=== PATIENT | female | born 1945 | race Caucasian/White ===

== ENCOUNTER 2018-08-25 11:50 | Outpatient (RCR) | payer MEDICARE, OTHER, SELFPAY ==
--- NOTE | 2018-08-25 13:39 | HP.PTEVAL_ITS ---
Patient's Visit Information KARLA WAY is a 73 year old F referred to Physical Therapy by Fadi Chinchilla MD with a diagnosis of SACROILIITIS. Date of Evaluation: 08/25/18 Physical Therapist: Ann Simon PT, Cert MDT - Visit Plan Frequency: 2-3x /Week Duration: 4-6 Weeks Plan: RIGHT BUTTOCK US. POSTURE CORRECTION/STRENGTHENING, INSTRUCTION IN APPROPRIATE BODY MECHANICS AND ACTIVITY MODIFICATIONS. DLS STARTING WITH A NEUTRAL SPINE PROGRESSING ROM TOLERATED. KAYLYN LE ROM, STRETCHING AND STRENGTHENING. HEP INSTRUCTION. - Subjective Findings: Work/Leisure: SEMI-RETIRED. 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 Disability: NO. Present symptoms: RIGHT BUTTOCK PAIN AND PATIENT POINTS TO HER RIGHT BUTTOCK REGION CLOSE TO HER ISHIAL TUBEROSITY. PATIENT REPORTS THE PAIN IS STARTING (BURING) IN THE LEFT BUTTOCK TOO WHICH HAS STARTED SINCE SEEING DR. CHINCHILLA LAST (ABOUT A WEEK). Present since: JANUARY 2018. Pain Scale: WORST 6/10, LEAST 0/10. Currently: 0/10. Commenced as a result of: NO APPARENT REASON. Symptoms at onset: RIGHT HIP. Worse: SITTING ON HARD SURFACES, WALKING A LOT, STANDING AND STEPS. Better: SITTING ON SOMETHING SOFT. Disturbed sleep: NO. Previous history/Previous treatment: CORTISONE SHOT IN JANUARY 2018 - HELPED FOR ABOUT 2-3 WEEKS ONLY. APPOINTMENT PENDING Sep WITH CONSULT WITH DR. CARCAMO FOR INJECTION. NO HISTORY OF BACK PROBLEMS OR TREATMENTS. NO BACK SURGERY, NO BACK INJECTIONS AND NO CHIROPRACTOR. NO HIS SURGERY. Coughing/sneezing/straining: NO. Gait: LIMP ON RIGHT LEG AND FEET FURTHER APART - JUST SINCE THIS CAME ON IN JANUARY. Difficulty initiating urinatin: NO. Accidents: NO MVA'S. FELL LAST SUMMER AT [employer] ON LEFT HIP AND SEEMED TO ONLY BRUISE IT. Unexplained weight loss: NO. Imaging: JANUARY 2018 X-RAY SHOWED RIGHT HIP BURSITIS. PMH: RIGHT TKR 2010, HTN, HIGH CHOLESTEROL, GLAUCOMA. PLOF (Prior Level of Function): PATIENT WAS ABLE TO SIT, TRAVEL, SO STEPS, STAND AND WALK LONGER WITHOUT RIGHT HIP/BACK PAIN PRIOR TO APPROX JANUARY 2018 - Objective Sitting/Standing Posture: POOR. DECREASED LORDOSIS BUT NO RELEVENT LATERAL SHIFT. Active Correction of posture: NE. Other Observations: INDEP GAIT INTO PT WITH DECREASED CADANCE AND MILD LIMP ON LLE WITH NO LOB AND NO AD'S. Motor deficit: LEFT HIP 4/5, LEFT KNEE EXT 4/5, KNEE FLEX 4-/5, ANKLE 5/5. RIGHT HIP FLEX 4-/5, KNEE EXT 3-/5 (EXTENSOR LAG WITH SLR), KNEE FLEX 3-/5, ANKLE 5/5. TESTING OF RIGHT HAMSTRING PROVOKES RIGHT BUTTOCK PAIN AND TESTING OF LEFT HAMSTRINGS PROVOKES LEFT BUTTOCK PAIN. PATIENT CAN MUCH MORE EASILY DO A SLR ON THE LEFT COMPARED TO THE RIGHT. SHE CAN ALSO FLEX HER LEFT KNEE MUCH BETTER IN PRONE THAN SHE CAN THE RIGHT. Sensory deficit: NO. ROM deficit: KAYLYN LE'S WFL. Dural Signs: NEGATIVE KAYLYN LE'S. Lumbar mvmt loss: flex - MIN - INCREASES LEFT BUTTOCK PAIN. ext - MOD - NE. R SG - MOD - NE. L SG - MIN - PRODUCES CENTRAL LBP. Core strength: POOR. Palpation: NO ACUTE TENDERNESS WITH PALPATION OF THE LUMBAR REGION, SI JOINTS, SACRUM OR GREATER TROCH REGIONS. - Goals Goal 1:: DECREASE C/O RIGHT BUTTOCK PAIN Goal Time Frame: 4-6 Weeks Goal 2:: IMPROVE SITTING, STANDING, WALKING, STAIR CLIMBING AND TRAVEL FUNCTION Goal Time Frame: 4-6 Weeks Goal 3:: INSTRUCT IN PROPHYLAXIS Goal Time Frame: 4-6 Weeks - Rehabilitation Potential Rehabilitation Potential: Fair - Anticipated Interventions Patient/Client Instruction: Educate patient on: Condition, Plan of Care, Risk Factors, Benefits of Fitness Program For the Purpose of:: To improve self management Therapeutic Exercise to Include: Strength training, Body mechanics, Postural training, Flexibilty training, In an aquatic setting, Dynamic Lumbar Stabilization For the Purpose of:: To decrease pain, To improve nutrient delivery to tissue, To improve muscle performance and motor function, To increase tolerance to activity/condition/position, To improve ability of physical actions for home/community/work/leisure Ultrasound (thermal/non thermal): Yes For the Purpose of:: To decrease pain, To decrease swelling/inflammation, To improve nutrient delivery to tissue Thank you for the opportunity to evaluate your patient. For Medicare and Medicare HMO plans, please review the plan of care and approve it. It will need to be FAXED BACK to us at [phone] for Medicare purposes. For Medicare only, by signing this I certify the plan of care. Please let me know if there are questions or concerns regarding this plan of care. Physician Signature: Date:
--- NOTE | 2018-09-09 10:40 | HP.PT.NRP ---
HP - Discharge Summary (1) - Patient Information KARLA WAY was seen in my office for initial evaluation on 08/25/18. The following Plan of Care was established for this patient: Initial Frequency: 2-3x /Week Initial Duration: 4-6 Weeks - Anticipated Interventions Patient/Client Instruction: Educate patient on: Condition, Plan of Care, Risk Factors, Benefits of Fitness Program For the Purpose of:: To improve self management Therapeutic Exercise to Include: Strength training, Body mechanics, Postural training, Flexibilty training, In an aquatic setting, Dynamic Lumbar Stabilization For the Purpose of:: To decrease pain, To improve nutrient delivery to tissue, To improve muscle performance and motor function, To increase tolerance to activity/condition/position, To improve ability of physical actions for home/community/work/leisure Ultrasound (thermal/non thermal): Yes For the Purpose of:: To decrease pain, To decrease swelling/inflammation, To improve nutrient delivery to tissue This patient was last seen in our office 09/07/18. Pertinent comments regarding their Physical therapy will appear below: I RECEIVED A NOTE STATING PATIENT CALLED AND CANCELLED ALL VISITS DUE TO CONFIRMING THAT [facility] IS OUT OF HER INSURANCE NETWORK AND SHE IS GOING TO GO TO [facility]. I AM GOING TO GO AHEAD AND DISCHARGE HER CHART AT THIS TIME. At this point I will be discontinuing this patient from physical therapy. I would be happy to see this patient again in the future if found appropriate by the physician. Thank you! Ann Simon, PT, Cert MDT
== END 2018-08-25 19:00 | disposition home or self-care (01) ==
LOC: PT 11:50
PROVIDERS: Family Provider Family Medicine; PCP Family Medicine; Referring Provider Specialist; Visit Provider Specialist
DX: M46.1 Sacroiliitis, not elsewhere classified (principal)
CPT/HCPCS: 97162; 97530

== ENCOUNTER → 2020-10-14 11:49 | Outpatient (CLI) | payer MEDICARE, SELFPAY ==
[2015-11-15 13:02] VITALS: BMI 14.6
[2020-10-14 15:22] LABS: Creatinine, Serum 1.07 mg/dL (0.55-1.02); EST Glomerular Filtration Rate 53 mL/min (>60); Est Glom Filt Rate - Afr Amer 64 mL/min (>60)
== END ==
PROVIDERS: PCP Family Medicine; Visit Provider Specialist
DX: M16.11 Unilateral primary osteoarthritis, right hip (principal); M25.551 Pain in right hip
CPT/HCPCS: 36415; 82565

== ENCOUNTER → 2021-07-01 14:06 | Outpatient (CLI) | payer MEDICARE, SELFPAY ==
--- NOTE | 2021-07-01 14:16 | CT_ITS ---
STUDY: CT LEFT LOWER EXTREMITY WITHOUT CONTRAST REASON FOR EXAM: Left knee osteoarthritis, varus deformity, surgical planning. TECHNIQUE: Transaxial CT imaging of the lower extremity was performed. Coronal and sagittal images were reformatted. Individualized dose optimization techniques were used for this CT. COMPARISON: Radiographs 06/28/2015. FINDINGS: Knee: There are small marginal osteophytes, joint space narrowing, and subchondral eburnation of the medial femorotibial compartment and subchondral cystic change of the medial tibial plateau (coronal reconstructions 41-46). There is preservation of the articular joint space of the lateral knee compartment. There are minimal marginal osteophytes of the patella with preservation of the joint space of the patellofemoral articulation. Normal proximal tibiofibular articulation. There is a joint effusion. There is a small popliteal cyst (axial image 328). The quadriceps tendon is grossly normal. The patellar tendon is grossly normal. Normal Hoffa''s fat pad. There is chondrocalcinosis of the left knee. There is an intramuscular lipoma in the proximal medial gastrocnemius muscle (axial image 380). There is a intramuscular lipoma in the distal medial gastrocnemius muscle (axial image 562). Hip: There is joint space narrowing of the left hip (coronal reconstruction 50). There is chondrocalcinosis of the left hip. Ankle: There is mild chondrocalcinosis of the tibiotalar articulation. Normal posterior subtalar joint. There is joint space narrowing of the talonavicular articulation (sagittal reconstruction 24). There are posterior and plantar calcaneal enthesophytes. CT/Extremity Lower without Contra IMPRESSION: Left knee osteoarthritis. Electronically Signed: Stalin Benavides MD at 14:56 EDT Tel , Service support ,
== END ==
PROVIDERS: PCP Family Medicine; Referring Provider Specialist; Visit Provider Specialist
DX: M21.162 Varus deformity, not elsewhere classified, left knee (principal)
CPT/HCPCS: 73700

== ENCOUNTER 2021-07-09 07:49 | Day surgery (SDC) | payer MEDICARE, SELFPAY ==
--- NOTE | 2021-06-17 13:18 | HP.PCM_ITS ---
History and Physical History and Physical [facility] Patient Name: Nieves Ndiaye : 1945 From: ABHISHEK GOMES PA-C DATE OF SURGERY: 07/09/2021 SCHEDULED PROCEDURE: left total knee arthroplasty HISTORY OF PRESENT ILLNESS: Preoperative history and physical exam was performed on June 16, 2021. This is a 75-year-old female who has been having ongoing pain in the left knee since 2019. There was no trauma or injury. Her pain as being constant sore. Pain is increased with stairs, walking, and standing. She does have previous history of a right total knee arthroplasty by Dr. Edwin Berry in August 2011. She has had some pain in this knee. Patient has had increased pain in the left knee which has progressively been getting worse for the past couple months. Patient did have previous corticosteroid injection which offered no relief in her symptoms for the left knee. Patient has tried conservative measures including heat, cortisone injection, home exercises and oral medications including Tylenol with no relief in symptoms. There is been no previous surgery on the left knee. We are obtaining surgical clearance from the primary care physician Dr. Torres. Patient reports having a recent urinary tract infection which she finished antibiotics and is currently asymptomatic. She denies any fevers, chills. Patient has medical history pertinent for hypertension, hypercholesterolemia, chronic kidney disease stage III. She currently denies any chest pain or shortness of breath. After failing conservative measures and discussing treatment options with Dr. Fadi Chinchilla, the patient does wish to proceed with a left total knee arthroplasty. REVIEW OF SYSTEMS: ROS: Const: Denies anorexia, change in appetite, fever, difficulty sleeping, weight change. CV: Denies chest pain, heart murmur, irregular heartbeat and peripheral vascular disease. Resp: Denies asthma, cough, pneumonia, sleep apnea, shortness of breath, tuberculosis and wheezing. GI: Denies constipation, diarrhea, heartburn, nausea, rectal itching, bloody stools and vomiting. : Denies incontinence. Musculo: Reports pain, trouble walking and weakness, but denies leg swelling. Skin: Denies Raynaud's, history of shingles and tattoo. Neuro: Denies ambulatory dysfunction, dizziness, numbness/tingling and tremor. Psych: Denies anxiety, depression, insomnia, mental illness and stress. Cristobal/Lymph: Denies anemia, bleeding/bruising tendency and past transfusion. Reviewed, no changes. PAST MEDICAL HISTORY: Advance Care Plan: Other Directive, POA Effective Date: 01/22/2015 Other Directive, LIVING WILL Effective Date: 01/22/2015 PMH: Medical Problems: High Blood Pressure, Hypercholesterolemia, Chronic Kidney disease Accidents: None Surgical Hx: RT Knee Arthroscopy - (06/10/2011) [facility] RT TKR - (08/17/2011) [facility] @ [facility] RT Hip Injection Under Fluoro - (08/09/2020) [facility] AT [facility] RT Hip Tendon Repair - (11/2020) NEYMAR CEDENO Anesthesia Complications: None Assistive Devices: Glasses Reviewed and updated. SOCIAL HISTORY: SH: Marital: .Occupation: Retired.Work Status: Retired.Hand Dominance: Left- handed. Personal Habits: Tobacco Use: Patient is a former smoker.Cigarette Use: Former.Alcohol: Occasionally.Drug Use: Denies Use.Enjoy Exercising: Exercises 1- 3 X/Week. Reviewed, no changes. VITALS: Ht: 63.1 Wt: 182lb Wt k.555 BMI: 32.1 BP: 136/78 Pulse: 66 Resp: 16 T: 97.6 T: 36.4C Pain Level: 0 ALLERGIES: Monopril Cat Gut MEDICATIONS: Oxycodone HCL 5 mg 1-2 tab by mouth every 4 hours, Promethazine HCL 12.5 mg 1-2 tablets by mouth every 6 hours, Famotidine 20 mg 1 by mouth every day, Lisinopril 40 mg 1 tab PO daily, Hydrochlorothiazide 12.5 mg 1 po qdAY, Simvastatin 20 mg 1 po qdAY, Latanoprost 0.005 % 1 drop each eye every night at bedtime, Amlodipine Besylate 5 mg 1 tab PO daily, Alendronate Sodium 70 mg monthly, Timolol Maleate 0.5 % (Daily) lt eye bid, Calcium 600 600 mg 1po qday, Vitamin D3 2000 Unit 1po qday, Fish Oil 1000 mg 1 capsule PO 1x/day PRE-OP EXAM: General appearance:NORMAL Other: Eyes: Conjunctivae and lids: NORMAL Pupils: ERR Ears, Nose, Mouth, and Throat: NORMAL Other: Inspection of lips, teeth and gums: NORMAL Other: Neck: Examination of neck: no masses noted. Respiratory: Assessment of respiratory effort: NORMAL Other: Auscultation of lungs: clear to auscultation no wheezes, rhonchi or rales. Cardiovascular: Auscultation of heart: regular rate and rhythm, positive systolic murmur. PHYSICAL EXAMINATION: On exam patient does walk with an antalgic gait. She has tenderness to palpation along the medial aspect of the left knee. Tenderness over the medial joint line. She has trace effusion. Range of motion: 0 extension to 120 flexion. Stable to varus/valgus stress test, stable to anterior/posterior drawer. She has correctable varus alignment on exam. Sensation intact to light touch. IMAGING STUDIES: Previous x-rays of the left knee reveal varus alignment with subchondral sclerosis, osteophyte formation consistent with severe stage IV osteoarthritis with bony erosions in the medial compartment. IMPRESSION: 1. Severe left knee osteoarthritis with varus deformity 2. Presence of right total knee arthroplasty 3. Hypertension 4. Hypercholesterolemia 5. Stage III chronic kidney disease PLAN: Dr. Fadi Chinchilla did discuss and review with the patient all treatment options including surgical versus nonsurgical options. Patient does wish to proceed with the above-stated procedure. Potential risks, benefits, and complications of the procedure were discussed in detail including but not limited to , infection, nerve and blood vessel damage, persistent pain, numbness, tingling, paresthesias, blood clot, pulmonary embolism, and requirement for possible further surgery. The patient expressed full understanding and has no further questions for the doctor. Patient does agree to proceed with the above-stated procedure and has signed the surgery consent form. We discussed the current risks associated with COVID 19. This does include the risk of exposure while in the hospital. Patient was reassured local hospitals have low infection rates and are taking all necessary precautions to avoid exposure to patients. In addition, we discussed strategies that can be used to help limit exposure including those that limit the patient's time in the hospital. Also using strategies to limit the patient's need for continued inpatient services after being discharged from the hospital. Patient was notified that we will need to comply with any screening or testing the hospital wishes to perform or that surgery may be delayed for any positive results. This dictation was created using voice recognition software. Phonetic and/or grammatical errors may exist. ___ I have re-examined the patient. There are no clinical changes since date of exam. ___ See progress notes for changes. ___ Dictated on admission Date: Time: Signature:
[2021-07-01 16:00] LABS: Magnesium 1.8 mg/dL (1.6-2.6)
[2021-07-09] VITALS (12 sets, daily range): BP systolic 76–130; BP diastolic 44–72; PULSE 44–87; RESP 16; TEMP 35.8–36.3; O2SAT 94–100; BMI 32.9
--- NOTE | 2021-07-09 06:47 | PCM.OPRPT ---
Report of Operation Date of Procedure: 07/09/21 Pre-Operative Diagnosis: Left knee primary osteoarthritis Post-Operative Diagnosis: Left knee primary osteoarthritis Surgery/Procedure Performed:: Left knee minimally invasive robotic assisted total knee replacement Description of Surgical Findings:: Stable knee with good patella tracking Surgeon: Fadi Chinchilla bath mix operator: julissa hines Type of Anesthesia: Spinal Anesthesiologist: Cuong Martinez Special Medications: 2 g Ancef, 1 g TXA at incision, 1 g TXA closure, 10 mg Decadron, joint cocktail (5 mg Duramorph, 30 mL of 0.5% Ropivicaine, 1000 units of epinephrine, 30 mg of Toradol) Specimen's removed: Bony cuts Estimated Blood Loss (mL): 50 Fluids Replaced: 1200 ml Description of Procedure: Implants used: 1. Bonnie size 4 triathlon cruciate retaining distal femoral press-fit component 2. Bonnie size 4 press-fit tritanium tibial baseplate 3. Bonnie X3 9 mm CS polyethylene 4. Murdock X3 29 mm asymmetric patella Brief history operative indications: 75-year-old f with history of left knee osteoarthritis with radiographic findings with loss of joint space, osteophyte formation and subchondral sclerosis. Failed conservative measures as mentioned in the H&P. Discussion of total knee arthroplasty as well as risk and benefits were discussed the patient including but not limited to blood loss, DVTs, PEs, neurovascular damage, general risk of anesthesia including loss of life, and stiffness or instability were discussed with patient. Patient demonstrated understanding and was able to sign informed consent. Procedure: On the date of procedure patient's left lower extremity was marked in the preoperative area. The patient was then taken back to the operating room where the patient was placed on the table in the supine position. All bony prominences were identified a well-padded. Anesthesia assumed control of the C-spine and airway and remained controlled throughout the remainder of the procedure. A tourniquet was placed on the left upper thigh and the leg was prepped in a sterile fashion. The surgeon then scrubbed at this time .Upon reentering the room left lower extremity was draped in a standard orthopedic fashion. A timeout was then called and everyone agreed upon the side, the site, the procedure to be performed, patient's identity and antibiotics given. Esmarch bandage was used to exsanguinate the extremity and the tourniquet was placed up to 250 mmHg with the knee in flexion. A midline skin incision was made and sharp dissection was taken down through skin subcutaneous tissue and fat. The standard medial parapatellar incision was made and the patella was subluxed laterally. An Appropriate deep MCL release was done and the fat pad was resected. Our attention was then directed to the patella. The patella was everted and a flat resection was made. The knee was then flexed up in 2 femoral pins were placed inside the incision and 2 tibial pins were placed outside the incision in the medial tibia bicortically. Once this was completed the 2 checkpoints in the femur and tibia were placed. Knee was then flexed up and the bony landmarks were registered. Once this was completed knee was taken through range of motion and manually stressed allowing us to a plan for an appropriate tibial cut. The robotic arm was brought into the field sterilely and checkpoint and saw were registered. Based on the patient's deformity the tibial cut was made neutral to the tibial axis. At this time the tensioner was then placed in the joint and ligament tension was checked at 90 degrees and full extension. Based on the patient's ligamentous tension appropriate adjustments were made to the operative plan and ligament releases were done. Once we were happy with our operative plan with balanced flexion and extension gaps our attention was directed to the femur. The robot was brought into the field sterilely and registered. Posterior condylar cuts, anterior chamfer cuts and anterior cuts were appropriately made for a size 4 femur. When these were completed the saws were switched out in the distal femoral and posterior chamfer cuts were made. Protecting the soft tissue throughout this time. A size 4 tibial base plate was selected. the knee was flexed to 90 degrees and the soft tissues and posterior osteophytes were removed from the joint. 40 cc of the periarticular injection was injected into the posterior medial corner of the joint. The appropriate trials were then placed on the femur and tibia. A trial polyethylene was trialed to ensure proper balancing and stability of the knee. The appropriate tibial internal rotation was then marked with a bovie. Our attention was then directed to the patella. The lug holes were drilled and the patella trial was placed. Patellar tracking was checked and deemed appropriate. Once we were happy lug holes were drilled for the femur and trial components were removed. the tibia was subluxed and pinned into place and the keel was punched and drilled appropriately. Final components were verified and opened, and cement was mixed in a vacuum. [employer] Simplex cement was used. The wound was copiously irrigated with normal saline. When the cement was ready the components were impacted into place starting with the tibia, femur and finally cementing the patella. The trial poly component was placed and the knee was placed in full extension. All excess cement was removed in the process. Once the cement had cured the tracking, alignment and balance were verified and a size 9 mm CS polyethylene component was placed. Once the final components were placed a 3-minute dilute Betadine lavage was performed followed by an Irrisept lavage was performed and the wound was copiously irrigated with normal saline solution and the periarticular injection was given. The wound was closed in a layer huizar fashion using #1 vicryl interrupted sutures for the arthrotomy, 2-0 interrupted Vicryl suture for the subcuticular layer and benito for final skin closure. A sterile compressive dressing was then placed. The patient was then awakened from anesthesia, transferred to the [facility] and transferred to the PACU for recovery. Post op plan DVT ppx: ASA 81mg BID, thigh high compression stockings Follow up: in office in 2 weeks for wound check PT: to start POD #0 at hospital, outpatient PT should be arranged. My physician assistant professor surgical technology was a vital part of this case. He was important in appropriate retraction during the case, and protection of soft tissues during bony cuts. His intimate knowledge of the case and my steps aided in safe and expedient completion of the procedure as well as appropriate position of the leg during the case. He was also vital in assisting with closure under my direct supervision. Due to the complexity of this case robotic arm was used to assist in the surgery to improve accuracy and clinical outcomes. Complications No intraoperative complications Admit VTE Documentation VTE Present on Admission: No VTE Mechan Device Prophylaxis: SCD's and Thigh High MARGARITA Hose VTE Pharm Prophylaxis ordered?: Yes
[2021-07-09] MEDS: Acetaminophen 500 MG Tablet 1000 MG PO (08:27)
[2021-07-09] MEDS: Gabapentin 600 MG Tablet PO (08:27)
[2021-07-09] MEDS: Lactated Ringers 1,000 ML 999 ML IV ×2 (08:29→13:15)
[2021-07-09] MEDS: Lactated Ringers 1,000 ML 75 ML IV (08:30)
[2021-07-09 09:06] LABS: Bedside Glucose 82 mg/dL (70-110)
[2021-07-09] MEDS: Cefazolin 2 GM in 0.9% Normal Saline 100 ML IV (11:05)
[2021-07-09] MEDS: dexAMETHasone 10 MG/ML Vial IV (11:33)
[2021-07-09] MEDS: Joint Pain Solution (NO KETOROLAC) IV (12:36)
--- NOTE | 2021-07-09 13:37 | RAD_ITS ---
STUDY: X-RAY - LEFT KNEE REASON FOR EXAM: Postoperative evaluation of left total knee arthroplasty. TECHNIQUE: 2 view(s) of the knee. COMPARISON: Radiographs 06/28/2015. FINDINGS: There is a left total knee arthroplasty without evidence of complication. There is postoperative gas in the soft tissues and overlying skin benito. RAD/Knee 1 or 2 Views IMPRESSION: Uncomplicated left total knee arthroplasty. Electronically Signed: Stalin Benavides MD at 14:19 EDT Tel , Service support ,
[2021-07-09] MEDS: Cefazolin 1 GM/50 ML BAG IV (15:30)
[2021-07-09] MEDS: Ketorolac 30 MG/ML Syringe 15 MG IV (15:46)
[2021-07-09] MEDS: oxyCODONE 5 MG Tablet PO (16:20)
--- NOTE | 2021-07-10 08:14 | SUR.PHASEII ---
Note timed for 07/09/2021 1800; Dressing changed per order from Dr. Chinchilla d/t bleeding through dressing after working with therapy. By Armida Mata RN and Nataliia Mata RN. AG mepilex replaced (sterile gloves doned after removing initial dressing and new warren wrap applied and new kishor stocking. Patient tolerated well.
== END 2021-07-09 18:05 | disposition home or self-care (01) ==
LOC: SDC 07:50 → AC 07:51
PROVIDERS: Anesthesiology; PCP Family Medicine; Referring Provider Specialist; Visit Provider Specialist
PROC: 0SRD0JZ Replacement of Left Knee Joint with Synthetic Substitute, Open Approach (ICD-10-PCS; CPT 27447; principal; 2021-07-09 10:00)
DX: M17.12 Unilateral primary osteoarthritis, left knee (principal); I12.9 Hypertensive chronic kidney disease with stage 1 through stage 4 chronic kidney disease, or unspecified chronic kidney disease; N18.30 Chronic kidney disease, stage 3 unspecified; E78.00 Pure hypercholesterolemia, unspecified; Z79.899 Other long term (current) drug therapy; Z87.891 Personal history of nicotine dependence; Z96.651 Presence of right artificial knee joint
CPT/HCPCS: 01402; 27447; S2900; 36415; 73560; 82962; 83735; 87081; 97162; C1776; J7120

== ENCOUNTER 2022-05-26 05:50 | Day surgery (SDC) | payer MEDICARE, SELFPAY ==
--- NOTE | 2022-05-26 06:19 | HP.PCM_ITS ---
History and Physical Date of Admission: 05/26/22 Visit Reasons:?COLONOSCOPY Chief Complaint: colonoscopy, hx polyps Radio Communication Coordinator Required: No Is patient in pain?: No Allergies fosinopril [From Monopril] Allergy (Unknown, Verified 04/13/22 13:47) unknownsuture Allergy (Unknown, Verified 04/13/22 13:47) unknown Medications alendronate 70 mg tablet (Fosamax) 70 mg PO QWEEK 10/28/20 [History Confirmed 04/13/22] amlodipine 5 mg tablet (Norvasc) 5 mg PO DAILY 10/28/20 [History Confirmed 04/13/22] calcium carbonate 260 mg calcium (648 mg) tablet 260 mg PO DAILY 10/28/20 [History Confirmed 04/13/22] cholecalciferol (vitamin D3) 100 mcg (4,000 unit) capsule 100 mcg PO DAILY 0 10/28/20 [History Confirmed 04/13/22] hydrochlorothiazide 12.5 mg capsule 12.5 mg PO DAILY 10/28/20 [History Confirmed 04/13/22] lisinopril 40 mg tablet 40 mg PO DAILY 10/28/20 [History Confirmed 04/13/22] omega-3 fatty acids 1,000 mg capsule (Fish Oil Concentrate) 1,000 mg PO DAILY 10/28/20 [History Confirmed 04/13/22] simvastatin 20 mg tablet 20 mg PO DAILY 10/28/20 [History Confirmed 04/13/22] timolol maleate 0.25 % eye drops (Timoptic) 1 drp ophthalmic (eye) BID 10/28/20 [History Confirmed 04/13/22] latanoprost 0.005 % eye drops 1 drp EACH EYE BID 06/23/21 [History Confirmed 04/13/22] Is last menstrual period known: No Post menopausal: Yes Patient : No PFSH Medical History? Aortic heart murmur Arthritis Arthritis Cancer Former smoker Glaucoma High cholesterol History of pain when walking Hypertension Infected sebaceous cyst (~10/28/20) Internal hemorrhoids Loss of consciousness Osteopenia Wears glasses Surgical History?(Updated 04/13/22 @ 13:45 by Chelsea Shay) history incision and drainage sebaceous cyst sternum Hx of colonoscopy (~10/2016) Hx of dilation and curettage Hx of squamous cell carcinoma excision Hx of total knee replacement Status post hip surgery Family History?(Updated 04/13/22 @ 13:47 by Chelsea Shay) Sister Colon cancer Social History? Smoking Status:? Former smoker HPI HPI HPI: KARLA WAY, is a 76 F who presents to the office today for surgical consultation regarding possible colonoscopy.? The patient is referred by Dr. Deejay Torres and a written copy of my surgical consult recommendations will return to him.? The patient set up personal history of colon polyps and a family history of colon cancer.? Because of Hemoccult positive stool on October 20, 2016 Dr. Marco Antonio Blake performed a colonoscopy.? No abnormalities were seen.? Repeat colonoscopy 7 years recommended.? It is of particular note that the patient has a sister age 80 just had colon cancer and required resection.? The patient states she has not noticed any bright red blood per rectum or melena.? I do assist the patient's with AV access. ROS General General: No weight change, appetite, fatigue, colon cancer, breast cancer or weakness HEENT HEENT: Yes eye surgery; No difficulty swallowing, eye injury, swollen glands or hoarseness Endo Endocrine: No thyroid disease, diabetes mellitus, thyroid cancer, Hair loss, heat intolerance or cold intolerance Breast Breast: No left breast lump, right breast lump, nipple discharge, breast pain, abnormal mammogram, abnormal US or breast enlargement Musc Musculoskeletal: No back problems, arthritis, rheumatoid arthritis, gout or joint pain Cardio Cardiovascular: Yes high blood pressure; No murmur, pacemaker, heart disease, atrial fibrillation, heart attack, heart stent, palpitations, shortness of breat with exertion or chest pain Psych Psychiatric: No depression, anxiety or hearing voices Resp Respiratory: No shortness of breath, No sleep apnea, No cough, No COPD, No asthma, No emphysema and No wheezing Gastro Gastrointestinal: No abdominal pain, No nausea or vomiting, No diarrhea, No constipation, No blood in stool, No acid reflux, No hemorrhoids, No ulcers, No gallbladder problem and No black,tarry stools Cristobal Hematologic: No blood thinners, No blood disorders, No bleeding, No anemia and No blood clots Neuro Neurologic: No weakness Exam Const General: cooperative, healthy appearing, comfortable and no acute distress HENMT Head: normal to inspection Eyes General: appearance normal, both eyes and all related structures Neck Neck: normal visual inspection Resp Effort & Inspection: normal respiratory effort Auscultation: clear to auscultation bilaterally Cardio Rate: regular rate Rhythm: regular rhythm GI Inspection: normal to inspection Palpation: no hepatosplenomegaly Auscultation: normal bowel sounds Musc Cervical Spine: normal cervical lordosis Neuro General: patient alert, patient awake and patient oriented x3 Extrem General: no calf tenderness Psych Appearance: grossly normal Assessment and Plan Assessment and Plan (1) Personal history of colonic polyps: ?Status:?Acute (2) Family history of colon cancer: ?Status:?Acute Plan I recommended the patient a colonoscopy with possible biopsy or polypectomy as indicated.? She is aware of the technique, benefit, risk, alternatives.? She has had an opportunity to ask and have questions answered.? Based upon personal history of colon polyps and even more pertinently family history of colon cancer in a sister at age 80 I believe that it is pertinent to pursue further investigation.? I very much appreciate the kind opportunity of assisting with her surgical care. Copy: Dr. Deejay Rodriguez M.D., F.A.C.S I have re-examined the patient. There are no clinical changes since date of exam. Justo Rodriguez M.D., F.A.C.S.
[2022-05-26 06:24] VITALS: BP 116/68; PULSE 59; RESP 16; TEMP 36.3; O2SAT 100; BMI 30.9
[2022-05-26] MEDS: Lactated Ringers 1,000 ML 15 ML IV (06:27)
--- NOTE | 2022-05-26 07:00 | COLBX_PTH ---
PATIENT: KARLA WAY LOC: EN U#:[id number] AGE/SX: 76/F ROOM: RE05/26/[address]: Dr. Justo Rodriguez MD : 1945 BED: DIS: 05/26/2022 SPEC #: [id number] RECD: 05/26/22 11:06 STATUS: CIERA BRITO #: [id number] JANIYA: 05/26/22 07:[address]: Justo Rodriguez DEPT: SURGICAL PATHOLOGY RECD BY: Ramón Najera ENTERED: 05/26/22 12:07 SP TYPE: COLON BX OTHR DR: Dr. Deejay Torres MD Tissues: A - Transverse colon B - Sigmoid colon biopsy C - Rectum, NOS Procedures: Surgery Specimen Level IV HEADER OPERATION: Colonoscopy (MAC) with biopsies PRE-OP DIAGNOSIS: History of colonic polyps; family history of colon cancer TISSUE SUBMITTED: A - Biopsy of proximal transverse polyp, B - Biopsy of mid sigmoid polyp and hot snare, C - Biopsy of rectum polyp MICROSCOPIC DIAGNOSIS A. Proximal transverse colon polyp, biopsy: Hyperplastic polyp. B. Mid sigmoid polyp, biopsy: Fragments of hyperplastic polyp. C. Rectum polyp, biopsy: Hyperplastic polyp. ROBERT:mei 05/27/2022 MICROSCOPIC DESCRIPTION Slides are reviewed. GROSS DESCRIPTION A - Received in fixative is one container labeled with the patient's name and designated biopsy of proximal transverse polyp. The specimen consists of one irregular fragment of light valera soft tissue that measures 0.2 x 0.1 x 0.1 cm. The specimen is totally submitted in one cassette. B - Received in fixative is one container labeled with the patient's name and designated biopsy of mid polyp. The specimen consists of multiple irregular fragments of light valera soft tissue that in aggregate measure 0.7 x 0.5 x 0.1 cm. The specimen is totally submitted in one cassette. C - Received in fixative is one container labeled with the patient's name and designated biopsy of rectum polyp. The specimen consists of one irregular fragment of light valera soft tissue that measures 0.3 x 0.3 x 0.1 cm. The specimen is totally submitted in one cassette. / ROBERT:mei 05/26/2022 TC:1 CPT: 24628 x3
[2022-05-26 07:37] VITALS: BP 116/68; BP 98/54; PULSE 73; RESP 16; TEMP 36.5; O2SAT 100
--- NOTE | 2022-05-26 07:39 | OP.COLON_ITS ---
Patient Name: Nieves Ndiaye Procedure Date: 05/26/2022 7:01 AM Date of : 1945 Age: 76 Procedure: Colonoscopy Indications: High risk colon cancer surveillance: Personal history of colonic polyps, Family history of colon cancer in a first-degree relative Providers: Justo Rodriguez MD Medicines: See the Anesthesia note for documentation of the administered medications Patient Profile: Last Colonoscopy: October 2016. Complications: No immediate complications. Procedure: Pre-Anesthesia Assessment: - Prior to the procedure, a History and Physical was performed, and patient medications and allergies were reviewed. The patient's tolerance of previous anesthesia was also reviewed. The risks and benefits of the procedure and the sedation options and risks were discussed with the patient. All questions were answered, and informed consent was obtained. Prior Anticoagulants: The patient has taken no previous anticoagulant or antiplatelet agents. ASA Grade Assessment: II - A patient with mild systemic disease. After reviewing the risks and benefits, the patient was deemed in satisfactory condition to undergo the procedure. After I obtained informed consent, the scope was passed under direct vision. Throughout the procedure, the patient's blood pressure, pulse, and oxygen saturations were monitored continuously. The colonoscope was introduced through the anus and advanced to the cecum, identified by appendiceal orifice and ileocecal valve. The colonoscopy was performed without difficulty. The patient tolerated the procedure well. The quality of the bowel preparation was good. The ileocecal valve and the appendiceal orifice were photographed. Scope In: 7:08:41 AM Scope Withdrawal Time 0 hours 14 minutes 34 seconds Scope Out: 7:33:38 AM Total Procedure Duration Time 0 hours 24 minutes 57 seconds Findings: The digital rectal exam findings include non-thrombosed internal hemorrhoids and internal hemorrhoids that prolapse with straining, but spontaneously regress to the resting position (Grade II). A 3 mm polyp was found in the proximal transverse colon. The polyp was sessile. The polyp was removed with a cold biopsy forceps. Resection and retrieval were complete. A 6 mm polyp was found in the mid sigmoid colon. The polyp was sessile. The polyp was removed with a hot snare. Resection and retrieval were complete. A 3 mm polyp was found in the rectum. The polyp was sessile. The polyp was removed with a cold biopsy forceps. Resection and retrieval were complete. Multiple diverticula were found in the sigmoid colon. Impression: - Non-thrombosed internal hemorrhoids and internal hemorrhoids that prolapse with straining, but spontaneously regress to the resting position (Grade II) found on digital rectal exam. - One 3 mm polyp in the proximal transverse colon, removed with a cold biopsy forceps. Resected and retrieved. - One 6 mm polyp in the mid sigmoid colon, removed with a hot snare. Resected and retrieved. - One 3 mm polyp in the rectum, removed with a cold biopsy forceps. Resected and retrieved. - Diverticulosis in the sigmoid colon. Recommendation: - Discharge patient to home. - Resume previous diet. - Continue present medications. - Repeat colonoscopy in 5 years for surveillance based on pathology results. - Telephone my office for pathology results in 1 week. Procedure Code(s): --- Professional --- 82675, Colonoscopy, flexible; with removal of tumor(s), polyp(s), or other lesion(s) by snare technique 27071, 59, Colonoscopy, flexible; with biopsy, single or multiple Diagnosis Code(s): --- Professional --- Z86.010, Personal history of colonic polyps K64.1, Second degree hemorrhoids D12.3, Benign neoplasm of transverse colon (hepatic flexure or splenic flexure) D12.5, Benign neoplasm of sigmoid colon K62.1, Rectal polyp Z80.0, Family history of malignant neoplasm of digestive organs K57.30, Diverticulosis of large intestine without perforation or abscess without bleeding CPT copyright 2017 [employer]. All rights reserved. The codes documented in this report are preliminary and upon stroke coordinator review may be revised to meet current compliance requirements. Justo Rodriguez MD 05/26/2022 7:39:25 AM This report has been signed electronically. Number of Addenda: 0 Note Initiated On: 05/26/2022 7:01 AM
[2022-05-26 07:40] VITALS: BP 116/68; BP 95/68; PULSE 78; RESP 16; O2SAT 100
--- NOTE | 2022-05-26 07:41 | OP.CCLET_ITS ---
05/26/2022 Deejay Torres MD Re : Colonoscopy procedure for Nieves Ndiaye Dear Dr. Torres This procedure was performed on Thursday, May 26, 2022. My impressions and recommendations are as follows: Impressions : - Non-thrombosed internal hemorrhoids and internal hemorrhoids that prolapse with straining, but spontaneously regress to the resting position (Grade II) found on digital rectal exam. - One 3 mm polyp in the proximal transverse colon, removed with a cold biopsy forceps. Resected and retrieved. - One 6 mm polyp in the mid sigmoid colon, removed with a hot snare. Resected and retrieved. - One 3 mm polyp in the rectum, removed with a cold biopsy forceps. Resected and retrieved. - Diverticulosis in the sigmoid colon. Recommendations : - Discharge patient to home. - Resume previous diet. - Continue present medications. - Repeat colonoscopy in 5 years for surveillance based on pathology results. - Telephone my office for pathology results in 1 week. My findings are described in the full procedure note, which is enclosed. If I can be of further assistance, please feel free to contact me at Doctor phone number(s): Work: . Sincerely, Justo Rodriguez MD 05/26/2022 7:39:25 AM This report has been signed electronically.
[2022-05-26 07:45] VITALS: BP 116/68; BP 92/70; PULSE 74; RESP 16; O2SAT 100
[2022-05-26 07:50] VITALS: BP 116/68; BP 97/54; PULSE 72; RESP 16; O2SAT 100
[2022-05-26 07:55] VITALS: BP 105/63; BP 116/68; PULSE 64; RESP 16; TEMP 36.4; O2SAT 99
== END 2022-05-26 08:40 | disposition home or self-care (01) ==
LOC: EN 05:51 → AC 05:52
PROVIDERS: PCP Family Medicine; Referring Provider Family Medicine; Visit Provider Surgery
PROC: 0DJD8ZZ Inspection of Lower Intestinal Tract, Via Natural or Artificial Opening Endoscopic (ICD-10-PCS; CPT 45378; principal; 2022-05-26 06:55)
DX: Z12.11 Encounter for screening for malignant neoplasm of colon (principal); K64.1 Second degree hemorrhoids; K64.8 Other hemorrhoids; D12.5 Benign neoplasm of sigmoid colon; K62.1 Rectal polyp; K57.30 Diverticulosis of large intestine without perforation or abscess without bleeding; Z86.010 Personal history of colon polyps; Z87.891 Personal history of nicotine dependence; Z80.0 Family history of malignant neoplasm of digestive organs
CPT/HCPCS: 45380; 45385; 88305; J7120; J2405

== ENCOUNTER 2024-01-21 17:48 | Emergency (ER) | payer MEDICARE, SELFPAY ==
[2024-01-21 17:48] VITALS: BP 163/82; PULSE 101; RESP 16; TEMP 36.2; O2SAT 98; BMI 32.7
[2024-01-21] MEDS: Lidocaine 5% Patch 1 PATCH TOPICAL (19:14)
[2024-01-21] MEDS: HYDROcodone Bitartrate/Apap 5/325 Tablet PO (19:14)
[2024-01-21 19:23] VITALS: BP 138/88; PULSE 74; RESP 18; TEMP 36.7; O2SAT 17
--- NOTE | 2024-01-21 19:31 | EDS_ITS ---
HPI History of Present Illness Chief Complaint: Back Narrative Narrative: 6-year-old female presenting with back pain. 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 She states she was bending over at the waist and not bending her knees because she states she has bad knees and is hard for her to kneel down. She states she has had both of her knees repaired. Denies any fall. She states that the incident and she was helping her install light in the pond is when she thinks she hurt her cell. No loss of bladder or bowel control. No saddle anesthesia or p aresthesia. No rashes. No direct injury. Patient is already been seen by her primary care physician's office. She was started on muscle relaxers and anti- inflammatories. She continues to have pain although she admits she was referred to physical therapy and to a spinal surgeon. She had x-rays done of the lumbar spine which were showed degenerative disc disease. She does not have any paresthesias. She is ambulatory. [facility] Medical History Parathyroid abnormality Wears glasses Cancer High cholesterol Loss of consciousness Former smoker History of pain when walking Hypertension Infected sebaceous cyst (~10/28/20) Osteopenia Internal hemorrhoids Glaucoma Arthritis Aortic heart murmur Home Medications ?Medication ?Instructions ?Recorded ?Last Taken ?Type alendronate 70 mg tablet (Fosamax) 70 mg PO QWEEK 10/28/20 Unknown History amlodipine 5 mg tablet (Norvasc) 5 mg PO DAILY 10/28/20 05/26/22 05:30 History lisinopril 40 mg tablet 40 mg PO DAILY 10/28/20 05/26/22 05:30 History simvastatin 20 mg tablet 20 mg PO QHS 10/28/20 Unknown History timolol maleate 0.25 % eye drops 1 drp ophthalmic (eye) BID 10/28/20 Unknown History (Timoptic) latanoprost 0.005 % eye drops 1 drp EACH EYE BID 06/23/21 Unknown History spironolactone 25 mg tablet 25 mg PO DAILY water pill 05/25/22 Unknown History hydrocodone-acetaminophen 5-325mg 1 tab PO Q6H PRN PRN Pain 3 days 01/21/24 Unknown Rx 5mg-325mg #12 TABLETS lidocaine 5 % topical patch 1 patch topical DAILY #15 ea 01/21/24 Unknown Rx (Lidoderm) Allergy/AdvReac Type Severity Reaction Status Date / Time fosinopril (From Monopril) Allergy Unknown unknown Verified 01/21/24 17:51 suture Allergy Unknown unknown Verified 01/21/24 17:51 Family History Sister Colon cancer Surgical History Status post hip surgery history incision and drainage sebaceous cyst sternum Hx of total knee replacement Hx of squamous cell carcinoma excision Hx of dilation and curettage Hx of colonoscopy (~10/2016) Social History Smoking Status: Former smoker ROS ROS ED Constitutional Constitutional ED: Denies chills, fever(s) or sweats Eyes Eyes: Denies blurry vision or change in vision ENT ENT ED: Denies ear pain or sore throat Cardiovascular Cardiovascular: Denies chest pain, palpitations or racing heartbeat Respiratory/Chest Respiratory/Chest: Denies cough, dyspnea or sputum Gastrointestinal Gastrointestinal: Denies abdominal pain, constipation, diarrhea, nausea or vomiting Genitourinary Genitourinary ED: Denies dysuria, hematuria or urinary frequency Musculoskeletal Musculoskeletal: Reports back pain; Denies arthralgias, myalgias or neck pain Integumentary Denies abscess, Abrasions or rash Neurologic Neurologic: Denies headache(s), paresthesias or weakness Psychiatric Psychiatric: Denies anxiety, depression, suicidal ideation or suicidal thoughts Endocrine Endocrinology: Denies polydipsia or polyuria EXAM Physical Exam Const Vital Signs: 01/21/24 17:48 01/21/24 19:23 Temperature 97.2 F L 98.0 F Temperature Source Temporal Pulse Rate 101 H 74 Respiratory Rate 16 18 Blood Pressure 163/82 H 138/88 H Blood Pressure Mean 109 104 Pulse Ox 98 17 Oxygen Delivery Method Room Air Positive well nourished General Appearance ED: NAD HEENT Reports moist mucous membranes Eyes PERRL Cardio regular rate and regular rhythm Back/Spine Back/Spine Narrative: . No midline spinal deformity or step-off of the lumbar spine. No rashes. No bruising. There is bilateral muscular tenderness in the paraspinal musculature here. Patient able to rise from supine position and sit. She is able to go from sitting to standing without assistance. Extremity normal to inspection Neuro oriented x3 and no sensory deficits noted Sensorium / Orientation: alert Motor Exam: strength 5/5 throughout Psych mental status grossly normal Skin no rashes or lesions noted MDM MDM MDM Narrative Medical decision making narrative: 78-year-old female present with back pain. She is already had x-rays and started on muscle relaxers. She states it is not helping. No red flag signs or symptoms. I counseled her that we could give her short supply of [place] and Lidoderm patches to help her bridge through to her follow-up but she would need to see her primary care physician in order to have refills and I recommended that she did follow-up for his physical therapy. Patient amenable to this plan. Prescription refilled here in the hospital via meds to beds and she is discharged stable condition. Impression: 1. Lumbar strain Discharge Plan Triage Chief Complaint: Back ED Provider: Gulshan Bacon Dx/Rx/DC Orders Instructions: ED Back Sprain/Strain Prescriptions: New lidocaine [Lidoderm] 5 % adhesive patch,medicated 1 patch topical DAILY Qty: 15 0RF Rx Instructions: leave on most painful area for up to 12 hrs hydrocodone-acetaminophen 5-325 mg tablet 1 tab PO Q6H PRN PRN (Reason: Pain) 3 Days Qty: 12 0RF No Action alendronate [Fosamax] 70 mg tablet 70 mg PO QWEEK timolol maleate [Timoptic] 0.25 % drops 1 drp OPHTHALMIC BID simvastatin 20 mg tablet 20 mg PO QHS amlodipine [Norvasc] 5 mg tablet 5 mg PO DAILY lisinopril 40 mg tablet 40 mg PO DAILY latanoprost 0.005 % Drops 1 drp EACH EYE BID spironolactone 25 mg tablet 25 mg PO DAILY Primary Care Provider: Deejay Torres Referrals: Deejay Torres MD [Primary Care Provider] - Print Language: [place] Disposition Disposition: Home, Self Care
== END 2024-01-21 19:59 | disposition home or self-care (01) ==
PROVIDERS: Emergency Provider Student in an Organized Health Care Education/Training Program; PCP Family Medicine; Visit Provider Student in an Organized Health Care Education/Training Program
DX: S39.012A Strain of muscle, fascia and tendon of lower back, initial encounter (principal); Z87.891 Personal history of nicotine dependence; E78.00 Pure hypercholesterolemia, unspecified; I10 Essential (primary) hypertension; X50.1XXA Overexertion from prolonged static or awkward postures, initial encounter; Y93.H2 Activity, gardening and landscaping
CPT/HCPCS: 99282

== ENCOUNTER 2024-03-05 14:36 | Emergency (ER) | payer MEDICARE, SELFPAY ==
[2024-03-05 14:38] VITALS: BP 138/74; PULSE 87; RESP 20; TEMP 36.6; O2SAT 95; BMI 32.2
--- NOTE | 2024-03-05 14:39 | CT_ITS ---
STUDY: CT BRAIN WITHOUT CONTRAST REASON FOR EXAM: Female, 78 years old. head injury TECHNIQUE: Transaxial CT imaging of the brain was performed without administration of intravenous contrast material. Individualized dose optimization techniques were used for this CT. COMPARISON: None FINDINGS: Normal calvarium. Normal soft tissues. Normal size ventricles and extra-axial spaces for the patient''s age. Normal white matter tracts of the cerebral hemispheres. Normal basal ganglia and thalami. Normal brainstem. Normal cerebellum. There is no intracranial hemorrhage. There are no findings of an acute ischemic infarction. Normal visualized paranasal sinuses. ASPECTS 10 CT/Brain/Head without Contrast IMPRESSION: There are no acute intracranial findings. Electronically Signed: Misha Stiles MD at 15:28 EDT ,
--- NOTE | 2024-03-05 14:39 | EKG12_ITS ---
Test Reason : SYNCOPE/DIZZINESS Blood Pressure : / mmHG Vent. Rate : 083 BPM Atrial Rate : 083 BPM P-R Int : 194 ms QRS Dur : 104 ms QT Int : 364 ms P-R-T Axes : 065 -28 045 degrees QTc Int : 427 ms Normal sinus rhythm Moderate voltage criteria for LVH, may be normal variant ( R in aVL , Akira product ) Borderline ECG Confirmed by BIANCA ZARAGOZA, JODY ([id number]), graphic editor JULIA NJ ([id number]) on 03/06/2024 8:07:34 AM Referred By: Confirmed By:JODY VALENZUELA MD
--- NOTE | 2024-03-05 14:41 | EDS_ITS ---
HPI History of Present Illness Chief Complaint: Syncope Informant: patient, spouse/S.O. and EMS Narrative Narrative: 78-year-old female presenting to the emergency room via EMS with a chief complaint of syncope and head injury. 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 She states she was had been working very hard all day. She Began to feel lightheaded and diaphoretic. She went out to sit down and after a few minutes decided to go back inside the house. When she stood up to start walking is when she had a syncopal episode. She struck the back of her head on concrete. There is no noted laceration per E MS. Patient states that earlier in the day she had fell down when she twisted her right foot/ankle and notes continued pain over the lateral foot. EMS notes a scalp hematoma in the occiput. Prior to the syncopal episode she denies any chest pain palpitations. She denies any dyspnea. She states this is not the first time that she has passed out in the garden republic[employer]. Patient states that she recently finished prednisone for eczema on her face. [facility] Medical History Parathyroid abnormality Wears glasses Cancer High cholesterol Loss of consciousness Former smoker History of pain when walking Hypertension Infected sebaceous cyst (~10/28/20) Osteopenia Internal hemorrhoids Glaucoma Arthritis Aortic heart murmur Home Medications ?Medication ?Instructions ?Recorded ?Last Taken ?Type alendronate 70 mg tablet (Fosamax) 70 mg PO QWEEK 10/28/20 Unknown History amlodipine 5 mg tablet (Norvasc) 5 mg PO DAILY 10/28/20 05/26/22 05:30 History lisinopril 40 mg tablet 40 mg PO DAILY 10/28/20 05/26/22 05:30 History simvastatin 20 mg tablet 20 mg PO QHS 10/28/20 Unknown History latanoprost 0.005 % eye drops 1 drp EACH EYE BID 06/23/21 Unknown History spironolactone 25 mg tablet 25 mg PO DAILY water pill 05/25/22 Unknown History lidocaine 5 % topical patch 1 patch topical DAILY #15 ea 01/21/24 Unknown Rx (Lidoderm) Allergy/AdvReac Type Severity Reaction Status Date / Time fosinopril (From Monopril) Allergy Mild cough Verified 03/05/24 14:42 Family History Sister Colon cancer Surgical History Status post hip surgery history incision and drainage sebaceous cyst sternum Hx of total knee replacement Hx of squamous cell carcinoma excision Hx of dilation and curettage Hx of colonoscopy (~10/2016) Social History Smoking Status: Former smoker ROS ROS ED Constitutional Constitutional ED: Denies chills, fever(s) or weight loss Eyes Eyes: Denies change in vision or diplopia ENT ENT ED: Denies ear pain, rhinorrhea or sore throat Cardiovascular Cardiovascular: Reports other Details: Syncope ; Denies chest pain, orthopnea, palpitations or racing heartbeat Respiratory/Chest Respiratory/Chest: Denies cough, dyspnea or orthopnea Gastrointestinal Gastrointestinal: Denies abdominal pain, diarrhea, nausea or vomiting Genitourinary Genitourinary ED: Denies dysuria, hematuria or urinary frequency Musculoskeletal Musculoskeletal: Reports other Details: Right buttock pain right foot pain ; Denies arthralgias or myalgias Integumentary Denies abscess or rash Neurologic Neurologic: Reports headache(s); Denies weakness Psychiatric Psychiatric: Denies anxiety, depression, suicidal ideation or suicidal thoughts Endocrine Endocrinology: Denies polydipsia, polyphagia or polyuria Allergic/Immunologic Allergic/Immunologic ED: Denies mouth swelling, tongue swelling or urticaria EXAM Physical Exam Const Vital Signs: 03/05/24 14:38 03/05/24 15:40 03/05/24 16:23 Temperature 98 F 98.3 F Temperature Source Temporal Pulse Rate 87 80 80 Respiratory Rate 20 H 13 17 Blood Pressure 138/74 H 106/75 Blood Pressure Mean 95 85 Pulse Ox 95 98 98 Oxygen Delivery Method Room Air 03/05/24 16:30 Temperature Temperature Source Pulse Rate 79 Respiratory Rate 13 Blood Pressure 119/69 Blood Pressure Mean 83 Pulse Ox 96 Oxygen Delivery Method Positive well nourished and well developed General Appearance ED: well developed HEENT Reports normocephalic and moist mucous membranes HEENT Narrative: Left occipital hematoma Eyes PERRL and EOMs intact bilaterally Neck no lymphadenopathy, supple and no JVD General: Negative for tenderness Resp normal respiratory effort and clear to auscultation bilaterally Cardio regular rate, regular rhythm and no murmurs GI normal to inspection, nondistended, normoactive bowel sounds and non-tender Palpation: soft Back/Spine no CVA tenderness and normal ROM Back/Spine Narrative: Right buttock tenderness to palpation negative logroll Extremity Extremity Narrative: Mild tenderness to palpation over the dorsum of the lateral right foot along the base of the fifth and fourth metatarsals. Mild swelling. Lateral and medial malleolus are normal with no associated swelling. Posterior malleolus and Achilles appears normal palpates normal and has negative Mendoza's. General Extremety ED: Negative for edema General Extremity: Negative for edema Neuro oriented x3 and CN's II-XII intact bilaterally Neuro Narrative: GCS 15 Sensorium / Orientation: alert Motor Exam: strength 5/5 throughout Psych mental status grossly normal Mood & Affect: Negative for depressed or tearful Skin no rashes or lesions noted and no wounds MDM MDM MDM Narrative Medical decision making narrative: Differential diagnosis includes dysrhythmia ACS electrolyte disturbance dehydration vasovagal syncope heat exhaustion foot sprain pelvic fracture intracranial hemorrhage/hematoma skull fracture EKG demonstrates a normal sinus rhythm. White count 11.9 hemoglobin 13.2. 2 sets of cardiac enzymes normal. Creatinine significantly elevated 2.37. I do not have anything recent to compare this to but everything I have seen in the past does not show that this has been elevated. My independent interpretation of the chest x-ray is no acute process. My independent interpretation of the pelvis is no acute fracture. My independent interpretation of the right foot is no acute fracture. CT of the brain was obtained which does not demonstrate any intracranial hemorrhage or hematoma or fracture. Patient has remained in a sinus rhythm. She received Tylenol for pain. She is normal tensive. Zurdo wrap was applied to the foot. Crutches as needed for weightbearing. Encouraged her to follow-up with her doctor to discuss her creatinine. History & Record Review Discussion w/independent historian: EMS personnel, Patient and Significant other Lab Data Attestation: I reviewed the patient's lab results. Labs: Laboratory Results - last 24 hr 03/05/24 03/05/24 14:13 15:50 WBC 11.9 H RBC 4.57 Hgb 13.2 Hct 41.2 MCV 90.2 MCH 28.9 MCHC 32.0 RDW Std Deviation 45.7 H RDW Coeff of Giselle 13.9 Plt Count 294 MPV 9.5 Immature Gran % (Auto) 0.500 Neut % (Auto) 70.0 Lymph % (Auto) 23.9 [place] % (Auto) 4.9 Eos % (Auto) 0.1 Baso % (Auto) 0.6 Absolute Neuts (auto) 8.3 H Absolute Lymphs (auto) 2.83 Nucleated RBC % 0 Sodium 138 Potassium 4.4 Chloride 104 Carbon Dioxide 25.0 Anion Gap 9 BUN 43 H Creatinine 2.37 H Estim Creat Clear Calc 19.98 Est GFR (MDRD) Af Amer 25 L Est GFR (MDRD) Non-Af 21 L BUN/Creatinine Ratio 18.1 Glucose 217 H Calcium 10.0 Magnesium 1.9 Troponin I High Sens 7 8 Radiography Diagnostic Testing: Clinical Impression(s) from Imaging Studies Brain CT 03/05/24 14:39 IMPRESSION: There are no acute intracranial findings. Electronically Signed: Misha Stiles MD at 15:28 EDT , Chest X-Ray 03/05/24 15:00 IMPRESSION: There are no acute findings. 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 Electronically Signed: Misha Stiles MD at 15:32 EDT , Pelvis X-Ray 03/05/24 15:00 IMPRESSION: No acute findings. Electronically Signed: Misha Stiles MD at 15:37 EDT Reading Location ID and State: [facility] / [place] , Service support , EKG Initial EKG: Attestation: I personally reviewed and interpreted this EKG as follows: Comments: Normal sinus rhythm ventricular rate of 83 bpm. Discharge Plan Triage Chief Complaint: Syncope ED Provider: Jose Tilley Dx/Rx/DC Orders Clinical Impression: Syncope, Head injury, Contusion of scalp, Contusion of buttock, Right foot sprain Instructions: Dizziness Fainting Causes, ED Foot Sprain, ED Head Injury (Adult) Prescriptions: No Action alendronate [Fosamax] 70 mg tablet 70 mg PO QWEEK simvastatin 20 mg tablet 20 mg PO QHS amlodipine [Norvasc] 5 mg tablet 5 mg PO DAILY lisinopril 40 mg tablet 40 mg PO DAILY latanoprost 0.005 % Drops 1 drp EACH EYE BID spironolactone 25 mg tablet 25 mg PO DAILY lidocaine [Lidoderm] 5 % adhesive patch,medicated 1 patch topical DAILY Qty: 15 0RF Rx Instructions: leave on most painful area for up to 12 hrs Primary Care Provider: Deejay Torres Referrals: Deejay Torres MD [Primary Care Provider] - As soon as possible Activity Restrictions/Additional Instructions: It was noted today that your creatinine is 2.34. BUN is 43. This is of concern because I cannot find recent creatinine values for you. I would encourage you to follow-up with your primary care doctor regarding this. Use crutches or cane to help bear weight off the right foot. I recommend rest Zurdo wrap ice Tylenol for pain. Print Language: Burkinan Disposition Disposition: Home, Self Care Discharge Date/Time: 03/05/24 17:04
[2024-03-05] MEDS: 0.9% Normal Saline (1000mL) 1,000 ML 1000 ML IV (14:51)
[2024-03-05 15:00] LABS: Absolute Lymphocyte Count 2.83 X10^3/uL (0.83-4.51); Absolute Neutrophil Count 8.3 X10^3/uL (2.0-7.7); Basophil# 0.07 X10^3/uL; Basophil% 0.6 % (0-1); Eosinophil# 0.01 X10^3/uL; Eosinophils% 0.1 % (0-5); Hematocrit 41.2 % (37-47); Hemoglobin 13.2 g/dL (12.0-15.0); Lymphocyte # 2.83 X10^3/ul (0.83-4.51); Lymphocyte % 23.9 % (19-41); Mean Corpuscular Hgb 28.9 pg (27.0-32.0); Mean Corpuscular Volume 90.2 fL (81-99); Mean Platelet Vol. 9.5 fl (6.2-12.0); Monocyte# 0.58 X10^3/uL; Monocyte% 4.9 % (0-10); NRBC Flagged by Analyzer 0 % (0-5); Platelet Count 294 K/mm3 (150-450); RBC Distribution Width CV 13.9 % (11.6-14.6); RBC Distribution Width SD 45.7 fl (35.1-43.9); Red Blood Count 4.57 M/mm3 (4.2-5.4); White Blood Count 11.9 K/mm3 (4.4-11.0)
--- NOTE | 2024-03-05 15:00 | RAD_ITS ---
STUDY: XR Foot Min 3 Views CLINICAL: Female, 78 years old. injury TECHNIQUE: XR Foot Min 3 ViewsRIGHT COMPARISON: None. FINDINGS: Normal talus, calcaneus, and tarsal bones. Normal visualized subtalar, talonavicular, calcaneocuboid, tarsal and tarsometatarsal articulations. Normal metatarsi. 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 Normal tibial and fibular sesamoid bones. Normal interphalangeal joint of the great toe. Normal phalanges of the great toe. Normal second through fifth metatarsophalangeal joints. Normal interphalangeal joints and phalanges of the lesser toes. The soft tissue structures are unremarkable. 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 Electronically Signed: Misha Stiles MD at 15:32 EDT ,
--- NOTE | 2024-03-05 15:00 | RAD_ITS ---
STUDY: XR Chest 1 View 03/05/2024 3:00 PM REASON FOR EXAM: Female, 78 years old. syncope COMPARISON: 11/15/2015 TECHNIQUE: XR Chest 1 View FINDINGS: There is no demonstrated pleural abnormality. Normal heart size. Normal mediastinum. Normal jose armando. Prominent appearing increased interstitial lung markings. Normal visualized pulmonary arteries. There is atherosclerotic calcification of the aortic arch with tortuosity. There are diffuse degenerative changes of the visualized thoracic spine. There is degenerative osteoarthritis of the bilateral shoulders. There are no acute findings of the upper abdomen. RAD/Chest 1 View (Portable) IMPRESSION: There are no acute findings. Electronically Signed: Misha Stiles MD at 15:38 EDT ,
--- NOTE | 2024-03-05 15:00 | RAD_ITS ---
STUDY: XR Pelvis 1 or 2 Views 03/05/2024 3:00 PM REASON FOR EXAM: Female, 78 years old. injury Pain TECHNIQUE: XR Pelvis 1 Views COMPARISON: None FINDINGS: There is a non-specific bowel gas pattern. Normal visualized soft tissue structures. Degenerative changes in the lumbar spine. Normal bilateral iliac wings, sacroiliac joints and visualized sacrum. Normal visualized bilateral superior and inferior pubic rami. Normal pubic symphysis. Normal ischial tuberosities. Normal visualized right femoral head. Normal right acetabulum. Normal right hip joint. Normal visualized left femoral head. Normal left acetabulum. Normal left hip joint. RAD/Pelvis 1 or 2 Views IMPRESSION: No acute findings. Electronically Signed: Misha Stiles MD at 15:37 EDT ,
[2024-03-05 15:18] LABS: Anion Gap 9 (5-15); BUN 43 mg/dL (7-18); BUN/Creat Ratio 18.1 RATIO (10-20); Chloride 104 mmol/L (98-107); Creatinine, Serum 2.37 mg/dL (0.55-1.02); EST Glomerular Filtration Rate 21 mL/min (>60); Est Glom Filt Rate - Afr Amer 25 mL/min (>60); Estimated Creatinine Clearance 19.98 ml/min; Glucose 217 mg/dL (74-106); Magnesium 1.9 mg/dL (1.6-2.6); Potassium 4.4 mmol/L (3.5-5.1); Sodium Level 138 mmol/L (136-145); Troponin-I HS 7 pg/mL (3.0-54.0)
[2024-03-05] MEDS: Acetaminophen 500 MG Tablet 1000 MG PO (15:36)
[2024-03-05 15:40] VITALS: BP 106/75; PULSE 80; RESP 13; TEMP 36.8; O2SAT 98
[2024-03-05 16:23] VITALS: PULSE 80; RESP 17; O2SAT 98
[2024-03-05 16:24] LABS: Troponin-I HS 8 pg/mL (3.0-54.0)
[2024-03-05 16:30] VITALS: BP 119/69; PULSE 79; RESP 13; O2SAT 96
== END 2024-03-05 17:04 | disposition home or self-care (01) ==
PROVIDERS: Emergency Provider Emergency Medicine; PCP Family Medicine; Visit Provider Emergency Medicine
DX: R55 Syncope and collapse (principal); S93.601A Unspecified sprain of right foot, initial encounter; S00.03XA Contusion of scalp, initial encounter; S30.0XXA Contusion of lower back and pelvis, initial encounter; W01.198A Fall on same level from slipping, tripping and stumbling with subsequent striking against other object, initial encounter; E78.00 Pure hypercholesterolemia, unspecified; I10 Essential (primary) hypertension; Z79.899 Other long term (current) drug therapy; Z87.891 Personal history of nicotine dependence
CPT/HCPCS: 70450; 71045; 72170; 73630; 80048; 83735; 84484; 85025; 93005; 96360; 99283; J7030

== ENCOUNTER 2025-03-24 12:28 | Emergency (ER) | payer MEDICARE, SELFPAY ==
[2025-03-24 12:29] VITALS: BP 152/82; PULSE 92; RESP 18; TEMP 37.1; O2SAT 98; BMI 31.6
--- NOTE | 2025-03-24 13:02 | RAD_ITS ---
PROCEDURE: HIP, UNI W/ PELVIS 2-3 VIEWS 03/24/2025 REASON FOR EXAM: ATRAUMATIC LEFT HIP PAIN TECHNIQUE: HIP, UNI W/ PELVIS 2-3 VIEWS COMPARISON: Pelvic study dated 03/05/2024 FINDINGS: AP pelvic view was obtained as well as two views of the left hip. Diffuse mild osteopenia of the bony pelvis and both hips are noted. There are no fractures or dislocations. Degenerative changes of the lower lumbar spine are noted. SI joints and pubic symphysis are unremarkable. Mild arthritic changes are noted involving the right hip. There are marginal osteophytes seen off the superior lateral aspect of the acetabulum. Mild arthritic changes are noted involving the left hip. There are marginal osteophytes seen off the superior lateral aspect of the acetabulum. Stool and gas is present within the visualized portions of the colon. There is no evidence of ileus or bowel obstruction on the images submitted for review. RAD/HIP, UNI W/ Pelvis 2-3 Views IMPRESSION: Mild diffuse osteopenia bony pelvis and both hips. Mild arthritic changes of the right hip. Mild arthritic changes of the left hip. Degenerative changes of the lower lumbar spine. Reading Location: [id number]
--- NOTE | 2025-03-24 13:04 | EDS_ITS ---
HPI History of Present Illness Chief Complaint: Back Informant: patient and spouse/S.O. Onset/Context/Timing Onset: Today Context: Gradual Onset Maximum Severity: Moderate Worsened by: improves with Movement Associated Symptoms Associated Symptoms: Negative for Numbness, Tingling, Radiation to Right Leg, Radiation to Left Leg, Fever, Abdominal Pain, Dysuria, Unable to Ambulate, Unable to Transfer, Urinary Retention, Urinary Incontinence, Constipation or Fecal Incontinence Narrative Narrative: 79-year-old female bilateral knee replacements. Complaining of left hip pain that began around 1245 this morning. No fall injury or trauma. No redness or swelling. No fever or chills. Never had a hip surgery. Says it wraps around her hip into her left posterior buttock. Denies any weakness or numbness. Prior similar symptoms: No Recent Illness/Hospitalization: No [facility] Medical History Hypercalcemia Osteoporosis Chronic kidney disease (CKD) Hyperlipidemia Syncope Syncope Parathyroid abnormality Wears glasses Cancer High cholesterol Loss of consciousness Former smoker History of pain when walking Hypertension Infected sebaceous cyst (~10/28/20) Osteopenia Internal hemorrhoids Glaucoma Arthritis Aortic heart murmur Home Medications ?Medication ?Instructions ?Recorded ?Last Taken ?Type alendronate 70 mg tablet (Fosamax) 70 mg PO QWEEK 10/08 10/27 Unknown History amlodipine 5 mg tablet (Norvasc) 5 mg PO DAILY 1 05/26/22 05:30 History lisinopril 40 mg tablet 40 mg PO DAILY 10/28/2005/08 05:30 History simvastatin 20 mg tablet 20 mg PO QHS 10/28/20 Unknow n History spironolactone 25 mg tablet 25 mg PO DAILY water pill 05/25/22 Unknown History calcium 200 mg (as 2 tab PO QDAY 06/19/24 Unkno wn History citrate)-vitamin D3 6.25 mcg (250 unit) tablet oxycodone-acetaminophen 5 mg-325 1 tab PO Q6H PRN pain 5 days #16 03/24/25 Unknown Rx mg tablet (Percocet) tabs Allergy/AdvReac Type Severity Reaction Status Date / Time fosinopril (From Monopril) Allergy Mild cough Verified 03/24/25 12:30 Sutures Allergy Hives Verified 03/24/25 12:30 lisinopril AdvReac Other Verified 03/24/25 12:30 Family History Sister Colon cancer Breast cancer Mother CVA (cerebral vascular accident) Father Hypertension Alcohol abuse Son Diabetes Surgical History Status post hip surgery history incision and drainage sebaceous cyst sternum Hx of total knee replacement Hx of squamous cell carcinoma excision Hx of dilation and curettage Hx of colonoscopy (~10/2016) Social History Smoking Status: Former smoker alcohol intake: never substance use type: does not use caffeine: Yes ROS ROS ED ROS Narrative Denies recent illness. Atraumatic hip pain. Constitutional Constitutional ED: Denies chills or fever(s) Eyes Eyes: Denies blurry vision ENT ENT ED: Denies ear pain Cardiovascular Cardiovascular: Denies chest pain Respiratory/Chest Respiratory/Chest: Denies dyspnea or dyspnea on exertion Gastrointestinal Gastrointestinal: Denies abdominal pain Genitourinary Genitourinary ED: Denies dysuria or hematuria Musculoskeletal Musculoskeletal: Denies arthralgias or back pain Integumentary Denies abscess or Abrasions Neurologic Neurologic: Denies headache(s) Psychiatric Psychiatric: Denies anxiety or depression Endocrine Endocrinology: Denies cold intolerance Hematologic/Lymphatic Hematologic/Lymphatic: Denies easy bleeding or easy bruising Allergic/Immunologic Allergic/Immunologic ED: Denies mouth swelling or tongue swelling EXAM Physical Exam Narrative Exam Narrative: 79-year-old female sitting upright in bed. Vital signs stable afebrile. at bedside. Patient is in no acute distress. H EENT exam pupils round reactive light. Moist Carlos membranes. No trauma. Neck nontender. Back nontender. No spinal tenderness. No left SI tenderness. Lungs clear equal symmetrical bilaterally. Heart regular rhythm no murmur. Chest wall and ribs nontender. Abdomen soft nontender. Normal bowel sounds without peritoneal signs. No pulsatile mass. Moving all 4 extremities. Neurovascularly intact. Normal range of motion. Specifically left hip normal appearance. No redness or warmth. No rash. No obvious effusion. She has full flexion-extension of the left hip and left knee both knees to be replaced with well-healed surgical scars. Normal dorsi plantarflexion. There is no edema or cords in the lower extremities. He is able to flex and extend the left hip without any difficulty. There is no signs of septic joint. There is no signs of cellulitis or any rash. Neurologically she is awake alert. Answer questions and following commands. Const Vital Signs: 03/24/25 12:29 Temperature 98.7 F Temperature Source Oral Pulse Rate 92 Respiratory Rate 18 Blood Pressure 152/82 H Blood Pressure Mean 105 Pulse Ox 98 Oxygen Delivery Method Room Air Positive well nourished and well developed; Negative for cachectic, contractures or unkempt General Appearance ED: well developed; Negative for unkempt, cachectic or contractures Nutritional Appearance: Negative for cachectic HEENT Reports moist mucous membranes Eyes PERRL and EOMs intact bilaterally Neck no lymphadenopathy, supple and no JVD Resp normal respiratory effort and clear to auscultation bilaterally Auscultation: Negative for rales, rhonchi, wheezes or diminished lung sounds Cardio regular rate, regular rhythm, S1 normal heart sound, S2 normal heart sound and no murmurs GI normal to inspection, nondistended, normoactive bowel sounds, soft to palpation, non-tender, non-distended and no masses Palpation: Negative for tender, guarding, mass, pulsatile mass or rebound tenderness present Back/Spine normal to inspection and no thoracic nor lumbar tenderness General Back: Negative for CVA tenderness Cervical Spine: Negative for cervical spine tenderness and Negative for paracervical muscle tenderness Thoracic Spine / Upper Back: Negative for paraspinal muscle tenderness Extremity normal to inspection and no clubbing, cyanosis or edema Extremity Narrative: Left hip normal appearance. No swelling. No redness. No obvious effusion. Normal flexion extension. No rash. Bilateral knees been replaced. They have normal flexion extension. There is no edema or cords or calf tenderness. Normal strength and sensation in both lower extremities. General Extremety ED: Negative for edema or tenderness General Extremity: Negative for edema Neuro oriented x3 and no sensory deficits noted Sensorium / Orientation: alert; Negative for confused or lethargic Motor Exam: strength 5/5 throughout Psych mental status grossly normal Appearance: Negative for unkempt Skin no rashes or lesions noted and no wounds Lesions: No lesion noted Rashes: No rashes noted Trauma: Negative for abrasion Wounds: Negative for wounds noted MDM MDM MDM Narrative Medical decision making narrative: 79-year-old female with atraumatic left hip pain. Normal exam and range of motion. No signs of infection or septic joint. Given 1 [place] for pain. X-ray being obtained. Repeat exam patient is doing well at 1:35 PM. Repeat hip exam no change. She took a [place] really and then much for pain she requested something for pain stronger or given her IM injection of morphine and p.o. Zofran. This appears to be secondary to hip arthritis. She will follow-up with her orthopedic physician Dr. Fadi Chinchilla. History & Record Review Discussion w/independent historian: Patient and Family Additional record(s) reviewed:: Prior inpatient record, Prior outpatient record, Prior ED visit and Prior labs Radiography Diagnostic Testing: Clinical Impression(s) from Imaging Studies Hip/Pelvis X-Ray 03/24/25 13:02 IMPRESSION: Mild diffuse osteopenia bony pelvis and both hips. Mild arthritic changes of the right hip. Mild arthritic changes of the left hip. Degenerative changes of the lower lumbar spine. Reading Location: [facility] Left hip x-ray, 3 views, interpreted by myself the radiologist shows chronic arthritic changes the hip. No fracture or dislocation. Osteopenia. Discharge Plan Triage Chief Complaint: Back ED Provider: Robert Comer Dx/Rx/DC Orders Clinical Impression: Acute hip pain, Osteoarthritis Instructions: Osteoarthritis: Common Sites Prescriptions: New oxycodone-acetaminophen [Percocet] 5-325 mg tablet 1 tab PO Q6H PRN (Reason: pain) 5 Days Qty: 16 0RF No Action alendronate [Fosamax] 70 mg tablet 70 mg PO QWEEK simvastatin 20 mg tablet 20 mg PO QHS amlodipine [Norvasc] 5 mg tablet 5 mg PO DAILY lisinopril 40 mg tablet 40 mg PO DAILY calcium citrate-vitamin D3 200 mg-6.25 mcg (250 unit) tablet 2 tab PO QDAY spironolactone 25 mg tablet 25 mg PO DAILY Primary Care Provider: Deejay Torres Referrals: Deejay Torres MD [Primary Care Provider] - Fadi Chinchilla MD [Med Staff - Active Staff] - As soon as possible Activity Restrictions/Additional Instructions: Ice to your hip. Motrin no more than 2 twice a day. Percocet every 6 hours as needed for pain. Do not drive. Do not drink alcohol with it. Plenty of fluids, fruits, vegetables and fiber to prevent constipation. Call and follow-up with Dr. Rhys Chinchilla for further evaluation of your hip. If it continues to bother you you and him can discuss a hip joint injection for pain and inflammation. If you would develop fever or redness return. Currently there is no signs of infection. Print Language: Luxembourgish Disposition Disposition: Home, Self Care
[2025-03-24] MEDS: HYDROcodone Bitartrate/Apap 5/325 Tablet PO (13:11)
--- OUTSIDE RECORDS SUMMARY | 2025-03-24 13:19 | XMS RPT_ITS | CCD ---
Author Organization [facility] Care Team Providers Care [employer] Consultant Name Role Phone VAISHALI DEXTER Unavailable Unavailable VAISHALI DEXTER Unavailable Unavailable DANNY TALAMANTES Unavailable Unavailable Deejay Anderson MD Primary Care Provider Deejay Anderson MD Primary Care Provider Dr. Deejay Anderson Primary Care Provider Dr. Deejay Anderson Referring Provider [phone] Dr. Justo Rodriguez Attending Provider Dr. Justo Rodriguez Other Provider Deejay Anderson MD Primary Care Provider Deejay Anderson MD Primary Care Provider RIYA PEREZ Admitting Unavailable RIYA PEREZ Attending Unavailable DEEJAY ANDERSON Primary Care Unavailable ANTOINE BRASWELL Referring Unavailable DEEJAY ANDERSON Primary Care Unavailable ANTOINE BRASWELL Referring Unavailable DEEJAY ANDERSON Primary Care Unavailable Deejay Anderson MD Primary Care Provider Deejay Anderson MD Primary Care Provider [phone] DEEJAY ANDERSON Primary Care Unavailable Deejay Anderson Referring Unavailable Deejay Anderson Primary Care Unavailable Jessica Locke Attending Unavailable Tala Bacon Attending Unavailable Deejay Anderson Primary Care Unavailable Jose Tilley Attending Unavailable Deejay Anderson Primary Care Unavailable Rosette BELL.Marya HEREDIA Unavailable Betty Jennings PA-C Unavailable Deejay Anderson MD Primary Care Provider Marya Jerome APRN.CNP Unavailable Betty Jennings PA-C Unavailable BETTY JENNINGS Attending Unavailable JUSTIN, DEEJAY A Primary Care Unavailable JUSTIN, DEEJAY A Primary Care Unavailable KANNAN BRANTLEY Referring Unavailable JUSTIN, DEEJAY A Primary Care Unavailable JUSTIN, DEEJAY A Referring Unavailable JUSTIN, DEEJAY A Primary Care Unavailable KANNAN BRANTLEY Referring Unavailable DEEJAY ANDERSON A Primary Care Unavailable KANNAN BRANTLEY Referring Unavailable JUSTIN, DEEJAY A Primary Care Unavailable JUSTIN, DEEJAY A Referring Unavailable JUSTIN, DEEJAY A Primary Care Unavailable BETTY JENNINGS Referring Unavailable JUSTIN, DEEJAY Palomares Primary Care Unavailable BETTY JENNINGS Referring Unavailable ANTOINE BRASWELL Referring Unavailable JUSTIN, DEEJAY A Primary Care Unavailable JUSTIN, DEEJAY A Primary Care Unavailable JUSTIN, DEEJAY A Referring Unavailable JUSTIN, DEEJAY A Primary Care Unavailable JUSTIN, DEEJAY A Attending Unavailable JUSTIN, DEEJAY A Referring Unavailable JUSTIN, DEEJAY A Primary Care Unavailable ANTOINE BRASWELL Attending Unavailable JUSTIN, DEEJAY A Primary Care Unavailable JUSTIN, DEEJAY A Primary Care Unavailable JUSTIN, DEEJAY A Referring Unavailable JUSTIN, DEEJAY A Primary Care Unavailable KANNAN BRANTLEY Referring Unavailable JUSTIN, DEEJAY A Primary Care Unavailable KANNAN BRANTLEY Referring Unavailable Allergies Allergy Classification Reported Allergen(s) Allergy Type Date of Onset Reaction(s) Facility Angiotensin Converting Enzyme (MCKENNA) Inhibitors (2 sources) Lisinopril Drug Allergy 07-15-2005 [facility] (20 sources) Fosinopril; Translations: [FOSINOPRIL SODIUM] Drug Allergy 07-15-2005 [facility] Work Phone: (20 sources) Sutures; Translations: [SUTURES] Allergy to substance 02-14-2013 [facility] Work Phone: (20 sources) Lisinopril; Translations: [LISINOPRIL] Drug Allergy 02-24-2022 [facility] (1 source) Fosinopril Drug Allergy 05-26-2022 unknown [facility] Work Phone: (2 sources) suture; Translations: [suture] Allergy to substance 05-26-2022 unknown [facility] (1 source) Fosinopril Drug Allergy 07-10-2024 [facility] (1 source) Lisinopril Drug Allergy 07-10-2024 [facility] Medications Current Medications Medication Drug Class(es) Dates Sig (Normalized) Sig (Original) alendronic acid 70 mg oral tablet (20 sources) Bisphosphonate Start: 10-01-2023 End: 09-01-2024 take 1 tablet by mouth every week in the morning alendronate (FOSAMAX) 70 mg tablet Take 1 tablet by mouth one time a week. In AM with cup of water on empty stomach. Nothing else by mouth and stay upright for 30 min. 12 tablet 3 09/01/2024 Active Start: 10-28-2020 End: 10-27-2022 take 1 tablet by mouth every week in the morning alendronate (FOSAMAX) 70 mg tablet Take 1 tablet by mouth one time a week. In AM with cup of water on empty stomach. Nothing else by mouth and stay upright for 30 min. 12 tablet 3 10/27/2022 Active Comment on above: Take 1 tablet by sascha th one time a week. In AM with cup of water on empty stomach. Nothing else by mouth and stay upright for 30 min. amLODIPine 5 mg oral tablet (20 sources) Dihydropyridine Calcium Channel Josué Start: End: take 1 tablet by mouth once daily amLODIPine (NORVASC) 5 mg tablet Take 1 tablet by mouth once daily. 90 tablet 1 02/05/2025 Active Start: 03-24-2023 End: 07-22-2023 take 1 tablet by mouth once daily amLODIPine (NORVASC) 5 mg tablet Take 1 tablet by mouth once daily. 90 tablet 1 07/22/2023 Active Start: 10-28-2020 End: 10-27-2022 take 1 tablet by mouth once daily amLODIPine (NORVASC) 5 mg tablet Take 1 tablet by mouth once daily. 90 tablet 1 10/27/2022 Active Comment on above: Take 1 tablet by sascha th once daily. calcium citrate/vitamin D3 (CITRACAL + D PETITES ORAL) (20 sources) take 2 tablets by mouth once daily calcium citrate/vitamin D3 (CITRACAL + D PETITES ORAL) Take 2 tablets by mouth once daily. Active take 2 tablets by mouth once margie ly calcium citrate/vitamin D3 (CITRACAL + D PETITES ORAL) Take 2 tablets by mouth once daily. 0 Active Comment on above: Take 2 tablets by mo [facility] once daily. 12 hr guaiFENesin 600 mg extended release oral tablet (1 source) Start: 3 End: 3 take 1 tablet by mouth twice daily as needed guaiFENesin (MUCINEX) 600 mg 12 hr tablet Take 1 tablet by mouth two times a day as needed for cold/allergy symptoms (cough) for up to 7 days. 14 tablet 0 08/13/2023 08/20/2023 Active Comment on above: Take 1 tablet by sascha th two times a day as needed for cold/allergy symptoms (cough) for up to 7 days. latanoprost 0.05 mg/ml ophthalmic solution (20 sources) Prostaglandin Analog Start: Latanoprost Active 1 DRP EACH EYE TWICE A DAY June 23, 2021 12:00am Start: 04-09-2016 End: 08-03-2022 take 1 drop(s) into the eye(s) at bedtime latanoprost (XALATAN) 0.005 % ophthalmic solution 1 drop in each eye at bedtime 0 04/09/2016 08/03/2022 Discontinued Comment on above: 1 drop in each eye a t bedtime lisinopril 40 mg oral tablet (20 sources) Angiotensin Converting Enzyme Inhibitor Start: 10-01-2023 End: 08-04-2024 take 1 tablet by mouth once daily lisinopril (ZESTRIL) 40 mg tablet Take 1 tablet by mouth once daily. 90 tablet 3 08/04/2024 Active Start: 03-24-2023 take 1 tablet by sascha th once daily lisinopril (ZESTRIL) 40 mg tablet Take 1 tablet by mouth once daily. 90 tablet 3 03/24/2023 Active Start: 10-28-2020 End: 06-18-2022 take 1 tablet by mouth once daily lisinopril (ZESTRIL, PRINIVIL) 40 mg tablet Indications: Essential hypertension, benign Take 1 tablet by mouth once daily. 90 tablet 3 06/18/2022 Active Comment on above: Take 1 tablet by sascha th once daily. TAKE 1 TABLET BY SASCHA TH ONCE DAILY methylPREDNISolone (1 source) Corticosteroid Start : 02-27 End: 03-05 methylPREDNISolone (MEDROL, DEVYN,) 4 mg Dose-Pack Follow dosing instructions, take with food. 21 tablet 0 02/28/2024 03/05/2024 Active nitrofurantoin, macrocrystals 25 mg / nitrofurantoin, monohydrate 75 mg oral capsule (3 sources) Nitrofuran Antibacterial Start : 09-29 End: 10-06 take 1 capsule by mouth twice daily at mealtime nitrofurantoin monohydrate and macrocrystal (MACROBID) 100 mg capsule Take 1 capsule by mouth two times a day with meals for 7 days. 14 capsule 09/29/2024 10/06/2024 Active Start: 05-03-2023 End: 05-08-2023 take 1 capsule by mouth twice daily nitrofurantoin monohydrate and macrocrystal (MACROBID) 100 mg capsule Indications: UTI symptoms Take 1 capsule by mouth twice daily for 5 days. 10 capsule 0 05/03/2023 05/08/2023 Active Comment on above: Take 1 capsule by [facility] twice daily for 5 days. predniSONE 10 mg oral tablet (3 sources) Start: 2 End: 2 predniSONE (DELTASONE) 10 mg tablet Indications: Pain of right lower extremity Take 4 tabs daily for 3 days, then 2 tabs daily for 3 days, then 1 tab daily for 3 days with food. 21 tablet 0 05/28/2022 06/06/2022 Active Comment on above: Take 4 tabs daily fo r 3 days, then 2 tabs daily for 3 days, then 1 tab daily for 3 days with food. simvastatin 20 mg oral tablet (20 sources) HMG-CoA Reductase Inhibitor Start: 3 End: 5 take 1 tablet by mouth once daily at bedtime simvastatin (ZOCOR) 20 mg tablet Take 1 tablet by mouth daily at bedtime. 90 tablet 3 12/18/2024 Active Start: 10-28-2020 End: 06-18-2022 take 1 tablet by mouth once daily at bedtime simvastatin (ZOCOR) 20 mg tablet Indications: Hyperlipidemia LDL goal Take 1 tablet by mouth daily at bedtime. 90 tablet 3 06/18/2022 Active Comment on above: Take 1 tablet by sascha th daily at bedtime. spironolactone 25 mg oral tablet (20 sources) Aldosterone Antagonist Start: 05-14-20 End: 02-06-20 take 1 tablet by mouth once daily spironolactone (ALDACTONE) 25 mg tablet Take 1 tablet by mouth once daily. 90 tablet 1 02/05/2025 Active Start: 03-20-2022 End: 10-27-2022 take 1 tablet by mouth once daily spironolactone (ALDACTONE) 25 mg tablet Take 1 tablet by mouth once daily. 90 tablet 1 10/27/2022 Active Start: 11-27-2021 End: 03-20-2022 take 0.5 tablet by mouth once daily spironolactone (ALDACTONE) 25 mg tablet Take 0.5 tablets by mouth once daily. 45 tablet 1 11/27/2021 03/20/2022 Discontinued Comment on above: Take 0.5 tablets by mouth once daily. Take 1 tablet by sascha once daily. timolol 2.5 mg/ml ophthalmic solution (20 sources) beta-Adrenergic Josué Start: 10-28-2020 take 0.25 drop(s) into the eye(s) twice daily Timolol Maleate (Timoptic) 0.25 % drops Active 1 DRP OPHTHALMIC TWICE A DAY October 28, 2020 1:00am Start: 09-27-2020 take 1 drop(s) into the eye(s) twice daily timoloL maleate (TIMOPTIC) 0.25 % ophthalmic solution Use 1 Drop in the left eye twice daily. 0 09/27/2020 Active Start: 09-27-2020 take 1 drop(s) into the eye(s) twice daily timoloL maleate (TIMOPTIC) 0.25 % ophthalmic solution Use 1 Drop in the left eye twice daily. 0 09/27/2020 Active Comment on above: Use 1 Drop in the le ft eye twice daily. Completed/Discontinued Medications Medication Drug Class(es) Dates Sig (Normalized) Sig (Original) acetaminophen 500 mg oral tablet (4 sources) Start: 08-13-2022 End: 12-08-2022 take 1 tablet by mouth every four hours as needed acetaminophen (TYLENOL) 500 mg tablet Take 1 tablet by mouth every 4 hours as needed for pain. 0 08/13/2022 12/08/2022 Discontinued Comment on above: Take 1 tablet by sascha every 4 hours as needed for pain. calcium carbonate 500 mg chewable tablet (20 sources) Start: 08-13-2022 End: 12-08-2022 take 500 mg by mouth every hour as needed calcium carbonate (TUMS) 500 mg chew Take 1 tablet by mouth every hour as needed (mouth or hand numbness or tingling). 0 08/13/2022 12/08/2022 Discontinued End: 12-07-2023 take 1 tablet by mouth once daily calcium carbonate (CALTRATE) 600 mg calcium (1,500 mg) tab Take 600 mg by mouth. Take one tablet daily 0 12/07/2023 Discontinued Comment on above: Take 1 tablet by sascha every hour as needed (mouth or hand numbness or tingling). Take 600 mg by mouth . Take one tablet daily calcium carbonate 1250 mg / cholecalciferol 200 unt oral tablet (10 sources) Vitamin D Start: 08-13-2022 take 1 tablet by mouth three times daily calcium-carbona te-vitamin D3 500 mg-5 mcg (200 unit) per tablet Take 1 tablet by mouth three times daily. 0 08/13/2022 Active Start: 12-23-2018 End: 02-24-2022 take 1 tablet by mouth once daily calcium carbonate 600 mg-cholecalciferol 200 units (CALCIUM 600 + D,3,) 600 mg(1,500mg) -200 unit tab Take 1 tablet by mouth once daily. 0 12/23/2018 02/24/2022 Discontinued Comment on above: Take 1 tablet by sascha once daily. Take 1 tablet by sascha three times daily. cholecalciferol 0.1 mg oral capsule (5 sources) Vitamin D Start: 12-27-19 End: 02-25-20 take 1 capsule by mouth once daily cholecalciferol, vitamin D3, (VITAMIN D3) 4,000 unit cap Take 1 capsule by mouth once daily. 0 12/26/2018 02/24/2022 Discontinued Comment on above: Take 1 capsule by mo [facility] once daily. cyclobenzaprine hydrochloride 10 mg oral tablet (7 sources) Muscle Relaxant Start: 01-18-20 End: 02-28-20 take 1 tablet by mouth three times daily as needed for muscle spasms cyclobenzaprine (FLEXERIL) 10 mg tablet Indications: Acute midline low back pain without sciatica Take 1 tablet by mouth three times a day as needed for muscle spasm. 30 tablet 01/18/2024 02/28/2024 Discontinued (Course of therapy completed) docosahexaenoic acid/epa (FISH OIL ORAL) (5 sources) End: 02-25-20 docosahexaenoic acid/epa (FISH OIL ORAL) Take by mouth as needed. 0 02/24/2022 Discontinued docosahexaenoic acid/epa (FISH OIL ORAL) Take by mouth as needed. 0 Active Comment on above: Take by mouth as nee ded. hydroCHLOROthiazide 12.5 mg oral capsule (4 sources) Thiazide Diuretic Start : 10-17 End: 02-24 take 1 capsule by mouth once daily hydroCHLOROthiazide 12.5 mg capsule Take 1 capsule by mouth once daily. 90 capsule 1 10/17/2021 02/24/2022 Discontinued Comment on above: Take 1 capsule by [facility] once daily. hydrOXYzine hydrochloride 10 mg oral tablet (20 sources) Antihistamine Start : 03-24 End: 02-27 take 1 tablet by mouth every eight hours as needed hydrOXYzine HCl (ATARAX) 10 mg tablet Take 1 tablet by mouth three times daily as needed for anxiety. 20 tablet 03/24/2023 02/28/2024 Discontinued Comment on above: Take 1 tablet by [facility] three times daily as needed for anxiety. ibuprofen 200 mg oral tablet (4 sources) Nonsteroidal Anti-inflammatory Drug Start : 08-13 End: 12-08 take 3 tablets by mouth every six hours as needed ibuprofen (MOTRIN) 200 mg tablet Take 3 tablets by mouth every 6 hours as needed for pain. 0 08/13/2022 12/08/2022 Discontinued Comment on above: Take 3 tablets by [facility] every 6 hours as needed for pain. iv contrast (will be provided with radiology test) (2 sources) Start : 04-20 End: 04-21 iv contrast (will be provided with radiology test) MRI pelvis ortho Inj, intravenously, once for 1 dose. No IV access, insert saline lock prior to the beginning of sedation, infusion, injection of imaging exam. Discontinue saline lock post exam. If Pt. has a central line or IVAD, may access for administration according to line specific nursing protocol. Once exam is complete flush line and de-access according to line specific nursing protocol in the MR contrast administration guidelines link 1 Each 04/20/2024 04/21/2024 Start: 04-20-2024 End: 04-21-2024 iv contrast (will be provide d with radiology test) MRI pelvis ortho Inj, intravenously, once for 1 dose. No IV access, insert saline lock prior to the beginning of sedation, infusion, injection of imaging exam. Discontinue saline lock post exam. If Pt. has a central line or IVAD, may access for administration according to line specific nursing protocol. Once exam is complete flush line and de-access according to line specific nursing protocol in the MR contrast administration guidelines link 1 Each 0 04/20/2024 04/21/2024 Active Problems Active Problems Problem Classification Problem Date Documented Date Episodic/Chronic Allergic reactions (1 source) Contact dermatitis; Translations: [Unspecified contact dermatitis, unspecified cause] 02-28-2024 Episodic Anxiety disorders (20 sources) Anxiety; Translations: [Other specified anxiety disorders] Onset: 3 03-24-2023 Chronic Chronic kidney disease (20 sources) Chronic kidney disease stage 3A ; Translations: [Stage 3a chronic kidney disease] Onset: 1 01-13-2021 Chronic Chronic kidney disease (1 source) Chronic kidney disease; Translations: [Stage 3b chronic kidney disease (HCC)] Onset: 4 Conditions associated with dizziness or vertigo (1 source) Dizziness and giddiness; Translations: [DIZZINESS AND GIDDINESS] Onset: 8 Episodic Disorders of lipid metabolism (20 sources) Mixed hyperlipidemia; Translations: [Mixed hyperlipidemia] Onset: 6 01-13-2021 Chronic Disorders of lipid metabolism (1 source) Pure hypercholesterolemia, unspecified; Translations: [PURE HYPERCHOLESTEROLEMIA UNSPEC] Onset: 8 Essential hypertension (20 sources) Essential (primary) hypertension; Translations: [Benign essential hypertension] Onset: 8 01-13-2021 Chronic Glaucoma (20 sources) Glaucoma; Translations: [Unspecified glaucoma] Onset: 5 01-13-2021 Chronic Hemorrhoids (1 source) Internal hemorrhoids; Translations: [Other hemorrhoids] Episodic Immunizations and screening for infectious disease (2 sources) Vaccination needed; Translations: [Encounter for immunization] Episodic Menopausal disorders (20 sources) Atrophic vaginitis; Translations: [Postmenopausal atrophic vaginitis] Onset: 9 Resolved: 7 01-13-2021 Chronic Nonmalignant breast conditions (1 source) Breast finding ; Translations: [Dense breast tissue] 10-07-2023 Episodic Osteoarthritis (20 sources) Arthritis of knee; Translations: [Unilateral primary osteoarthritis, unspecified knee] Onset: 9 Resolved: 7 01-13-2021 Chronic Osteoporosis (20 sources) Primary osteoporosis; Translations: [Age-related osteoporosis without current pathological fracture] Onset: 5 01-13-2021 Chronic Other and unspecified benign neoplasm (1 source) History of polyp of colon; Translations: [Personal history of colonic polyps] Episodic Other and unspecified benign neoplasm (1 source) Personal history of colonic polyps; Translations: [Personal history of colonic polyps] Episodic Other bone disease and musculoskeletal deformities (1 source) Osteopenia; Translations: [Other specified disorders of bone density and structure, unspecified site] Episodic Other connective tissue disease (20 sources) History of total knee arthroplasty; Translations: [Presence of unspecified artificial knee joint] Onset: 4 10-05-2023 Chronic Other connective tissue disease (1 source) Pain in right lower limb; Translations: [Pain in right leg] Episodic Other connective tissue disease (1 source) Mass in muscle of limb; Translations: [Other specified disorders of muscle] 05-10-2024 Episodic Other endocrine disorders (9 sources) Primary hyperparathyroidism; Translations: [Primary hyperparathyroidism] Chronic Other endocrine disorders (2 sources) Hyperparathyroidism; Translations: [Hyperparathyroidism, unspecified] Chronic Other endocrine disorders (2 sources) Primary hyperparathyroidism; Translations: [Primary hyperparathyroidism (HCC)] Onset: 2 Chronic Other endocrine disorders (4 sources) Hormone increase; Translations: [Endocrine disorder, unspecified] Episodic Other fractures (1 source) Closed fracture sacrum; Translations: [Unspecified fracture of sacrum, subsequent encounter for fracture with routine healing] 05-10-2024 Episodic Other liver diseases (4 sources) Alkaline phosphatase raised; Translations: [Abnormal levels of other serum enzymes] 03-28-2024 Episodic Other nutritional; endocrine; and metabolic disorders (20 sources) Hypercalcemia; Translations: [Hypercalcemia] Onset: 1 Chronic Other nutritional; endocrine; and metabolic disorders (8 sources) Obesity; Translations: [Other obesity due to excess calories] Onset: 2 Chronic Other nutritional; endocrine; and metabolic disorders (2 sources) Hypercalcemia; Translations: [Hypercalcemia] Onset: 2 Chronic Other nutritional; endocrine; and metabolic disorders (20 sources) Obesity caused by energy imbalance; Translations: [Other obesity due to excess calories] Onset: 2 03-24-2023 Chronic Other screening for suspected conditions (not mental disorders or infectious disease) (20 sources) Patient encounter status; Translations: [Encounter for screening mammogram for malignant neoplasm of breast] Onset: 4 10-07-2023 Episodic Other skin disorders (1 source) Eruption; Translations: [Rash and other nonspecific skin eruption] 03-24-2024 Episodic Prolapse of female genital organs (20 sources) Midline cystocele; Translations: [Cystocele, midline] Onset: 0 01-13-2021 Chronic Residual codes; unclassified (11 sources) Active living will ; Translations: [Personal history of other specified conditions] Onset: 2 Episodic Residual codes; unclassified (1 source) History of squamous cell carcinoma; Translations: [Other specified postprocedural states] Episodic Residual codes; unclassified (1 source) Family history of malignant neoplasm of digestive organs; Translations: [Family history of malignant neoplasm of gastrointestinal tract] Episodic Residual codes; unclassified (1 source) Shooting pain; Translations: [Pain, unspecified] Episodic Spondylosis; intervertebral disc disorders; other back problems (1 source) Degeneration of lumbar intervertebral disc; Translations: [Other intervertebral disc degeneration, lumbar region] 01-20-2024 Chronic Thyroid disorders (7 sources) Multinodular goiter; Translations: [Nontoxic multinodular goiter] Chronic Unclassified (20 sources) Active living will ; Translations: [Living will on file] Onset: 03-20-2022 Urinary tract infections (1 source) Urinary tract infection, site not specified; Translations: [UTI SITE NOT SPECIFIED] Onset: 8 Episodic Past or Other Problems Problem Classification Problem Date Documented Date Episodic/Chronic Administrative/social admission (20 sources) Advance directive discussed with patient; Translations: [Other specified counseling] Onset: 03-20-2022 Episodic Cardiac dysrhythmias (20 sources) Palpitations; Translations: [Palpitations] Onset: 04-04-2024 04-04-2024 Episodic Genitourinary symptoms and ill-defined conditions (5 sources) Urinary symptoms ; Translations: [Unspecified symptoms and signs involving the genitourinary system] Onset: 09-25-2024 05-03-2023 Episodic Heart valve disorders (20 sources) Aortic murmur; Translations: [Other nonrheumatic aortic valve disorders] Onset: 10-01-2011 Resolved: 05-30-2018 05-30-2018 Chronic Other aftercare (1 source) Other ocean transportation intermediary (current) drug therapy; Translations: [Medication management] Onset: 03-24-2024 Episodic Other and unspecified benign neoplasm (20 sources) Benign neoplasm of colon; Translations: [Benign neoplasm of colon, unspecified] Onset: 10-21-2005 01-13-2021 Episodic Other connective tissue disease (20 sources) Tenosynovitis; Translations: [Other synovitis and tenosynovitis, unspecified hand] Onset: 02-02-2008 Resolved: 05-30-2018 05-30-2018 Episodic Other liver diseases (1 source) Abnormal levels of other serum enzymes; Translations: [Elevated alkaline phosphatase level] Onset: 04-20-2024 Episodic Other non-traumatic joint disorders (20 sources) Pain in right hip joint; Translations: [Pain in right hip] Onset: 05-24-2017 Resolved: 08-05-2017 08-05-2017 Episodic Other non-traumatic joint disorders (17 sources) Hip pain; Translations: [Pain in right hip] Onset: 05-24-2017 Resolved: 08-05-2017 08-05-2017 Episodic Residual codes; unclassified (20 sources) Family history of cancer of colon; Translations: [Family history of malignant neoplasm of digestive organs] Onset: 03-20-2022 Episodic Residual codes; unclassified (20 sources) History of colonoscopy; Translations: [Other specified postprocedural states] Onset: 09-06-2016 10-05-2023 Episodic Spondylosis; intervertebral disc disorders; other back problems (20 sources) Sciatica; Translations: [Sciatica, right side] Onset: 01-29-2024 Episodic Sprains and strains (20 sources) Injury of lower extremity; Translations: [Sprain and strain of unspecified site of knee and leg] Onset: 05-05-2011 Resolved: 09-21-2016 09-21-2016 Episodic Syncope (6 sources) Syncope and collapse; Translations: [Syncope] Onset: 06-18-2018 03-08-2024 Episodic Unclassified (1 source) history incision and drainage sebaceous cyst sternum Unclassified (1 source) Patient encounter status 01-17-2025 Results Test Name Value Interpretation Reference Range Facility [facility] 03-13-2025 CNOV Office Visit (ENDMED ) -------- KARLA NDIAYE ([id number]) 1945 F Date Time Provider Department 03/13/25 4:40 PM ANTOINE BRASWELL During your visit today, we recorded the following information about you: Pulse Respiration Blood pressure Weight 59/minute 16/minute 145/81 84.8 kg Height 1.626 m Antoine Braswell MD 03/13/2025 5:15 PM Signed ENDOCRINOLOGY CLINIC NOTE Ms. dNiaye is a pleasant 77 year old female with osteoporosis, HTN, dyslipidemia, stage III CKD presented for follow-up of hypercalcemia and low bone density HPI Hypercalcemia: Ms. Ndiaye has had mild hypercalcemia since 2016, when her calcium was 10.9 (corrected 10.2) with a GFR of 50. Since then, she has had mild hypercalcemia. The highest documented calcium level is 11.5 but without concomitant albumin level. Her PTH has been between 43-81. Ms. Ndiaye is known to have osteoporosis. DXA scan in 10/2020 showed lowest T score -2.4 at the left femoral neck. Comparison with the previous one could not be done because a different machine was used. She was taking HCTZ 12.5 mg daily but was stopped 12/2021. Ms. Ndiaye denied muscle aches and pains, polyuria, polydipsia, and no history of kidney stones or fractures. There is no family history of calcium related conditions. He used to take calcium and vitamin D but they were stopped few months ago. Repeat labs after optimizing her calcium and vitamin D intake showed corrected calcium 10.2, ionized calcium 1.36, vitamin D 46, P3.2, GFR 47, PTH 71 and 24-hour urine calcium 62.9. She underwent left lower parathyroidectomy by Dr. Perez on 2022. Intraoperative PTH declined from 205 to 18. Postoperative calcium and PTH were normal. Pathology showed hypercellular parathyroid tissue Interval events: She is taking Citracal petites 1 caplet (150 mg calcium but serving size is 2 caps she was no aware) + vitamin D 500 units per 2 caps Her calcium was 9.6 in 10/2024, GFR 46, PTH 45 and vitamin D 52 Thyroid nodules: Thyroid ultrasound in 02/2022 showed 4 nodules, the largest being 2.7 cm right mid cystic nodule. In office ultrasound was done in the endocrine surgery clinic showed a cystic nodule on the right measuring 2.5 cm and a subcentimeter complex isoechoic nodule on the right Repeat ultrasound in 01/2024 report reviewed. Overall stable nodules, and one of them decreased in size. Follow-up imaging annually was recommended. Osteoporosis: No fractures or falls Her bone turnover markers were not elevated in 12/2023 DXA scan 11/16/2024 Lumbar spine (L1, L2, L3, L4): 0.936 g/cm2, T-score -1.0, -0.9 TBS adjusted Lumbar spine: 2022: 0.970 g/cm2 Statistically significant decrease Right Femoral Neck: 0.599 g/cm2, T-score -2.2 Right Femoral Neck: 2022: 0.618 g/cm2 No statistically significant change Right Total Hip: 0.777 g/cm2, T-score -1.4 Right Total Hip: 2022: 0.760 g/cm2 No statistically significant change Left Femoral Neck: 0.557 g/cm2, T-score -2.6 Left Femoral Neck: 2022: 0.568 g/cm2 No statistically significant change Left Total Hip: 0.768 g/cm2, T-score -1.4 Left Total Hip: 2022: 0.775 g/cm2 No statistically significant change Right Forearm, Distal 1/3 of Radius: 0.705 g/cm2, T-score 0.2 Right Forearm: 2022: 0.726 g/cm2 No statistically significant change Fracture history: none Treatment history (including any side effects/contraindication s): Fosamax 2018-present Family history of metabolic bone disease or fractures: None Risk factors: > 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 Vitamin D intake: none currently Weight bearing exercise: No structured physical activity Dental Procedure: None in the near future but may plan to do extraction next Radiation Exposure: None Height Loss: She possible lost an inch PAST MEDICAL HISTORY Diagnosis Date Advance directive discussed with patient 03/20/2022 Discussed 03/2022 Age related osteoporosis Age related osteoporosis Fosamax started 12/2018 Aortic heart murmur 10/01/2011 Arthritis of knee 08/05/2017 left knee Benign neoplasm of colon 10/21/2005 Class 1 obesity due to excess calories without serious comorbidity with body mass index (BMI) of 31.0 to 31.9 in adult 08/03/2022 Cystocele, midline 12/11/2009 Essential hypertension, benign Family history of colon cancer 03/20/2022 sister Glaucoma Hx of total knee replacement 10/05/2023 Hypercalcemia 10/19/2021 10/21/2021: Vit D stopped. Seeing Dr. Harrison Haley (more content not included)... Normal [facility] Tan 01-17-2025 CNPN Telephone (FAMPWS) -------- SENTHILKARLA ([id number]) 1945 F Date Time Provider Department 01/17/25 DEEJAY ANDERSON During your visit today, we recorded the following information about you: Radha Cuba LPN 01/17/2025 9:20 AM Signed Patient calling received her reminder letter to have her yearly mamm done. Patient had last one Oct 2023, Mamm with alejandro, due to dense breasts. Pending order to file. Please advise Deejay Anderson MD 01/17/2025 9:47 AM Signed Order placed. Feliz Ho RN 01/17/2025 10:01 AM Signed Called pt back and notified order placed and transferred pt to scheduled to set up appt. Allergies As of Date: 01/17/2025 Noted Allergy Reaction SUTURES 02/14/2013 4 - Hives Comments: high level reaction to CAT GUT suture LISINOPRIL 02/24/2022 3 - Cough MONOPRIL (FOSINOPRIL SODIUM) 07/15/2005 3 - Cough Date Reviewed: 09/25/2024 Reviewed by: Raina Murry LPN - Fully Assessed Reason for Visit: Orders [681] Cmt: mammogram Primary Visit Diagnosis:Screening mammogram for breast cancer [Z12.31] Order(s):JAMIL SCREENING W ALEJANDRO [[id number]] Order #: [id number] FUTURE Prescriptions as of 01/17/2025 - simvastatin (ZOCOR) 20 mg tablet Take 1 tablet by mouth daily at bedtime. - amLODIPine (NORVASC) 5 mg tablet Take 1 tablet by mouth once daily. - spironolactone (ALDACTONE) 25 mg tablet Take 1 tablet by mouth once daily. - alendronate (FOSAMAX) 70 mg tablet Take 1 tablet by mouth one time a week. In AM with cup of water on empty stomach. Nothing else by mouth and stay upright for 30 min. - lisinopril (ZESTRIL) 40 mg tablet Take 1 tablet by mouth once daily. - calcium citrate/vitamin D3 (CITRACAL + D PETITES ORAL) Take 2 tablets by mouth once daily. Problem List As Of Date 01/17/2025 Noted Resolved Essential hypertension, benign [I10] Benign neoplasm of colon [D12.6] 10/21/2005 Other tenosynovitis of hand and wrist [M65.849,*02/02/2008 05/30/2018 Symptomatic menopausal or female climacteric st*12/05/2008 09/21/2016 Osteoarthritis of hip [M16.9] 08/07/2009 08/05/2017 Postmenopausal atrophic vaginitis [N95.2] 12/11/2009 Cystocele, midline [N81.11] 12/11/2009 Sprain and strain of unspecified site of knee a*05/05/2011 09/21/2016 Aortic heart murmur [I35.8] 10/01/2011 05/30/2018 Age related osteoporosis [M81.0] Glaucoma [H40.9] 09/19/2014 Mixed hyperlipidemia [E78.2] 04/09/2016 Right hip pain [M25.551] 05/24/2017 08/05/2017 Arthritis of knee [M17.10] 08/05/2017 Stage 3b chronic kidney disease (HCC) [N18.32] 12/19/2020 Hypercalcemia [E83.52] 10/19/2021 Medicare annual wellness visit, subsequent [Z00*03/20/2022 Living will on file [[id number]] 03/20/2022 Advance directive discussed with patient [Z71.8*03/20/2022 Family history of colon cancer [Z80.0] 03/20/2022 Class 1 obesity due to excess calories without *08/03/2022 Situational anxiety [F41.8] 03/24/2023 History of colonoscopy [Z98.890] 10/05/2023 Diagnosed: 10/05/2023 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] 10/05/2023 Diagnosed: 10/05/2023 Acute midline low back pain without sciatica [M*02/02/2024 Medication management [Z79.899] 03/24/2024 Palpitation [R00.2] 04/04/2024 Screening mammogram for breast cancer [Z12.31] 01/17/2025 Encounter Status:Closed by FELIZ HO on 01/17/25 Normal [facility] JAMIL SCREENING W TOMOon 01-17 JAMIL SCREENING W ALEJANDRO * * *Final Report* * * DATE OF EXAM: Jan 17 2025 1:51PM ERICKSON 0582 - JAMIL SCREENING W ALEJANDRO / PROCEDURE REASON: Screening mammogram for breast cancer * * * * Physician Interpretation * * * * RESULT: [address] [address] [place] [address] #[id number] - JAMIL SCREENING W ALEJANDRO HISTORY: 79 year-old patient seen for screening. Patient is asymptomatic in both breasts. Patient states no personal history of breast cancer. The patient has a family history of breast cancer. COMPARISON STUDIES: The present examination has been compared to prior imaging studies dated 11/05/2021 (mammogram), 10/05/2022 (mammogram), 10/07/2023 (mammogram), 11/02/2023 (mammogram) and 11/02/2023 (ultrasound). MAMMOGRAM TECHNIQUE: The study was acquired using full field digital technology and interpreted from soft copy. Digital Breast Tomosynthesis (DBT) images were obtained and used to assist in the interpretation of this examination. MAMMOGRAM FINDINGS: There are scattered areas of fibroglandular density. No suspicious masses, calcifications or other abnormalities are seen in either breast. There are no significant interval changes. IMPRESSION: There is no mammographic evidence of malignancy in either breast. Routine screening mammogram is recommended. Annual mammogram will be due in 1 year. BI-RADS Category 1: Negative RISK: Based on the Tyrer-Cuzick (TC) risk assessment model, this patient has a 1.2% lifetime risk of developing breast cancer, meaning they are at average risk for developing breast cancer. However, this is only an estimate based on available history provided on the patient's questionnaire. We encourage all patients to talk with their providers about these results, further recommendations for managing breast health, and appropriate supplemental screening options if the patient has dense breast tissue. Interpreting Radiologist: Rafael Cohen M.D. Electronically signed on: 01/20/2025 Optical Dispenser: RASTA Transcribe Date/Time: Jan 17 2025 1:10P Dictated by: RAFAEL COHEN MD This examination was interpreted and the report reviewed and electronically signed by: RAFAEL COHEN MD on Jan 20 2025 10:47AM EST [id number] Normal [facility] BD DXA - AXIAL SKELETONon BD DXA - AXIAL SKELETON * * *Final Report* * * DATE OF EXAM: Nov 16 2024 10:31AM WRB 0804 - BD DXA - AXIAL SKELETON / PROCEDURE REASON: multiple diagnoses * * * * Physician Interpretation * * * * EXAMINATION: DXA BONE DENSITOMETRY BD DXA - AXIAL SKELETON, BD DXA - FOREARM SKELETON, BD DXA TRABECLR BONE SCORE (TBS) PATIENT DEMOGRAPHICS: Age: 79 years, Gender: Female SCANNER INFORMATION: DXA Model: [employer] - [employer]chemy C [id number] Date Scanned: 11/16/2024 10:31 AM CLINICAL HISTORY: DIAGNOSTIC Primary hyperparathyroidism (HCC) Osteoporosis without current pathological fracture, unspecified osteoporosis type . RISK FACTORS FOR OSTEOPOROSIS AND ASSOCIATED FRACTURES REPORTED BY THIS PATIENT: Please refer to Bone Health Questionnaire in the EMR CURRENT THERAPY: Please refer to Bone Health Questionnaire in the EMR TECHNICAL LIMITATIONS: None RESULTS: Lumbar spine (L1, L2, L3, L4): 0.936 g/cm2, T-score -1.0, Z-score 1.7 Lumbar spine: 2022: 0.970 g/cm2 Statistically significant decrease Right Femoral Neck: 0.599 g/cm2, T-score -2.2, Z-score 0.1 Right Femoral Neck: 2022: 0.618 g/cm2 No statistically significant change Right Total Hip: 0.777 g/cm2, T-score -1.4, Z-score 0.8 Right Total Hip: 2022: 0.760 g/cm2 No statistically significant change Left Femoral Neck: 0.557 g/cm2, T-score -2.6, Z-score -0.3 Left Femoral Neck: 2022: 0.568 g/cm2 No statistically significant change Left Total Hip: 0.768 g/cm2, T-score -1.4, Z-score 0.7 Left Total Hip: 2022: 0.775 g/cm2 No statistically significant change Right Forearm, Distal 1/3 of Radius: 0.705 g/cm2, T-score 0.2, Z-score 3.5 Right Forearm: 2022: 0.726 g/cm2 No statistically significant change CHANGE IS STATISTICALLY SIGNIFICANT IN THE SPINE OR HIP IF GREATER THAN OR EQUAL TO 0.04 g/cm2 VERTEBRAL FRACTURE ASSESSMENT Not performed. TRABECULAR BONE ASSESSMENT TBS score: 1.289 Bone micro-architecture: Partially degraded (1.231 - 1.310) IMPRESSION: THE LOWEST T-SCORE IS -2.6 IN THE LEFT HIP 1) DIAGNOSIS (based on BMD alone): OSTEOPOROSIS Caution: Medical conditions other than osteoporosis may cause low bone density, such as osteomalacia or renal osteodystrophy. Clinical correlation is necessary. 2) FRACTURE RISK (Based on TBS adjusted FRAX): 10-year absolute fracture risk: - major osteoporotic fracture = 21 % - hip fracture = 6.8 % - A diagnosis of Osteoporosis, a 10 year probability of hip fracture greater than or equal to 3% or a 10 year probability of any major osteoporosis-related fracture greater than or equal to 20% should be considered for treatment. - DXA scanner generated FRAX calculations may slightly differ from online FRAX calculations due to differences in software versions. - All recommendations and calculations are to be considered as guidelines and should not replace sound clinical judgement - Caution: Fracture risk may be increased independent of BMD in patients with corticosteroid use, age greater than 65 years, or a history of prior fragility fracture. RECOMMENDATIONS: Follow-up in 2 years or as clinically indicated. Patients that are taking corticosteroids, are transplant recipients or have hyperparathyroidism should have annual follow-up. Follow-up scans should always be done on the same machine for accurate comparison. FOR MORE INFORMATION ABOUT DIAGNOSIS AND TREATMENT: [facility] Center for Osteoporosis and Metabolic Bone Disease:? www.ccf.org/arthritis/os jamia National Osteoporosis Foundation:? www.nof.org International Society of Clinical Densitometry www.iscd.org Optical Dispenser: PSCNori Transcribe Date/Time: Nov 20 2024 10:06A Dictated by : LAURA AMEZQUITA MD This examination was interpreted and the report reviewed and electronically signed by: LAURA AMEZQUITA MD on Nov 20 2024 10:09AM EST [id number] -2.6 Normal [facility] BD DXA - FOREARM SKELETONon 11-16-2024 BD DXA - FOREARM SKELETON * * *Final Report* * * DATE OF EXAM: Nov 16 2024 10:31AM WR 0870 - BD DXA - FOREARM SKELETON / PROCEDURE REASON: multiple diagnoses * * * * Physician Interpretation * * * * EXAMINATION: DXA BONE DENSITOMETRY BD DXA - AXIAL SKELETON, BD DXA - FOREARM SKELETON, BD DXA TRABECLR BONE SCORE (TBS) PATIENT DEMOGRAPHICS: Age: 79 years, Gender: Female SCANNER INFORMATION: DXA Model: [employer] - [employer]chemy C 07104 Date Scanned: 11/16/2024 10:31 AM CLINICAL HISTORY: DIAGNOSTIC Primary hyperparathyroidism (HCC) Osteoporosis without current pathological fracture, unspecified osteoporosis type . RISK FACTORS FOR OSTEOPOROSIS AND ASSOCIATED FRACTURES REPORTED BY THIS PATIENT: Please refer to Bone Health Questionnaire in the EMR CURRENT THERAPY: Please refer to Bone Health Questionnaire in the EMR TECHNICAL LIMITATIONS: None RESULTS: Lumbar spine (L1, L2, L3, L4): 0.936 g/cm2, T-score -1.0, Z-score 1.7 Lumbar spine: 2022: 0.970 g/cm2 Statistically significant decrease Right Femoral Neck: 0.599 g/cm2, T-score -2.2, Z-score 0.1 Right Femoral Neck: 2022: 0.618 g/cm2 No statistically significant change Right Total Hip: 0.777 g/cm2, T-score -1.4, Z-score 0.8 Right Total Hip: 2022: 0.760 g/cm2 No statistically significant change Left Femoral Neck: 0.557 g/cm2, T-score -2.6, Z-score -0.3 Left Femoral Neck: 2022: 0.568 g/cm2 No statistically significant change Left Total Hip: 0.768 g/cm2, T-score -1.4, Z-score 0.7 Left Total Hip: 2022: 0.775 g/cm2 No statistically significant change Right Forearm, Distal 1/3 of Radius: 0.705 g/cm2, T-score 0.2, Z-score 3.5 Right Forearm: 2022: 0.726 g/cm2 No statistically significant change CHANGE IS STATISTICALLY SIGNIFICANT IN THE SPINE OR HIP IF GREATER THAN OR EQUAL TO 0.04 g/cm2 VERTEBRAL FRACTURE ASSESSMENT Not performed. TRABECULAR BONE ASSESSMENT TBS score: 1.289 Bone micro-architecture: Partially degraded (1.231 - 1.310) IMPRESSION: THE LOWEST T-SCORE IS -2.6 IN THE LEFT HIP 1) DIAGNOSIS (based on BMD alone): OSTEOPOROSIS Caution: Medical conditions other than osteoporosis may cause low bone density, such as osteomalacia or renal osteodystrophy. Clinical correlation is necessary. 2) FRACTURE RISK (Based on TBS adjusted FRAX): 10-year absolute fracture risk: - major osteoporotic fracture = 21 % - hip fracture = 6.8 % - A diagnosis of Osteoporosis, a 10 year probability of hip fracture greater than or equal to 3% or a 10 year probability of any major osteoporosis-related fracture greater than or equal to 20% should be considered for treatment. - DXA scanner generated FRAX calculations may slightly differ from online FRAX calculations due to differences in software versions. - All recommendations and calculations are to be considered as guidelines and should not replace sound clinical judgement - Caution: Fracture risk may be increased independent of BMD in patients with corticosteroid use, age greater than 65 years, or a history of prior fragility fracture. RECOMMENDATIONS: Follow-up in 2 years or as clinically indicated. Patients that are taking corticosteroids, are transplant recipients or have hyperparathyroidism should have annual follow-up. Follow-up scans should always be done on the same machine for accurate comparison. FOR MORE INFORMATION ABOUT DIAGNOSIS AND TREATMENT: [facility] Center for Osteoporosis and Metabolic Bone Disease:? www.ccf.org/arthritis/os jamia National Osteoporosis Foundation:? www.nof.org International Society of Clinical Densitometry www.iscd.org Optical Dispenser: JADIEL Transcribe Date/Time: Nov 20 2024 10:06A Dictated by : LAURA AMEZQUITA MD This examination was interpreted and the report reviewed and electronically signed by: LAURA AMEZQUITA MD on Nov 20 2024 10:09AM EST [id number] -2.6 Normal [facility] BD DXA TRABECLR BONE SCORE ( TBS)on 11-16-2024 BD DXA TRABECLR BONE SCORE (TBS) * * *Final Report* * * DATE OF EXAM: Nov 16 2024 10:31AM [facility] 0801 - BD DXA TRABECLR BONE SCORE (TBS) / PROCEDURE REASON: multiple diagnoses * * * * Physician Interpretation * * * * EXAMINATION: DXA BONE DENSITOMETRY BD DXA - AXIAL SKELETON, BD DXA - FOREARM SKELETON, BD DXA TRABECLR BONE SCORE (TBS) PATIENT DEMOGRAPHICS: Age: 79 years, Gender: Female SCANNER INFORMATION: DXA Model: [employer] - Adchemy C [id number] Date Scanned: 11/16/2024 10:31 AM CLINICAL HISTORY: DIAGNOSTIC Primary hyperparathyroidism (HCC) Osteoporosis without current pathological fracture, unspecified osteoporosis type . RISK FACTORS FOR OSTEOPOROSIS AND ASSOCIATED FRACTURES REPORTED BY THIS PATIENT: Please refer to Bone Health Questionnaire in the EMR CURRENT THERAPY: Please refer to Bone Health Questionnaire in the EMR TECHNICAL LIMITATIONS: None RESULTS: Lumbar spine (L1, L2, L3, L4): 0.936 g/cm2, T-score -1.0, Z-score 1.7 Lumbar spine: 2022: 0.970 g/cm2 Statistically significant decrease Right Femoral Neck: 0.599 g/cm2, T-score -2.2, Z-score 0.1 Right Femoral Neck: 2022: 0.618 g/cm2 No statistically significant change Right Total Hip: 0.777 g/cm2, T-score -1.4, Z-score 0.8 Right Total Hip: 2022: 0.760 g/cm2 No statistically significant change Left Femoral Neck: 0.557 g/cm2, T-score -2.6, Z-score -0.3 Left Femoral Neck: 2022: 0.568 g/cm2 No statistically significant change Left Total Hip: 0.768 g/cm2, T-score -1.4, Z-score 0.7 Left Total Hip: 2022: 0.775 g/cm2 No statistically significant change Right Forearm, Distal 1/3 of Radius: 0.705 g/cm2, T-score 0.2, Z-score 3.5 Right Forearm: 2022: 0.726 g/cm2 No statistically significant change CHANGE IS STATISTICALLY SIGNIFICANT IN THE SPINE OR HIP IF GREATER THAN OR EQUAL TO 0.04 g/cm2 VERTEBRAL FRACTURE ASSESSMENT Not performed. TRABECULAR BONE ASSESSMENT TBS score: 1.289 Bone micro-architecture: Partially degraded (1.231 - 1.310) IMPRESSION: THE LOWEST T-SCORE IS -2.6 IN THE LEFT HIP 1) DIAGNOSIS (based on BMD alone): OSTEOPOROSIS Caution: Medical conditions other than osteoporosis may cause low bone density, such as osteomalacia or renal osteodystrophy. Clinical correlation is necessary. 2) FRACTURE RISK (Based on TBS adjusted FRAX): 10-year absolute fracture risk: - major osteoporotic fracture = 21 % - hip fracture = 6.8 % - A diagnosis of Osteoporosis, a 10 year probability of hip fracture greater than or equal to 3% or a 10 year probability of any major osteoporosis-related fracture greater than or equal to 20% should be considered for treatment. - DXA scanner generated FRAX calculations may slightly differ from online FRAX calculations due to differences in software versions. - All recommendations and calculations are to be considered as guidelines and should not replace sound clinical judgement - Caution: Fracture risk may be increased independent of BMD in patients with corticosteroid use, age greater than 65 years, or a history of prior fragility fracture. RECOMMENDATIONS: Follow-up in 2 years or as clinically indicated. Patients that are taking corticosteroids, are transplant recipients or have hyperparathyroidism should have annual follow-up. Follow-up scans should always be done on the same machine for accurate comparison. FOR MORE INFORMATION ABOUT DIAGNOSIS AND TREATMENT: [facility] Center for Osteoporosis and Metabolic Bone Disease:? www.ccf.org/arthritis/os jamia National Osteoporosis Foundation:? www.nof.org International Society of Clinical Densitometry www.iscd.org Optical Dispenser: JADIEL Transcribe Date/Time: Nov 20 2024 10:06A Dictated by : LAURA AMEZQUITA MD This examination was interpreted and the report reviewed and electronically signed by: LAURA AMEZQUITA MD on Nov 20 2024 10:09AM EST [id number] -2.6 Normal [facility] Tan [facility] KARLA NDIAYE ([id number]) 1945 F Date Time Provider Department 10/10/24 [facility] During your visit today, we recorded the following information about you: Betty Jennings PA-C 10/10/2024 8:33 AM Signed Repeat calcium is normal. Vit D in good range. Thanks. RUFINA George Gillian, OCCA 10/10/2024 9:09 AM Signed TC no answer. Left VM to return call. Mary REECE Reyes Krista, LPN 10/10/2024 1:18 PM Signed Pt notified of results and provider message. Danielle Shah LPN Allergies As of Date: 10/10/2024 Noted Allergy Reaction SUTURES 02/14/2013 4 - Hives Comments: high level reaction to CAT GUT suture LISINOPRIL 02/24/2022 3 - Cough MONOPRIL (FOSINOPRIL SODIUM) 07/15/2005 3 - Cough Date Reviewed: 09/25/2024 Reviewed by: Raina Murry LPN - Fully Assessed Reason for Visit: Results [95] Prescriptions as of 10/10/2024 - amLODIPine (NORVASC) 5 mg tablet Take 1 tablet by mouth once daily. - spironolactone (ALDACTONE) 25 mg tablet Take 1 tablet by mouth once daily. - alendronate (FOSAMAX) 70 mg tablet Take 1 tablet by mouth one time a week. In AM with cup of water on empty stomach. Nothing else by mouth and stay upright for 30 min. - lisinopril (ZESTRIL) 40 mg tablet Take 1 tablet by mouth once daily. - simvastatin (ZOCOR) 20 mg tablet Take 1 tablet by mouth daily at bedtime. - calcium citrate/vitamin D3 (CITRACAL + D PETITES ORAL) Take 2 tablets by mouth once daily. Problem List As Of Date 10/10/2024 Noted Resolved Essential hypertension, benign [I10] Benign neoplasm of colon [D12.6] 10/21/2005 Other tenosynovitis of hand and wrist [M65.849,*02/02/2008 05/30/2018 Symptomatic menopausal or female climacteric st*12/05/2008 09/21/2016 Osteoarthritis of hip [M16.9] 08/07/2009 08/05/2017 Postmenopausal atrophic vaginitis [N95.2] 12/11/2009 Cystocele, midline [N81.11] 12/11/2009 Sprain and strain of unspecified site of knee a*05/05/2011 09/21/2016 Aortic heart murmur [I35.8] 10/01/2011 05/30/2018 Age related osteoporosis [M81.0] Glaucoma [H40.9] 09/19/2014 Mixed hyperlipidemia [E78.2] 04/09/2016 Right hip pain [M25.551] 05/24/2017 08/05/2017 Arthritis of knee [M17.10] 08/05/2017 Stage 3b chronic kidney disease (HCC) [N18.32] 12/19/2020 Hypercalcemia [E83.52] 10/19/2021 Medicare annual wellness visit, subsequent [Z00*03/20/2022 Living will on file [[id number]] 03/20/2022 Advance directive discussed with patient [Z71.8*03/20/2022 Family history of colon cancer [Z80.0] 03/20/2022 Class 1 obesity due to excess calories without *08/03/2022 Situational anxiety [F41.8] 03/24/2023 History of colonoscopy [Z98.890] 10/05/2023 Diagnosed: 10/05/2023 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] 10/05/2023 Diagnosed: 10/05/2023 Acute midline low back pain without sciatica [M*02/02/2024 Medication management [Z79.899] 03/24/2024 Palpitation [R00.2] 04/04/2024 Encounter Status:Closed by DANIELLE SHAH on 10/10/24 Normal [facility]3 [facility] 25-hydroxyvitamin D3 [Mass/Vol] 52.2 ng/mL Normal 31.0-80.0 [facility] Comment on above: Order Comment: Speci men Type: URINE SPECIMEN Ordering Facility: [facility] Address: [address] [place] [address] [place] [address] Result Comment: Clas sification of 25 [place] Vitamin D status: Deficiency/Insufficiency: < or = 30 ng/ml. Sufficiency/Optimal Levels: 31-80 ng/mL Toxicity: > 100 ng/mL. Test performed by chemiluminescent immunoassay. Performed By: #### 2 4356-8 #### [facility] CLIA [id number] [address] [place] [address] [place] Calcium SerPl-mCncon 03-2 025 Calcium [Mass/Vol] 9.6 mg/dL Normal 8.5-10.2 [facility] Comment on above: Order Comment: Speci men Type: URINE SPECIMEN Ordering Facility: [facility] Address: [address] [place] [address] Performed By: #### 2 4356-8 #### [facility] [place] [id number] [address] [place] [address] [place] PTH-Intact SerPl-mCncon 02-0 Parathyrin.intact [Mass/Vol] 45 pg/mL Normal 15-65 [facility] Comment on above: Order Comment: Speci men Type: URINE SPECIMEN Ordering Facility: [facility] Address: [address] [place] [address] Performed By: #### 2 4356-8 #### [facility] CLIA [id number] [address] [place] [address] [place] CNPNon 09-29-2024 [facility] -------- KARLA NDIAYE ([id number]) 1945 F Date Time Provider Department 09/29/24 BETTY JENNINGS [facility] During your visit today, we recorded the following information about you: Betty Jennings PA-C 09/29/2024 8:02 AM Signed Urine grew e. Coli. Will send in antibiotic. Let us know if symptoms don't improve. RUFINA George Amanda, YEMII 09/29/2024 9:11 AM Signed Pt called and is notified of providers results and instructions. Pt voices understanding. Safia Wise RN Allergies As of Date: 09/29/2024 Noted Allergy Reaction SUTURES 02/14/2013 4 - Hives Comments: high level reaction to CAT GUT suture LISINOPRIL 02/24/2022 3 - Cough MONOPRIL (FOSINOPRIL SODIUM) 07/15/2005 3 - Cough Date Reviewed: 09/25/2024 Reviewed by: Raina Murry LPN - Fully Assessed Reason for Visit: Results [95] Order(s):nitrofurantoin monohydrate and macrocrystal (MACROBID) 100 mg capsuleTake 1 capsule by mouth two times a day with meals for 7 days.Disp: 14 capsuleRfl: 0 Prescriptions as of 09/29/2024 - nitrofurantoin monohydrate and macrocrystal (MACROBID) 100 mg capsule Take 1 capsule by mouth two times a day with meals for 7 days. - amLODIPine (NORVASC) 5 mg tablet Take 1 tablet by mouth once daily. - spironolactone (ALDACTONE) 25 mg tablet Take 1 tablet by mouth once daily. - alendronate (FOSAMAX) 70 mg tablet Take 1 tablet by mouth one time a week. In AM with cup of water on empty stomach. Nothing else by mouth and stay upright for 30 min. - lisinopril (ZESTRIL) 40 mg tablet Take 1 tablet by mouth once daily. - simvastatin (ZOCOR) 20 mg tablet Take 1 tablet by mouth daily at bedtime. - calcium citrate/vitamin D3 (CITRACAL + D PETITES ORAL) Take 2 tablets by mouth once daily. Problem List As Of Date 09/29/2024 Noted Resolved Essential hypertension, benign [I10] Benign neoplasm of colon [D12.6] 10/21/2005 Other tenosynovitis of hand and wrist [M65.849,*02/02/2008 05/30/2018 Symptomatic menopausal or female climacteric st*12/05/2008 09/21/2016 Osteoarthritis of hip [M16.9] 08/07/2009 08/05/2017 Postmenopausal atrophic vaginitis [N95.2] 12/11/2009 Cystocele, midline [N81.11] 12/11/2009 Sprain and strain of unspecified site of knee a*05/05/2011 09/21/2016 Aortic heart murmur [I35.8] 10/01/2011 05/30/2018 Age related osteoporosis [M81.0] Glaucoma [H40.9] 09/19/2014 Mixed hyperlipidemia [E78.2] 04/09/2016 Right hip pain [M25.551] 05/24/2017 08/05/2017 Arthritis of knee [M17.10] 08/05/2017 Stage 3b chronic kidney disease (HCC) [N18.32] 12/19/2020 Hypercalcemia [E83.52] 10/19/2021 Medicare annual wellness visit, subsequent [Z00*03/20/2022 Living will on file [[id number]] 03/20/2022 Advance directive discussed with patient [Z71.8*03/20/2022 Family history of colon cancer [Z80.0] 03/20/2022 Class 1 obesity due to excess calories without *08/03/2022 Situational anxiety [F41.8] 03/24/2023 History of colonoscopy [Z98.890] 10/05/2023 Diagnosed: 10/05/2023 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] 10/05/2023 Diagnosed: 10/05/2023 Acute midline low back pain without sciatica [M*02/02/2024 Medication management [Z79.899] 03/24/2024 Palpitation [R00.2] 04/04/2024 Prescriptions ordered this encounter Disp Refills Start End NITROFURANTOIN MONOHYDRATE AND MACROCR* 14 c* 0 09/29/2024 10/06/2024 Route: ORAL Sig: Take 1 capsule by mouth two times a day with meals for 7 days. Encounter Status:Closed by SAFIA WISE on 09/29/24 [facility] Bacteria Ur Culton 5 Bacteria identified Cx Nom (U) ORGANISM ID: 1 >=100,000 CFU/ml Escherichia coli ORGANISM ID: 1 (ESCHERICHIA COLI) ANTIBIOTIC INTERPRETATION JEFFREY STATUS REFERENCE RANGE Ampicillin S <=2 F Susceptible <=8 , Intermediate >8 , Resistant >16 Cefazolin S <=4 F Susceptible 0-16 , Intermediate <0 or >16 , Resistant >16 For uncomplicated urinary tract infections, cefazolin results can be used to predict susceptibility or resistance to cephalexin. Ceftriaxone S <=1 F Susceptible <=1 , Intermediate >1 , Resistant >=4 Cefepime S <=1 F Susceptible <=2 , Susceptible-Dose Dependent >2 , Resistant >=16 Ertapenem S <=0.5 F Susceptible <=0.5 , Intermediate >.5 , Resistant >1 Meropenem S <=0.25 F Susceptible <=1 , Intermediate >1 , Resistant >2 Ampicillin/Sulbact S <=2 F Susceptible <=8 , Intermediate >8 , Resistant >16 Piperacillin/Tazobac S <=4 F Susceptible <16 , Susceptible-Dose Dependent >=16 , Resistant >=32 Gentamicin S <=1 F Susceptible <=2 , Intermediate >2 , Resistant >=8 Tobramycin S <=1 F Susceptible <4 , Intermediate >=4 , Resistant >=8 Trimeth sulfameth S <=20 F Susceptible <=40 , Resistant >40 Ciprofloxacin S <=0.25 F Susceptible <0.5 , Intermediate >=.5 , Resistant >=1 Nitrofurantoin S <=16 F Susceptible <=32 , Intermediate >32 , Resistant >64 Abnormal [facility] Comment on above: Performed By: #### 6 30-4 ####[facility] [id number] [address] [place] Urinalysis complete panel (U )on 09-27-2024 BACTERIA UL 8779.4 uL High Negative [facility] Comment on above: Order Comment: Speci men Type: URINE SPECIMEN Ordering Facility: [facility] Address: [address] [place] [address] Performed By: #### 2 4356-8 #### [facility] CLIA [id number] [address] [place] [address] [place] Bilirubin Ql (U) Negative Normal Negative [facility] Comment on above: Order Comment: Speci men Type: URINE SPECIMEN Ordering Facility: [facility] Address: [address] [place] [address] Performed By: #### 2 4356-8 #### [facility] CLIA [id number] [address] [place] [address] [place] Clarity (Unsp spec) Clear Normal Clear [facility] Comment on above: Order Comment: Speci men Type: URINE SPECIMEN Ordering Facility: [facility] Address: [address] [place] [address] Performed By: #### 2 4356-8 #### [facility] CLIA [id number] [address] [place] [address] [place] Color (U) Yellow Normal Yellow [facility] Comment on above: Order Comment: Speci men Type: URINE SPECIMEN Ordering Facility: [facility] Address: [address] [place] [address] Performed By: #### 2 4356-8 #### [facility] CLIA [id number] [address] [place] [address] [place] Epithelial cells LM.HPF (Urine sed) [#/Area] None Seen Normal [facility] Comment on above: Order Comment: Speci men Type: URINE SPECIMEN Ordering Facility: [facility] Address: [address] [place] [address] Performed By: #### 2 4356-8 #### [facility] CLIA [id number] [address] [place] [address] [place] Glucose Test strip (U) [Mass/Vol] Negative Normal Negative [facility] Comment on above: Order Comment: Speci men Type: URINE SPECIMEN Ordering Facility: [facility] Address: [address] [place] [address] Performed By: #### 2 4356-8 #### [facility] CLIA [id number] [address] [place] [address] [place] Hemoglobin Ql (U) Negative Normal Negative [facility] Comment on above: Order Comment: Speci men Type: URINE SPECIMEN Ordering Facility: [facility] Address: [address] [place] [address] Performed By: #### 2 4356-8 #### [facility] CLIA [id number] [address] [place] [address] [place] Hyaline casts (Urine sed) [#/Area] 1-3 /LPF Abnormal 0 /LPF [facility] Comment on above: Order Comment: Speci men Type: URINE SPECIMEN Ordering Facility: [facility] Address: [address] [place] [address] Performed By: #### 2 4356-8 #### [facility] CLIA [id number] [address] [place] [address] [place] Ketones Ql (U) Negative Normal Negative [facility] Comment on above: Order Comment: Speci men Type: URINE SPECIMEN Ordering Facility: [facility] Address: [address] [place] [address] Performed By: #### 2 4356-8 #### [facility] CLIA [id number] [address] [place] [address] [place] Leukocyte esterase Test strip Ql (U) 2+ Abnormal Negative [facility] Comment on above: Order Comment: Speci men Type: URINE SPECIMEN Ordering Facility: [facility] Address: [address] [place] [address] Performed By: #### 2 4356-8 #### [facility] CLIA [id number] [address] [place] [address] [place] Nitrite Ql (U) Negative Normal Negative [facility] Comment on above: Order Comment: Speci men Type: URINE SPECIMEN Ordering Facility: [facility] Address: [address] [place] [address] Performed By: #### 2 4356-8 #### [facility] CLIA [id number] [address] [place] [address] [place] pH (U) 7.0 [pH] Normal <8.5 [facility] Comment on above: Order Comment: Speci men Type: URINE SPECIMEN Ordering Facility: [facility] Address: [address] [place] [address] Performed By: #### 2 4356-8 #### [facility] CLIA [id number] [address] [place] [address] [place] Protein (U) [Mass/Vol] Negative Normal Negative [facility] Comment on above: Order Comment: Speci men Type: URINE SPECIMEN Ordering Facility: [facility] Address: [address] [place] [address] Performed By: #### 2 4356-8 #### [facility] CLIA [id number] [address] [place] [address] [place] RBC LM.HPF (Urine sed) [#/Area] 0-2 /HPF Normal 0-2 /HPF [facility] Comment on above: Order Comment: Speci men Type: URINE SPECIMEN Ordering Facility: [facility] Address: [address] [place] [address] Performed By: #### 2 4356-8 #### [facility] CLIA [id number] [address] [place] [address] [place] Specific gravity (U) [Rel density] 1.007 Normal 1.005-1.030 [facility] Comment on above: Order Comment: Speci men Type: URINE SPECIMEN Ordering Facility: [facility] Address: [address] [place] [address] Performed By: #### 2 4356-8 #### [facility] CLIA [id number] [address] [place] [address] [place] Urobilinogen Ql (U) 0.2 EU/dL Normal 0.2-1.0 EU/dL [facility] Comment on above: Order Comment: Speci men Type: URINE SPECIMEN Ordering Facility: [facility] Address: [address] [place] [address] Performed By: #### 2 4356-8 #### [facility] CLIA [id number] [address] [place] [address] [place] WBC LM.HPF (Urine sed) [#/Area] 11-20 /HPF Abnormal 0-5 /HPF [facility] Comment on above: Order Comment: Speci men Type: URINE SPECIMEN Ordering Facility: [facility] Address: [address] [place] [address] Performed By: #### 2 4356-8 #### [facility] CLIA [id number] [address] [place] [address] [place] [facility] -------- KARLA NDIAYE ([id number]) 1945 F Date Time Provider Department 09/26/24 BETTY JENNINGS [facility] During your visit today, we recorded the following information about you: Betty Jennings PA-C 09/26/2024 1:12 PM Signed Let patient know that her urine showed mixed bacteria. Which could be from contamination in collection process. No other evidence of UTI in the urinalysis.. We can try to get another clean catch one, or we can monitor symptoms. Which does she prefer? Her cholesterol is normal. Renal function is stable Calcium is just slightly elevated. Repeat in 2-4 weeks. RUFINA George Rayanne, PA-C 09/26/2024 2:21 PM Signed Urine placed Raina Murry LPN 09/26/2024 2:25 PM Signed Patient notified of results and provider's instructions. Patient verbalizes understanding. Pt would like to repeat urine. Raina Murry LPN Allergies As of Date: 09/26/2024 Noted Allergy Reaction SUTURES 02/14/2013 4 - Hives Comments: high level reaction to CAT GUT suture LISINOPRIL 02/24/2022 3 - Cough MONOPRIL (FOSINOPRIL SODIUM) 07/15/2005 3 - Cough Date Reviewed: 09/25/2024 Reviewed by: Raina Murry LPN - Fully Assessed Reason for Visit: Results [95] Primary Visit Diagnosis:Hypercalcemia [E83.52] Other Visit Diagnosis:Abnormal urine odor [R82.90] Order(s):CALCIUM, TOTAL [SQCA] Order #: [id number] FUTURE VITAMIN D 25 HYDROXY [SQVITD] Order #: [id number] FUTURE PTH INTACT [SQPTHI] Order #: [id number] FUTURE URINALYSIS, WITH MICROSCOPIC [SQUAWMIC] Order #: [id number] FUTURE BACTERIAL CULTURE, URINE [SQURCUL] Order #: [id number] FUTURE Prescriptions as of 09/26/2024 - amLODIPine (NORVASC) 5 mg tablet Take 1 tablet by mouth once daily. - spironolactone (ALDACTONE) 25 mg tablet Take 1 tablet by mouth once daily. - alendronate (FOSAMAX) 70 mg tablet Take 1 tablet by mouth one time a week. In AM with cup of water on empty stomach. Nothing else by mouth and stay upright for 30 min. - lisinopril (ZESTRIL) 40 mg tablet Take 1 tablet by mouth once daily. - simvastatin (ZOCOR) 20 mg tablet Take 1 tablet by mouth daily at bedtime. - calcium citrate/vitamin D3 (CITRACAL + D PETITES ORAL) Take 2 tablets by mouth once daily. Problem List As Of Date 09/26/2024 Noted Resolved Essential hypertension, benign [I10] Benign neoplasm of colon [D12.6] 10/21/2005 Other tenosynovitis of hand and wrist [M65.849,*02/02/2008 05/30/2018 Symptomatic menopausal or female climacteric st*12/05/2008 09/21/2016 Osteoarthritis of hip [M16.9] 08/07/2009 08/05/2017 Postmenopausal atrophic vaginitis [N95.2] 12/11/2009 Cystocele, midline [N81.11] 12/11/2009 Sprain and strain of unspecified site of knee a*05/05/2011 09/21/2016 Aortic heart murmur [I35.8] 10/01/2011 05/30/2018 Age related osteoporosis [M81.0] Glaucoma [H40.9] 09/19/2014 Mixed hyperlipidemia [E78.2] 04/09/2016 Right hip pain [M25.551] 05/24/2017 08/05/2017 Arthritis of knee [M17.10] 08/05/2017 Stage 3b chronic kidney disease (HCC) [N18.32] 12/19/2020 Hypercalcemia [E83.52] 10/19/2021 Medicare annual wellness visit, subsequent [Z00*03/20/2022 Living will on file [[id number]] 03/20/2022 Advance directive discussed with patient [Z71.8*03/20/2022 Family history of colon cancer [Z80.0] 03/20/2022 Class 1 obesity due to excess calories without *08/03/2022 Situational anxiety [F41.8] 03/24/2023 History of colonoscopy [Z98.890] 10/05/2023 Diagnosed: 10/05/2023 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] 10/05/2023 Diagnosed: 10/05/2023 Acute midline low back pain without sciatica [M*02/02/2024 Medication management [Z79.899] 03/24/2024 Palpitation [R00.2] 04/04/2024 Encounter Status:Closed by RAINA MURRY on 1/21/25 Normal [facility] Ur Culton 5 Bacteria identified Cx Nom (U) ORGANISM ID: 1 >=100,000 CFU/ml Mixed microbiota No further workup. Mixed microbiota can be due to???urine???contaminati on with skin bacteria at time of collection or presence of a long-term urinary catheter. If a new culture is needed, please consider re-education of the patient on proper midstream co llection technique or straight catheterization for???urine???collection . Normal [facility] Comment on above: Performed By: #### 6 30-4 ####[facility] [id number] [place] [address] [place] Basic metabolic 2000 panelon 09-25-2024 Anion gap [Moles/Vol] 11 mmol/L Normal 8-15 [facility] Comment on above: Order Comment: Speci men Type: URINE SPECIMEN Ordering Facility: [facility] Address: [address] [place] [address] Performed By: #### 2 4356-8 #### [facility] CLIA [id number] [address] [place] [address] [place] Calcium [Mass/Vol] 10.5 mg/dL High 8.5-10.2 [facility] Comment on above: Order Comment: Speci men Type: URINE SPECIMEN Ordering Facility: [facility] Address: [address] [place] [address] Performed By: #### 2 4356-8 #### [facility] CLIA [id number] [address] [place] [address] [place] Chloride [Moles/Vol] 103 mmol/L Normal 98-107 [facility] Comment on above: Order Comment: Speci men Type: URINE SPECIMEN Ordering Facility: [facility] Address: [address] [place] [address] Performed By: #### 2 4356-8 #### [facility] CLIA [id number] [address] [place] [address] [place] CO2 [Moles/Vol] 26 mmol/L Normal 22-30 [facility] Comment on above: Order Comment: Speci men Type: URINE SPECIMEN Ordering Facility: [facility] Address: [address] [place] [address] Performed By: #### 2 4356-8 #### [facility] CLIA [id number] [address] [place] [address] [place] Creatinine [Mass/Vol] 1.20 mg/dL High 0.58-0.96 [facility] Comment on above: Order Comment: Speci men Type: URINE SPECIMEN Ordering Facility: [facility] Address: [address] [place] [address] Performed By: #### 2 4356-8 #### [facility] CLIA [id number] [address] [place] [address] [place] Creatinine and Glomerular filtration rate.predicted panel (S/P/Bld) 46 mL/min/1.73m??? Low >=60 [facility] Comment on above: Order Comment: Speci men Type: URINE SPECIMEN Ordering Facility: [facility] Address: [address] [place] [address] Result Comment: Prachi mated Glomerular Filtration Rate (eGFR) is calculated using the 2020 CKD-EPI creatinine equation. This equation utilizes serum creatinine, sex, and age as parameters. The creatinine assay has traceable calibration to isotope dilution-mass spectrometry. Refer to KDIGO guidelines for clinical interpretation. In patients with unstable renal function, e.g. those with acute kidney injury, the eGFR may not accurately reflect actual GFR. Performed By: #### 2 4356-8 #### [facility] CLIA [id number] [address] [place] [address] [place] Glucose [Mass/Vol] 85 mg/dL Normal 74-99 [facility] Comment on above: Order Comment: Speci men Type: URINE SPECIMEN Ordering Facility: [facility] Address: [address] [place] [address] Result Comment: The [place] [employer] (ADA) provides guidance for cutoff values for fasting glucose and random glucose. The ADA defines fasting as no caloric intake for at least 8 hours. Fasting plasma glucose results between 100 to 125 mg/dL indicate increased risk for diabetes (prediabetes). Fasting plasma glucose results greater than or equal to 126 mg/dL meet the criteria for diagnosis of diabetes. In the absence of unequivocal hyperglycemia, results should be confirmed by repeat testing. In a patient with classic symptoms of hyperglycemia or hyperglycemic crisis, random plasma glucose results greater than or equal to 200 mg/dL meet the criteria for diagnosis of diabetes. Reference: Standards of Medical Care in Diabetes 2016, [place] [employer]. Diabetes Care. 2016.39(Suppl 1). Performed By: #### 2 4356-8 #### [facility] CLIA [id number] [address] [place] [address] [place] Potassium [Moles/Vol] 4.7 mmol/L Normal 3.7-5.1 [facility] Comment on above: Order Comment: Speci men Type: URINE SPECIMEN Ordering Facility: [facility] Address: [address] [place] [address] Performed By: #### 2 4356-8 #### [facility] CLIA [id number] [address] [place] [address] [place] Sodium [Moles/Vol] 140 mmol/L Normal 136-144 [facility] Comment on above: Order Comment: Speci men Type: URINE SPECIMEN Ordering Facility: [facility] Address: [address] [place] [address] Performed By: #### 2 4356-8 #### [facility] CLIA [id number] [address] [place] [address] [place] Urea nitrogen [Mass/Vol] 26 mg/dL High 7-21 [facility] Comment on above: Order Comment: Speci men Type: URINE SPECIMEN Ordering Facility: [facility] Address: [address] [place] [address] Performed By: #### 2 4356-8 #### [facility] CLIA [id number] [address] [id number] [place] CNOVon 09-25-2024 CNOV Office Visit ([facility] ) -------- KARLA NDIAYE ([id number]) 1945 F Date Time Provider Department 09/25/24 10:00 AM [facility], we recorded the following information about you: Temperature Pulse Respiration Blood pressure 97.3 degrees 80/minute 18/minute 110/76 Weight 84.8 kg Betty Jennings PA-C 09/25/2024 10:10 AM Signed Chief Complaint Patient presents with: 6 Month Exam HPI Karla Kate Senthil is a 79 year old female who presents here today for Chronic Medical Conditions.. Patient with hx of HTN, Hyperlipidemia, elevated calcium, osteopetrosis, CKD stage 3 as well as those reviewed and addressed blow and in ROS. Patient has noted abnormal urine odor for a few months. No other urinary symptoms. Past medical history, appointments, medications, allergies reviewed. Previous Medical History PAST MEDICAL HISTORY Diagnosis Date Advance directive discussed with patient 03/20/2022 Discussed 03/2022 Age related osteoporosis Age related osteoporosis Fosamax started 12/2018 Aortic heart murmur 10/01/2011 Arthritis of knee 08/05/2017 left knee Benign neoplasm of colon 10/21/2005 Class 1 obesity due to excess calories without serious comorbidity with body mass index (BMI) of 31.0 to 31.9 in adult 08/03/2022 Cystocele, midline 12/11/2009 Essential hypertension, benign Family history of colon cancer 03/20/2022 sister Glaucoma Hx of total knee replacement 10/05/2023 Hypercalcemia 10/19/2021 10/21/2021: Vit D stopped. Seeing Dr. French Haley as of 02/2022 Internal hemorrhoids without mention of complication 10/21/2005 Living will on file 03/20/2022 DPA: Jameson () Medicare annual wellness visit, subsequent 03/20/2022 Medicare Part B: 08/06/2008 Last done:03/20/2022 Mixed hyperlipidemia 04/09/2016 Pleural effusion on right 04/01/2019 Postmenopausal atrophic vaginitis 12/11/2009 Situational anxiety 03/24/2023 mainly related to husbands health Stage 3a chronic kidney disease (HCC) 12/19/2020 Stage 3b chronic kidney disease (HCC) 12/19/2020 Symptomatic menopausal or female climacteric states Trochanteric bursitis, right hip 2018 Unilateral primary osteoarthritis, left knee 2018 Vasovagal syncope 10/01/2011 Previous Surgical History PAST SURGICAL HISTORY Procedure Laterality Date ARTHRP KNE CONDYLEANDPLATU MEDIALANDLAT COMPARTMENTS Right 08/17/2011 Dr. Berry COLONOSCOPY FLX DX W/COLLJ SPEC WHEN PFRMD 01/2009 with polypectomy and needs repeat 3 yrs COLSC FLX W/RMVL OF TUMOR POLYP LESION SNARE TQ 10/21/2005 DILATION AND CURETTAGE DXAND/THER NONOBSTETRIC Dilation AND curettage HIP SURGERY HX 11/2020 tendon repair MAL LESION NECK,HAND,SCAL 1.1-2CM 10/21/2011 Exc. 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 left dorsal hand skin lesion MAL LESION TRUNK,ARM,LEG 1.1-2.0 CM Right 12/14/2015 Exc. right dorsal forearm lesion PAST SURGICAL HISTORY OF Right 11/2020 right hip tendon repairs PT ED ENDOCRINOLOGY Left 08/2022 one on the left side TOTAL KNEE REPLACEMENT Left 07/09/2021 TOTAL KNEE REPLACEMENT Left 07/2021 Family History FAMILY HISTORY Problem Relation Age of Onset Stroke Mother 88 Alcohol/Drug Father Hypertension Father Breast Cancer Sister Colon Cancer Sister 79 No Known Problems Maternal Grandmother No Known Problems Maternal Grandfather No Known Problems Paternal Grandmother No Known Problems Paternal Grandfather No Known Problems Son Diabetes Son No Known Problems Son Patient Allergies ALLERGIES Allergen Reactions Sutures Hives high level reaction to CAT GUT suture Lisinopril Cough Monopril [Fosinopri* Cough Current Medications Current Outpatient Medications on File Prior to Visit Medication Sig alendronate (FOSAMAX) 70 mg tablet Take 1 tablet by mouth one time a week. In AM with cup of water on empty stomach. Nothing else by mouth and stay upright for 30 min. lisinopril (ZESTRIL) 40 mg tablet Take 1 tablet by mouth once daily. simvastatin (ZOCOR) 20 mg tablet Take 1 tablet by mouth daily at bedtime. calcium citrate/vitamin D3 (CITRACAL + D PETITES ORAL) Take 2 tablets by mouth once daily. No current facility-administered medications on file prior to visit. Social History Social History Tobacco Use Smoking status: Former Smokeless tobacco: Never Tobacco comments: QUIT 1976 Vaping Use Vaping status: Never Used Substance Use Topics Alcohol use: Not Currently Alcohol/week: 1.0 standard drink of alcohol Types: 1 Shots of liquor per week Drug use: No Review of Symptoms REVIEW OF SYSTEMS GENERAL: No weight loss, malaise or fevers NECK: Negative for lumps, goiter, pain and significant neck swelling RESPIRATORY: Negative for cough, hemoptysis, wheezing, COPD, dyspnea or shortness of breath CARDIOVASCULAR: Negative for (more content not included)... Normal [facility] LIPID PANEL, NONFASTINGon Cholesterol [Mass/Vol] 163 mg/dL Normal <200 [facility] Comment on above: Order Comment: Speci men Type: URINE SPECIMEN Ordering Facility: [facility] Address: [address] [place] [address] Result Comment: <200 mg/dL, Desirable 200-239 mg/dL, Borderline high >239 mg/dL, High Performed By: #### 2 4356-8 #### [facility] CLIA [id number] [address] [place] [address] [place] HDL CHOLESTEROL, NF 53 mg/dL Normal >39 [facility] Comment on above: Order Comment: Speci men Type: URINE SPECIMEN Ordering Facility: [facility] Address: [address] [place] [address] Result Comment: 40-5 9 mg/dL, Acceptable >59 mg/dL, High: Negative risk factor for coronary heart disease <40 mg/dL, Low: Positive risk factor for coronary heart disease Performed By: #### 2 4356-8 #### [facility] CLIA [id number] [address] [place], [place] [address] [place] LDL CHOLESTEROL, NF 81 mg/dL Normal <100 [facility] Comment on above: Order Comment: Speci men Type: URINE SPECIMEN Ordering Facility: [facility] Address: [address] [place] [address] Result Comment: <100 mg/dL, Optimal 100-129 mg/dL, Near optimal/above optimal 130-159 mg/dL, Borderline high 160-189 mg/dL, High >189 mg/dL, Very high Secondary prevention optimal LDL Cholesterol levels are recommended to be < 70 mg/dL Performed By: #### 2 4356-8 #### [facility] CLIA [id number] [address] [place] [address] [place] LDL/HDL RATIO, NF 1.53 mg/dL Normal <2.54 [facility] Comment on above: Order Comment: Speci men Type: URINE SPECIMEN Ordering Facility: [facility] Address: [address] [place] [address] Result Comment: Aamir mehta: 1. National Cholesterol Education Program ATP III Guideline At-A-Glance Quick Desk Reference: National Heart, Lung, and Blood [place]. National Institutes of Health. 2001: NIH Publication No. 01-3305. 2. An International Atherosclerosis Society position paper: global recommendations for the management of dyslipidemia: executive summary, Atherosclerosis. 2014: 232(2):410-413. Performed By: #### 2 4356-8 #### [facility] CLIA [id number] [address] [place] [address] [place] NON HDL CHOL, NF 110 mg/dL Normal <130 [facility] Comment on above: Order Comment: Speci men Type: URINE SPECIMEN Ordering Facility: [facility] Address: [address] [place] [address] Result Comment: <130 mg/dL, Optimal 130-159 mg/dL, Near optimal/above optimal 160-189 mg/dL, Borderline high 190-219 mg/dL, High >219 mg/dL, Very high Secondary prevention optimal non HDL Cholesterol levels are recommended to be <100 mg/dL Performed By: #### 2 4356-8 #### [facility] CLIA [id number] [address] [place] [address] [place] T CHOL/HDL RATIO NF 3.08 mg/dL Normal <5.10 [facility] Comment on above: Order Comment: Speci men Type: URINE SPECIMEN Ordering Facility: [facility] Address: [address] [place] [address] Performed By: #### 2 4356-8 #### [facility] CLIA [id number] [address] [place] [address] [place] TRIGLYCERIDES, NF 145 mg/dL Normal <150 [facility] Comment on above: Order Comment: Speci men Type: URINE SPECIMEN Ordering Facility: [facility] Address: [address] [place] [address] Result Comment: <150 mg/dL, Normal 150-199 mg/dL, Borderline high 200-499 mg/dL, High >499 mg/dL, Very high Performed By: #### 2 4356-8 #### [facility] CLIA [id number] [address] [place] [address] [place] VLDL CHOLESTEROL, NF 29 mg/dL Normal <30 [facility] Comment on above: Order Comment: Speci men Type: URINE SPECIMEN Ordering Facility: [facility] Address: [address] [place] [address] Performed By: #### 2 4356-8 #### [facility] CLIA [id number] [address] [place] [address] [place] Urinalysis complete panel (U )on 09-25-2024 BACTERIA UL 4160.8 uL High Negative [facility] Comment on above: Order Comment: Speci men Type: URINE SPECIMEN Ordering Facility: [facility] Address: [address] [place] [address] Performed By: #### 2 4356-8 #### [facility] CLIA [id number] [address] [place] [address] [place] Bilirubin Ql (U) Negative Normal Negative [facility] Comment on above: Order Comment: Speci men Type: URINE SPECIMEN Ordering Facility: [facility] Address: [address] [place] [address] Performed By: #### 2 4356-8 #### [facility] CLIA [id number] [address] [place] [address] [place] Clarity (Unsp spec) Clear Normal Clear [facility] Comment on above: Order Comment: Speci men Type: URINE SPECIMEN Ordering Facility: [facility] Address: [address] [place] [address] Performed By: #### 2 4356-8 #### [facility] CLIA [id number] [address] [place] [address] [place] Color (U) Yellow Normal Yellow [facility] Comment on above: Order Comment: Speci men Type: URINE SPECIMEN Ordering Facility: [facility] Address: [address] [place] [address] Performed By: #### 2 4356-8 #### [facility] CLIA [id number] [address] [place] [address] [place] Epithelial cells LM.HPF (Urine sed) [#/Area] None Seen Normal [facility] Comment on above: Order Comment: Speci men Type: URINE SPECIMEN Ordering Facility: [facility] Address: [address] [place] [address] Performed By: #### 2 4356-8 #### [facility] CLIA [id number] [address] [place] [address] [place] Glucose Test strip (U) [Mass/Vol] Negative Normal Negative [facility] Comment on above: Order Comment: Speci men Type: URINE SPECIMEN Ordering Facility: [facility] Address: [address] [place] [address] Performed By: #### 2 4356-8 #### [facility] CLIA [id number] [address] [place] [address] [place] Hemoglobin Ql (U) Negative Normal Negative [facility] Comment on above: Order Comment: Speci men Type: URINE SPECIMEN Ordering Facility: [facility] Address: [address] [place] [address] Performed By: #### 2 4356-8 #### [facility] CLIA [id number] [address] [place] [address] [place] Hyaline casts (Urine sed) [#/Area] 4-10 /LPF Abnormal 0 /LPF [facility] Comment on above: Order Comment: Speci men Type: URINE SPECIMEN Ordering Facility: [facility] Address: [address] [place] [address] Performed By: #### 2 4356-8 #### [facility] CLIA [id number] [address] [place] [address] [place] Ketones Ql (U) Negative Normal Negative [facility] Comment on above: Order Comment: Speci men Type: URINE SPECIMEN Ordering Facility: [facility] Address: [address] [place] [address] Performed By: #### 2 4356-8 #### [facility] CLIA [id number] [address] [place] [address] [place] Leukocyte esterase Test strip Ql (U) 2+ Abnormal Negative [facility] Comment on above: Order Comment: Speci men Type: URINE SPECIMEN Ordering Facility: [facility] Address: [address] [place] [address] Performed By: #### 2 4356-8 #### [facility] CLIA [id number] [address] [place] [address] [place] Nitrite Ql (U) Negative Normal Negative [facility] Comment on above: Order Comment: Speci men Type: URINE SPECIMEN Ordering Facility: [facility] Address: [address] [place] [address] Performed By: #### 2 4356-8 #### [facility] CLIA [id number] [address] [place] [address] [place] pH (U) 6.0 [pH] Normal <8.5 [facility] Comment on above: Order Comment: Speci men Type: URINE SPECIMEN Ordering Facility: [facility] Address: [address] [place] [address] Performed By: #### 2 4356-8 #### [facility] CLIA [id number] [address] [place] [address] [place] Protein (U) [Mass/Vol] Negative Normal Negative [facility] Comment on above: Order Comment: Speci men Type: URINE SPECIMEN Ordering Facility: [facility] Address: [address] [place] [address] Performed By: #### 2 4356-8 #### [facility] CLIA [id number] [address] [place] [address] [place] RBC LM.HPF (Urine sed) [#/Area] 0-2 /HPF Normal 0-2 /HPF [facility] Comment on above: Order Comment: Speci men Type: URINE SPECIMEN Ordering Facility: [facility] Address: [address] [place] [address] Performed By: #### 2 4356-8 #### [facility] CLIA [id number] [address] [place] [address] [place] Specific gravity (U) [Rel density] 1.009 Normal 1.005-1.030 [facility] Comment on above: Order Comment: Speci men Type: URINE SPECIMEN Ordering Facility: [facility] Address: [address] [place] [address] Performed By: #### 2 4356-8 #### [facility] CLIA [id number] [address] [place] [address] [place] Urobilinogen Ql (U) 0.2 EU/dL Normal 0.2-1.0 EU/dL [facility] Comment on above: Order Comment: Speci men Type: URINE SPECIMEN Ordering Facility: [facility] Address: [address] [place] [address] Performed By: #### 2 4356-8 #### [facility] CLIA [id number] [address] [place] [address] [place] WBC LM.HPF (Urine sed) [#/Area] 6-10 /HPF Abnormal 0-5 /HPF [facility] Comment on above: Order Comment: Speci men Type: URINE SPECIMEN Ordering Facility: [facility] Address: [address] [place] [address] Performed By: #### 2 4356-8 #### [facility] CLIA [id number] [address] [place] [address] [place] 12 Lead EKG performed by [facility] on 07-10-2024 12 Lead EKG performed by [place] [id number] Lead EKG performed by [facility] 07/10/24 0811 MR#: [id number] Acct: [id number] Name: KARLA NDIAYE Rep #: [id number] : 1945 78 From: Jessica Locke MD Attending Dr: Dr. Jessica Locke MD Status: DE P AMB Ordering Dr: Jessica Locke MD Date: 07/10/24 Location: [facility] Sex: F C Admitted: [facility]/12 Lead EKG performed by [facility] ECG Report Interpretation --Sinus Rhythm WITHIN NORMAL LIMITSElectronically signed on 07/10/2024 at 16:[address] Jessica Caro Software Version 8610 07/10/24 1628 Date Jessica Locke MD CC: Dr. Deejay Anderson MD Date Dictated: 07/10/24810 Date Transcribed: 07/10/24810 Optical Dispenser: Signed Normal [facility] Cardiology Visit Reporton Cardiology Visit Report [facility] [address] [place] [address] OFFICE VISIT Date of Service: 07/10/24 MR#: [id number] Acct: [id number] Name: KARLA NDIAYE Rep #: [id number] : 1945 Provider: Dr. Jessica majano MD Age/Sex: 78/F Location: [facility] Status: Signed HPI HPI History of Present Illness Details: Patient comes in today for new patient visit. She is here because of a history of syncope. She was evaluated March 05, 2024 in the emergency department after she had a syncopal spell. The patient been working in the yard all day long it was hot and she was not well-hydrated. She went to sit down in the chair and then started to notice a tunnel vision type change got up to try to go in the house and then went down falling against a door going into the house. She was evaluated in the emergency department and no obvious etiology was found however her BUN was 43 and creatinine 2.37 which was significantly elevated compared to history. These were reviewed March 27 interviewing was 25 creatinine 1.40. The patient has had no recurrence of her syncopal spell. She did have a very similar episode several years ago in a similar environment. Echocardiogram was performed March 24, 2024. Her EF was 57% there was grade 1 diastolic dysfunction the right ventricle was normal in size and systolic function there was no significant valve a bnormalities there was no patent foramen ovale by Doppler. Carotid duplexes were done April 13 which showed 0 to 19% stenosis bilaterally with patent antegrade flow. The subclavian artery was also patent. Patient reports that she is done very well in her home environment denies any recurrence of syncope or near syncope. She has no prior history of coronary disease she does have a history of hy pertension she is a former smoker and has a history of some chronic kidney disease which has been very mild. She also has a history of hyperlipidemia treated by the primary service. The patient denies any anginal type symptoms denies any significant shortness of breath dyspnea on exertion PND orthopnea. She denies any lower extremity edema. EKG in the office today showed normal sinus rhythm at 72 bpm and is within normal limits. 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 Accompanied by: Self Is patient in pain?: No Allergies fosinopril (From Monopril) Allergy (Mild, Verified 07/10/24 13:22) cough Sutures Allergy (Verified 07/10/24 13:22) Hives lisinopril Adverse Reaction (Verified 07/10/24 13:22) Other Medications ???Medication ???Instructions ???Recorded ???Confirmed ???Type alendronate 70 mg tablet (Fosamax) 70 mg PO QWEEK 10/28/20 06/19/24 History amlodipine 5 mg tablet (Norvasc) 5 mg PO DAILY 10/28/20 06/19/24 History lisinopril 40 mg tablet 40 mg PO DAILY 10/28/20 06/19/24 History simvastatin 20 mg tablet 20 mg PO QHS 10/28/20 06/19/24 History spironolactone 25 mg tablet 25 mg PO DAILY water pill 05/25/22 06/19/24 History calcium 200 mg (as 2 tab PO QDAY 06/19/24 06/19/24 History citrate)-vitamin D3 6.25 mcg (250 unit) tablet Ejection fraction %: 57 Have you fallen in the past year?: Yes [facility] Medical History Hypercalcemia Osteoporosis Chronic kidney disease (CKD) Hyperlipidemia Syncope Syncope Parathyroid abnormality Wears glasses Cancer High cholesterol Loss of consciousness Former smoker History of pain when walking Hypertension Infected sebaceous cyst ( 10/28/20) Osteopenia Internal hemorrhoids Glaucoma Arthritis Aortic heart murmur Surgical History Status post hip surgery history incision and drainage sebaceous cyst sternum Hx of total knee replacement Hx of squamous cell carcinoma excision Hx of dilation and curettage Hx of colonoscopy ( 10/2016) Family History Sister Colon cancer Breast cancer Mother CVA (cerebral vascular accident) Father Hypertension Alcohol abuse Son Diabetes Social History Smoking Status: Former smoker alcohol intake: never substance use type: does not use caffeine: Yes ROS Const Const: Negative for fatigue, weakness or frequent falls Eyes Eyes: Positive for tunnel vision (With syncopal spell) Cardio Chest Pain: No Palpitations: No Edema: None (more content not included)... Normal [facility] 06-12-2024 [facility] Telephone (Hepre[facility]) -------- KARLA NDIAYE ([id number]) 1945 F Date Time Provider Department 06/12/24 DEEJAY ANDERSON [facility] During your visit today, we recorded the following information about you: Deejay Anderson MD 06/12/2024 11:00 AM Signed Let patient know her Holter shows episodes of a slow heart rate and on two occasions a mild increased heart rate. I would like for her to see cardiology. We can do [facility] but could be a few months or we can do [facility]. Esperanza Kaminski RN 06/12/2024 12:10 PM Signed Phoned patient and given provider's message below with verbalized understanding. Patient agreeable to see [facility], Dr Jessica Locke. Please fax referral to [facility]. Deejay Anderson MD 06/12/2024 12:27 PM Signed Please fax copy of halter report along with consult order, demographics and Snap shot. Judie Jain MA 06/12/2024 1:19 PM Signed All requested referral paperwork has been faxed to [facility] at [phone]. Updated referral in Epic to [facility]. Judie Jain MA Allergies As of Date: 06/12/2024 Noted Allergy Reaction SUTURES 02/14/2013 4 - Hives Comments: high level reaction to CAT GUT suture LISINOPRIL 02/24/2022 3 - Cough MONOPRIL (FOSINOPRIL SODIUM) 07/15/2005 3 - Cough Date Reviewed: 04/01/2024 Reviewed by: Deejay Anderson MD - Fully Assessed Reason for Visit: Results [95] Primary Visit Diagnosis:Syncope, unspecified syncope type [R55] Other Visit Diagnosis:Abnormal Holter exam [R94.31] Order(s):CONSULT TO CARDIOLOGY [9004] Order #: [id number]: 1 FUTURE Prescriptions as of 06/12/2024 - spironolactone (ALDACTONE) 25 mg tablet Take 1 tablet by mouth once daily. - amLODIPine (NORVASC) 5 mg tablet Take 1 tablet by mouth once daily. - simvastatin (ZOCOR) 20 mg tablet Take 1 tablet by mouth daily at bedtime. - calcium citrate/vitamin D3 (CITRACAL + D PETITES ORAL) Take 2 tablets by mouth once daily. - lisinopril (ZESTRIL) 40 mg tablet Take 1 tablet by mouth once daily. - alendronate (FOSAMAX) 70 mg tablet Take 1 tablet by mouth one time a week. In AM with cup of water on empty stomach. Nothing else by mouth and stay upright for 30 min. Problem List As Of Date 06/12/2024 Noted Resolved Essential hypertension, benign [I10] Benign neoplasm of colon [D12.6] 10/21/2005 Other tenosynovitis of hand and wrist [M65.849,*02/02/2008 05/30/2018 Symptomatic menopausal or female climacteric st*12/05/2008 09/21/2016 Osteoarthritis of hip [M16.9] 08/07/2009 08/05/2017 Postmenopausal atrophic vaginitis [N95.2] 12/11/2009 Cystocele, midline [N81.11] 12/11/2009 Sprain and strain of unspecified site of knee a*05/05/2011 09/21/2016 Aortic heart murmur [I35.8] 10/01/2011 05/30/2018 Age related osteoporosis [M81.0] Glaucoma [H40.9] 09/19/2014 Mixed hyperlipidemia [E78.2] 04/09/2016 Right hip pain [M25.551] 05/24/2017 08/05/2017 Arthritis of knee [M17.10] 08/05/2017 Stage 3b chronic kidney disease (HCC) [N18.32] 12/19/2020 Hypercalcemia [E83.52] 10/19/2021 Medicare annual wellness visit, subsequent [Z00*03/20/2022 Living will on file [[id number]] 03/20/2022 Advance directive discussed with patient [Z71.8*03/20/2022 Family history of colon cancer [Z80.0] 03/20/2022 Class 1 obesity due to excess calories without *08/03/2022 Situational anxiety [F41.8] 03/24/2023 History of colonoscopy [Z98.890] 10/05/2023 Diagnosed: 10/05/2023 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] 10/05/2023 Diagnosed: 10/05/2023 Acute midline low back pain without sciatica [M*02/02/2024 Medication management [Z79.899] 03/24/2024 Palpitation [R00.2] 04/04/2024 Encounter Status:Closed by JUDIE JAIN [facility] -------- KARLA NDIAYE ([id number]) 1945 F Date Time Provider Department 06/06/24 DEEJAY ANDERSON [facility] During your visit today, we recorded the following information about you: Anaid Sumner LPN 06/06/2024 12:05 PM Signed Pt calling again to check status on the heart monitor testing she did. Did test on 04/09/24 and sent in the mail back on 05/03/24. This was sent back to [facility] Please advise pt. Deejay Anderson MD 06/06/2024 3:05 PM Signed Can we contact the respiratory dept at [facility] jose see if they have any worn on patient's halter monitor that was returned on 05/03/2024 and results are still not back yet. Mitchell Sorensen MA 06/06/2024 3:22 PM Signed Spoke with Blas in respiratory at [facility]. He indicated that the company that [facility] is using is really back logged. He said they are not even scheduling any more until they can get caught. He indicated that he saw karla's had been over a month. He reached out to them to put this in as a stat. He should have something back in a week. Spoke with patient and gave her update. ELLEN Rivera Jeffrey A, MD 06/06/2024 3:43 PM Signed Noted. Allergies As of Date: 06/06/2024 Noted Allergy Reaction SUTURES 02/14/2013 4 - Hives Comments: high level reaction to CAT GUT suture LISINOPRIL 02/24/2022 3 - Cough MONOPRIL (FOSINOPRIL SODIUM) 07/15/2005 3 - Cough Date Reviewed: 04/01/2024 Reviewed by: Deejay Anderson MD - Fully Assessed Reason for Visit: results heart monitor [Other] Prescriptions as of 06/06/2024 - spironolactone (ALDACTONE) 25 mg tablet Take 1 tablet by mouth once daily. - amLODIPine (NORVASC) 5 mg tablet Take 1 tablet by mouth once daily. - simvastatin (ZOCOR) 20 mg tablet Take 1 tablet by mouth daily at bedtime. - calcium citrate/vitamin D3 (CITRACAL + D PETITES ORAL) Take 2 tablets by mouth once daily. - lisinopril (ZESTRIL) 40 mg tablet Take 1 tablet by mouth once daily. - alendronate (FOSAMAX) 70 mg tablet Take 1 tablet by mouth one time a week. In AM with cup of water on empty stomach. Nothing else by mouth and stay upright for 30 min. Problem List As Of Date 06/06/2024 Noted Resolved Essential hypertension, benign [I10] Benign neoplasm of colon [D12.6] 10/21/2005 Other tenosynovitis of hand and wrist [M65.849,*02/02/2008 05/30/2018 Symptomatic menopausal or female climacteric st*12/05/2008 09/21/2016 Osteoarthritis of hip [M16.9] 08/07/2009 08/05/2017 Postmenopausal atrophic vaginitis [N95.2] 12/11/2009 Cystocele, midline [N81.11] 12/11/2009 Sprain and strain of unspecified site of knee a*05/05/2011 09/21/2016 Aortic heart murmur [I35.8] 10/01/2011 05/30/2018 Age related osteoporosis [M81.0] Glaucoma [H40.9] 09/19/2014 Mixed hyperlipidemia [E78.2] 04/09/2016 Right hip pain [M25.551] 05/24/2017 08/05/2017 Arthritis of knee [M17.10] 08/05/2017 Stage 3b chronic kidney disease (HCC) [N18.32] 12/19/2020 Hypercalcemia [E83.52] 10/19/2021 Medicare annual wellness visit, subsequent [Z00*03/20/2022 Living will on file [[id number]] 03/20/2022 Advance directive discussed with patient [Z71.8*03/20/2022 Family history of colon cancer [Z80.0] 03/20/2022 Class 1 obesity due to excess calories without *08/03/2022 Situational anxiety [F41.8] 03/24/2023 History of colonoscopy [Z98.890] 10/05/2023 Diagnosed: 10/05/2023 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] 10/05/2023 Diagnosed: 10/05/2023 Acute midline low back pain without sciatica [M*02/02/2024 Medication management [Z79.899] 03/24/2024 Palpitation [R00.2] 04/04/2024 Encounter Status:Closed by DEEJAY ANDERSON on 06/06/24 [facility]20[facility] KARLA NDIAYE ([id number]) 1945 F Date Time Provider Department 05/25/24 [facility] During your visit today, we recorded the following information about you: Susana Miller RN 05/25/2024 10:05 AM Signed Patient calling to ask PCP if there is any update on results of a heart monitor she completed and sent back on 06/03/24? States the monitor was placed on her at [facility]. Please call patient with any updates. Thank you. Deejay Anderson MD 05/25/2024 10:26 AM Signed Can we re-verify the date she sent the event monitor back in. Message says 06/03/2024 and it's only 05/25/24 today. Raina Murry LPN 05/25/2024 11:09 AM Signed Spoke with pt. She states she mailed it back via [employer] on 05/03/24. She advises that they tols her it could take 1 week to 10 days to get the results so she was just checking since it has been a little longer. CELINE Kennedy Jeffrey A, MD 05/25/2024 11:38 AM Signed Let patient know that there are times that it can take up to a month to get the reads back. However, if there was something significant presented itself we should have been notified immediately. If we do not let her know anything by the end of the month advise her to reach out again and then we would need to follow up with [facility] on the results since adequate time was allotted for it to be read and sent back. . Raina Murry LPN 05/25/2024 12:07 PM Signed Pt notified of pcp's message and instructions. Pt verbalizes understanding. Raina Murry LPN Allergies As of Date: 05/25/2024 Noted Allergy Reaction SUTURES 02/14/2013 4 - Hives Comments: high level reaction to CAT GUT suture LISINOPRIL 02/24/2022 3 - Cough MONOPRIL (FOSINOPRIL SODIUM) 07/15/2005 3 - Cough Date Reviewed: 04/01/2024 Reviewed by: Deejay Anderson MD - Fully Assessed Reason for Visit: Heart Monitor Result [Other] Prescriptions as of 05/25/2024 - spironolactone (ALDACTONE) 25 mg tablet Take 1 tablet by mouth once daily. - amLODIPine (NORVASC) 5 mg tablet Take 1 tablet by mouth once daily. - simvastatin (ZOCOR) 20 mg tablet Take 1 tablet by mouth daily at bedtime. - calcium citrate/vitamin D3 (CITRACAL + D PETITES ORAL) Take 2 tablets by mouth once daily. - lisinopril (ZESTRIL) 40 mg tablet Take 1 tablet by mouth once daily. - alendronate (FOSAMAX) 70 mg tablet Take 1 tablet by mouth one time a week. In AM with cup of water on empty stomach. Nothing else by mouth and stay upright for 30 min. Problem List As Of Date 05/25/2024 Noted Resolved Essential hypertension, benign [I10] Benign neoplasm of colon [D12.6] 10/21/2005 Other tenosynovitis of hand and wrist [M65.849,*02/02/2008 05/30/2018 Symptomatic menopausal or female climacteric st*12/05/2008 09/21/2016 Osteoarthritis of hip [M16.9] 08/07/2009 08/05/2017 Postmenopausal atrophic vaginitis [N95.2] 12/11/2009 Cystocele, midline [N81.11] 12/11/2009 Sprain and strain of unspecified site of knee a*05/05/2011 09/21/2016 Aortic heart murmur [I35.8] 10/01/2011 05/30/2018 Age related osteoporosis [M81.0] Glaucoma [H40.9] 09/19/2014 Mixed hyperlipidemia [E78.2] 04/09/2016 Right hip pain [M25.551] 05/24/2017 08/05/2017 Arthritis of knee [M17.10] 08/05/2017 Stage 3b chronic kidney disease (HCC) [N18.32] 12/19/2020 Hypercalcemia [E83.52] 10/19/2021 Medicare annual wellness visit, subsequent [Z00*03/20/2022 Living will on file [[id number]] 03/20/2022 Advance directive discussed with patient [Z71.8*03/20/2022 Family history of colon cancer [Z80.0] 03/20/2022 Class 1 obesity due to excess calories without *08/03/2022 Situational anxiety [F41.8] 03/24/2023 History of colonoscopy [Z98.890] 10/05/2023 Diagnosed: 10/05/2023 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 Patient would like to pick it up tomorrow for her appt with Dr. Chinchilla. 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 - amLODIPine (NORVASC) 5 mg tablet Take 1 tablet by mouth once daily. - simvastatin (ZOCOR) 20 mg tablet Take 1 tablet by mouth daily at bedtime. - calcium citrate/vitamin D3 (CITRACAL + D PETITES ORAL) Take 2 tablets by mouth once daily. - lisinopril (ZESTRIL) 40 mg tablet Take 1 tablet by mouth once daily. - alendronate (FOSAMAX) 70 mg tablet Take 1 tablet by mouth one time a week. In AM with cup of water on empty stomach. Nothing else by mouth and stay upright for 30 min. Problem List As Of Date 05/17/2024 Noted Resolved Essential hypertension, benign [I10] Benign neoplasm of colon [D12.6] 10/21/2005 Other tenosynovitis of hand and wrist [M65.849,*02/02/2008 05/30/2018 Symptomatic menopausal or female climacteric st*12/05/2008 09/21/2016 Osteoarthritis of hip [M16.9] 08/07/2009 08/05/2017 Postmenopausal atrophic vaginitis [N95.2] 12/11/2009 Cystocele, midline [N81.11] 12/11/2009 Sprain and strain of unspecified site of knee a*05/05/2011 09/21/2016 Aortic heart murmur [I35.8] 10/01/2011 05/30/2018 Age related osteoporosis [M81.0] Glaucoma [H40.9] 09/19/2014 Mixed hyperlipidemia [E78.2] 04/09/2016 Right hip pain [M25.551] 05/24/2017 08/05/2017 Arthritis of knee [M17.10] 08/05/2017 Stage 3b chronic kidney disease (HCC) [N18.32] 12/19/2020 Hypercalcemia [E83.52] 10/19/2021 Medicare annual wellness visit, subsequent [Z00*03/20/2022 Living will on file [[id number]] 03/20/2022 Advance directive discussed with patient [Z71.8*03/20/2022 Family history of colon cancer [Z80.0] 03/20/2022 Class 1 obesity due to excess calories without *08/03/2022 Situational anxiety [F41.8] 03/24/2023 History of colonoscopy [Z98.890] 10/05/2023 Diagnosed: 10/05/2023 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 . Allergies As of Date: 05/16/2024 Noted Allergy Reaction SUTURES 02/14/2013 4 - Hives Comments: high level reaction to CAT GUT suture LISINOPRIL 02/24/2022 3 - Cough MONOPRIL (FOSINOPRIL SODIUM) 07/15/2005 3 - Cough Date Reviewed: 04/01/2024 Reviewed by: Deejay Anderson MD - Fully Assessed Reason for Visit: Faxed to Dr. Chinchilla [Other] Prescriptions as of 05/16/2024 - spironolactone (ALDACTONE) 25 mg tablet Take 1 tablet by mouth once daily. - amLODIPine (NORVASC) 5 mg tablet Take 1 tablet by mouth once daily. - simvastatin (ZOCOR) 20 mg tablet Take 1 tablet by mouth daily at bedtime. - calcium citrate/vitamin D3 (CITRACAL + D PETITES ORAL) Take 2 tablets by mouth once daily. - lisinopril (ZESTRIL) 40 mg tablet Take 1 tablet by mouth once daily. - alendronate (FOSAMAX) 70 mg tablet Take 1 tablet by mouth one time a week. In AM with cup of water on empty stomach. Nothing else by mouth and stay upright for 30 min. Problem List As Of Date 05/16/2024 Noted Resolved Essential hypertension, benign [I10] Benign neoplasm of colon [D12.6] 10/21/2005 Other tenosynovitis of hand and wrist [M65.849,*02/02/2008 05/30/2018 Symptomatic menopausal or female climacteric st*12/05/2008 09/21/2016 Osteoarthritis of hip [M16.9] 08/07/2009 08/05/2017 Postmenopausal atrophic vaginitis [N95.2] 12/11/2009 Cystocele, midline [N81.11] 12/11/2009 Sprain and strain of unspecified site of knee a*05/05/2011 09/21/2016 Aortic heart murmur [I35.8] 10/01/2011 05/30/2018 Age related osteoporosis [M81.0] Glaucoma [H40.9] 09/19/2014 Mixed hyperlipidemia [E78.2] 04/09/2016 Right hip pain [M25.551] 05/24/2017 08/05/2017 Arthritis of knee [M17.10] 08/05/2017 Stage 3b chronic kidney disease (HCC) [N18.32] 12/19/2020 Hypercalcemia [E83.52] 10/19/2021 Medicare annual wellness visit, subsequent [Z00*03/20/2022 Living will on file [[id number]] 03/20/2022 Advance directive discussed with patient [Z71.8*03/20/2022 Family history of colon cancer [Z80.0] 03/20/2022 Class 1 obesity due to excess calories without *08/03/2022 Situational anxiety [F41.8] 03/24/2023 History of colonoscopy [Z98.890] 10/05/2023 Diagnosed: 10/05/2023 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 Again did it because of abnormal bone scan done because of elevated bone alk phos. Shows an h sacral fracture. She also has a complex cyst in her gluteus. She had a fall a few months ago. Pain is improved. No other neuro complaints. Has seen Dr Chinchilla in the past for the cyst. Suggested we could have them see her again for both at this point to make sure nothing else needs done. Red flags for re-assessment reviewed with patient in detail. Please assist in having her see Dr. Amor/[place] [facility] for the cyst and sacral fracture Will likely need to take films to them. Suzanna Martinez 05/12/2024 11:10 AM Signed Message relayed Allergies As of Date: 05/10/2024 Noted Allergy Reaction SUTURES 02/14/2013 4 - Hives Comments: high level reaction to CAT GUT suture LISINOPRIL 02/24/2022 3 - Cough MONOPRIL (FOSINOPRIL SODIUM) 07/15/2005 3 - Cough Date Reviewed: 04/01/2024 Reviewed by: Deejay Anderson MD - Fully Assessed Reason for Visit: Results [95] Primary Visit Diagnosis:Closed fracture of sacrum with routine healing, unspecified portion of sacrum, subsequent encounter [S32.10XD] Other Visit Diagnosis:Muscle mass of leg [M62.89] Order(s):CONSULT TO ORTHOPAEDICS [9054] Order #: [id number]: 1 FUTURE Prescriptions as of 05/12/2024 - spironolactone (ALDACTONE) 25 mg tablet Take 1 tablet by mouth once daily. - amLODIPine (NORVASC) 5 mg tablet Take 1 tablet by mouth once daily. - simvastatin (ZOCOR) 20 mg tablet Take 1 tablet by mouth daily at bedtime. - calcium citrate/vitamin D3 (CITRACAL + D PETITES ORAL) Take 2 tablets by mouth once daily. - lisinopril (ZESTRIL) 40 mg tablet Take 1 tablet by mouth once daily. - alendronate (FOSAMAX) 70 mg tablet Take 1 tablet by mouth one time a week. In AM with cup of water on empty stomach. Nothing else by mouth and stay upright for 30 min. Problem List As Of Date 05/10/2024 Noted Resolved Essential hypertension, benign [I10] Benign neoplasm of colon [D12.6] 10/21/2005 Other tenosynovitis of hand and wrist [M65.849,*02/02/2008 05/30/2018 Symptomatic menopausal or female climacteric st*12/05/2008 09/21/2016 Osteoarthritis of hip [M16.9] 08/07/2009 08/05/2017 Postmenopausal atrophic vaginitis [N95.2] 12/11/2009 Cystocele, midline [N81.11] 12/11/2009 Sprain and strain of unspecified site of knee a*05/05/2011 09/21/2016 Aortic heart murmur [I35.8] 10/01/2011 05/30/2018 Age related osteoporosis [M81.0] Glaucoma [H40.9] 09/19/2014 Mixed hyperlipidemia [E78.2] 04/09/2016 Right hip pain [M25.551] 05/24/2017 08/05/2017 Arthritis of knee [M17.10] 08/05/2017 Stage 3b chronic kidney disease (HCC) [N18.32] 12/19/2020 Hypercalcemia [E83.52] 10/19/2021 Medicare annual wellness visit, subsequent [Z00*03/20/2022 Living will on file [[id number]] 03/20/2022 Advance directive discussed with patient [Z71.8*03/20/2022 Family history of colon cancer [Z80.0] 03/20/2022 Class 1 obesity due to excess calories without *08/03/2022 Situational anxiety [F41.8] 03/24/2023 History of colonoscopy [Z98.890] 10/05/2023 Diagnosed: 10/05/2023 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] 10/05/2023 Diagnosed: 10/05/2023 Acute midline low back pain without sciatica [M*02/02/2024 Medication management [Z79.899] 03/24/2024 Palpitation [R00.2] 04/04/2024 Encounter Status:Closed by SUZANNA MARTINEZ on 05/12/24 Normal [facility] MR Pelvis WO and W contrast Ignacio 05-10-2024 IMPRESSION: H-type sacral sufficiency fracture extending through the S3 sacral segment as described. This corresponds to findings on bone scan. Complex cystic lesion right gluteus medius muscle, incompletely characterized. Dedicated MSK soft tissue ultrasound recommended to identify if there are solid components or internal vascularity. Optical Dispenser: JADIEL Transcribe Date/Time: May 10 2024 11:26A Dictated by : MARTY FORRESTER MD This examination was interpreted and the report reviewed and electronically signed by: MARTY FORRESTER MD on May 10 2024 11:47AM [facility] [[email or web address]] DIVISION OF RADIOLOGY * * *Final Report* * * DATE OF EXAM: May 10 2024 10:42AM [facility] 0230 - MRI PELVIS ORTHO GEN WO/W IVCON / PROCEDURE REASON: Encounter for screening for other musculoskeletal disorder * * * * Physician Interpretation * * * * MRI PELVIS WITH AND WITHOUT CONTRAST HISTORY: Encounter for screening for other musculoskeletal disorder COMPARISON: 04/20/2024 whole body bone scan TECHNIQUE: MR sequences performed prior to and following administration of 16 ml of Dotarem IV. RESULT: Nondisplaced sacral insufficiency fracture noted with the fracture involving the posterior inferior aspect of the sacral simons bilaterally and extending through the anterior cortex of the S3 sacral segment. Bone marrow signal throughout the pelvis and proximal femurs is otherwise within normal limits. There are degenerative changes noted within the lower lumbar spine including facet arthropathy with grade 1 anterolisthesis L4-L5. Mild degenerative change noted at the sacroiliac joints bilaterally. Hip joint spaces are maintained. Pubic symphysis is maintained. There are postsurgical changes from prior right-sided gluteal tendon repair. There is focal fatty atrophy involving the anterior portion of the right gluteus medius muscle. There is a 4.0 x 2.1 cm mildly complex cystic lesion within the right gluteus medius muscle with questionable internal enhancement. Dedicated MSK soft tissue ultrasound recommended to identify if there are solid components or internal vascularity. DIVISION OF RADIOLOGY Provider, [facility] - 05/10/2024 * * *Final Report* * * DATE OF EXAM: May 10 2024 10:42AM [facility] 0230 - MRI PELVIS ORTHO GEN WO/W IVCON / PROCEDURE REASON: Encounter for screening for other musculoskeletal disorder * * * * Physician Interpretation * * * * MRI PELVIS WITH AND WITHOUT CONTRAST HISTORY: Encounter for screening for other musculoskeletal disorder COMPARISON: 04/20/2024 whole body bone scan TECHNIQUE: MR sequences performed prior to and following administration of 16 ml of Dotarem IV. RESULT: Nondisplaced sacral insufficiency fracture noted with the fracture involving the posterior inferior aspect of the sacral simons bilaterally and extending through the anterior cortex of the S3 sacral segment. Bone marrow signal throughout the pelvis and proximal femurs is otherwise within normal limits. There are degenerative changes noted within the lower lumbar spine including facet arthropathy with grade 1 anterolisthesis L4-L5. Mild degenerative change noted at the sacroiliac joints bilaterally. Hip joint spaces are maintained. Pubic symphysis is maintained. There are postsurgical changes from prior right-sided gluteal tendon repair. There is focal fatty atrophy involving the anterior portion of the right gluteus medius muscle. There is a 4.0 x 2.1 cm mildly complex cystic lesion within the right gluteus medius muscle with questionable internal enhancement. Dedicated MSK soft tissue ultrasound recommended to identify if there are solid components or internal vascularity. IMPRESSION IMPRESSION: H-type sacral sufficiency fracture extending through the S3 sacral segment as described. This corresponds to findings on bone scan. Complex cystic lesion right gluteus medius muscle, incompletely characterized. Dedicated MSK soft tissue ultrasound recommended to identify if there are solid components or internal vascularity. Optical Dispenser: JADIEL Transcribe Date/Time: May 10 2024 11:26A Dictated by : MARTY FORRESTER MD This examination was interpreted and the report reviewed and electronically signed by: MARTY FORRESTER MD on May 10 2024 11:47AM EST [facility] Radiology Study observation (narrative) [facility] MR Pelvis WO and W contrast IVOrdered By: [facility] Provider on 05-10-2024 [facility] MRI PELVIS ORTHO GEN WO/W IV CONon 05-10-2024 MRI PELVIS ORTHO GEN WO/W IVCON * * *Final Report* * * DATE OF EXAM: May 10 2024 10:42AM [facility] 0230 - MRI PELVIS ORTHO GEN WO/W IVCON / PROCEDURE REASON: Encounter for screening for other musculoskeletal disorder * * * * Physician Interpretation * * * * MRI PELVIS WITH AND WITHOUT CONTRAST HISTORY: Encounter for screening for other musculoskeletal disorder COMPARISON: 04/20/2024 whole body bone scan TECHNIQUE: MR sequences performed prior to and following administration of 16 ml of Dotarem IV. RESULT: Nondisplaced sacral insufficiency fracture noted with the fracture involving the posterior inferior aspect of the sacral simons bilaterally and extending through the anterior cortex of the S3 sacral segment. Bone marrow signal throughout the pelvis and proximal femurs is otherwise within normal limits. There are degenerative changes noted within the lower lumbar spine including facet arthropathy with grade 1 anterolisthesis L4-L5. Mild degenerative change noted at the sacroiliac joints bilaterally. Hip joint spaces are maintained. Pubic symphysis is maintained. There are postsurgical changes from prior right-sided gluteal tendon repair. There is focal fatty atrophy involving the anterior portion of the right gluteus medius muscle. There is a 4.0 x 2.1 cm mildly complex cystic lesion within the right gluteus medius muscle with questionable internal enhancement. Dedicated MSK soft tissue ultrasound recommended to identify if there are solid components or internal vascularity. IMPRESSION: H-type sacral sufficiency fracture extending through the S3 sacral segment as described. This corresponds to findings on bone scan. Complex cystic lesion right gluteus medius muscle, incompletely characterized. Dedicated MSK soft tissue ultrasound recommended to identify if there are solid components or internal vascularity. Optical Dispenser: PSC[facility] Transcribe Date/Time: May 10 2024 11:26A Dictated by : MARTY FORRESTER MD This examination was interpreted and the report reviewed and electronically signed by: MARTY FORRESTER MD on May 10 2024 11:47AM EST [id number] [facility] -------- KARLA NDIAYE ([id number]) 1945 F Date Time Provider Department 04/20/24 KANNAN BRANTLEY [facility] During your visit today, we recorded the following information about you: Kannan Brantley MD 04/20/2024 12:09 PM Signed I discussed bone scan with patient. She had an elevated bone alk phos. She has an area of uptake in her sacrum. May be an insufficiency fracture. She was having pain after her last fall but is feeling better than she was. If is otherwise stable, may not require any treatment or intervention but offered to order mri to fully evaluate. She is willing. Please set up. Allergies As of Date: 04/20/2024 Noted Allergy Reaction SUTURES 02/14/2013 4 - Hives Comments: high level reaction to CAT GUT suture LISINOPRIL 02/24/2022 3 - Cough MONOPRIL (FOSINOPRIL SODIUM) 07/15/2005 3 - Cough Date Reviewed: 04/01/2024 Reviewed by: Deejay Anderson MD - Fully Assessed Reason for Visit: Results [95] Primary Visit Diagnosis:Encounter for screening for other musculoskeletal disorder [Z13.828] Order(s):MRI PELVIS ORTHO GENERAL WO/W IVCON [[id number]] Order #: [id number] FUTURE [] iv contrast (will be provided with radiology test)MRI pelvis ortho Inj, intravenously, once for 1 dose. No IV access, insert saline lock prior to the beginning of sedation, infusion, injection of imaging exam. Discontinue saline lock post exam. If Pt. has a central line or IVAD, may access for administration according to line specific nursing protocol. Once exam is complete flush line and de-access according to line specific nursing protocol in the MR contrast administration guidelines linkDisp: 1 EachRfl: 0 Prescriptions as of 05/04/2024 - spironolactone (ALDACTONE) 25 mg tablet Take 1 tablet by mouth once daily. - amLODIPine (NORVASC) 5 mg tablet Take 1 tablet by mouth once daily. - simvastatin (ZOCOR) 20 mg tablet Take 1 tablet by mouth daily at bedtime. - calcium citrate/vitamin D3 (CITRACAL + D PETITES ORAL) Take 2 tablets by mouth once daily. - lisinopril (ZESTRIL) 40 mg tablet Take 1 tablet by mouth once daily. - alendronate (FOSAMAX) 70 mg tablet Take 1 tablet by mouth one time a week. In AM with cup of water on empty stomach. Nothing else by mouth and stay upright for 30 min. Problem List As Of Date 04/20/2024 Noted Resolved Essential hypertension, benign [I10] Benign neoplasm of colon [D12.6] 10/21/2005 Other tenosynovitis of hand and wrist [M65.849,*02/02/2008 05/30/2018 Symptomatic menopausal or female climacteric st*12/05/2008 09/21/2016 Osteoarthritis of hip [M16.9] 08/07/2009 08/05/2017 Postmenopausal atrophic vaginitis [N95.2] 12/11/2009 Cystocele, midline [N81.11] 12/11/2009 Sprain and strain of unspecified site of knee a*05/05/2011 09/21/2016 Aortic heart murmur [I35.8] 10/01/2011 05/30/2018 Age related osteoporosis [M81.0] Glaucoma [H40.9] 09/19/2014 Mixed hyperlipidemia [E78.2] 04/09/2016 Right hip pain [M25.551] 05/24/2017 08/05/2017 Arthritis of knee [M17.10] 08/05/2017 Stage 3b chronic kidney disease (HCC) [N18.32] 12/19/2020 Hypercalcemia [E83.52] 10/19/2021 Medicare annual wellness visit, subsequent [Z00*03/20/2022 Living will on file [[id number]] 03/20/2022 Advance directive discussed with patient [Z71.8*03/20/2022 Family history of colon cancer [Z80.0] 03/20/2022 Class 1 obesity due to excess calories without *08/03/2022 Situational anxiety [F41.8] 03/24/2023 History of colonoscopy [Z98.890] 10/05/2023 Diagnosed: 10/05/2023 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 No IV access, insert saline lock prior to the beginning of sedation, infusion, injection of imaging exam. Discontinue saline lock post exam. If Pt. has a central line or IVAD, may access for administration according to line specific nursing protocol. Once exam is complete flush line and de-access according to line specific nursing protocol in the MR contrast administration guidelines link Encounter Status:Closed by KANNAN BRANTLEY on 05/04/24 [facility] NM BONE WHOLE BODYon 024 RI BONE WHOLE BODY * * *Final Report* * * DATE OF EXAM: Apr 20 2024 10:59AM BHARATHI Watkins4 - [place] BONE WHOLE BODY / PROCEDURE REASON: Elevated alkaline phosphatase level * * * * Physician Interpretation * * * * EXAMINATION: WHOLE BODY BONE SCAN CLINICAL HISTORY: Elevated alkaline phosphatase. History of colon cancer. TECHNIQUE: 22.3 millicuries of Tc-99m MDP administered IV. Planar whole body images in anterior and posterior projections obtained 3-4 hours after injection. Regional static planar images also obtained. COMPARISON: No prior bone scan available CORRELATION: No relevant prior imaging available RESULT: Limitations: Bone scans are often not sensitive for lytic lesions. Aspects of the arms not in [id number] and cannot be assessed. Bones: * There is increased activity involving the sacrum with a horizontal band of increased uptake across the body and bilaterally increased uptake in the sacral ala. * Areas of increased uptake likely related to degenerative changes including throughout the spine as well as involving the shoulders, sternoclavicular joints and hips. * Photopenia related to bilateral knee arthroplasties. Urinary tract: Physiologic activity confirmed. IMPRESSION: Increased activity involving the sacrum in a characteristic H-type pattern seen with sacral insufficiency fracture. This can be correlated with MRI. Optical Dispenser: JADIEL Transcribe Date/Time: Apr 20 2024 11:00A Dictated by : ISIS YOON MD This examination was interpreted and the report reviewed and electronically signed by: JAQUELIN GAMBLE MD on Apr 20 2024 11:13AM EST [id number] Normal [facility] Whole body Bone Viewson 0 04-20-2024 IMPRESSION: Increased activity involving the sacrum in a characteristic H-type pattern seen with sacral insufficiency fracture. This can be correlated with MRI. [facility] Trans[facility] Date/Time: Apr 20 2024 11:00A Dictated by : ISIS YOON MD This examination was interpreted and the report reviewed and electronically signed by: JAQUELIN GAMBLE MD on Apr 20 2024 11:13AM EST DIVISION OF RADIOLOGY * * *Final Report* * * DATE OF EXAM: Apr 20 2024 10:59AM BHARATHI 0014 - [place] BONE WHOLE BODY / PROCEDURE REASON: Elevated alkaline phosphatase level * * * * Physician Interpretation * * * * EXAMINATION: WHOLE BODY BONE SCAN CLINICAL HISTORY: Elevated alkaline phosphatase. History of colon cancer. TECHNIQUE: 22.3 millicuries of Tc-99m MDP administered IV. Planar whole body images in anterior and posterior projections obtained 3-4 hours after injection. Regional static planar images also obtained. COMPARISON: No prior bone scan available CORRELATION: No relevant prior imaging available RESULT: Limitations: Bone scans are often not sensitive for lytic lesions. Aspects of the arms not in [id number] and cannot be assessed. Bones: * There is increased activity involving the sacrum with a horizontal band of increased uptake across the body and bilaterally increased uptake in the sacral ala. * Areas of increased uptake likely related to degenerative changes including throughout the spine as well as involving the shoulders, sternoclavicular joints and hips. * Photopenia related to bilateral knee arthroplasties. Urinary tract: Physiologic activity confirmed. DIVISION OF RADIOLOGY Provider, [facility] - 04/20/2024 * * *Final Report* * * DATE OF EXAM: Apr 20 2024 10:59AM WON 0014 - NM BONE WHOLE BODY / PROCEDURE REASON: Elevated alkaline phosphatase level * * * * Physician Interpretation * * * * EXAMINATION: WHOLE BODY BONE SCAN CLINICAL HISTORY: Elevated alkaline phosphatase. History of colon cancer. TECHNIQUE: 22.3 millicuries of Tc-99m MDP administered IV. Planar whole body images in anterior and posterior projections obtained 3-4 hours after injection. Regional static planar images also obtained. COMPARISON: No prior bone scan available CORRELATION: No relevant prior imaging available RESULT: Limitations: Bone scans are often not sensitive for lytic lesions. Aspects of the arms not in [id number]-ls-jrnp and cannot be assessed. Bones: * There is increased activity involving the sacrum with a horizontal band of increased uptake across the body and bilaterally increased uptake in the sacral ala. * Areas of increased uptake likely related to degenerative changes including throughout the spine as well as involving the shoulders, sternoclavicular joints and hips. * Photopenia related to bilateral knee arthroplasties. Urinary tract: Physiologic activity confirmed. IMPRESSION IMPRESSION: Increased activity involving the sacrum in a characteristic H-type pattern seen with sacral insufficiency fracture. This can be correlated with MRI. Optical Dispenser: JADIEL Transcribe Date/Time: Apr 20 2024 11:00A Dictated by : ISIS YOON MD This examination was interpreted and the report reviewed and electronically signed by: JAQUELIN GAMBLE MD on Apr 20 2024 11:13AM EST [facility] NM Whole body Bone ViewsOrde red By: [facility] Provider on 04-20-2024 [facility] No Panel Informationon 04-20 IMPRESSION: Normal sonographic appearance of the right upper quadrant. Normal sonographic appearance of the spleen Optical Dispenser: [facility] Transcribe Date/Time: Apr 20 2024 2:13P Dictated by : VERONICA HESTER MD This examination was interpreted and the report reviewed and electronically signed by: VERONICA HESTER MD on Apr 20 2024 2:15PM [facility] [[email or web address]] DIVISION OF RADIOLOGY Radiology Study observation (narrative) [facility] No Panel InformationOrdered By: Ccf Provider on 04-20-2024 [facility] US ABD RIGHT UPPER QUADRANTo n 04-20-2024 US ABD RIGHT UPPER QUADRANT * * *Final Report* * * DATE OF EXAM: Apr 20 2024 9:09AM [facility] 1032 - US ABD RIGHT UPPER QUADRANT / PROCEDURE REASON: Elevated alkaline phosphatase level * * * * Physician Interpretation * * * * EXAMINATION: RIGHT UPPER QUADRANT ULTRASOUND CLINICAL HISTORY: Elevated alkaline phosphatase TECHNIQUE: Sonography of the right upper quadrant was performed. Images were obtained and stored in a permanent archive. MQ: URUQ_2 COMPARISON: None. RESULT: Pancreas: Normal sonographic appearance. Portions obscured: tail Liver: Portions of the right and left lobe are suboptimally seen due to overlying bowel gas Echotexture: Normal, homogeneous. Echogenicity: Normal Surface contour: Smooth Lesions: None. Biliary: No intrahepatic biliary duct dilation. CBD: 0.6 cm at the hilum. Gallbladder: Normal caliber -Contents: No cholelithiasis -Wall: Normal -Other: No pericholecystic fluid. Right and left Kidney: No hydronephrosis. Ascites: None. The spleen is 10.6 cm in length. Suboptimally seen due to overlying bowel gas IMPRESSION: Normal sonographic appearance of the right upper quadrant. Normal sonographic appearance of the spleen Optical Dispenser: [facility] Transcribe Date/Time: Apr 20 2024 2:13P Dictated by : VERONICA HESTER MD This examination was interpreted and the report reviewed and electronically signed by: VERONICA HESTER MD on Apr 20 2024 2:15PM EST [id number] Normal [facility] ABD SPLEEN - NBon 024 * * *Final Report* * * DATE OF EXAM: Apr 20 2024 9:09AM [facility] 1232 - US ABD SPLEEN -NB / PROCEDURE REASON: Elevated alkaline phosphatase level * * * * Physician Interpretation * * * * EXAMINATION: RIGHT UPPER QUADRANT ULTRASOUND CLINICAL HISTORY: Elevated alkaline phosphatase TECHNIQUE: Sonography of the right upper quadrant was performed. Images were obtained and stored in a permanent archive. MQ: URUQ_2 COMPARISON: None. RESULT: Pancreas: Normal sonographic appearance. Portions obscured: tail Liver: Portions of the right and left lobe are suboptimally seen due to overlying bowel gas Echotexture: Normal, homogeneous. Echogenicity: Normal Surface contour: Smooth Lesions: None. Biliary: No intrahepatic biliary duct dilation. CBD: 0.6 cm at the hilum. Gallbladder: Normal caliber -Contents: No cholelithiasis -Wall: Normal -Other: No pericholecystic fluid. Right and left Kidney: No hydronephrosis. Ascites: None. The spleen is 10.6 cm in length. Suboptimally seen due to overlying bowel gas [facility] * * *Final Report* * * DATE OF EXAM: Apr 20 2024 9:09AM [facility] 1232 - US ABD SPLEEN -NB / PROCEDURE REASON: Elevated alkaline phosphatase level * * * * Physician Interpretation * * * * EXAMINATION: RIGHT UPPER QUADRANT ULTRASOUND CLINICAL HISTORY: Elevated alkaline phosphatase TECHNIQUE: Sonography of the right upper quadrant was performed. Images were obtained and stored in a permanent archive. MQ: URUQ_2 COMPARISON: None. RESULT: Pancreas: Normal sonographic appearance. Portions obscured: tail Liver: Portions of the right and left lobe are suboptimally seen due to overlying bowel gas Echotexture: Normal, homogeneous. Echogenicity: Normal Surface contour: Smooth Lesions: None. Biliary: No intrahepatic biliary duct dilation. CBD: 0.6 cm at the hilum. Gallbladder: Normal caliber -Contents: No cholelithiasis -Wall: Normal -Other: No pericholecystic fluid. Right and left Kidney: No hydronephrosis. Ascites: None. The spleen is 10.6 cm in length. Suboptimally seen due to overlying bowel gas IMPRESSION IMPRESSION: Normal sonographic appearance of the right upper quadrant. Normal sonographic appearance of the spleen Optical Dispenser: JADIEL Transcribe Date/Time: Apr 20 2024 2:13P Dictated by : VERONICA HESTER MD This examination was interpreted and the report reviewed and electronically signed by: VERONICA HESTER MD on Apr 20 2024 2:15PM [facility] US ABD SPLEEN -NBon 04-20-20 US ABD SPLEEN -NB * * *Final Report* * * DATE OF EXAM: Apr 20 2024 9:09AM [facility] 1232 - US ABD SPLEEN -NB / PROCEDURE REASON: Elevated alkaline phosphatase level * * * * Physician Interpretation * * * * EXAMINATION: RIGHT UPPER QUADRANT ULTRASOUND CLINICAL HISTORY: Elevated alkaline phosphatase TECHNIQUE: Sonography of the right upper quadrant was performed. Images were obtained and stored in a permanent archive. MQ: URUQ_2 COMPARISON: None. RESULT: Pancreas: Normal sonographic appearance. Portions obscured: tail Liver: Portions of the right and left lobe are suboptimally seen due to overlying bowel gas Echotexture: Normal, homogeneous. Echogenicity: Normal Surface contour: Smooth Lesions: None. Biliary: No intrahepatic biliary duct dilation. CBD: 0.6 cm at the hilum. Gallbladder: Normal caliber -Contents: No cholelithiasis -Wall: Normal -Other: No pericholecystic fluid. Right and left Kidney: No hydronephrosis. Ascites: None. The spleen is 10.6 cm in length. Suboptimally seen due to overlying bowel gas IMPRESSION: Normal sonographic appearance of the right upper quadrant. Normal sonographic appearance of the spleen Optical Dispenser: [facility] Transcribe Date/Time: Apr 20 2024 2:13P Dictated by : VERONICA HESTER MD This examination was interpreted and the report reviewed and electronically signed by: VERONICA HESTER MD on Apr 20 2024 2:15PM EST [id number] Normal [facility] US Abdomen RUQon 04-20-2024 * * *Final Report* * * DATE OF EXAM: Apr 20 2024 9:09AM [facility] 1032 - US ABD RIGHT UPPER QUADRANT / PROCEDURE REASON: Elevated alkaline phosphatase level * * * * Physician Interpretation * * * * EXAMINATION: RIGHT UPPER QUADRANT ULTRASOUND CLINICAL HISTORY: Elevated alkaline phosphatase TECHNIQUE: Sonography of the right upper quadrant was performed. Images were obtained and stored in a permanent archive. MQ: URUQ_2 COMPARISON: None. RESULT: Pancreas: Normal sonographic appearance. Portions obscured: tail Liver: Portions of the right and left lobe are suboptimally seen due to overlying bowel gas Echotexture: Normal, homogeneous. Echogenicity: Normal Surface contour: Smooth Lesions: None. Biliary: No intrahepatic biliary duct dilation. CBD: 0.6 cm at the hilum. Gallbladder: Normal caliber -Contents: No cholelithiasis -Wall: Normal -Other: No pericholecystic fluid. Right and left Kidney: No hydronephrosis. Ascites: None. The spleen is 10.6 cm in length. Suboptimally seen due to overlying bowel gas DIVISION OF RADIOLOGY Provider, [facility] - 04/20/2024 * * *Final Report* * * DATE OF EXAM: Apr 20 2024 9:09AM [facility] 1032 - US ABD RIGHT UPPER QUADRANT / PROCEDURE REASON: Elevated alkaline phosphatase level * * * * Physician Interpretation * * * * EXAMINATION: RIGHT UPPER QUADRANT ULTRASOUND CLINICAL HISTORY: Elevated alkaline phosphatase TECHNIQUE: Sonography of the right upper quadrant was performed. Images were obtained and stored in a permanent archive. MQ: URUQ_2 COMPARISON: None. RESULT: Pancreas: Normal sonographic appearance. Portions obscured: tail Liver: Portions of the right and left lobe are suboptimally seen due to overlying bowel gas Echotexture: Normal, homogeneous. Echogenicity: Normal Surface contour: Smooth Lesions: None. Biliary: No intrahepatic biliary duct dilation. CBD: 0.6 cm at the hilum. Gallbladder: Normal caliber -Contents: No cholelithiasis -Wall: Normal -Other: No pericholecystic fluid. Right and left Kidney: No hydronephrosis. Ascites: None. The spleen is 10.6 cm in length. Suboptimally seen due to overlying bowel gas IMPRESSION IMPRESSION: Normal sonographic appearance of the right upper quadrant. Normal sonographic appearance of the spleen Optical Dispenser: JADIEL Transcribe Date/Time: Apr 20 2024 2:13P Dictated by : VERONICA HESTER MD This examination was interpreted and the report reviewed and electronically signed by: VERONICA HESTER MD on Apr 20 2024 2:15PM [facility] Tan 04-17-2024 [facility] KARLA NDIAYE ([id number]) 1945 F Date Time Provider Department 04/17/24 MARYA JEROME [facility] During your visit today, we recorded the following information about you: Marya Jerome APRN.CHAMPAGNE [employer]ER 04/17/2024 9:00 AM Signed Please let patient know her carotid US shows minimal stenosis. No further action needed at this time. Anusha Hollingsworth MA 04/17/2024 9:15 AM Signed Pt notified and verbalized understanding Anusha Hollingsworth MA Allergies As of Date: 04/17/2024 Noted Allergy Reaction SUTURES 02/14/2013 4 - Hives Comments: high level reaction to CAT GUT suture LISINOPRIL 02/24/2022 3 - Cough MONOPRIL (FOSINOPRIL SODIUM) 07/15/2005 3 - Cough Date Reviewed: 04/01/2024 Reviewed by: Deejay Anderson MD - Fully Assessed Reason for Visit: Results [95] Prescriptions as of 04/17/2024 - spironolactone (ALDACTONE) 25 mg tablet Take 1 tablet by mouth once daily. - amLODIPine (NORVASC) 5 mg tablet Take 1 tablet by mouth once daily. - simvastatin (ZOCOR) 20 mg tablet Take 1 tablet by mouth daily at bedtime. - calcium citrate/vitamin D3 (CITRACAL + D PETITES ORAL) Take 2 tablets by mouth once daily. - lisinopril (ZESTRIL) 40 mg tablet Take 1 tablet by mouth once daily. - alendronate (FOSAMAX) 70 mg tablet Take 1 tablet by mouth one time a week. In AM with cup of water on empty stomach. Nothing else by mouth and stay upright for 30 min. Problem List As Of Date 04/17/2024 Noted Resolved Essential hypertension, benign [I10] Benign neoplasm of colon [D12.6] 10/21/2005 Other tenosynovitis of hand and wrist [M65.849,*02/02/2008 05/30/2018 Symptomatic menopausal or female climacteric st*12/05/2008 09/21/2016 Osteoarthritis of hip [M16.9] 08/07/2009 08/05/2017 Postmenopausal atrophic vaginitis [N95.2] 12/11/2009 Cystocele, midline [N81.11] 12/11/2009 Sprain and strain of unspecified site of knee a*05/05/2011 09/21/2016 Aortic heart murmur [I35.8] 10/01/2011 05/30/2018 Age related osteoporosis [M81.0] Glaucoma [H40.9] 09/19/2014 Mixed hyperlipidemia [E78.2] 04/09/2016 Right hip pain [M25.551] 05/24/2017 08/05/2017 Arthritis of knee [M17.10] 08/05/2017 Stage 3b chronic kidney disease (HCC) [N18.32] 12/19/2020 Hypercalcemia [E83.52] 10/19/2021 Medicare annual wellness visit, subsequent [Z00*03/20/2022 Living will on file [[id number]] 03/20/2022 Advance directive discussed with patient [Z71.8*03/20/2022 Family history of colon cancer [Z80.0] 03/20/2022 Class 1 obesity due to excess calories without *08/03/2022 Situational anxiety [F41.8] 03/24/2023 History of colonoscopy [Z98.890] 10/05/2023 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] 10/05/2023 Acute midline low back pain without sciatica [M*02/02/2024 Medication management [Z79.899] 03/24/2024 Palpitation [R00.2] 04/04/2024 Encounter Status:Closed by WORKMAN ANUSHA PEREIRA on 04/17/24 Normal [facility] US CAROTID ARTERIES KAYLYN VAS LABon 04-12-2024 US CAROTID ARTERIES K[facility]LYN [facility] Non-Invasive Vascular Laboratory [facility] Carotid Duplex Bilateral/Complete Date of service/time: 04/12/2024 9:04:24 AM Name: MRS. KARLA NDIAYE Date of : 1945 Age: 78 years Gender: F Clinical Indication Syncope. TECHNIQUE -------- A carotid duplex ultrasound examination was performed, including grayscale imaging and color Doppler and spectral Doppler examination of the below mentioned arteries. FINDINGS -------- RIGHT SIDE Common carotid artery: Origin: PSV: 86 cm/s. EDV: 21 cm/s. Proximal: PSV: 91 cm/s. EDV: 18 cm/s. Mid: PSV: 102 cm/s. EDV: 19 cm/s. Distal: PSV: 71 cm/s. EDV: 13 cm/s. Internal carotid artery: Origin: PSV: 59 cm/s. EDV: 12 cm/s. Proximal: PSV: 61 cm/s. EDV: 18 cm/s. Mid: PSV: 71 cm/s. EDV: 21 cm/s. Distal: PSV: 85 cm/s. EDV: 22 cm/s. ICA/CCA Ratio: 1.2 External carotid artery: Origin: PSV: 59 cm/s. EDV: 9 cm/s. Subclavian artery: Origin: PSV: 120 cm/s. EDV: 0 cm/s. Mild heterogeneous plaque at origin. Innominate artery: PSV: 81 cm/s. EDV: 8 cm/s. Vertebral artery: PSV: 40 cm/s. EDV: 10 cm/s. LEFT SIDE Common carotid artery: Proximal: PSV: 113 cm/s. EDV: 25 cm/s. Mid: PSV: 81 cm/s. EDV: 22 cm/s. Distal: PSV: 66 cm/s. EDV: 15 cm/s. Mild heterogeneous plaque at distal. Internal carotid artery: Origin: PSV: 42 cm/s. EDV: 11 cm/s. Proximal: PSV: 61 cm/s. EDV: 23 cm/s. Mid: PSV: 64 cm/s. EDV: 19 cm/s. Distal: PSV: 78 cm/s. EDV: 28 cm/s. ICA/CCA Ratio: 1.2 External carotid artery: Origin: PSV: 66 cm/s. EDV: 10 cm/s. Mild heterogeneous plaque at origin. Subclavian artery: Proximal: PSV: 128 cm/s. EDV: 0 cm/s. Vertebral artery: PSV: 47 cm/s. EDV: 14 cm/s. IMPRESSION RIGHT SIDE Internal carotid artery: 0-19% stenosis. Vertebral artery: Patent and antegrade flow noted. Subclavian artery: Plaque visualized without evidence of hemodynamically significant stenosis. LEFT SIDE Common carotid artery: Plaque visualized without evidence of hemodynamically significant stenosis. Internal carotid artery: 0-19% stenosis. Vertebral artery: Patent and antegrade flow noted. Subclavian artery: Patent. Technologist: Brittnee Santos RVT, [facility] Ordering physician: DEEJAY ANDERSON Interpreting physician: Bari Mccauley MD, ALMA ROSA Final CC [facility] Image : [id number] See Link below for Image Normal [facility] KARLA NDIAYE ([id number]) 1945 F Date Time Provider Department 04/06/24 [facility] your visit today, we recorded the following information about you: Kannan Brantley MD 04/06/2024 8:27 AM Signed Let her know both the liver and bone portions of the alk phos are high. I usually recommend an us of the liver and a bone scan. These are often due to fatty liver and arthritis but we can make sure they are otherwise ok. BereketRadhaCELINE 04/06/2024 9:49 AM Signed Phoned patient and went over results, notes from Dr Brantley with understanding. Assisted with transfer to package pick up to get testing appt set up. Allergies As of Date: 04/06/2024 Noted Allergy Reaction SUTURES 02/14/2013 4 - Hives Comments: high level reaction to CAT GUT suture LISINOPRIL 02/24/2022 3 - Cough MONOPRIL (FOSINOPRIL SODIUM) 07/15/2005 3 - Cough Date Reviewed: 04/01/2024 Reviewed by: Deejay Anderson MD - Fully Assessed Reason for Visit: Results [95] Primary Visit Diagnosis:Elevated alkaline phosphatase level [R74.8] Order(s):US ABD RIGHT UPPER QUADRANT [[id number]] Order #: [id number] FUTURE NM BONE WHOLE BODY [[id number]] Order #: [id number] FUTURE Prescriptions as of 04/06/2024 - spironolactone (ALDACTONE) 25 mg tablet Take 1 tablet by mouth once daily. - amLODIPine (NORVASC) 5 mg tablet Take 1 tablet by mouth once daily. - simvastatin (ZOCOR) 20 mg tablet Take 1 tablet by mouth daily at bedtime. - calcium citrate/vitamin D3 (CITRACAL + D PETITES ORAL) Take 2 tablets by mouth once daily. - lisinopril (ZESTRIL) 40 mg tablet Take 1 tablet by mouth once daily. - alendronate (FOSAMAX) 70 mg tablet Take 1 tablet by mouth one time a week. In AM with cup of water on empty stomach. Nothing else by mouth and stay upright for 30 min. Problem List As Of Date 04/06/2024 Noted Resolved Essential hypertension, benign [I10] Benign neoplasm of colon [D12.6] 10/21/2005 Other tenosynovitis of hand and wrist [M65.849,*02/02/2008 05/30/2018 Symptomatic menopausal or female climacteric st*12/05/2008 09/21/2016 Osteoarthritis of hip [M16.9] 08/07/2009 08/05/2017 Postmenopausal atrophic vaginitis [N95.2] 12/11/2009 Cystocele, midline [N81.11] 12/11/2009 Sprain and strain of unspecified site of knee a*05/05/2011 09/21/2016 Aortic heart murmur [I35.8] 10/01/2011 05/30/2018 Age related osteoporosis [M81.0] Glaucoma [H40.9] 09/19/2014 Mixed hyperlipidemia [E78.2] 04/09/2016 Right hip pain [M25.551] 05/24/2017 08/05/2017 Arthritis of knee [M17.10] 08/05/2017 Stage 3b chronic kidney disease (HCC) [N18.32] 12/19/2020 Hypercalcemia [E83.52] 10/19/2021 Medicare annual wellness visit, subsequent [Z00*03/20/2022 Living will on file [[id number]] 03/20/2022 Advance directive discussed with patient [Z71.8*03/20/2022 Family history of colon cancer [Z80.0] 03/20/2022 Class 1 obesity due to excess calories without *08/03/2022 Situational anxiety [F41.8] 03/24/2023 History of colonoscopy [Z98.890] 10/05/2023 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] 10/05/2023 Acute midline low back pain without sciatica [M*02/02/2024 Medication management [Z79.899] 03/24/2024 Palpitation [R00.2] 04/04/2024 Encounter Status:Closed by RADHA CUBA on 04/06/24 [facility] Telephone (4CQ) -------- KARLA NDIAYE ([id number]) 1945 F Date Time Provider Department 04/06/24 DEEJAY ANDERSON 4CQ During your visit today, we recorded the following information about you: Bertha Villareal 04/06/2024 11:51 AM Signed Pt is scheduled for ultra dup carotid artery 04/12. Patient just had a heart monitor placed and wanted to know if that was ok to still have test done. Please advise. Phone number verified. Thank you Raina Murry LPN 04/10/2024 9:00 AM Signed Please see message below. CELINE Kennedy Jeffrey A, MD 04/10/2024 12:47 PM Signed Let patient know it is ok to have the carotid US with wearing the heart Monitor. Mitchell Sorensen MA 04/10/2024 1:12 PM Signed Left detailed message for patient with Dr. Anderson recommendations. Mitchell Sorensen MA Allergies As of Date: 04/06/2024 Noted Allergy Reaction SUTURES 02/14/2013 4 - Hives Comments: high level reaction to CAT GUT suture LISINOPRIL 02/24/2022 3 - Cough MONOPRIL (FOSINOPRIL SODIUM) 07/15/2005 3 - Cough Date Reviewed: 04/01/2024 Reviewed by: Deejay Anderson MD - Fully Assessed Reason for Visit: Results [95] Prescriptions as of 04/10/2024 - spironolactone (ALDACTONE) 25 mg tablet Take 1 tablet by mouth once daily. - amLODIPine (NORVASC) 5 mg tablet Take 1 tablet by mouth once daily. - simvastatin (ZOCOR) 20 mg tablet Take 1 tablet by mouth daily at bedtime. - calcium citrate/vitamin D3 (CITRACAL + D PETITES ORAL) Take 2 tablets by mouth once daily. - lisinopril (ZESTRIL) 40 mg tablet Take 1 tablet by mouth once daily. - alendronate (FOSAMAX) 70 mg tablet Take 1 tablet by mouth one time a week. In AM with cup of water on empty stomach. Nothing else by mouth and stay upright for 30 min. Problem List As Of Date 04/06/2024 Noted Resolved Essential hypertension, benign [I10] Benign neoplasm of colon [D12.6] 10/21/2005 Other tenosynovitis of hand and wrist [M65.849,*02/02/2008 05/30/2018 Symptomatic menopausal or female climacteric st*12/05/2008 09/21/2016 Osteoarthritis of hip [M16.9] 08/07/2009 08/05/2017 Postmenopausal atrophic vaginitis [N95.2] 12/11/2009 Cystocele, midline [N81.11] 12/11/2009 Sprain and strain of unspecified site of knee a*05/05/2011 09/21/2016 Aortic heart murmur [I35.8] 10/01/2011 05/30/2018 Age related osteoporosis [M81.0] Glaucoma [H40.9] 09/19/2014 Mixed hyperlipidemia [E78.2] 04/09/2016 Right hip pain [M25.551] 05/24/2017 08/05/2017 Arthritis of knee [M17.10] 08/05/2017 Stage 3b chronic kidney disease (HCC) [N18.32] 12/19/2020 Hypercalcemia [E83.52] 10/19/2021 Medicare annual wellness visit, subsequent [Z00*03/20/2022 Living will on file [[id number]] 03/20/2022 Advance directive discussed with patient [Z71.8*03/20/2022 Family history of colon cancer [Z80.0] 03/20/2022 Class 1 obesity due to excess calories without *08/03/2022 Situational anxiety [F41.8] 03/24/2023 History of colonoscopy [Z98.890] 10/05/2023 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] 10/05/2023 Acute midline low back pain without sciatica [M*02/02/2024 Medication management [Z79.899] 03/24/2024 Palpitation [R00.2] 04/04/2024 Encounter Status:Closed by MITCHELL SORENSEN on 04/10/24 Normal [facility] ALKALINE PHOSPHATASE ISOENZY MES (P)on 04-05-2024 ALK PHOS BONE % 42.7 % Normal 10.7-68.3 [facility] Comment on above: Order Comment: Speci men Type: BLOOD SPECIMENOrdering Facility: [facility] Address: [address] [place] [address] Performed By: #### A LKISOP ####[facility] LABCLIA [id number] [place] [address] [place] ALK PHOS LIVER % 48.6 % Normal 26.0-86.2 [facility] Comment on above: Order Comment: Speci men Type: BLOOD SPECIMENOrdering Facility: [facility] Address: [address] [place] [address] Performed By: #### A LKISOP ####[facility] LABCLIA [id number] [place] [address] [place] BONE FRACTION 61.9 U/L High 12.9-52.6 [facility] Comment on above: Order Comment: Speci men Type: BLOOD SPECIMENOrdering Facility: [facility] Address: [address] [place] [address] Performed By: #### A LKISOP ####[facility] LABCLIA [id number] [place] [address] [place] INTESTINE FRACTION 12.5 U/L Normal 0.0-16.3 [facility] Comment on above: Order Comment: Speci men Type: BLOOD SPECIMENOrdering Facility: [facility] Address: [address] [place] [address] Performed By: #### A LKISOP ####[facility] LABCLIA [id number] [place] [address] [place] LIVER FRACTION 70.5 U/L High 16.0-69.3 [facility] Comment on above: Order Comment: Speci men Type: BLOOD SPECIMENOrdering Facility: [facility] Address: [address] [place] [address] Performed By: #### A LKISOP ####[facility] LABCLIA [id number] [place] [address] [place] Neutrophils/100 WBC (Bld) 8.6 % Normal 0.0-24.2 [facility] Comment on above: Order Comment: Speci men Type: BLOOD SPECIMENOrdering Facility: [facility] Address: [address] [place] [address] Performed By: #### A LKISOP ####[facility] LABCLIA [id number] [facility] [place] [address] [place] ALP SerPl-cCncon 04-05-2024 ALP [Catalytic activity/Vol] 145 U/L High 34-123 [facility] Comment on above: Order Comment: Speci men Type: URINE SPECIMEN [facility] Address: [address] [place] [address] Performed By: #### 2 4356-8 #### [facility] LAB CLIA [id number] [address] [place], [place] [address] [address] [place] CNPNon 03-[facility]20[facility] -------- KARLA NDIAYE ([id number]) 1945 F Date Time Provider Department 03/28/24 KANNAN BRANTLEY [facility] During your visit today, we recorded the following information about you: Kannan Brantlye MD 03/28/2024 3:38 PM Signed Labs are stable, except alk phos which is a blood enzyme is up. Recheck alk phos isoenzymes in one week Leslie Oh MA 03/28/2024 4:24 PM Signed Patient informed and verbalized understanding. Leslie Oh MA Allergies As of Date: 03/28/2024 Noted Allergy Reaction SUTURES 02/14/2013 4 - Hives Comments: high level reaction to CAT GUT suture LISINOPRIL 02/24/2022 3 - Cough MONOPRIL (FOSINOPRIL SODIUM) 07/15/2005 3 - Cough Date Reviewed: 03/24/2024 Reviewed by: Mitchell Sorensen MA - Fully Assessed Reason for Visit: Results [95] Primary Visit Diagnosis:Elevated alkaline phosphatase level [R74.8] Order(s):ALK PHOS ISOENZYM BL [SQALKISO] Order #: [id number] FUTURE Prescriptions as of 03/28/2024 - spironolactone (ALDACTONE) 25 mg tablet Take 1 tablet by mouth once daily. - amLODIPine (NORVASC) 5 mg tablet Take 1 tablet by mouth once daily. - simvastatin (ZOCOR) 20 mg tablet Take 1 tablet by mouth daily at bedtime. - calcium citrate/vitamin D3 (CITRACAL + D PETITES ORAL) Take 2 tablets by mouth once daily. - lisinopril (ZESTRIL) 40 mg tablet Take 1 tablet by mouth once daily. - alendronate (FOSAMAX) 70 mg tablet Take 1 tablet by mouth one time a week. In AM with cup of water on empty stomach. Nothing else by mouth and stay upright for 30 min. Problem List As Of Date 03/28/2024 Noted Resolved Essential hypertension, benign [I10] Benign neoplasm of colon [D12.6] 10/21/2005 Other tenosynovitis of hand and wrist [M65.849,*02/02/2008 05/30/2018 Symptomatic menopausal or female climacteric st*12/05/2008 09/21/2016 Osteoarthritis of hip [M16.9] 08/07/2009 08/05/2017 Postmenopausal atrophic vaginitis [N95.2] 12/11/2009 Cystocele, midline [N81.11] 12/11/2009 Sprain and strain of unspecified site of knee a*05/05/2011 09/21/2016 Aortic heart murmur [I35.8] 10/01/2011 05/30/2018 Age related osteoporosis [M81.0] Glaucoma [H40.9] 09/19/2014 Mixed hyperlipidemia [E78.2] 04/09/2016 Right hip pain [M25.551] 05/24/2017 08/05/2017 Arthritis of knee [M17.10] 08/05/2017 Stage 3b chronic kidney disease (HCC) [N18.32] 12/19/2020 Hypercalcemia [E83.52] 10/19/2021 Medicare annual wellness visit, subsequent [Z00*03/20/2022 Living will on file [[id number]] 03/20/2022 Advance directive discussed with patient [Z71.8*03/20/2022 Family history of colon cancer [Z80.0] 03/20/2022 Class 1 obesity due to excess calories without *08/03/2022 Situational anxiety [F41.8] 03/24/2023 History of colonoscopy [Z98.890] 10/05/2023 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] 10/05/2023 Acute midline low back pain without sciatica [M*02/02/2024 Medication management [Z79.899] 03/24/2024 Encounter Status:Closed by LESLIE OH on 03/28/24 Normal [facility] Comprehensive metabolic 2000 panelon 03-28-2024 Albumin [Mass/Vol] 4.2 g/dL 3.9 - 4.9 g/dL [facility] ALP [Catalytic activity/Vol] 150 U/L High 34 - 123 U/L [facility] ALT [Catalytic activity/Vol] 18 U/L 7 - 38 U/L [facility] Anion gap [Moles/Vol] 12 mmol/L 8 - 15 mmol/L [facility] AST [Catalytic activity/Vol] 21 U/L 13 - 35 U/L [facility] Bilirubin [Mass/Vol] 0.4 mg/dL 0.2 - 1 .3 mg/dL [facility] Calcium [Mass/Vol] 9.6 mg/dL 8.5 - 10. 2 mg/dL [facility] Chloride [Moles/Vol] 100 mmol/L 98 - 10 7 mmol/L [facility] CO2 [Moles/Vol] 22 mmol/L 22 - 30 mmol/L [facility] Creatinine [Mass/Vol] 1.40 mg/dL High 0.58 - 0.96 mg/dL [facility] GFR/1.73 sq M.predicted among non-blacks MDRD (S/P/Bld) [Vol rate/Area] 38 mL/min/{1.73_m2} Low - PINF [facility] Comment on above: Estimated Glomerular Filtration Rate (eGFR) is calculated using the 2020 CKD-EPI creatinine equation. This equation utilizes serum creatinine, sex, and age as parameters. The creatinine assay has traceable calibration to isotope dilution-mass spectrometry. Refer to KDIGO guidelines for clinical interpretation. In patients with unstable renal function, e.g. those with acute kidney injury, the eGFR may not accurately reflect actual GFR. Glucose [Mass/Vol] 83 mg/dL 74 - 99 mg/dL [facility] Comment on above: The [place] Diabete s Association (ADA) provides guidance for cutoff values for fasting glucose and random glucose. The ADA defines fasting as no caloric intake for at least 8 hours. Fasting plasma glucose results between 100 to 125 mg/dL indicate increased risk for diabetes (prediabetes). Fasting plasma glucose results greater than or equal to 126 mg/dL meet the criteria for diagnosis of diabetes. In the absence of unequivocal hyperglycemia, results should be confirmed by repeat testing. In a patient with classic symptoms of hyperglycemia or hyperglycemic crisis, random plasma glucose results greater than or equal to 200 mg/dL meet the criteria for diagnosis of diabetes. Reference: Standards of Medical Care in Diabetes 2016, [place] Diabetes Association. Diabetes Care. 2016.39(Suppl 1). Interpretation and review of laboratory results Abnormal [facility] Potassium [Moles/Vol] 5.0 mmol/L 3.7 - 5.1 mmol/L [facility] Protein [Mass/Vol] 7.0 g/dL 6.3 - 8.0 g/dL [facility] Sodium [Moles/Vol] 134 mmol/L Low 136 - 144 mmol/L [facility] Urea nitrogen [Mass/Vol] 25 mg/dL High 7 - 21 mg/dL [facility] LIPID PANEL, NONFASTINGon Cholesterol [Mass/Vol] 156 mg/dL NINF - 200 mg/dL [facility] Comment on above: <200 mg/dL, Desirabl e 200-239 mg/dL, Borderline high >239 mg/dL, High HDL Cholesterol, Nonfasting 45 mg/dL 39 - PINF mg/dL [facility] Comment on above: 40-59 mg/dL, Accepta ble >59 mg/dL, High: Negative risk factor for coronary heart disease <40 mg/dL, Low: Positive risk factor for coronary heart disease Interpretation and review of laboratory results Normal [facility] LDL Cholesterol, Nonfasting 82 mg/dL NINF - 100 mg/dL [facility] Comment on above: <100 mg/dL, Optimal 100-129 mg/dL, Near optimal/above optimal 130-159 mg/dL, Borderline high 160-189 mg/dL, High >189 mg/dL, Very high Secondary prevention optimal LDL Cholesterol levels are recommended to be < 70 mg/dL LDL/HDL Ratio, Nonfasting 1.82 mg/dL NINF - 2.54 mg/dL [facility] Comment on above: Reference: 1. National Cholesterol Education Program ATP III Guideline At-A-Glance Quick Desk Reference: National Heart, Lung, and Blood [place]. National Institutes of Health. 2001: NIH Publication No. 01-3305. 2. An International Atherosclerosis Society position paper: global recommendations for the management of dyslipidemia: executive summary, Atherosclerosis. 2014: 232(2):410-413. Non HDL Cholesterol, Nonfasting 111 mg/dL NINF - 130 mg/dL [facility] Comment on above: <130 mg/dL, Optimal 130-159 mg/dL, Near optimal/above optimal 160-189 mg/dL, Borderline high 190-219 mg/dL, High >219 mg/dL, Very high Secondary prevention optimal non HDL Cholesterol levels are recommended to be <100 mg/dL Total Chol/HDL Ratio, Nonfasting 3.47 mg/dL NINF - 5.10 mg/dL [facility] Triglycerides, Nonfasting 145 mg/dL [facility] 150 mg/dL [facility] Comment on above: <150 mg/dL, Normal 150-199 mg/dL, Borderline high 200-499 mg/dL, High >499 mg/dL, Very high VLDL Cholesterol, Nonfasting 29 mg/dL NINF - 30 mg/dL [facility] No Panel Informationon 03-28 [facility] CBC W Auto Differential pane l (Bld)on 03-27-2024 Basophils (Bld) [#/Vol] 0.03 10*3/uL [facility] Basophils/100 WBC (Bld) 0.5 % [facility] Differential cell count method Nom (Bld) Auto [facility] Eosinophils (Bld) [#/Vol] 0.05 10*3/uL [facility] Eosinophils/100 WBC (Bld) 0.9 % [facility] Erythrocyte distribution width (RBC) [Ratio] 14.1 % 11.5 - 15.0 % [facility] Hematocrit (Bld) [Volume fraction] 39.1 % 36.0 - 46.0 % [facility] Hemoglobin (Bld) [Mass/Vol] 12.6 g/dL 11.5 - 15.5 g/dL [facility] Immature granulocytes (Bld) [#/Vol] NINF [facility] Immature granulocytes/100 WBC (Bld) 0.2 % [facility] Lymphocytes (Bld) [#/Vol] 2.14 10*3/uL [facility] Lymphocytes/100 WBC (Bld) 38.0 % [facility] MCH (RBC) [Entitic mass] 29.9 pg 26.0 - 34.0 pg [facility] MCHC (RBC) [Mass/Vol] 32.2 g/dL 30.5 - 36.0 g/dL [facility] MCV (RBC) [Entitic vol] 92.9 fL 80.0 - 100.0 fL [facility] Monocytes (Bld) [#/Vol] 0.42 10*3/uL [facility] Monocytes/100 WBC (Bld) 7.5 % [facility] Neutrophils (Bld) [#/Vol] 2.98 10*3/uL [facility] Neutrophils/100 WBC (Bld) 52.9 % [facility] Nucleated RBC (Bld) [#/Vol] [facility] Nucleated RBC/100 WBC (Bld) [Ratio] 0.0 % /100 WBC [facility] Platelet mean volume (Bld) [Entitic vol] 10.2 fL 9.0 - 12.7 fL [facility] Platelets (Bld) [#/Vol] 280 10*3/uL [facility] RBC (Bld) [#/Vol] 4.21 10*6/uL 3.90 - 5.2 0 m/uL [facility] WBC (Bld) [#/Vol] 5.63 10*3/uL [facility] Basophils (Bld) [#/Vol] 0.03 10*3/uL Normal <0.11 [facility] Comment on above: Order Comment: Speci men Type: BLOOD SPECIMENOrdering Facility: [facility] Address: [address] [place], [place] [address] Performed By: #### 5 7021-8 ####[facility] LABCLIA [id number] [place] [address] [place] Basophils/100 WBC (Bld) 0.5 % Normal [facility] Comment on above: Order Comment: Speci men Type: BLOOD SPECIMENOrdering Facility: [facility] Address: [address] [place] [address] Performed By: #### 5 7021-8 ####[facility] LABCLIA [id number] [place] [address] [place] Differential cell count method Nom (Bld) Auto Normal [facility] Comment on above: Order Comment: Speci men Type: BLOOD SPECIMENOrdering Facility: [facility] Address: [address] [place] [address] Performed By: #### 5 7021-8 ####[facility] LABCLIA [id number] [place] [address] [place] Eosinophils (Bld) [#/Vol] 0.05 10*3/uL Normal <0.46 [facility] Comment on above: Order Comment: Speci men Type: BLOOD SPECIMENOrdering Facility: [facility] Address: [address] [place] [address] Performed By: #### 5 7021-8 ####[facility] LABCLIA [id number] [place] [address] [place] Eosinophils/100 WBC (Bld) 0.9 % Normal [facility] Comment on above: Order Comment: Speci men Type: BLOOD SPECIMENOrdering Facility: [facility] Address: [address] [place] [address] Performed By: #### 5 7021-8 ####[facility] LABCLIA [id number] [place] [address] [place] Erythrocyte distribution width (RBC) [Ratio] 14.1 % Normal 11.5-15.0 [facility] Comment on above: Order Comment: Speci men Type: BLOOD SPECIMENOrdering Facility: [facility] Address: [address] [place] [address] Performed By: #### 5 7021-8 ####[facility] LABCLIA [id number] [place] [address] [place] Hematocrit (Bld) [Volume fraction] 39.1 % Normal 36.0-46.0 [facility] Comment on above: Order Comment: Speci men Type: BLOOD SPECIMENOrdering Facility: [facility] Address: [address] [place] [address] Performed By: #### 5 7021-8 ####[facility] LABIA [id number] [place] [address] [place] Hemoglobin (Bld) [Mass/Vol] 12.6 g/dL Normal 11.5-15.5 [facility] Comment on above: Order Comment: Speci men Type: BLOOD SPECIMENOrdering Facility: [facility] Address: [address] [place] [address] Performed By: #### 5 7021-8 ####[facility] LABCLIA [id number] [place] [address] [place] Immature granulocytes (Bld) [#/Vol] 10*3/uL Normal <0.10 [facility] Comment on above: Order Comment: Speci men Type: BLOOD SPECIMENOrdering Facility: [facility] Address: [address] [place] [address] Performed By: #### 5 7021-8 ####[facility] LABCLIA [id number] [place] [address] [place] Immature granulocytes/100 WBC (Bld) 0.2 % Normal [facility] Comment on above: Order Comment: Speci men Type: BLOOD SPECIMENOrdering Facility: [facility] Address: [address] [place] [address] Performed By: #### 5 7021-8 ####[facility] LABCLIA [id number] [place] [address] [place] Lymphocytes (Bld) [#/Vol] 2.14 10*3/uL Normal 1.00-4.00 [facility] Comment on above: Order Comment: Speci men Type: BLOOD SPECIMENOrdering Facility: [facility] Address: [address] [place] [address] Performed By: #### 5 7021-8 ####[facility] LABIA [id number] [place] [address] [place] Lymphocytes/100 WBC (Bld) 38.0 % Normal [facility] Comment on above: Order Comment: Speci men Type: BLOOD SPECIMENOrdering Facility: [facility] Address: [address] [place] [address] Performed By: #### 5 7021-8 ####[facility] LABIA [id number] [place] [address] [place] MCH (RBC) [Entitic mass] 29.9 pg Normal 26.0-34.0 [facility] Comment on above: Order Comment: Speci men Type: BLOOD SPECIMENOrdering Facility: [facility] Address: [address] [place] [address] Performed By: #### 5 7021-8 ####[facility] LABIA [id number] [place] [address] [place] MCHC (RBC) [Mass/Vol] 32.2 g/dL Normal 30.5-36.0 [facility] Comment on above: Order Comment: Speci men Type: BLOOD SPECIMENOrdering Facility: [facility] Address: [address] [place] [address] Performed By: #### 5 7021-8 ####[facility] LABIA [id number] [place] [address] [place] MCV (RBC) [Entitic vol] 92.9 fL Normal 80.0-100.0 [facility] Comment on above: Order Comment: Speci men Type: BLOOD SPECIMENOrdering Facility: [facility] Address: [address] [place] [address] Performed By: #### 5 7021-8 ####[facility] LABCLIA [id number] [place] [address] [place] Monocytes (Bld) [#/Vol] 0.42 10*3/uL Normal <0.87 [facility] Comment on above: Order Comment: Speci men Type: BLOOD SPECIMENOrdering Facility: [facility] Address: [address] [place] [address] Performed By: #### 5 7021-8 ####[facility] [id number] [place] [address] [place] Monocytes/100 WBC (Bld) 7.5 % Normal [facility] Comment on above: Order Comment: Speci men Type: BLOOD SPECIMENOrdering Facility: [facility] Address: [address] [place] [address] Performed By: #### 5 7021-8 ####[facility] LABCLIA [id number] [place] [address] [place] Neutrophils (Bld) [#/Vol] 2.98 10*3/uL Normal 1.45-7.50 [facility] Comment on above: Order Comment: Speci men Type: BLOOD SPECIMENOrdering Facility: [facility] Address: [address] [place] [address] Performed By: #### 5 7021-8 ####[facility] LABCLIA [id number] [place] [address] [place] Neutrophils/100 WBC (Bld) 52.9 % Normal [facility] Comment on above: Order Comment: Speci men Type: BLOOD SPECIMENOrdering Facility: [facility] Address: [address] [place] [address] Performed By: #### 5 7021-8 ####[facility] LABCLIA [id number] [place] [address] [place] Nucleated RBC (Bld) [#/Vol] 10*3/uL Normal <0.01 [facility] Comment on above: Order Comment: Speci men Type: BLOOD SPECIMENOrdering Facility: [facility] Address: [address] [place] [address] Performed By: #### 5 7021-8 ####[facility] LABCLIA [id number] [place] [address] [place] Nucleated RBC/100 WBC (Bld) [Ratio] 0.0 /100 WBC Normal [facility] Comment on above: Order Comment: Speci men Type: BLOOD SPECIMENOrdering Facility: [facility] Address: [address] [place] [address] Performed By: #### 5 7021-8 ####[facility] LABIA [id number] [place] [address] [place] Platelet mean volume (Bld) [Entitic vol] 10.2 fL Normal 9.0-12.7 [facility] Comment on above: Order Comment: Speci men Type: BLOOD SPECIMENOrdering Facility: [facility] Address: [address] [place] [address] Performed By: #### 5 7021-8 ####[facility] LABIA [id number] [place] [address] [place] Platelets (Bld) [#/Vol] 280 10*3/uL Normal 150-400 [facility] Comment on above: Order Comment: Speci men Type: BLOOD SPECIMENOrdering Facility: [facility] Address: [address] [place] [address] Performed By: #### 5 7021-8 ####[facility] LABCLIA [id number] [place] [address] [place] RBC (Bld) [#/Vol] 4.21 10*6/uL Normal 3.90-5.20 [facility] Comment on above: Order Comment: Speci men Type: BLOOD SPECIMENOrdering Facility: [facility] Address: [address] [place] [address] Performed By: #### 5 7021-8 ####[facility] LABCLIA [id number] [place] [address] [place] WBC (Bld) [#/Vol] 5.63 10*3/uL Normal 3.70-11.00 [facility] Comment on above: Order Comment: Speci men Type: BLOOD SPECIMENOrdering Facility: [facility] Address: [address] [place] [address] Performed By: #### 5 7021-8 ####[facility] LABCLIA [id number] [place] [address] [place] Comprehensive metabolic 2000 panelon 03-27-2024 Albumin [Mass/Vol] 4.2 g/dL Normal 3.9-4.9 [facility] Comment on above: Order Comment: Speci men Type: URINE SPECIMEN Ordering Facility: [facility] Address: [address] [place] [address] Performed By: #### 2 4356-8 #### [facility] CLIA [id number] [address] [place] [address] [place] ALP [Catalytic activity/Vol] 150 U/L High 34-123 [facility] Comment on above: Order Comment: Speci men Type: URINE SPECIMEN Ordering Facility: [facility] Address: [address] [place] [address] Performed By: #### 2 4356-8 #### [facility] CLIA [id number] [address] [place] [address] [place] ALT [Catalytic activity/Vol] 18 U/L Normal 7-38 [facility] Comment on above: Order Comment: Speci men Type: URINE SPECIMEN Ordering Facility: [facility] Address: [address] [place] [address] Performed By: #### 2 4356-8 #### [facility] CLIA [id number] [address] [place] [address] [place] Anion gap [Moles/Vol] 12 mmol/L Normal 8-15 [facility] Comment on above: Order Comment: Speci men Type: URINE SPECIMEN Ordering Facility: [facility] Address: [address] [place] [address] Performed By: #### 2 4356-8 #### [facility] CLIA [id number] [address] [place] [address] [place] AST [Catalytic activity/Vol] 21 U/L Normal 13-35 [facility] Comment on above: Order Comment: Speci men Type: URINE SPECIMEN Ordering Facility: [facility] Address: [address] [place] [address] Performed By: #### 2 4356-8 #### [facility] CLIA [id number] [address] [place] [address] [place] Bilirubin [Mass/Vol] 0.4 mg/dL Normal 0.2-1.3 [facility] Comment on above: Order Comment: Speci men Type: URINE SPECIMEN Ordering Facility: [facility] Address: [address] [place] [address] Performed By: #### 2 4356-8 #### [facility] CLIA [id number] [address] [place] [address] [place] Calcium [Mass/Vol] 9.6 mg/dL Normal 8.5-10.2 [facility] Comment on above: Order Comment: Speci men Type: URINE SPECIMEN Ordering Facility: [facility] Address: [address] [place] [address] Performed By: #### 2 4356-8 #### [facility] CLIA [id number] [address] [place] [address] [place] Chloride [Moles/Vol] 100 mmol/L Normal 98-107 [facility] Comment on above: Order Comment: Speci men Type: URINE SPECIMEN Ordering Facility: [facility] Address: [address] [place] [address] Performed By: #### 2 4356-8 #### [facility] CLIA [id number] [address] [place] [address] [place] CO2 [Moles/Vol] 22 mmol/L Normal 22-30 [facility] Comment on above: Order Comment: Speci men Type: URINE SPECIMEN Ordering Facility: [facility] Address: [address] [place] [address] Performed By: #### 2 4356-8 #### [facility] CLIA [id number] [address] [place] [address] [place] Creatinine [Mass/Vol] 1.40 mg/dL High 0.58-0.96 [facility] Comment on above: Order Comment: Speci men Type: URINE SPECIMEN Ordering Facility: [facility] Address: [address] [place] [address] Performed By: #### 2 4356-8 #### [facility] CLIA [id number] [address] [place] [address] [place] Creatinine and Glomerular filtration rate.predicted panel (S/P/Bld) 38 mL/min/1.73m??? Low >=60 [facility] Comment on above: Order Comment: Speci men Type: URINE SPECIMEN Ordering Facility: [facility] Address: [address] [place] [address] Result Comment: Prachi mated Glomerular Filtration Rate (eGFR) is calculated using the 2020 CKD-EPI creatinine equation. This equation utilizes serum creatinine, sex, and age as parameters. The creatinine assay has traceable calibration to isotope dilution-mass spectrometry. Refer to KDIGO guidelines for clinical interpretation. In patients with unstable renal function, e.g. those with acute kidney injury, the eGFR may not accurately reflect actual GFR. Performed By: #### 2 4356-8 #### [facility] CLIA [id number] [address] [place] [address] [place] Glucose [Mass/Vol] 83 mg/dL Normal 74-99 [facility] Comment on above: Order Comment: Speci men Type: URINE SPECIMEN Ordering Facility: [facility] Address: [address] [place] [address] Result Comment: The [place] Diabetes Association (ADA) provides guidance for cutoff values for fasting glucose and random glucose. The ADA defines fasting as no caloric intake for at least 8 hours. Fasting plasma glucose results between 100 to 125 mg/dL indicate increased risk for diabetes (prediabetes). Fasting plasma glucose results greater than or equal to 126 mg/dL meet the criteria for diagnosis of diabetes. In the absence of unequivocal hyperglycemia, results should be confirmed by repeat testing. In a patient with classic symptoms of hyperglycemia or hyperglycemic crisis, random plasma glucose results greater than or equal to 200 mg/dL meet the criteria for diagnosis of diabetes. Reference: Standards of Medical Care in Diabetes 2016, [place] [employer] Association. Diabetes Care. 2016.39(Suppl 1). Performed By: #### 2 4356-8 #### [facility] CLIA [id number] [address] [place] [address] [place] Potassium [Moles/Vol] 5.0 mmol/L Normal 3.7-5.1 [facility] Comment on above: Order Comment: Speci men Type: URINE SPECIMEN Ordering Facility: [facility] Address: [address] [place] [address] Performed By: #### 2 4356-8 #### [facility] CLIA [id number] [address] [place] [address] [place] Protein [Mass/Vol] 7.0 g/dL Normal 6.3-8.0 [facility] Comment on above: Order Comment: Speci men Type: URINE SPECIMEN Ordering Facility: [facility] Address: [address] [place] [address] Performed By: #### 2 4356-8 #### [facility] CLIA [id number] [address] [place] [address] [place] Sodium [Moles/Vol] 134 mmol/L Low 136-144 [facility] Comment on above: Order Comment: Speci men Type: URINE SPECIMEN Ordering Facility: [facility] Address: [address] [place] [address] Performed By: #### 2 4356-8 #### [facility] CLIA [id number] [address] [place] [address] [place] Urea nitrogen [Mass/Vol] 25 mg/dL High 7-21 [facility] Comment on above: Order Comment: Speci men Type: URINE SPECIMEN Ordering Facility: [facility] Address: [address] [place] [address] Performed By: #### 2 4356-8 #### [facility] CLIA [id number] [address] [place] [address] [place] LIPID PANEL, NONFASTINGon Cholesterol [Mass/Vol] 156 mg/dL Normal <200 [facility] Comment on above: Order Comment: Speci men Type: URINE SPECIMEN Ordering Facility: [facility] Address: [address] [place] [address] Result Comment: <200 mg/dL, Desirable 200-239 mg/dL, Borderline high >239 mg/dL, High Performed By: #### 2 4356-8 #### [facility] CLIA [id number] [address] [place] [address] [place] HDL CHOLESTEROL, NF 45 mg/dL Normal >39 [facility] Comment on above: Order Comment: Speci men Type: URINE SPECIMEN Ordering Facility: [facility] Address: [address] [place] [address] Result Comment: 40-5 9 mg/dL, Acceptable >59 mg/dL, High: Negative risk factor for coronary heart disease <40 mg/dL, Low: Positive risk factor for coronary heart disease Performed By: #### 2 4356-8 #### [facility] CLIA [id number] [address] [place] [address] [place] LDL CHOLESTEROL, NF 82 mg/dL Normal <100 [facility] Comment on above: Order Comment: Speci men Type: URINE SPECIMEN Ordering Facility: [facility] Address: [address] [place] [address] Result Comment: <100 mg/dL, Optimal 100-129 mg/dL, Near optimal/above optimal 130-159 mg/dL, Borderline high 160-189 mg/dL, High >189 mg/dL, Very high Secondary prevention optimal LDL Cholesterol levels are recommended to be < 70 mg/dL Performed By: #### 2 4356-8 #### [facility] CLIA [id number] [address] [place] [address] [place] LDL/HDL RATIO, NF 1.82 mg/dL Normal <2.54 [facility] Comment on above: Order Comment: Speci men Type: URINE SPECIMEN Ordering Facility: [facility] Address: [address] [place] [address] Result Comment: Refe rence: 1. National Cholesterol Education Program ATP III Guideline At-A-Glance Quick Desk Reference: National Heart, Lung, and Blood [place]. National Institutes of Health. 2001: NIH Publication No. 01-3305. 2. An International Atherosclerosis Society position paper: global recommendations for the management of dyslipidemia: executive summary, Atherosclerosis. 2014: 232(2):410-413. Performed By: #### 2 4356-8 #### [facility] CLIA [id number] [address] [place] [address] [place] NON HDL CHOL, NF 111 mg/dL Normal <130 [facility] Comment on above: Order Comment: Speci men Type: URINE SPECIMEN Ordering Facility: [facility] Address: [address] [place] [address] Result Comment: <130 mg/dL, Optimal 130-159 mg/dL, Near optimal/above optimal 160-189 mg/dL, Borderline high 190-219 mg/dL, High >219 mg/dL, Very high Secondary prevention optimal non HDL Cholesterol levels are recommended to be <100 mg/dL Performed By: #### 2 4356-8 #### [facility] CLIA [id number] [address] [place] [address] [place] T CHOL/HDL RATIO NF 3.47 mg/dL Normal <5.10 [facility] Comment on above: Order Comment: Speci men Type: URINE SPECIMEN Ordering Facility: [facility] Address: [address] [place] [address] Performed By: #### 2 4356-8 #### [facility] CLIA [id number] [address] [place] [address] [place] TRIGLYCERIDES, NF 145 mg/dL Normal <150 [facility] Comment on above: Order Comment: Speci men Type: URINE SPECIMEN Ordering Facility: [facility] Address: [address] [place] [address] Result Comment: <150 mg/dL, Normal 150-199 mg/dL, Borderline high 200-499 mg/dL, High >499 mg/dL, Very high Performed By: #### 2 4356-8 #### [facility] CLIA [id number] [address] [place] [address] [place] VLDL CHOLESTEROL, NF 29 mg/dL Normal <30 [facility] Comment on above: Order Comment: Speci men Type: URINE SPECIMEN Ordering Facility: [facility] Address: [address] [place] [address] Performed By: #### 2 4356-8 #### [facility] CLIA [id number] [address] [place] [address] [place] CNOVon 03-24-2024 CNOV Office Visit (FAMPWS ) -------- KARLA NDIAYE ([id number]) 1945 F Date Time Provider Department 03/24/24 9:20 AM DEEJAY ANDERSON During your visit today, we recorded the following information about you: Pulse Respiration Blood pressure Weight 76/minute 18/minute 136/70 82.1 kg Height 1.626 m Deejay Anderson MD 04/01/2024 11:39 AM Signed Karlabridger Ndiaye is a 78 year old female here for a Medicare wellness visit. Medicare Health Risk Assessment General Health Good Exercise: Minutes/Day 0 min Exercise: Days/Week 0 days Alcohol: Daily Use Alcohol: Drinks/Day 1 or 2 Alcohol: 6 or more drinks Never Feel off balance No Concerns: Teeth/Dentures No Concerns: Sexual function No Troubled by feelings None of the above Frequency: Eating healthy diet Nearly every day ADLs requiring help None of the above Safety precautions in home/vehicle No Smoke, vape, chews tobacco No Difficulty hearing No Difficulty seeing No Current Providers Specialists: I have reviewed specialist-related care of the patient in the medical record. Current care team: Patient Care Team: Deejay Anderson MD as PCP - General (Family Medicine) Dr. Braswell: Endo Optho Medical/Family history review Reviewed and updated problem list, medical/surgical/family/ social history, medications, and allergies. Opioid use review Opioid Medications (last 90 days) No data to display Anxiety/Depression screening PHQ-2 Score: 0 (Lower risk for depression) Recommendation: no further intervention at this time Cognitive screening Score: 4 Cognitive screening reviewed and No further action needed (score 3-5). Functional Observation Was the patient's Timed Up AND Go test unsteady or ? 12 seconds? No Advance Care Planning Surrogate decision maker documented and/or advance directives scanned in chart Measurements BP 136/70 Pulse 76 Resp 18 Ht 5' 4 (1.63m) Wt 181 lb (82.1kg) BMI 31.05 kg/(m2). Vision Screening: Follows with optometry/ophthalmology Assessment/Plan Medicare annual wellness visit, subsequent (Z00.00) - Counseled on healthy diet and regular exercise - Fall avoidance information provided - Personalized prevention plan provided See below Chief Complaint Patient presents with: Medicare Wellness Exam HPI Karla Ndiaye is a 78 year old female who presents here today for Chronic Medical Conditions. and Medicare Annual Visit. Patient with hx of HTN, Hyperlipidemia, elevated calcium, osteopetrosis, CKD stage 3 as well as those reviewed and addressed blow and in ROS. Patient sees Dr. Will Haley. [facility] ER visit 03/08/2024 Patient resented to [facility] ER on 03/05/2024 for syncope and head injury. 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 She began feeling lightheaded and sweaty. She had sat down and when she got back up and started walking she had the syncopal episode. She struck the back of her head on the concrete. Son and a friend who is physical therapist told her she was out for about 45 sec. During the visit her Creatinine was significantly elevated 2.37. CT head was normal. Chest x-ray, right foot x-ray and pelvis x-ray all showed no acute findings. Foot xray show some degenerative Athrosis of the metatarsophalangeal joint of the hallux with a hallus valgus deformity. EKG showed no acute findings. Patient had been on a medrol dose pack at the time Patient indicated that she has noticed left neck pain/left pain. No additional dizziness episodes but she still has fatigue and pain in tailbone; back of head and left side of jaw and left ear started hurting after she got home. Ear felt like it is full. If lays on the left, her ear will be sore. The jaw and ear symptoms have improved and the tailbone is tender but better. Past medical history, appointments, medications, allergies reviewed. Previous Medical History PAST MEDICAL HISTORY Diagnosis Date Advance directive discussed with patient 03/20/2022 Discussed 03/2022 Age related osteoporosis Age related osteoporosis Fosamax started 12/2018 Aortic heart murmur 10/01/2011 Arthritis of knee 08/05/2017 left knee Benign neoplasm of colon 10/21/2005 Class 1 obesity due to excess calories without serious comorbidity with body mass index (BMI) of 31.0 to 31.9 in adult 08/03/2022 Cystocele, midline 12/11/2009 Essential hypertension, benign Family history of colon cancer 03/20/2022 sister Glaucoma Hypercalcemia 10/19/2021 10/21/2021: Vit D stopped. Seeing Dr. French Haley as of 02/2022 Internal hemorrhoids without mention of complication 10/21/2005 Living will on file 03/20/2022 DPA: [place] () Medicare annual wellness visit, subsequent 03/20/2022 Medicare Part B: 08/06/2008 Last done:03/20/2022 Mixed hyperlipidemia 04/09/2016 Pleural effusion on right 04/01/2019 Postmenopausal atrophic vaginitis 12/11/2009 Situa (more content not included)... Normal [facility] ECHOon 03-24-2024 Echocardiography Echocardiography Rep ort: Transthoracic [facility] Date of service: 03/24/2024 1:45:03 PM COMPOUNDER Ordering physician: DEEJAY ANDERSON Indication: Syncope Technologist: Selena Tiwari [facility] Interpreting physician: Deejay Luciano MD PATIENT: Name: MRS. KARLA NDIAYE : 1945 Age: 78 years Gender: F History of hypertension, chronic kidney disease and dyslipidemia. Primary rhythm: sinus. Height: 164.00 cm BSA: 1.93 m Weight: 82.10 kg BMI: 30.5 kg/m Heart rate 83 bpm Blood pressure 139/78 mmHg Color Doppler was utilized to interrogate the cardiac valves assessed and spectral Doppler was utilized to determine the flow velocities and pressure gradients reported in this exam. Myocardial strain analysis was performed in this exam to aid in the assessment of cardiac function. MEASUREMENTS: Value Indexed Normal Max aortic dimension 3.1 cm Ao < 3.8 Left atrial volume 53 ml (biplane A-L) 27 ml/m Khoi <= 34 LV ID (diastole) 4.6 cm (2D) 2.37 cm/m LV ID (systole) 3.1 cm (2D) 1.62 cm/m IVS, leaflet tips 1.0 cm (2D) Posterior wall thickness 0.8 cm (2D) Left ventricular mass 138 g (2D) 71 g/m Global peak long strain -18.7 % LV stroke volume 52 ml (2D biplane) LV end diastolic volume 92 ml (2D biplane) 47.7 ml/m 29<=EDVi<62 LV end systolic volume 40 ml (2D biplane) 20.6 ml/m Ejection Fraction 57 % (2D biplane) EF > 54 FINDINGS: LEFT VENTRICLE The left ventricle is normal in size. Left ventricular systolic function is normal. Global LV myocardial strain is normal. Grade I left ventricular diastolic dysfunction. Mitral annular lateral E/e': 6.0. Mitral annular septal E/e': 10.0. Wall Motion: All scored segments are normal. RIGHT VENTRICLE The right ventricle is normal in size. Right ventricular systolic function is normal. RV systolic tissue Doppler velocity is 11.0 cm/s. Tricuspid annular displacement is 1.9 cm. Estimated right ventricular systolic pressure is 31 mmHg consistent with normal pulmonary artery pressures. Estimated right atrial pressure is 3 mmHg (although IVC not seen). LEFT ATRIUM The left atrial cavity is normal in size. Pulmonary Veins: The pulmonary venous pattern showed normal systolic flow. RIGHT ATRIUM The right atrial cavity is normal in size. Inferior Vena Cava: The inferior vena cava appears normal measuring 1.2 cm. MITRAL VALVE The mitral valve leaflets are structurally normal. There is trace (trace - 1+) mitral valve regurgitation. The pressure half time is 58 msec. The peak mitral E/A ratio is 0.62. The average mitral E/e' ratio is 8.0. The mitral flow deceleration time is 198 msec. TRICUSPID VALVE The tricuspid valve leaflets are structurally normal. There is trace (trace - 1+) tricuspid valve regurgitation. AORTIC VALVE The aortic valve cusps are structurally normal. There is no aortic valve regurgitation. Tricuspid aortic valve. The peak gradient is 12 mmHg (peak velocity = 171.6 cm/s). PULMONIC VALVE The pulmonic valve cusps are structurally normal. There is no pulmonic valve regurgitation. AORTA The visualized aorta is normal in size. Measurements - Mid ascending aorta 3.1 cm. INTERATRIAL SEPTUM The interatrial septum is mobile. There is no patent foramen ovale as detected by Doppler. PERICARDIUM There is no pericardial effusion. There is an epicardial fat pad. CONCLUSIONS: - Exam indication: Syncope - The left ventricle is normal in size. Left ventricular systolic function is normal. EF = 57 5% (2D biplane) Grade I left ventricular diastolic dysfunction. - The right ventricle is normal in size. Right ventricular systolic function is normal. - There are no significant valvular abnormalities. - There is no patent foramen ovale as detected by Doppler. - The patient has not had a prior CC echocardiographic exam for comparison. * * * Final * * * CC [facility] : [id number] Normal [facility] Basic metabolic 2000 panelon 03-09-2024 Anion gap [Moles/Vol] 11 mmol/L 8 - 15 mmol/L [facility] Calcium [Mass/Vol] 9.8 mg/dL 8.5 - 10. 2 mg/dL [facility] Chloride [Moles/Vol] 104 mmol/L 98 - 10 7 mmol/L [facility] CO2 [Moles/Vol] 25 mmol/L 22 - 30 mmol/L [facility] Creatinine [Mass/Vol] 1.32 mg/dL High 0.58 - 0.96 mg/dL [facility] GFR/1.73 sq M.predicted among non-blacks MDRD (S/P/Bld) [Vol rate/Area] 41 mL/min/{1.73_m2} Low - PINF [facility] Comment on above: Estimated Glomerular Filtration Rate (eGFR) is calculated using the 2020 CKD-EPI creatinine equation. This equation utilizes serum creatinine, sex, and age as parameters. The creatinine assay has traceable calibration to isotope dilution-mass spectrometry. Refer to KDIGO guidelines for clinical interpretation. In patients with unstable renal function, e.g. those with acute kidney injury, the eGFR may not accurately reflect actual GFR. Glucose [Mass/Vol] 90 mg/dL 74 - 99 mg/dL [facility] Comment on above: The [place] Diabete s Association (ADA) provides guidance for cutoff values for fasting glucose and random glucose. The ADA defines fasting as no caloric intake for at least 8 hours. Fasting plasma glucose results between 100 to 125 mg/dL indicate increased risk for diabetes (prediabetes). Fasting plasma glucose results greater than or equal to 126 mg/dL meet the criteria for diagnosis of diabetes. In the absence of unequivocal hyperglycemia, results should be confirmed by repeat testing. In a patient with classic symptoms of hyperglycemia or hyperglycemic crisis, random plasma glucose results greater than or equal to 200 mg/dL meet the criteria for diagnosis of diabetes. Reference: Standards of Medical Care in Diabetes 2016, [place] Diabetes Association. Diabetes Care. 2016.39(Suppl 1). Interpretation and review of laboratory results Abnormal [facility] Potassium [Moles/Vol] 4.7 mmol/L 3.7 - 5.1 mmol/L [facility] Sodium [Moles/Vol] 140 mmol/L 136 - 144 mmol/L [facility] Urea nitrogen [Mass/Vol] 17 mg/dL 7 - 21 mg/dL [facility] THYROID STIMULATING HORMONEo n 03-09-2024 TSH Qn 2.990 m[IU]/L [facility] TSH Qnon 03-09-2024 Interpretation and review of laboratory results Normal [facility] 12 Lead EKGon 03-05-2024 12 Lead EKG [facility] Cardiovascular Services [address] [place] [address] 12 Lead EKG 03/05/24 1446 MR#: [id number] Acct: [id number] Name: KARLA NDIAYE Rep #: [id number] : 1945 78 From: Mirza Navarro MD Attending Dr: Status: DEP ER Ordering Dr: Jose Tilley DO Date: 03/05/24 Location: ED Sex: F C Admitted: Test Reason : SYNCOPE/DIZZINESS Blood Pressure : / mmHG Vent. Rate : 083 BPM Atrial Rate : 083 BPM P-R Int : 194 ms QRS Dur : 104 ms QT Int : 364 ms P-R-T Axes : 065 -28 045 degrees QTc Int : 427 ms Normal sinus rhythm Moderate voltage criteria for LVH, may be normal variant ( R in aVL , [place] product ) Borderline ECG Confirmed by MIRZA NAVARRO MD ([id number]), editor sound JULIA JN ([id number]) on 03/06/2024 8:07:34 AM Referred By: Confirmed By:MIRZA NAVARRO MD 03/06/24 0807 Date Mirza Navarro MD CC: Dr. Jose Tilley DO; Dr. Deejay Anderson MD Signed Normal [facility] Basic Metabolic Profile (BMP )on 03-05-2024 BUN/CRE 18.1 RATIO Normal 10-20 [facility] Comment on above: Order Comment: 'TROP ' Serial specimen #1, #2 or #3: 1 Performed By: #### L 501.4020, L501.5200, L500.2500, L100.0100 #### [facility] Laboratory [address] [place], [address] CA,Total 10.0 mg/dL Normal 8.5-10.1 [facility] Comment on above: Order Comment: 'TROP ' Serial specimen #1, #2 or #3: 1 Performed By: #### L 501.4020, L501.5200, L500.2500, L100.0100 #### [facility] Laboratory [address] [place], [address] Chloride [Moles/Vol] 104 mmol/L Normal 98-107 [facility] Comment on above: Order Comment: 'TROP ' Serial specimen #1, #2 or #3: 1 Performed By: #### L 501.4020, L501.5200, L500.2500, L100.0100 #### [facility] Laboratory [address] [place], [address] CO2 [Moles/Vol] 25.0 mmol/L Normal 21.0-32.0 [facility] Comment on above: Order Comment: 'TROP ' Serial specimen #1, #2 or #3: 1 Performed By: #### L 501.4020, L501.5200, L500.2500, L100.0100 #### [facility] Laboratory [address] [place], [address] Creatinine [Mass/Vol] 2.37 mg/dL High 0.55-1.02 [facility] Comment on above: Order Comment: 'TROP ' Serial specimen #1, #2 or #3: 1 Result Comment: The validity of the calculated GFR GFRAA in patients over 70 years has not been determined. Clinical correlation is essential. Performed By: #### L 501.4020, L501.5200, L500.2500, L100.0100 #### [facility] Laboratory [address] [place], [address] ECRCL 19.98 ml/min Normal [facility] Comment on above: Order Comment: 'TROP ' Serial specimen #1, #2 or #3: 1 Performed By: #### L 501.4020, L501.5200, L500.2500, L100.0100 #### [facility] Laboratory [address] [place], [address] EST GFR - AA 25 mL/min Low >60 [facility] Comment on above: Order Comment: 'TROP ' Serial specimen #1, #2 or #3: 1 Result Comment: Afri can [place] GFR Calc Performed By: #### L 501.4020, L501.5200, L500.2500, L100.0100 #### [facility] Laboratory [address] [place], [address] GAP 9 Normal 5-15 [facility] Comment on above: Order Comment: 'TROP ' Serial specimen #1, #2 or #3: 1 Performed By: #### L 501.4020, L501.5200, L500.2500, L100.0100 #### [facility] Laboratory [address] [place], [address] GFR/1.73 sq M.predicted among non-blacks MDRD (S/P/Bld) [Vol rate/Area] 21 mL/min/{1.73_m2} Low >60 [facility] Comment on above: Order Comment: 'TROP ' Serial specimen #1, #2 or #3: 1 Result Comment: Non- GFR Calc Performed By: #### L 501.4020, L501.5200, L500.2500, L100.0100 #### [facility] Laboratory [address] [place], [address] Glucose [Mass/Vol] 217 mg/dL High 74-106 [facility] Comment on above: Order Comment: 'TROP ' Serial specimen #1, #2 or #3: 1 Result Comment: Gluc ose result greater than or equal to 200 mg/dL suggests DIABETES MELLITUS per A.D.A. criteria. Performed By: #### L 501.4020, L501.5200, L500.2500, L100.0100 #### [facility] Laboratory [address] [place], [address] Potassium [Moles/Vol] 4.4 mmol/L Normal 3.5-5.1 [facility] Comment on above: Order Comment: 'TROP ' Serial specimen #1, #2 or #3: 1 Performed By: #### L 501.4020, L501.5200, L500.2500, L100.0100 #### [facility] Laboratory [address] [place], [address] Sodium [Moles/Vol] 138 mmol/L Normal 136-145 [facility] Comment on above: Order Comment: 'TROP ' Serial specimen #1, #2 or #3: 1 Performed By: #### L 501.4020, L501.5200, L500.2500, L100.0100 #### [facility] Laboratory [address] [place], [address] Urea nitrogen [Mass/Vol] 43 mg/dL High 7-18 [facility] Comment on above: Order Comment: 'TROP ' Serial specimen #1, #2 or #3: 1 Performed By: #### L 501.4020, L501.5200, L500.2500, L100.0100 #### [facility] Laboratory [address] [place], [address] Brain/Head without Contrasto n 03-05-2024 Brain/Head without Contrast [facility] Imaging Services [address] [place] [address] Brain/Head without Contrast MR#: [id number] Acct: [id number] Name: SENTHILKARLA KAY Rep #: [id number] : 1945 F 78 From: Misha Herron PCP: Dr. Deejay Anderson MD Status: PRE ER Study: Brain/Head without Contrast Date of Exam: 02/06 Exam# [id number] Ordering Dr: Jose Tilley DO [id number] STUDY: CT BRAIN WITHOUT CONTRAST REASON FOR EXAM: Female, 78 years old. head injury TECHNIQUE: Transaxial CT imaging of the brain was performed without administration of intravenous contrast material. Individualized dose optimization techniques were used for this CT. COMPARISON: None FINDINGS: Normal calvarium. Normal soft tissues. Normal size ventricles and extra-axial spaces for the patient''s age. Normal white matter tracts of the cerebral hemispheres. Normal basal ganglia and thalami. Normal brainstem. Normal cerebellum. There is no intracranial hemorrhage. There are no findings of an acute ischemic infarction. Normal visualized paranasal sinuses. ASPECTS 10 CT/Brain/Head without Contrast IMPRESSION: There are no acute intracranial findings. Electronically Signed: Misha Stiles MD at 15:28 EDT Reading Location ID and State: [facility] / ID , Service support , CC: Dr. Jose Tilley DO; Dr. Deejay Anderson MD Optical Dispenser: Signed Normal [facility] CBC W/Diff, Automatedon 02-06 Absolute Lymph 2.83 X10 3/uL Normal 0.83-4.51 [facility] Comment on above: Performed By: #### L 501.4020, L501.5200, L500.2500, L100.0100 #### [facility] Laboratory [address] [place], [address] Absolute Neut 8.3 X10 3/uL High 2.0-7.7 [facility] Comment on above: Performed By: #### L 501.4020, L501.5200, L500.2500, L100.0100 #### [facility] Laboratory [address] [place], [address] Basophils/100 WBC (Bld) 0.6 % Normal 0-1 [facility] Comment on above: Performed By: #### L 501.4020, L501.5200, L500.2500, L100.0100 #### [facility] Laboratory [address] [place], [address] Eosinophils/100 WBC (Bld) 0.1 % Normal 0-5 [facility] Comment on above: Performed By: #### L 501.4020, L501.5200, L500.2500, L100.0100 #### [facility] Laboratory [address] [place], [address] Erythrocyte distribution width (RBC) [Ratio] 13.9 % Normal 11.6-14.6 [facility] Comment on above: Performed By: #### L 501.4020, L501.5200, L500.2500, L100.0100 #### [facility] Laboratory [address] [place], [address] Hematocrit (Bld) [Volume fraction] 41.2 % Normal 37-47 [facility] Comment on above: Performed By: #### L 501.4020, L501.5200, L500.2500, L100.0100 #### [facility] Laboratory [address] [place], [address] Hemoglobin (Bld) [Mass/Vol] 13.2 g/dL Normal 12.0-15.0 [facility] Comment on above: Performed By: #### L 501.4020, L501.5200, L500.2500, L100.0100 #### [facility] Laboratory [address] [place], [address] IG% 0.500 Normal 0.0-0.9 [facility] Comment on above: Result Comment: IG% - Immature Granulocytes (promyelocytes, myelocytes and metamyelocytes) > 1% indicates that a LEFT SHIFT is Present. Performed By: #### L 501.4020, L501.5200, L500.2500, L100.0100 #### [facility] Laboratory [address] [place], [address] Lymphocytes/100 WBC (Bld) 23.9 % Normal 19-41 [facility] Comment on above: Performed By: #### L 501.4020, L501.5200, L500.2500, L100.0100 #### [facility] Laboratory [address] [place], [address] MCH (RBC) [Entitic mass] 28.9 pg Normal 27.0-32.0 [facility] Comment on above: Performed By: #### L 501.4020, L501.5200, L500.2500, L100.0100 #### [facility] Laboratory [address] [place], [address] MCHC (RBC) [Mass/Vol] 32.0 g/dL Normal 32-36 [facility] Comment on above: Performed By: #### L 501.4020, L501.5200, L500.2500, L100.0100 #### [facility] Laboratory [address] [place], [address] MCV (RBC) [Entitic vol] 90.2 fL Normal 81-99 [facility] Comment on above: Performed By: #### L 501.4020, L501.5200, L500.2500, L100.0100 #### [facility] Laboratory [address] [place], [address] Monocytes/100 WBC (Bld) 4.9 % Normal 0-10 [facility] Comment on above: Performed By: #### L 501.4020, L501.5200, L500.2500, L100.0100 #### [facility] Laboratory [address] [place], [address] Neutrophils/100 WBC (Bld) 70.0 % Normal 47-70 [facility] Comment on above: Performed By: #### L 501.4020, L501.5200, L500.2500, L100.0100 #### [facility] Laboratory [address] [place], [address] Nucleated RBC (Bld) [#/Vol] 0 10*3/uL Normal 0-5 [facility] Comment on above: Performed By: #### L 501.4020, L501.5200, L500.2500, L100.0100 #### [facility] Laboratory [address] [place], [address] Platelet mean volume (Bld) [Entitic vol] 9.5 fL Normal 6.2-12.0 [facility] Comment on above: Performed By: #### L 501.4020, L501.5200, L500.2500, L100.0100 #### [facility] Laboratory [address] [place], [address] Platelets (Bld) [#/Vol] 294 10*3/uL Normal 150-450 [facility] Comment on above: Performed By: #### L 501.4020, L501.5200, L500.2500, L100.0100 #### [facility] Laboratory [address] [place], [address] RBC (Bld) [#/Vol] 4.57 10*6/uL Normal 4.2-5.4 [facility] Comment on above: Performed By: #### L 501.4020, L501.5200, L500.2500, L100.0100 #### [facility] Laboratory [address] [place], [address] RDW SD 45.7 fl High 35.1-43.9 [facility] Comment on above: Performed By: #### L 501.4020, L501.5200, L500.2500, L100.0100 #### [facility] Laboratory [address] [place], [address] WBC (Bld) [#/Vol] 11.9 10*3/uL High 4.4-11.0 [facility] Comment on above: Performed By: #### L 501.4020, L501.5200, L500.2500, L100.0100 #### [facility] Laboratory [address] [place] [place], [address] Chest 1 View (Portable)on Chest 1 View (Portable) [facility] Imaging Services [address] [place] [address] Chest 1 View (Portable) MR#: [id number] Acct: [id number] Name: KARLA NDIAYE Rep #: [id number] : 1945 F 78 From: Misha Herron PCP: Dr. Deejay Anderson MD Status: PRE ER Study: Chest 1 View (Portable) Date of Exam: 03/05/24 Exam# [id number] Ordering Dr: Joes Tilley DO [id number] STUDY: XR Chest 1 View 03/05/2024 3:00 PM REASON FOR EXAM: Female, 78 years old. syncope COMPARISON: 11/15/2015 TECHNIQUE: XR Chest 1 View FINDINGS: There is no demonstrated pleural abnormality. Normal heart size. Normal mediastinum. Normal jose armando. Prominent appearing increased interstitial lung markings. Normal visualized pulmonary arteries. There is atherosclerotic calcification of the aortic arch with tortuosity. There are diffuse degenerative changes of the visualized thoracic spine. There is degenerative osteoarthritis of the bilateral shoulders. There are no acute findings of the upper abdomen. RAD/Chest 1 View (Portable) IMPRESSION: There are no acute findings. Electronically Signed: Misha Stiles MD at 15:38 EDT , CC: Dr. Jose Tilley DO; Dr. Deejay Anderson MD Optical Dispenser: Signed Normal [facility] Emergency Department Summary on 03-05-2024 Emergency Department Summary [facility] Medical Records Department [address] [place] [address] Emergency Department Summary 03/05/24 MR#: [id number] Acct: [id number] Name: KARLA NDIAYE Rep #: [id number] : 1945 78 From: Jose Tilley DO PCP: Dr. Deejay Anderson MD Status:DEP ER Location: ED HPI History of Present Illness Chief Complaint: Syncope Informant: patient, spouse/S.O. and EMS Narrative Narrative: 78-year-old female presenting to the emergency room via EMS with a chief complaint of syncope and head injury. 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 She states she was had been working very hard all day. She Began to feel lightheaded and diaphoretic. She went out to sit down and after a few minutes decided to go back inside the house. When she stood up to start walking is when she had a syncopal episode. She struck the back of her head on concrete. There is no noted laceration per EMS. Patient states that earlier in the day she had fell down when she twisted her right foot/ankle and notes continued pain over the lateral foot. EMS notes a scalp hematoma in the occiput. Prior to the syncopal episode she denies any chest pain palpitations. She denies any dyspnea. She states this is not the first time that she has passed out in the [place] republic[employer]. Patient states that she recently finished prednisone for eczema on her face. [facility] Medical History Parathyroid abnormality Wears glasses Cancer High cholesterol Loss of consciousness Former smoker History of pain when walking Hypertension Infected sebaceous cyst ( 10/28/20) Osteopenia Internal hemorrhoids Glaucoma Arthritis Aortic heart murmur Home Medications ???Medication ???Instructions ???Recorded ???Last Taken ???Type alendronate 70 mg tablet (Fosamax) 70 mg PO QWEEK 10/28/20 Unknown History amlodipine 5 mg tablet (Norvasc) 5 mg PO DAILY 10/28/20 05/26/22 05:30 History lisinopril 40 mg tablet 40 mg PO DAILY 10/28/20 05/26/22 05:30 History simvastatin 20 mg tablet 20 mg PO QHS 10/28/20 Unknown History latanoprost 0.005 % eye drops 1 drp EACH EYE BID 06/23/21 Unknown History spironolactone 25 mg tablet 25 mg PO DAILY water pill 05/25/22 Unknown History lidocaine 5 % topical patch 1 patch topical DAILY #15 ea 01/21/24 Unknown Rx (Lidoderm) Allergy/AdvReac Type Severity Reaction Status Date / Time fosinopril (From Monopril) Allergy Mild cough Verified 03/05/24 14:42 Family History Sister Colon cancer Surgical History Status post hip surgery history incision and drainage sebaceous cyst sternum Hx of total knee replacement Hx of squamous cell carcinoma excision Hx of dilation and curettage Hx of colonoscopy ( 10/2016) Social History Smoking Status: Former smoker ROS ROS ED Constitutional Constitutional ED: Denies chills, fever(s) or weight loss Eyes Eyes: Denies change in vision or diplopia ENT ENT ED: Denies ear pain, rhinorrhea or sore throat Cardiovascular Cardiovascular: Reports other Details: Syncope ; Denies chest pain, orthopnea, palpitations or racing heartbeat Respiratory/Chest Respiratory/Chest: Denies cough, dyspnea or orthopnea Gastrointestinal Gastrointestinal: Denies abdominal pain, diarrhea, nausea or vomiting Genitourinary Genitourinary ED: Denies dysuria, hematuria or urinary frequency Musculoskeletal Musculoskeletal: Reports other Details: Right buttock pain right foot pain ; Denies arthralgias or myalgias Integumentary Denies abscess or rash Neurologic Neurologic: Reports headache(s); Denies weakness Psychiatric Psychiatric: Denies anxiety, depression, suicidal ideation or suicidal thoughts Endocrine Endocrinology: Denies polydipsia, polyphagia or polyuria Allergic/Immunologic Allergic/Immunologic ED: Denies mouth swelling, tongue swelling or urticaria EXAM Physical Exam Const Vital Signs: 03/05/24 14:38 03/05/24 15:40 03/05/24 16:23 Temperature 98 F 98.3 F Temperature Source Temporal Pulse Rate 87 80 80 Respiratory Rate 20 H 13 17 Blood Pressure 138/74 H 106/75 Blood Pressure Mean 95 85 Pulse Ox 95 98 98 Oxygen Delivery Method Room Air 03/05/24 16:30 Temperature Temperature Source Pulse Rate 79 Respiratory Rate 13 Blood Pressure 119/69 Blood Pressure Mean 83 Pulse Ox 96 Oxygen Delivery Method Positive well nourished and well developed General Appearance ED: well developed HEENT Reports normocephalic and moist mucous membranes HEENT Narrative: Left occipital hematoma Eyes (more content not included)... Normal [facility] Foot min 3 Viewson 4 Foot min 3 Views [facility] Imaging Services [address] [place] [address] Foot min 3 Views MR#: [id number] Acct: [id number] Name: KARLA NDIAYE Rep #: [id number] : 1945 F 78 From: Misha Herron PCP: Dr. Deejay Anderson MD Status: PRE ER Study: Foot min 3 Views Date of Exam: 03/05/24 Exam# [id number] Ordering Dr: Jose Tilley DO [id number] STUDY: XR Foot Min 3 Views CLINICAL: Female, 78 years old. injury TECHNIQUE: XR Foot Min 3 ViewsRIGHT COMPARISON: None. FINDINGS: Normal talus, calcaneus, and tarsal bones. Normal visualized subtalar, talonavicular, calcaneocuboid, tarsal and tarsometatarsal articulations. Normal metatarsi. 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 Normal tibial and fibular sesamoid bones. Normal interphalangeal joint of the great toe. Normal phalanges of the great toe. Normal second through fifth metatarsophalangeal joints. Normal interphalangeal joints and phalanges of the lesser toes. The soft tissue structures are unremarkable. 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 Electronically Signed: Misha Stiles MD at 15:32 EDT Reading Location ID and State: [facility]0 / ID , Service support , CC: Dr. Jose Tilley DO; Dr. Deejay Anderson MD Optical Dispenser: Signed Normal [facility] L501.4020on 03-05-2024 TROPONIN-I HS 8 pg/mL Normal 3.0-54.0 [facility] Comment on above: Order Comment: 'TROP ' Serial specimen #1, #2 or #3: 2 Result Comment: Plea se Note: New Test Units and Gender Specific Reference Ranges. For more information see Policy Stat Procedure [place] High Sensitivity Troponin (TNIH) and attachments. Performed By: #### L 501.4020 ####[facility] [id number] [place], [address] TROPONIN-I HS 7 pg/mL Normal 3.0-54.0 [facility] Comment on above: Order Comment: 'TROP ' Serial specimen #1, #2 or #3: 1 Result Comment: Plea se Note: New Test Units and Gender Specific Reference Ranges. For more information see Policy Stat Procedure [place] High Sensitivity Troponin (TNIH) and attachments. Performed By: #### L 501.4020, L501.5200, L500.2500, L100.0100 #### [facility] Laboratory [address] [place] [place], [address] Magnesiumon 03-05-2024 Magnesium [Mass/Vol] 1.9 mg/dL Normal 1.6-2.6 [facility] Comment on above: Order Comment: 'TROP ' Serial specimen #1, #2 or #3: 1 Performed By: #### L 501.4020, L501.5200, L500.2500, L100.0100 ####[facility] [address] [place], [place], [address] Pelvis 1 or 2 Viewson 2023 Pelvis 1 or 2 Views [facility] Imaging Services [address] [place] [address] Pelvis 1 or 2 Views MR#: [id number] Acct: [id number] Name: KARLA NDIAYE Rep #: [id number] : 1945 F 78 From: Misha Herron PCP: Dr. Deejay Anderson MD Status: DEP ER Study: Pelvis 1 or 2 Views Date of Exam: 03/05/24 Exam# [id number] Ordering Dr: Jose Tilley DO [id number] STUDY: XR Pelvis 1 or 2 Views 03/05/2024 3:00 PM REASON FOR EXAM: Female, 78 years old. injury Pain TECHNIQUE: XR Pelvis 1 Views COMPARISON: None FINDINGS: There is a non-specific bowel gas pattern. Normal visualized soft tissue structures. Degenerative changes in the lumbar spine. Normal bilateral iliac wings, sacroiliac joints and visualized sacrum. Normal visualized bilateral superior and inferior pubic rami. Normal pubic symphysis. Normal ischial tuberosities. Normal visualized right femoral head. Normal right acetabulum. Normal right hip joint. Normal visualized left femoral head. Normal left acetabulum. Normal left hip joint. RAD/Pelvis 1 or 2 Views IMPRESSION: No acute findings. Electronically Signed: Misha Stiles MD at 15:37 EDT , CC: Dr. Jose Tilley DO; Dr. Deejay Anderson MD Optical Dispenser: Signed Normal [facility] Emergency Department Summary on 01-21-2024 Emergency Department Summary [facility] Medical Records Department [address] [place] [id number] Emergency Department Summary 01/21/24 MR#: [id number] Acct: [id number] Name: KARLA NDIAYE Rep #: [id number] : 1945 78 From: Tala Bacon DO PCP: Dr. Deejay Anderson MD Status:REG ER Location: ED HPI History of Present Illness Chief Complaint: Back Narrative Narrative: 6-year-old female presenting with back pain. 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 She states she was bending over at the waist and not bending her knees because she states she has bad knees and is hard for her to kneel down. She states she has had both of her knees repaired. Denies any fall. She states that the incident and she was helping her install light in the pond is when she thinks she hurt her cell. No loss of bladder or bowel control. No saddle anesthesia or paresthesia. No rashes. No direct injury. Patient is already been seen by her primary care physician's office. She was started on muscle relaxers and anti-inflammatories. She continues to have pain although she admits she was referred to physical therapy and to a spinal surgeon. She had x-rays done of the lumbar spine which were showed degenerative disc disease. She does not have any paresthesias. She is ambulatory. [facility] Medical History Parathyroid abnormality Wears glasses Cancer High cholesterol Loss of consciousness Former smoker History of pain when walking Hypertension Infected sebaceous cyst ( 10/28/20) Osteopenia Internal hemorrhoids Glaucoma Arthritis Aortic heart murmur Home Medications ???Medication ???Instructions ???Recorded ???Last Taken ???Type alendronate 70 mg tablet (Fosamax) 70 mg PO QWEEK 10/28/20 Unknown History amlodipine 5 mg tablet (Norvasc) 5 mg PO DAILY 10/28/20 05/26/22 05:30 History lisinopril 40 mg tablet 40 mg PO DAILY 10/28/20 05/26/22 05:30 History simvastatin 20 mg tablet 20 mg PO QHS 10/28/20 Unknown History timolol maleate 0.25 % eye drops 1 drp ophthalmic (eye) BID 10/28/20 Unknown History (Timoptic) latanoprost 0.005 % eye drops 1 drp EACH EYE BID 06/23/21 Unknown History spironolactone 25 mg tablet 25 mg PO DAILY water pill 05/25/22 Unknown History hydrocodone-acetaminophe n 5-325mg 1 tab PO Q6H PRN PRN Pain 3 days 01/21/24 Unknown Rx 5mg-325mg #12 TABLETS lidocaine 5 % topical patch 1 patch topical DAILY #15 ea 01/21/24 Unknown Rx (Lidoderm) Allergy/AdvReac Type Severity Reaction Status Date / Time fosinopril (From Monopril) Allergy Unknown unknown Verified 01/21/24 17:51 suture Allergy Unknown unknown Verified 01/21/24 17:51 Family History Sister Colon cancer Surgical History Status post hip surgery history incision and drainage sebaceous cyst sternum Hx of total knee replacement Hx of squamous cell carcinoma excision Hx of dilation and curettage Hx of colonoscopy ( 10/2016) Social History Smoking Status: Former smoker ROS ROS ED Constitutional Constitutional ED: Denies chills, fever(s) or sweats Eyes Eyes: Denies blurry vision or change in vision ENT ENT ED: Denies ear pain or sore throat Cardiovascular Cardiovascular: Denies chest pain, palpitations or racing heartbeat Respiratory/Chest Respiratory/Chest: Denies cough, dyspnea or sputum Gastrointestinal Gastrointestinal: Denies abdominal pain, constipation, diarrhea, nausea or vomiting Genitourinary Genitourinary ED: Denies dysuria, hematuria or urinary frequency Musculoskeletal Musculoskeletal: Reports back pain; Denies arthralgias, myalgias or neck pain Integumentary Denies abscess, Abrasions or rash Neurologic Neurologic: Denies headache(s), paresthesias or weakness Psychiatric Psychiatric: Denies anxiety, depression, suicidal ideation or suicidal thoughts Endocrine Endocrinology: Denies polydipsia or polyuria EXAM Physical Exam Const Vital Signs: 01/21/24 17:48 01/21/24 19:23 Temperature 97.2 F L 98.0 F Temperature Source Temporal Pulse Rate 101 H 74 Respiratory Rate 16 18 Blood Pressure 163/82 H 138/88 H Blood Pressure Mean 109 104 Pulse Ox 98 17 Oxygen Delivery Method Room Air Positive well nourished General Appearance ED: NAD HEENT Reports moist mucous membranes Eyes PERRL Cardio regular rate and regular rhythm Back/Spine Back/Spine Narrative: . No midline spinal deformity or step-off of the lumbar spine. No rashes. No bruising. There is bilateral muscul (more content not included)... Normal [facility] XR Lumbar spine AP and Later al and obliqueon 01-20-2024 * * *Final Report* * * DATE OF EXAM: Jan 18 2024 12:06PM WOX [id number] - XR LUMBAR PARS 4V AP/LAT/OBL X2 / PROCEDURE REASON: Acute midline low back pain without sciatica * * * * Physician Interpretation * * * * Examination: XR LUMBAR PARS 4V AP/LAT/OBL X2 History: Acute midline low back pain without sciatica Technique: XR LUMBAR PARS 4V AP/LAT/OBL X2 Comparison: 02/25/2022 RESULT: 5 nonrib-bearing lumbar type vertebrae. For numbering purposes, L4-5 is at the level of the iliac crest. Grade 1 spondylolisthesis of L4 on L5. Moderate L4-5 and L5-S1 disc space narrowing. Moderate L1-2 and L2-3 disc space narrowing with osteophytosis. No acute fracture. Degenerative change involving the posterior elements from L3 through S1. Levoscoliosis in the mid lumbar region of approximately 18 degrees. DIVISION OF RADIOLOGY Provider, [facility] - 01/20/2024 * * *Final Report* * * DATE OF EXAM: Jan 18 2024 12:06PM WOX [id number] - XR LUMBAR PARS 4V AP/LAT/OBL X2 / PROCEDURE REASON: Acute midline low back pain without sciatica * * * * Physician Interpretation * * * * Examination: XR LUMBAR PARS 4V AP/LAT/OBL X2 History: Acute midline low back pain without sciatica Technique: XR LUMBAR PARS 4V AP/LAT/OBL X2 Comparison: 02/25/2022 RESULT: 5 nonrib-bearing lumbar type vertebrae. For numbering purposes, L4-5 is at the level of the iliac crest. Grade 1 spondylolisthesis of L4 on L5. Moderate L4-5 and L5-S1 disc space narrowing. Moderate L1-2 and L2-3 disc space narrowing with osteophytosis. No acute fracture. Degenerative change involving the posterior elements from L3 through S1. Levoscoliosis in the mid lumbar region of approximately 18 degrees. IMPRESSION IMPRESSION: SOME PROGRESSION OF DEGENERATIVE CHANGES. ALIGNMENT ABNORMALITIES DESCRIBED Optical Dispenser: JADIEL Transcribe Date/Time: Jan 20 2024 3:28P Dictated by : VERONICA HESTER MD This examination was interpreted and the report reviewed and electronically signed by: VERONICA HESTER MD on Jan 20 2024 3:29PM EST [facility] XR Lumbar spine AP and Later al and obliqueOrdered By: [facility] Provider on 01-20-2024 [facility] XR Lumbar spine AP and Later al and obliqueon 01-18-2024 Radiology Study observation (narrative) [facility] DBT Breast - bilateral diagn ostic for implanton 11-02-2023 [facility] US Breast - right limitedon 11-02-2023 [facility] UA DIP, URINE (POC)on 2022 BILIRUBIN UA (POCT) Negative Negative [facility] CLARITY U[facility] (POCT) [facility] [place] COLOR UA (POCT) Yellow [facility] GLUCOSE UA (POCT) Negative Negative mg/dL [facility] Hemoglobin Ql (U) Trace-intact Abnormal Negative [facility] KETONE UA (POCT) Negative Negative mg/dL [facility] LEUKOCYTES UA (POCT) Moderate Abnormal Negative [facility]) Positive Abnormal Negative [facility] PH UA (POCT) 7.0 4.5 - 8.0 [facility] Protein Ql (U) Negative Negative mg/dL [facility] SPECIFIC GRAVITY UA (POCT) 1.015 1.005 - 1.030 [facility] UROBILINOGEN UA (POCT) 0.2 E.U./dL Gemini l E.U./dL [facility] Calcium [Mass/Vol] 10.4 mg/dL High 8.5-10.2 [facility] Comment on above: Order Comment: Speci men Type: BLOOD SPECIMEN Ordering Facility: [facility] Address: [address] [place] [id number] Performed By: #### 1 7861-6 #### [facility] CLIA [id number] [address] [place] [address] OF [facility] NURSING PROGon 08-14-2022 NURSING PROG HNO ID: [id number] Author: Zulema Reid RN Service: Nursing Author Type: Registered Nurse Type: Nursing Progress Note Filed: 08/14/2022 10:15 AM Note Text: Other: Assumed care of patient. Patient is stable at this time with no complaints of pain or distress. Post surgical site is wnl. Nurse will continue to medicate and monitor per MD order. I agree with previous nurses assessment. 1014 Nurse went over discharge instructions with patient. Patient verbalized understanding. 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 Patient has all belongings sent with her. Post surgical site wnl. Patient with no complaints at this time. Normal [place] PTH-Intact SerPl-ncon 12-0 Parathyrin.intact [Mass/Vol] 19 pg/mL Normal 15-65 [place] Comment on above: Order Comment: Speci men Type: BLOOD SPECIMEN Ordering Facility: [facility] Address: [address] [place] [phone] Performed By: #### 2 731-8 #### [facility] [id number] [address] [place] [address] [place] ANES POSTPROC EVALon 022 ANES POSTPROC EVAL HNO ID: [id number] Author: Tristan Thorne MD Service: Anesthesiology Author Type: Anesthesiologist Type: Anesthesia Postprocedure Evaluation Filed: 08/13/2022 2:55 PM Note Text: POST ANESTHESIA EVALUATION NOTE : 1945 Procedure Summary Date: 08/13/22 Room / Location: [place] [address] / OR Anesthesia Start: 726 Anesthesia Stop: 856 Procedure: PARATHYROIDECTOMY (Thyroid) Diagnosis: Primary hyperparathyroidism (HCC) (Primary hyperparathyroidism (HCC) [E21.0]) Surgeons: Riya Perez MD Responsible Provider: Tristan Thorne MD Anesthesia Type: general ASA Status: 2 Anesthesia Type: general Airway Type: ETT Last Vitals Vitals Value Taken Time BP 113/57 08/13/22 1122 Temp 36.5 ?C (97.7 ?F) 08/13/22 1122 Pulse 68 08/13/22 1122 Resp 18 08/13/22 1122 SpO2 96 % 08/13/22 1122 Post Anesthesia Patient Status Patient Evaluation: PACU. PACU/ICU Patient Condition: stable. Anticipated Disposition: inpatient floor planned admission. Neurological Status: aware and responsive. Pulmonary Status: breathing comfortably on room air Airway Control: returned to baseline unsupported. Cardiovascular Status: stable. Pain Management: clinically adequate - multimodal analgesia pain management approach Postoperative Hydration: acceptable. Intraoperative Events: no significant anesthesia events Recommendation: continue current plan of care and further care per PACU/ICU/floor team. Anesthesia Observations No Documentation SIGNATURE: Tristan Thorne MD PATIENT NAME: Karla Ndiaye DATE: August 13, 2022 TIME: 2:55 PM CSN: [id number] [facility] ANES PRE-OPon 08-13-2022 ANES PRE-OP HNO ID: [id number] Author: Tristan Thorne MD Service: Anesthesiology Author Type: Anesthesiologist Type: Anesthesia Preprocedure Evaluation Filed: 08/13/2022 6:59 AM Note Text: ANESTHESIOLOGY DAY OF SURGERY NOTE : 1945 Procedure Information Date/Time: 08/13/22729 Procedure: PARATHYROIDECTOMY (Thyroid) Location: MM OR05 / MM OR Surgeons: Riya Perez MD Estimated body mass index is 31.07 kg/m? as calculated from the following: Height as of 08/03/22: 162.6 cm (5' 4). Weight as of 08/03/22: 82.1 kg (181 lb). Most recent hematocrit and potassium results: Hematocrit 40.5 08/03/2022 Potassium 4.4 08/03/2022 Relevant Problems CARDIO (+) Essential hypertension, benign -RENAL (+) Stage 3a chronic kidney disease (HCC) Other (+) Arthritis of knee I - PHYSICAL EVALUATION AIRWAY Patient intubated: No. Mallampati: II. TM distance: >3 FB. Neck ROM: full ROM without neurological symptoms. Mouth opening: adequate. Short neck: no. Thick neck: no Thomas present: no DENTAL Dental findings: teeth intact. Additional exam findings: no II - ANESTHESIA PLAN ASA Score: 2 Anesthetic Plan: general Airway type: ETT NPO Status: adequate Beta Josué Monitoring Plan Monitoring plan: Standard ASA. Post Procedure Analgesic Plan Postoperative analgesic plan: parenteral or oral opioids and multimodal analgesia. Patient / Surrogate agrees to blood products: yes DNR status not reviewed with patient and/or family prior to surgery. Significant changes in the patient condition since the History and Physical, not otherwise documented in primary service progress note: no. Potential Anesthesia issues that may suggest increased risk of complications or contraindication to planned procedure: none. Vitals Value Taken Time BP 147/73 08/13/22615 Pulse 63 08/13/22615 Resp 14 08/13/22615 Temp 35.6 ?C (96.1 ?F) 08/13/22615 SpO2 98 % 08/13/22615 Facility-Administered Medications as of 08/13/2022 Medication Dose Route Frequency - lidocaine 10 mg/mL (1 %) 1-2 mg injection (XYLOCAINE) 0.1-0.2 mL INTRADERMAL PRN - NaCl 0.9% iv infusion 75 mL/hr INTRAVENOUS CONTINUOUS - acetaminophen 650 mg tab(s) (TYLENOL) 650 mg ORAL Pre-Op Once - promethazine 12.5 mg tab(s) (PHENERGAN) 12.5 mg ORAL Pre-Op Once - scopolamine 1 mg over 3 days 1 Patch (TRANSDERM-SCOP) 1 Patch TRANSDERMAL ONCE - scopolamine - VERIFY patch OTHER q 8 H - [START ON 08/14/2022] scopolamine - REMOVE PATCH OTHER ONCE Outpatient Medications as of 08/13/2022 Medication Sig - amLODIPine (NORVASC) 5 mg tablet Take 1 tablet by mouth once daily. - simvastatin (ZOCOR) 20 mg tablet Take 1 tablet by mouth daily at bedtime. - lisinopril (ZESTRIL, PRINIVIL) 40 mg tablet Take 1 tablet by mouth once daily. - spironolactone (ALDACTONE) 25 mg tablet Take 1 tablet by mouth once daily. - timoloL maleate (TIMOPTIC) 0.25 % ophthalmic solution Use 1 Drop in the left eye twice daily. - alendronate (FOSAMAX) 70 mg tablet Take 1 tablet by mouth one time a week. In AM with cup of water on empty stomach. Nothing else by mouth and stay upright for 30 min. I have interviewed and examined the patient. I have reviewed the medical record and/or the pre-anesthesia evaluation, pertinent labs, and test results. This contains updated information obtained within 48 hours of Surgery/Procedure. SIGNATURE: Tristan Thorne MD PATIENT NAME: Karla Ndiaye DATE: August 13, 2022 TIME: 6:59 AM CSN: [id number] [facility] BRIEF OP NOTon 08-13-2022 BRIEF OP NOT HNO ID: [id number] Author: Tino Pittman MD Service: Endocrine Surgery Author Type: Physician Type: Brief Op Note Filed: 08/13/2022 8:48 AM Note Text: Brief Operative Note Patient Name: Karla Ndiaye LOG ID: [id number] Surgery/Procedure Date: 08/13/2022 Surgeon(s)/Proceduralist (s) and Multiple Knife Edge Trimmer Operator(s): Surgeon(s) and Role: * Riya Perez MD - Primary * Latisha Flood MD - Resident - Assisting * Tino Pittman MD - Fellow Procedure(s): parathyroidectomy Incision/Procedure Start Time: 7:48 AM Incision Close/Procedure End Time: 8:46 AM Anesthesia: General Findings: enlarged left lower parathyroid Input: Crystalloid: See anesthesia record Output: See anesthesia record Estimated Blood Loss: 10 mL Specimens: ID Type Source Tests Collected by Time Destination 1 : Pre PTH Blood BLOOD INTRAOPERATIVE PTH Riya Perez MD 08/13/2022 8:07 AM 2 : Post PTH Blood BLOOD INTRAOPERATIVE PTH Riya Perez MD 08/13/2022 8:20 AM A : left lower totally excised,all submitted Tissue PARATHYROID GLAND LEFT SURGICAL PATHOLOGY Riya Perez MD 08/13/2022 8:10 AM Implants: * No implants in log * Drains: None Wound Classification: Class 1, operative wound clean, non-traumatic, with no inflammation encountered, no break in technique, gastrointestinal and genitor-urinary tracts not entered Pre-Op/Pre-Procedure Diagnosis: PHPT Post-Op/Post-Procedure Diagnosis: same Post-Op Plan: Recover in PACU. SIGNATURE: Tino Pittman MD DATE: 08/13/22 TIME: 8:48 AM [facility] INTRAOPERATIVE PTHon 022 INTRAOPERATIVE PTH 169 pg/mL High [address] Comment on above: Order Comment: Speci men Type: BLOOD SPECIMEN Ordering Facility: [facility] Address: [address] [place] [address] Performed By: #### R IPTH #### [facility] CLIA [id number] [address] [place] [address] [place] INTRAOPERATIVE PTH 205 pg/mL [address] Comment on above: Order Comment: Speci men Type: BLOOD SPECIMEN Ordering Facility: [facility] Address: [address] [place] [address] Performed By: #### R IPTH #### [facility] CLIA [id number] [address] [place] [address] [place] NURSING PROGon 08-13-2022 NURSING PROG HNO ID: [id number] Author: Vivienne Salcedo RN Service: Nursing Author Type: Registered Nurse Type: Nursing Progress Note Filed: 08/13/2022 6:20 AM Note Text: PATIENT EDUCATION TOPIC: PROCEDURE / SURGERY: Pre-op Teaching: Logistics PATIENT NAME: Karla Ndiaye PATIENT LOCATION: Surgery/ Surgery READINESS TO LEARN COGNITIVE ABILITY: Alert and oriented MOTIVATION TO LEARN: Interested FAMILY SUPPORT: None - Unavailable/disintereste d INSTRUCTION PROVIDED TO: Patient PATIENT LEARNS BEST BY: Individual Instruction FACTORS AFFECTING LEARNING: None PHYSICAL LIMITATIONS AFFECTING LEARNING: None LEARNING RESPONSE DIAGNOSIS: ADULT: Well Adult PATIENT/FAMILY RESPONSE: Verbalizes understanding of: PRE-OPERATIVE INSTRUCTIONS-Correct action to take to follow pre-operative instructions METHOD OF INSTRUCTION: Individual instruction FOLLOW-UP PLAN: Complete - No need for follow-up INSTRUCTIONAL AIDS USED: NA SUPPLEMENTAL MATERIAL PROVIDED TO PATIENT: None REFERRAL (RECOMMENDATION): None Electronically Signed By: Vivienne Salcedo [facility] OPERATIVE NOon 08-13-2022 OPERATIVE NO HNO ID: [id number] Author: Riya Perez MD Service: Endocrine Surgery Author Type: Physician Type: Operative Report Filed: 2022 11:01 AM Note Text: [facility] - Operative Report KARLA NDIAYE : 1945 AGE: 76. SEX: F PATIENT TYPE: A HOSP SV: [facility] LOCATION: [facility] ATTENDING PHYSICIAN: Riya Perez MD CSN NUMBER: [id number] DATE OF SURGERY/PROCEDURE: 08/13/2022 INCISION/PROCEDURE START TIME: 0748. INCISION CLOSE/PROCEDURE END TIME: Closure with dressing applied 0846. PREOPERATIVE DIAGNOSIS: Primary hyperparathyroidism. POSTOPERATIVE DIAGNOSIS: Primary hyperparathyroidism. SURGEON: Riya Perez MD LABORATORY HELPER: 1. Tino Pittman MD. 2. Latisha Flood MD. SURGERY/PROCEDURE: Left lower parathyroidectomy, intravenous sampling for parathyroid hormone levels, and intraoperative ultrasound. ANESTHESIA: General. OPERATIVE INDICATION: This is a 76-year-old female patient, who was recently evaluated for primary hyperparathyroidism. She is being taken to the operating room for a parathyroidectomy at this point. The indications, alternatives, risks, and benefits of the procedure have been explained to the patient and informed consent was obtained. Intraoperative ultrasound was performed. This demonstrated a thyroid gland that was overall normal in size with coarse background echogenicity. Multiple cystic thyroid nodules were seen throughout the entire thyroid gland. There was no obvious parathyroid adenoma seen on ultrasound. Benign-appearing lymph nodes were seen along the jugular chain bilaterally. Bilateral central neck exploration was performed, starting from the left side first. We were able to identify a clearly enlarged, hypervascular and multilobulated left lower parathyroid gland right on the capsule of the lower pole of the left thyroid lobe. This was circumferentially mobilized and a pre-excision PTH level was drawn from the right anterior jugular vein. The left lower parathyroid gland was then excised in its entirety and measured 16 x 7 x 7 mm. Frozen evaluation revealed this to be hypercellular parathyroid tissue. 10 minutes after the excision, the post-excision PTH level was then drawn. The 3 other parathyroid glands were also found and were normal in size and appearance. The upper parathyroid glands were found posterior to the midpole of the thyroid lobe respectively. The right lower parathyroid gland was also found on the capsule of the thyroid gland. The pre-excision PTH level was 205, the post-excision PTH level was 169. While this did not represent the 50% drop, we had found the other three glands. Therefore, the procedure was stopped. The patient tolerated the procedure without any problem. DESCRIPTION OF PROCEDURE: OPERATIVE PROCEDURE: The patient was taken to the operating room and placed upon the table in a supine position. After induction of general endotracheal anesthesia, beanbag support was used to elevate the thoracic spine. The neck was gently hyperextended. Neck ultrasonography was performed using an [employer] Alpha 7 ultrasound machine with high-frequency linear array small parts transducer. The incision was marked at the appropriate location with the aid of the US findings. The neck was sterilely prepped and draped. A transverse incision of 3-cm was made along a natural skin crease and carried down through the platysma. Small superior and inferior subplatysmal flaps were raised. The strap muscles were divided longitudinally in midline of the neck and the sternohyoid and sternothyroid muscles were from one another on the anterior surface of the trachea. The plane between the thyroid gland and the strap muscles was developed with blunt dissection. We started our exploration on the left side first, with the above operative findings. Intravenous sampling of PTH levels were obtained from the right anterior jugular vein. At the completion of the procedure, the wound was irrigated and checked for hemostasis. The strap muscles were then closed with individual layers of interrupted 4-0 Vicryl suture. The platysma was similarly approximated. The skin was temporarily approximated with a running 3-0 Prolene suture, sealed with surgical adhesives and covered with sterile strips. The suture was removed after the patient was successfully extubated. The patient tolerated procedure well. Attending surgeon, Dr. Perez, was present and scrubbed for the entire procedure. Dr. Pittman was asked to be certified registered dental assistant due to the absence of qualified general surgery resident. He was critical in exposure, dissection and closure of the case. ESTIMATED BLOOD LOSS: Minimal. DRAINS: None. SPECIMEN: Sent to Pathology, left lower parathyroid gland, totally excised, completely submitted. COUNTS: Sponge and instrument counts were correct at the end of procedure. COMPLICATIONS: There was no intraoperative complication (more content not included)... Normal [place] PTH-Intact SerPl-ncon 12-0 Parathyrin.intact [Mass/Vol] 18 pg/mL Normal 15-65 [place] Comment on above: Order Comment: Speci men Type: BLOOD SPECIMEN Ordering Facility: [facility] Address: [address] [place] [address] Performed By: #### 2 731-8 #### [facility] CLIA [id number] [address] [place] [address] OF [facility] SURGICAL PATHOLOGYon CASE REPORT Normal [place] Comment on above: Order Comment: Speci men Type: TISSUE SPECIMENOrdering Facility: [facility] Address: [address] [place] [address] Result Comment: Surg ica Pathology Report Case: [id number] Authorizing Provider: Riya Perez MD Collected: 08/13/2022 08:10 AM Ordering Location: [facility] Received: 08/13/2022 08:18 AM Pathologist: Tony Chand DMD Intraop: Ivelisse Suarez MD Specimen: PARATHYROID GLAND LEFT, left lower totally excised,all submitted Performed By: #### S ####[facility] LABCLIA [id number] [address] CLINICAL HISTORY Normal [facility] Comment on above: Order Comment: Speci men Type: TISSUE SPECIMENOrdering Facility: [facility] Address: [address] [address] Result Comment: Pre- op diagnosis: Primary hyperparathyroidism (HCC) [E21.0] Performed By: #### S ####[facility] LABCLIA [id number] [address] FINAL DIAGNOSIS [facility] Comment on above: Order Comment: Speci men Type: TISSUE SPECIMENOrdering Facility: [facility] Address: [address] [place] [address] Result Comment: Left lower parathyroid gland, excision: - Hypercellular parathyroid gland tissue. Performed By: #### S ####[facility] LABCLIA [id number] [address] FINAL PERFORMING LAB [facility] Comment on above: Order Comment: Speci men Type: TISSUE SPECIMENOrdering Facility: [facility] Address: [address] [place] [address] Result Comment: Diag nostic interpretation performed at [facility], [address] [address] CLIA# [id number] Litigation Services Manager: Deacon Swan M.D. Performed By: #### S ####[facility] LABCLIA [id number] [address] GROSS DESCRIPTION [facility] Comment on above: Order Comment: Speci men Type: TISSUE SPECIMENOrdering Facility: [facility] Address: [address] [address] Result Comment: A. P ARATHYROID GLAND LEFT Received fresh is a segment of valera-red soft tissue measuring 15 x 9 x 6 mm and weighing 0.309 grams. Submitted in toto as FSA1. Gross examination performed at [facility], [address], [place] [id number] CLIA# [id number]. Performed By: #### S ####[facility] LABCLIA [id number] [address] [id number] [place] INTRAOPERATIVE DIAGNOSIS [facility] Comment on above: Order Comment: Speci men Type: TISSUE SPECIMENOrdering Facility: [facility] Address: [address] [id number] Result Comment: A. P ARATHYROID GLAND LEFT FSA1 Left lower parathyroid gland: Hypercellular parathyroid tissue (Dr. Ivelisse Suarez) Intraoperative diagnosis performed at [facility], [address], [place] [id number] CLIA# [id number]. Performed By: #### S ####[facility] LABIA [id number] [address] [place] NM PARATHYROID W SPECT/CTon 05-14-2022 NM PARATHYROID W SPECT/CT * * *Final Report* * * DATE OF EXAM: May 14 2022 2:21PM MMN 0089 - NM PARATHYROID W SPECT/CT / PROCEDURE REASON: Hypercalcemia * * * * Physician Interpretation * * * * PARATHYROID SCAN: HISTORY: Hyperparathyroidism. TECHNIQUE: 238 microcuries of 123-I sodium iodide PO, followed by thyroid uptake measurements and scan. 30.1 mCi Tc-99m sestamibi was given IV. SPECT imaging of the neck and chest was performed; diagnostic noncontrast CT imaging of the same body region was performed using 1 bed (39cm). CT Dose-Length Product (DLP): 188 mGy*cm. CT Dose Reduction Employed: Automated exposure control (AEC) was used RESULT: The 3 hour I-123 neck uptake is 8.3% (normal range, 5-15%). The I-123 images demonstrate reduced uptake of activity associated with a 1.7 cm nodule in the inferior aspect of the right thyroid lobe. No definite areas of abnormal residual post-subtraction sestamibi activity are seen to suggest possible sites for abnormal parathyroid tissue. Diffuse osteopenia and age-related degenerative changes of the imaged portions of the skeleton. Car Sales Representative (topogram) images: No additional findings. IMPRESSION: NEGATIVE PARATHYROID SCAN, WITHOUT POSSIBLE SITES FOR ABNORMAL PARATHYROID TISSUE IDENTIFIED. NONFUNCTIONAL RIGHT LOWER THYROID NODULE. Optical Dispenser: JADIEL Transcribe Date/Time: May 14 2022 2:36P Dictated by : TALA COLEMAN MD This examination was interpreted and the report reviewed and electronically signed by: TALA COLEMAN MD on May 14 2022 2:45PM EST [id number] [facility] No Panel Informationon 02-25 [facility] US THYROID/PARATHYROIDon [facility] CNPNon 11-27-2021 CNPN Telephone ([facility]) -------- KARLA NDIAYE ( ) 1945 F Date Time Provider Department 11/27/21 DEEJAY ANDERSON [facility] During your visit today, we recorded the following information about you: Deejay Anderson MD 11/27/2021 9:47 AM Signed Let patient know Vit D level is good. Calcium level is elevated though less than last month. I would like to stop the hydrochlorothiazide since this med could be the cause and change it to aldactone 25 mg 1/2 a tab daily. If ok will send in a script and would want repeat lab work in a month Raina Murry LPN 11/27/2021 10:23 AM Signed Pt advised of results and instructions. Pt verbalizes understanding. Pt ok with changing medication. Send to [facility] updated. She will repeat lab as instructed in 1 month. Raina Anderson MD 11/27/2021 10:24 AM Signed The following approved medication requests have been transmitted electronically. Signed Prescriptions Disp Refills spironolactone (ALDACTONE) 25 mg tablet 45 tablet 1 Sig: Take 0.5 tablets by mouth once daily. Authorizing Provider: DEEJAY ANDERSON MD Allergies As of Date: 11/27/2021 Noted Allergy Reaction SUTURES 02/14/2013 4 - Hives Comments: high level reaction to CAT GUT suture MONOPRIL (FOSINOPRIL SODIUM) 07/15/2005 3 - Cough Date Reviewed: 10/17/2021 Reviewed by: eDejay Anderson MD - Fully Assessed Reason for Visit: Results [95] Primary Visit Diagnosis:Hypercalcemia [E83.52] Order(s):spironolactone (ALDACTONE) 25 mg tabletTake 0.5 tablets by mouth once daily.Disp: 45 tabletRfl: 1 CALCIUM TOTAL BLD [SQCA] Order #: [id number] FUTURE PTH INTACT BLD [SQPTHI] Order #: [id number] FUTURE Prescriptions as of 11/27/2021 - spironolactone (ALDACTONE) 25 mg tablet Take 0.5 tablets by mouth once daily. - hydroCHLOROthiazide 12.5 mg capsule Take 1 capsule by mouth once daily. - amLODIPine (NORVASC) 5 mg tablet Take 1 tablet by mouth once daily. - alendronate (FOSAMAX) 70 mg tablet TAKE 1 TABLET BY MOUTH ONCE WEEKLY TAKE WITH A FULL GLASS OF WATER, ON AN EMPTY STOMACH; DO NOT LIE DOWN FOR 1/2 HOUR - simvastatin (ZOCOR) 20 mg tablet Take 1 tablet by mouth daily at bedtime. - docosahexaenoic acid/epa (FISH OIL ORAL) Take by mouth as needed. - lisinopril (ZESTRIL) 40 mg tablet Take 1 tablet by mouth once daily. - timoloL maleate (TIMOPTIC) 0.25 % ophthalmic solution Use 1 Drop in the left eye twice daily. - cholecalciferol, vitamin D3, (VITAMIN D3) 4,000 unit cap Take 1 capsule by mouth once daily. - calcium carbonate 600 mg-cholecalciferol 200 units (CALCIUM 600 + D,3,) 600 mg(1,500mg) -200 unit tab Take 1 tablet by mouth once daily. - latanoprost (XALATAN) 0.005 % ophthalmic solution 1 drop in each eye at bedtime Problem List As Of Date 11/27/2021 Noted Resolved Essential hypertension, benign [I10] Benign neoplasm of colon [D12.6] 10/21/2005 Other tenosynovitis of hand and wrist [M65.849,*02/02/2008 05/30/2018 Symptomatic menopausal or female climacteric st*12/05/2008 09/21/2016 Osteoarthritis of hip [M16.9] 08/07/2009 08/05/2017 Postmenopausal atrophic vaginitis [N95.2] 12/11/2009 Cystocele, midline [N81.11] 12/11/2009 Sprain and strain of unspecified site of knee a*05/05/2011 09/21/2016 Aortic heart murmur [I35.8] 10/01/2011 05/30/2018 Age related osteoporosis [M81.0] Glaucoma [H40.9] 09/19/2014 Mixed hyperlipidemia [E78.2] 04/09/2016 Right hip pain [M25.551] 05/24/2017 08/05/2017 Arthritis of knee [M17.10] 08/05/2017 Stage 3a chronic kidney disease (HCC) [N18.31] 12/19/2020 Serum calcium elevated [E83.52] 01/13/2021 Hypercalcemia [E83.52] 10/19/2021 Prescriptions ordered this encounter Disp Refills Start End SPIRONOLACTONE 25 MG TABLET 45 t* 1 11/27/2021 Route: ORAL Sig: Take 0.5 tablets by mouth once daily. Encounter Status:Closed by DEEJAY ANDERSON on 11/27/21 Normal [facility] Vital Signs Date Time Vital Sign Value Performing Clinician Facility 03-13-2025 16:40-0400 Body height 162.6 cm Antoine Braswell MD Work Phone: [facility] 03-13-2025 16:40-0400 Body mass index (BMI) [Ratio] 32.07 kg/m2 Antoine Braswell MD Work Phone: [facility] 03-13-2025 16:40-0400 Body weight 84.8 kg Antoine Braswell MD Work Phone: [facility] 03-13-2025 16:40-0400 Diastolic blood pressure 81 mm[Hg] Antoine Braswell MD Work Phone: [facility] 03-13-2025 16:40-0400 Heart rate 59 /min Antoine Braswell MD Work Phone: [facility] 03-13-2025 16:40-0400 Respiratory rate 16 /min Antoine Braswell MD Work Phone: [facility] 03-13-2025 16:40-0400 SaO2% (BldA) [Mass fraction] 98 % Antoine Braswell MD Work Phone: [facility] 03-13-2025 16:40-0400 Systolic blood pressure 145 mm[Hg] Antoine Braswell MD Work Phone: [facility] 09-25-2024 09:48-0500 Body mass index (BMI) [Ratio] 32.1 kg/m2 Betty Jennings PA-C Work Phone: [facility] 09-25-2024 09:48-0500 Body temperature 97.3 [degF] Betty Jennings PA-C Work Phone: [facility] 09-25-2024 09:48-0500 Body weight 84.82 kg Betty Jennings PA-C Work Phone: [facility] 09-25-2024 09:48-0500 Diastolic blood pressure 76 mm[Hg] Betty Jennings PA-C Work Phone: [facility] 09-25-2024 09:48-0500 Heart rate 80 /min Betty Jennings PA-C Work Phone: [facility] 09-25-2024 09:48-0500 Respiratory rate 18 /min Betty Jennings PA-C Work Phone: [facility] 09-25-2024 09:48-0500 SaO2% (BldA) [Mass fraction] 97 % Betty Jennings PA-C Work Phone: [facility] 09-25-2024 09:48-0500 Systolic blood pressure 110 mm[Hg] Betty Jennings PA-C Work Phone: [facility] 03-24-2024 09:13-0400 Body height 162.6 cm Deejay Anderson MD Work Phone: [facility] 03-24-2024 09:13-0400 Body mass index (BMI) [Ratio] 31.07 kg/m2 Deejay Anderson MD Work Phone: [facility] 03-24-2024 09:13-0400 Body weight 82.1 kg Deejay Anderson MD Work Phone: [facility] 03-24-2024 09:13-0400 Diastolic blood pressure 70 mm[Hg] Deejay Anderson MD Work Phone: [facility] 03-24-2024 09:13-0400 Heart rate 76 /min Deejay Anderson MD Work Phone: [facility] 03-24-2024 09:13-0400 Respiratory rate 18 /min Deejay Anderson MD Work Phone: [facility] 03-24-2024 09:13-0400 Systolic blood pressure 136 mm[Hg] Deejay Anderson MD Work Phone: [facility] 03-08-2024 10:16-0400 Body mass index (BMI) [Ratio] 30.53 kg/m2 Deejay Anderson MD Work Phone: [facility] 03-08-2024 10:16-0400 Body temperature 97.9 [degF] Deejay Anderson MD Work Phone: [facility] 03-08-2024 10:16-0400 Body weight 82.1 kg Deejay Anderson MD Work Phone: [facility] 03-08-2024 10:16-0400 Diastolic blood pressure 88 mm[Hg] Deejay Anderson MD Work Phone: [facility] 03-08-2024 10:16-0400 Heart rate 69 /min Deejay Anderson MD Work Phone: [facility] 03-08-2024 10:16-0400 Respiratory rate 18 /min Deejay Anderson MD Work Phone: [facility] 03-08-2024 10:16-0400 SaO2% (BldA) [Mass fraction] 97 % Deejay Anderson MD Work Phone: [facility] 03-08-2024 10:16-0400 Systolic blood pressure 138 mm[Hg] Deejay Anderson MD Work Phone: [facility] 02-28-2024 10:59-0400 Body mass index (BMI) [Ratio] 30.53 kg/m2 Deejay Anderson MD Work Phone: [facility] 02-28-2024 10:59-0400 Body weight 82.1 kg Deejay Anderson MD Work Phone: [facility] 02-28-2024 10:59-0400 Diastolic blood pressure 80 mm[Hg] Deejay Anderson MD Work Phone: [facility] 02-28-2024 10:59-0400 Respiratory rate 16 /min Deejay Anderson MD Work Phone: [facility] 02-28-2024 10:59-0400 Systolic blood pressure 126 mm[Hg] Deejay Anderson MD Work Phone: [facility] 01-18-2024 11:07-0400 Body mass index (BMI) [Ratio] 31.37 kg/m2 Marya Jerome GRID MAKER.CH[employer]AGNE [employer] Work Phone: [facility] 01-18-2024 11:07-0400 Body weight 84.37 kg Marya Jerome APRN.CHAMPAGNE MAKER Work Phone: [facility] 01-18-2024 11:07-0400 Diastolic blood pressure 77 mm[Hg] Marya Jerome APRN.CHAMPAGNE MAKER Work Phone: [facility] 01-18-2024 11:07-0400 Heart rate 72 /min Marya Jerome GRID MAKER.CHAMPAGNE [employer] Work Phone: [facility] 01-18-2024 11:07-0400 Respiratory rate 16 /min Marya Jerome APRN.CHAMPAGNE MAKER Work Phone: [facility] 01-18-2024 11:07-0400 Systolic blood pressure 134 mm[Hg] Marya Jerome GRID MAKER.CHAMPAGNE MAKER Work Phone: [facility] 12-07-2023 10:02-0400 Body height 164 cm Antoine Braswell MD Work Phone: [facility] 12-07-2023 10:02-0400 Body weight 84 kg Antoine Braswell MD Work Phone: [facility] 12-07-2023 10:02-0400 Diastolic blood pressure 89 mm[Hg] Antoine Braswell MD Work Phone: [facility] 12-07-2023 10:02-0400 Heart rate 74 /min Antoine Braswell MD Work Phone: [facility] 12-07-2023 10:02-0400 Respiratory rate 16 /min Antoine Braswell MD Work Phone: [facility] 12-07-2023 10:02-0400 SaO2% (BldA) [Mass fraction] 99 % Antoine Braswell MD Work Phone: [facility] 12-07-2023 10:02-0400 Systolic blood pressure 135 mm[Hg] Antoine Braswell MD Work Phone: [facility] 08-13-2023 10:27-0500 Body temperature 97.7 [degF] Deejay Pendlebury GRID MAKER.CH[employer]AGNE MAK[employer] Work Phone: [facility] 08-13-2023 10:27-0500 Body weight 83.46 kg Deejay Pendlebury GRID MAKER.CHAMPAGNE MAKER Work Phone: [facility] 08-13-2023 10:27-0500 Diastolic blood pressure 85 mm[Hg] Deejay Pendlebury GRID MAKER.CHAMPAGNE MAKER Work Phone: [facility] 08-13-2023 10:27-0500 Heart rate 79 /min Deejay Pendlebury GRID MAKER.CHAMPAGNE MAKER Work Phone: [facility] 08-13-2023 10:27-0500 Respiratory rate 18 /min Deejay Pendlebury GRID MAKER.CHAMPAGNE MAKER Work Phone: [facility] 08-13-2023 10:27-0500 SaO2% (BldA) [Mass fraction] 99 % Deejay Pendlebury GRID MAKER.CHAMPAGNE MAKER Work Phone: [facility] 08-13-2023 10:27-0500 Systolic blood pressure 122 mm[Hg] Deejay Agarwal GRID MAKER.CHAMPAGNE MAKER Work Phone: [facility] 05-03-2023 14:12-0400 Body temperature 98.1 [degF] Destini Podlogar GRID MAKER.CHAMPAGNE MAKER Work Phone: [facility] 05-03-2023 14:12-0400 Body weight 84.37 kg Destini Podlogar GRID MAKER.CHAMPAGNE MAKER Work Phone: [facility] 05-03-2023 14:12-0400 Diastolic blood pressure 78 mm[Hg] Destini Podlogar GRID MAKER.CHAMPAGNE MAKER Work Phone: [facility] 05-03-2023 14:12-0400 Heart rate 74 /min Destini Podlogar GRID MAKER.CHAMPAGNE MAKER Work Phone: [facility] 05-03-2023 14:12-0400 Respiratory rate 18 /min Destini Podlogar GRID MAKER.CHAMPAGNE MAKER Work Phone: [facility] 05-03-2023 14:12-0400 SaO2% (BldA) [Mass fraction] 98 % Destini Podlogar GRID MAKER.CHAMPAGNE MAKER Work Phone: [facility] 05-03-2023 14:12-0400 Systolic blood pressure 142 mm[Hg] Destini Podlogar GRID MAKER.CHAMPAGNE MAKER Work Phone: [facility] 12-08-2022 16:06-0400 Body height 162.6 cm Antoine Braswell MD Work Phone: [facility] 12-08-2022 16:06-0400 Body weight 84.37 kg Antoine Braswell MD Work Phone: [facility] 12-08-2022 16:06-0400 Diastolic blood pressure 84 mm[Hg] Antoine Braswell MD Work Phone: [facility] 12-08-2022 16:06-0400 Heart rate 68 /min Antoine Braswell MD Work Phone: [facility] 12-08-2022 16:06-0400 SaO2% (BldA) [Mass fraction] 99 % Antoine Braswell MD Work Phone: [facility] 12-08-2022 16:06-0400 Systolic blood pressure 159 mm[Hg] Antoine Braswell MD Work Phone: [facility] 08-03-2022 11:13-0500 Body height 162.6 cm Pacc 1 Work Phone: [facility] 08-03-2022 11:13-0500 Body temperature 97.59 [degF] Pacc 1 Work Phone: [facility] 08-03-2022 11:13-0500 Body weight 82.1 kg Pacc 1 Work Phone: [facility] 08-03-2022 11:13-0500 Diastolic blood pressure 80 mm[Hg] Pacc 1 Work Phone: [facility] 08-03-2022 11:13-0500 Heart rate 68 /min Pacc 1 Work Phone: [facility] 08-03-2022 11:13-0500 Respiratory rate 12 /min Pacc 1 Work Phone: [facility] 08-03-2022 11:13-0500 SaO2% (BldA) [Mass fraction] 97 % Pacc 1 Work Phone: [facility] 08-03-2022 11:13-0500 Systolic blood pressure 122 mm[Hg] Pacc 1 Work Phone: [facility] 07-01-2022 13:43-0400 Body temperature 97 [degF] Betty Jennings PA-C Work Phone: [facility] 07-01-2022 13:43-0400 Body weight 81.65 kg Betty Jennings PA-C Work Phone: [facility] 07-01-2022 13:43-0400 Diastolic blood pressure 86 mm[Hg] Betty Jennings PA-C Work Phone: [facility] 07-01-2022 13:43-0400 Heart rate 68 /min Betty Jennings PA-C Work Phone: [facility] 07-01-2022 13:43-0400 Respiratory rate 18 /min Betty Jennings PA-C Work Phone: [facility] 07-01-2022 13:43-0400 Systolic blood pressure 122 mm[Hg] Betty Jennings PA-C Work Phone: [facility] 06-29-2022 13:53-0400 Body weight 80.74 kg Riya Perez MD Work Phone: [facility] 06-29-2022 13:53-0400 Diastolic blood pressure 72 mm[Hg] Riya Perez MD Work Phone: [facility] 06-29-2022 13:53-0400 Heart rate 63 /min Riya Perez MD Work Phone: [facility] 06-29-2022 13:53-0400 Systolic blood pressure 140 mm[Hg] Riya Perez MD Work Phone: [facility] 05-28-2022 10:23-0400 Body weight 81.65 kg Dorota Zurawick GRID MAKER.CHAMPAGNE MAKER Work Phone: [facility] 05-28-2022 10:23-0400 Diastolic blood pressure 80 mm[Hg] Dorota Zurawick GRID MAKER.CHAMPAGNE MAKER Work Phone: [facility] 05-28-2022 10:23-0400 Heart rate 68 /min Dorota Zurawick GRID MAKER.CHAMPAGNE MAKER Work Phone: [facility] 05-28-2022 10:23-0400 Respiratory rate 14 /min Dorota Zurawick GRID MAKER.CHAMPAGNE MAKER Work Phone: [facility] 05-28-2022 10:23-0400 Systolic blood pressure 140 mm[Hg] Dorota Zurawick GRID MAKER.CHAMPAGNE MAKER Work Phone: [facility] 05-26-2022 07:55-0400 Body temperature 97.5 [degF] Dr. Deejay Anderson Work Phone: [facility] Work Phone: 05-26-2022 07:55-0400 Diastolic blood pressure 63 mm[Hg] Dr. Deejay Anderson Work Phone: [facility] Work Phone: 05-26-2022 07:55-0400 Heart rate 64 /min Dr. Deejay Anderson Work Phone: [facility] Work Phone: 05-26-2022 07:55-0400 Respiratory rate 16 /min Dr. Deejay Anderson Work Phone: [facility] Work Phone: 05-26-2022 07:55-0400 SaO2% (BldA) [Mass fraction] 99 % Dr. Deejay Anderson Work Phone: [facility] Work Phone: 05-26-2022 07:55-0400 Systolic blood pressure 105 mm[Hg] Dr. Deejay Anderson Work Phone: [facility] Work Phone: 05-26-2022 06:24-0400 Body height 161.[address] Deejay Anderson Work Phone: [facility] Work Phone: 05-26-2022 06:24-0400 Body mass index (BMI) [Ratio] 30.9 kg/m2 Dr. Deejay Anderson Work Phone: [facility] Work Phone: 05-26-2022 06:24-0400 Body weight 80.[address] Deejay Anderson Work Phone: [facility] Work Phone: 04-28-2022 08:58-0400 Body weight 80.83 kg Antoine Braswell MD Work Phone: [facility] 04-28-2022 08:58-0400 Diastolic blood pressure 85 mm[Hg] Antoine Braswell MD Work Phone: [facility] 04-28-2022 08:58-0400 Heart rate 73 /min Antoine Braswell MD Work Phone: [facility] 04-28-2022 08:58-0400 SaO2% (BldA) [Mass fraction] 99 % Antoine Braswell MD Work Phone: [facility] 04-28-2022 08:58-0400 Systolic blood pressure 143 mm[Hg] Antoine Braswell MD Work Phone: [facility] 04-13-2022 13:46-0400 Body mass index (BMI) [Ratio] 30.7 kg/m2 Dr. Deejay Anderson Work Phone: [facility] Work Phone: 04-13-2022 13:46-0400 Body temperature 98.2 [degF] Dr. Deejay Anderson Work Phone: [facility] Work Phone: 04-13-2022 13:46-0400 Body weight 81.[address] Deejay Anderson Work Phone: [facility] Work Phone: 04-13-2022 13:46-0400 Diastolic blood pressure 67 mm[Hg] Dr. Deejay Anderson Work Phone: [facility] Work Phone: 04-13-2022 13:46-0400 Heart rate 94 /min Dr. Deejay Anderson Work Phone: [facility] Work Phone: 04-13-2022 13:46-0400 Respiratory rate 18 /min Dr. Deejay Anderson Work Phone: [facility] Work Phone: 04-13-2022 13:46-0400 SaO2% (BldA) [Mass fraction] 98 % Dr. Deejay Anderson Work Phone: [facility] Work Phone: 04-13-2022 13:46-0400 Systolic blood pressure 115 mm[Hg] Dr. Deejay Anderson Work Phone: [facility] Work Phone: 03-20-2022 11:24-0400 Body height 161.3 cm Deejay Anderson MD Work Phone: [facility] 03-20-2022 11:24-0400 Body weight 80.29 kg Deejay Anderson MD Work Phone: [facility] 03-20-2022 11:24-0400 Diastolic blood pressure 78 mm[Hg] Deejay Anderson MD Work Phone: [facility] 03-20-2022 11:24-0400 Heart rate 60 /min Deejay Anderson MD Work Phone: [facility] 03-20-2022 11:24-0400 Respiratory rate 14 /min Deejay Anderson MD Work Phone: [facility] 03-20-2022 11:24-0400 Systolic blood pressure 132 mm[Hg] Deejay Anderson MD Work Phone: [facility] 02-24-2022 10:01-0400 Body height 162.6 cm Antoine Braswell MD Work Phone: [facility] 02-24-2022 10:010400 Body weight 80.74 kg Antoine Braswell MD Work Phone: [facility] 02-24-2022 10:01-0400 Diastolic blood pressure 66 mm[Hg] Antoine Braswell MD Work Phone: [facility] 02-24-2022 10:01-0400 Heart rate 68 /min Antoine Braswell MD Work Phone: [facility] 02-24-2022 10:01-0400 SaO2% (BldA) [Mass fraction] 98 % Antoine Braswell MD Work Phone: [facility] 02-24-2022 10:01-0400 Systolic blood pressure 145 mm[Hg] Antoine Braswell MD Work Phone: [facility] Encounters Encounter Date Encounter Type Care Provider Facility Start: 03-13-2025 End: 03-13-2025 Patient encounter procedure Antoine Braswell MD Work Phone: Endocrinology Comment on above: Primary hyperparathy roidism (HCC) (Primary Dx); Multiple thyroid nodules; Osteoporosis without current pathological fracture, unspecified osteoporosis type Start: 03-13-2025 End: 03-13-2025 ambulatory ANTOINE BRASWELL Facility:[facility] Start: 02-05-2025 End: 02-05-2025 Refill Betty Jennings PA-C Work Phone: [facility] Comment on above: Refill Request Start: 01-22-2025 End: 01-22-2025 Follow-up encounter Betty Jennings PA-C Work Phone: [facility] Start: 01-17-2025 End: 01-17-2025 Telephone encounter Deejay Anderson MD Work Phone: [facility] Comment on above: Orders (mammogram) Start: 01-17-2025 ambulatory DEEJAY ANDERSON [facility] ty:[facility] Start: 01-17-2025 End: 01-17-2025 Subsequent hospital visit by physician [facility] Comment on above: Screening mammogram for breast cancer [Z12.31] Start: 12-18-2024 End: 12-18-2024 Refill Betty Jennings PA-C Work Phone: [facility] [place] Comment on above: Refill Request Start: 11-16-2024 End: 11-16-2024 ambulatory LILIASTEFANO RASMUSSENJOSE D Facility:[facility] Start: 11-16-2024 End: 11-16-2024 Subsequent hospital visit by physician [facility] Work Phone: Radiology Comment on above: Primary hyperparathy roidism (HCC) [E21.0] Start: 10-10-2024 End: 10-10-2024 Telephone encounter Betty Jennings PA-C Work Phone: [facility] Comment on above: Results Start: 10-09-2024 End: 10-09-2024 ambulatory DEEJAY Marielle JUSTIN Facility:[facility] Start: 09-29-2024 End: 09-29-2024 Telephone encounter Bettyviktor MONSON-C Work Phone: [facility] Comment on above: Results Start: 09-27-2024 End: 09-27-2024 ambulatory DEEJAY Marielle JUSTIN Facility:[facility] Start: 09-26-2024 End: 09-26-2024 Telephone encounter Bettyviktor MONSON-C Work Phone: [facility] Comment on above: Results Start: 09-25-2024 End: 09-25-2024 ambulatory DEEJAY Marielle JUSTIN Facility:[facility] Start: 09-25-2024 End: 09-25-2024 Patient encounter procedure Betty MONSON-Liiva [facility] Comment on above: Essential hypertensi on, benign (Primary Dx); Mixed hyperlipidemia; Stage 3b chronic kidney disease (HCC); Class 1 obesity due to excess calories without serious comorbidity with body mass index (BMI) of 31.0 to 31.9 in adult; Age-related osteoporosis without current pathological fracture; Hypercalcemia; Abnormal urine odor Start: 09-01-2024 End: 09-01-2024 Refill Betty MONSON-C Work Phone: [facility] Comment on above: Refill Request Start: 08-04-2024 End: 08-04-2024 Refill Betty MONSON-C Work Phone: [facility] Comment on above: Refill Request Start: 07-12-2024 End: 07-12-2024 Chart abstracting Deejay Anderson MD Work Phone: [facility] Start: 07-10-2024 End: 07-10-2024 Orders Only Derek Linares DO Work Phone: Cardiology Comment on above: Syncope, unspecified syncope type (Primary Dx); Abnormal Holter exam Start: 06-12-2024 End: 06-12-2024 Telephone encounter Deejay Anderson MD Work Phone: [facility] Comment on above: Results Start: 06-06-2024 End: 06-06-2024 Telephone encounter Deejay Anderson MD Work Phone: [facility] Comment on above: results heart monito r Start: 05-25-2024 End: 05-25-2024 Telephone encounter Deejay Anderson MD Work Phone: [facility] Comment on above: Heart Monitor Result Start: 05-17-2024 End: 05-23-2024 Telephone encounter Deejay Anderson MD Work Phone: [facility] Comment on above: Patient Question Start: 05-16-2024 End: 05-16-2024 Telephone encounter Deejay Anderson MD Work Phone: [facility] Comment on above: Faxed to Dr. Chinchilla Start: 05-10-2024 End: 05-12-2024 Telephone encounter Kannan Brantley MD Work Phone: [facility] Comment on above: Results Start: 05-10-2024 End: 05-10-2024 ambulatory DEEJAY ANDERSON Facility:[facility] Start: 05-10-2024 End: 05-10-2024 Subsequent hospital visit by physician [facility] (I-Stat/1.5t) Work Phone: Radiology Comment on above: Encounter for screen ing for other musculoskeletal disorder [Z13.828] Start: 04-20-2024 End: 05-04-2024 Telephone encounter Kannan Brantley MD Work Phone: Pulmonology [facility] Comment on above: Results Start: 04-20-2024 End: 04-20-2024 ambulatory DEEJAY ANDERSON Facility:[facility] Start: 04-20-2024 End: 04-20-2024 ambulatory DEEJAY ANDERSON Facility:[facility] Start: 04-20-2024 End: 04-20-2024 Subsequent hospital visit by physician [facility] Work Phone: Nuclear Medicine Comment on above: Elevated alkaline ph osphatase level [R74.8] Start: 04-17-2024 Telephone encounter Marya winters APRN.CNP Work Phone: [facility] Comment on above: Results Start: 04-12-2024 End: 04-12-2024 ambulatory DEEJAY ANDERSON Facility:[facility] Start: 04-06-2024 Telephone encounter Kannan Brantley MD Work Phone: [facility] Comment on above: Results Start: 04-05-2024 End: 04-05-2024 ambulatory DEEJAY ANDERSON Facility:[facility] Start: 04-04-2024 ambulatory DEEJAY ANDERSON [facility] Start: 04-04-2024 End: 04-04-2024 Subsequent hospital visit by physician Card/Pulm Lab [facility]ULMON[facility] Comment on above: Arrived Start: 03-28-2024 Telephone encounter Kannan Brantley MD Work Phone: [facility] Comment on above: Results Start: 03-27-2024 End: 03-27-2024 ambulatory DEEJAY ANDERSON Facility:[facility] Start: 03-24-2024 End: 03-24-2024 ambulatory DEEJAY ANDERSON Facility:[facility] Start: 03-24-2024 End: 03-24-2024 ambulatory DEEJAY ANDERSON Facility:[facility] Start: 03-24-2024 End: 03-24-2024 Patient encounter procedure Deejay Anderson MD Work Phone: [facility] Comment on above: Medicare annual well ness visit, subsequent (Primary Dx); Essential hypertension, benign; Mixed hyperlipidemia; Stage 3b chronic kidney disease (HCC); Situational anxiety; Hypercalcemia; Class 1 obesity due to excess calories without serious comorbidity with body mass index (BMI) of 31.0 to 31.9 in adult; Age-related osteoporosis without current pathological fracture; Advance directive discussed with patient; Medication management; Rash Start: 03-13-2024 Telephone encounter Deejay Anderson MD Work Phone: [facility] Comment on above: Returning Patient's Call Start: 03-08-2024 Telephone encounter Mitchell Jaspal HUGHES [facility] Comment on above: Appointment Start: 03-08-2024 End: 03-08-2024 Patient encounter procedure Deejay Anderson MD [facility] Phone[facility] Comment on above: Syncope, unspecified syncope type (Primary Dx); Elevated serum creatinine; Tail bone pain; Situational anxiety; Stage 3b chronic kidney disease (HCC) Start: 03-05-2024 End: 03-05-2024 Emergency department patient visit Jose Tilley Facility:[facility] Start: 02-28-2024 End: 02-28-2024 Patient encounter procedure Deejay Anderson MD Work Phone: [facility] Comment on above: Contact dermatitis, unspecified contact dermatitis type, unspecified trigger (Primary Dx) Start: 02-14-2024 Refill Betty Urena on PA-C Work Phone: [facility] Comment on above: Refill Request Start: 02-02-2024 End: 02-02-2024 ambulatory Brittnee Whiting PT [facility] Comment on above: Acute midline low ba ck pain without sciatica (Primary Dx) Start: 01-24-2024 Chart abstracting Deejay johnson MD Work Phone: [facility] Comment on above: Outside ED Start: 01-21-2024 End: 01-21-2024 Emergency department patient visit Tala Jordi Facility:[facility] Start: 01-20-2024 Telephone encounter Marya winters APRN.CH[employer]AGNE [employer] Work Phone: [facility] Comment on above: Results Start: 01-18-2024 End: 01-18-2024 Subsequent hospital visit by physician [facility] Work Phone: Radiology Comment on above: Acute midline low ba ck pain without sciatica [M54.50] Start: 01-18-2024 End: 01-18-2024 Patient encounter procedure Marya Jerome APRN.CHAMPAGNE [employer]KER Work Phone: [facility] Comment on above: Acute midline low ba ck pain without sciatica (Primary Dx) Start: 01-07-2024 End: 01-07-2024 Subsequent hospital visit by physician [facility] Work Phone: Radiology Comment on above: Multiple thyroid nod ules [E04.2] Start: 12-10-2023 Refill Betty Siler on PA-C Work Phone: [facility] [place] Comment on above: Refill Request Start: 12-07-2023 End: 12-07-2023 Patient encounter procedure Antoine Braswell MD Work Phone: Endocrinology Comment on above: Primary hyperparathy roidism (HCC) (Primary Dx); Multiple thyroid nodules; Osteoporosis without current pathological fracture, unspecified osteoporosis type Start: 11-11-2023 Refill Betty Siler on PA-C Work Phone: [facility] [place] Comment on above: Refill Request Start: 11-03-2023 Refill Betty Siler on PA-C Work Phone: [facility] Comment on above: Refill Request Start: 11-02-2023 End: 11-02-2023 Subsequent hospital visit by physician [facility] Comment on above: Abnormal mammogram [ R92.8] Start: 10-18-2023 Telephone encounter Martha flores MD Work Phone: Mammography Comment on above: Mammogram Result Isaiah l Back (pt was schduled) Start: 10-08-2023 Documentation procedure Mammog davin Coordinator [facility] Start: 10-08-2023 Letter encounter Mammography Coordinator [facility] Department Start: 10-08-2023 Telephone encounter Ann obregon GRID MAKER.[employer]AG[employer] Work Phone: OB/Gynecology Comment on above: Orders Start: 10-07-2023 End: 10-07-2023 Subsequent hospital visit by physician [facility] Comment on above: Encounter for screen ing mammogram for breast cancer [Z12.31] Start: 08-26-2023 Refill Marya costa APRN.CHAMPAGNE [employer]ER Work Phone: [facility] [place] Comment on above: Refill Request Start: 08-13-2023 End: 08-13-2023 Office outpatient visit 15 minutes Deejay Agarwal APRN.CHAMPAGNE [employer]KER Work Phone: [facility] Comment on above: Suspected COVID-19 v irus infection (Primary Dx) Start: 07-22-2023 Refill Deejay hrerera MD Work Phone: [facility] Comment on above: Refill Request Start: 05-14-2023 Refill Deejay herrera MD Work Phone: [facility] Comment on above: Refill Request Start: 05-05-2023 Telephone encounter Destini soni APRN.CHAMPAGNE [employer]ER Work Phone: [facility] Comment on above: Results Start: 05-03-2023 End: 05-03-2023 Patient encounter procedure Destini Aparicio APRN.CHAMPAGNE [employer]KER Work Phone: [facility] Comment on above: UTI symptoms (Primar y Dx) Start: 05-03-2023 Telephone encounter Deejay Anderson MD Work Phone: [facility] Comment on above: Patient Update; Lab Orders Start: 03-25-2023 Telephone encounter Deejay Anderson MD Work Phone: [facility] Comment on above: Results Start: 03-24-2023 Patient encounter procedure Gerardo Anderson MD Work Phone: [facility] Work Phone: Start: 01-13-2023 Refill Betty Urena on PA-C Work Phone: [facility] Comment on above: Refill Request Start: 12-08-2022 End: 12-08-2022 Patient encounter procedure Antoine Braswell MD Work Phone: Endocrinology Comment on above: Primary hyperparathy roidism (HCC) (Primary Dx); Multiple thyroid nodules; Osteoporosis without current pathological fracture, unspecified osteoporosis type Start: 10-27-2022 Refill Deejay herrera MD Work Phone: [facility] Comment on above: Refill Request Start: 10-05-2022 Documentation procedure Mammog davin Coordinator [facility] Start: 10-05-2022 Letter encounter Mammography Coordinator [facility] Department Start: 08-28-2022 Telephone encounter Riya Herron Work Phone: Endocrine Surgery Comment on above: Results Start: 08-13-2022 End: 08-14-2022 ambulatory RIYA PEREZ Facility:[place] Start: 08-10-2022 Orders Only Riya Perez MD Work Phone: Endocrine Surgery Comment on above: Primary hyperparathy roidism (HCC) (Primary Dx); Hyperparathyroidism (HCC) Start: 08-03-2022 End: 08-03-2022 Admission to establishment [facility] [place] [facility] Work Phone: [facility] Start: 08-03-2022 End: 08-03-2022 ambulatory [facility] Work Phone: Pre Anesthesia Comment on above: Pre-operative examin ation (Primary Dx); Essential hypertension, benign; Mixed hyperlipidemia; Stage 3a chronic kidney disease (HCC); Age-related osteoporosis without current pathological fracture; Class 1 obesity due to excess calories without serious comorbidity with body mass index (BMI) of 31.0 to 31.9 in adult Start: 08-03-2022 End: 08-03-2022 Preprocedural examination done [facility] Work Phone: Pre Anesthesia Start: 07-01-2022 End: 07-01-2022 Patient encounter procedure Betty Jennings PA-C Work Phone: [facility] Comment on above: Sciatica, right side (Primary Dx) Start: 06-30-2022 ambulatory Riya Perez MD Work Phone: Endocrine Surgery Comment on above: preop pacc/ OR MM (Parathyroidectomy ) Start: 06-29-2022 End: 06-29-2022 Orders Only Riya Perez MD Work Phone: Endocrine Surgery Comment on above: Primary hyperparathy roidism (HCC) (Primary Dx) Patient Question; Or ders Primary hyperparathy roidism (HCC); Multiple thyroid nodules Start: 06-18-2022 Refill Betty Urena on PA-C Work Phone: [facility] Comment on above: Refill Request Start: 06-10-2022 ambulatory Deejay herrera MD Work Phone: [facility] Comment on above: disability placard Start: 06-05-2022 Telephone encounter Dorotacole currie GRID MAKER.CHAMPAGNE [employer]ER Work Phone: [facility] Comment on above: Results Start: 05-29-2022 Chart abstracting Deejay johnson MD Work Phone: [facility] Comment on above: Pathology Report (co lonoscopy) Start: 05-28-2022 End: 05-28-2022 Patient encounter procedure Dorota Harrison GRID MAKER.CHAMPAGNE [employer]ER Work Phone: [facility] Comment on above: Sciatica, right side (Primary Dx); Pain of right lower extremity; Shooting pain; Stage 3a chronic kidney disease (HCC) Start: 05-26-2022 Non-patient / Non-visit Dr. Gerardo Anderson Work Phone: [facility] Start: 05-26-2022 End: 05-26-2022 Admission to same day surgery center Dr. Deejay Anderson Work Phone: [facility] Start: 05-26-2022 End: 05-26-[address] Deejay Anderson Work Phone: [facility] Work Phone: Start: 05-19-2022 Refill Deejay herrera MD Work Phone: [facility] Comment on above: Refill Request Start: 05-14-2022 ambulatory [facility] Facility:[facility] Start: 05-14-2022 ambulatory [facility] Facility:[facility] Start: 05-14-2022 End: 05-14-2022 Subsequent hospital visit by physician [facility] Comment on above: Hypercalcemia [E83.5 2] Start: 05-14-2022 End: 05-14-2022 Subsequent hospital visit by physician [facility] Start: 04-28-2022 End: 04-28-2022 Patient encounter procedure Antoine Braswell MD Work Phone: Endocrinology Comment on above: Hypercalcemia (Prima ry Dx); Primary hyperparathyroidism (HCC); Multiple thyroid nodules; Osteoporosis, unspecified osteoporosis type, unspecified pathological fracture presence Start: 04-13-2022 End: 04-13-[address] Deejay Anderson Work Phone: [facility] Start: 04-06-2022 Telephone encounter Deejay Anderson MD Work Phone: General Surgery Comment on above: Outpatient [place] Start: 03-22-2022 Telephone encounter Deejay Anderson MD Work Phone: Family [facility] Comment on above: Results Start: 03-20-2022 End: 03-20-2022 Patient encounter procedure Deejay Anderson MD Work Phone: [facility] Comment on above: Medicare annual well ness visit, subsequent (Primary Dx); Essential hypertension, benign; Mixed hyperlipidemia; Stage 3a chronic kidney disease (HCC); Hypercalcemia; Living will on file; Advance directive discussed with patient; Need for vaccination; Benign neoplasm of colon, unspecified part of colon; Family history of colon cancer Start: 02-25-2022 End: 02-25-2022 Subsequent hospital visit by physician [facility] Work Phone: Radiology Comment on above: Increased PTH level [E34.9] Start: 02-24-2022 End: 02-24-2022 Patient encounter procedure Antoine Braswell MD Work Phone: Endocrinology Comment on above: Serum calcium elevat ed; Increased PTH level; Osteoporosis without current pathological fracture, unspecified osteoporosis type Start: 02-01-2022 Refill Jose Roberts APRN.CHAMPAGNE MAKER, DNP Work Phone: Family [facility] Comment on above: Refill Request Start: 01-28-2022 Telephone encounter Deejay Anderson MD Work Phone: [facility] Comment on above: Results; Appointment Start: 12-29-2021 Telephone encounter Deejay Anderson MD Work Phone: [facility] [place] Comment on above: Results Start: 06-12-2021 Telephone encounter Deejay Anderson MD Work Phone: [facility] Comment on above: Patient Update; Orde rs Start: 06-12-2018 End: 06-12-2018 Patient encounter VAISHALI [facility] Procedures Date Procedure Procedure Detail Performing Clinician Start: 05-10-2024 Mri pelvis w/o & w/contrast material Kannan Brantley MD Work Phone: Start: 04-20-2024 Bone &/joint imaging whole body Kannan Brantley MD Work Phone: Start: 04-20-2024 Us abdominal real ti me w/image limited Kannan Brantley MD Work Phone: Start: 03-24-2024 Adult depression screening assessment Deejay Anderson MD Work Phone: Start: 01-18-2024 Radex spine lumbosac ral minimum 4 views Marya Jerome GRID MAKER.CHAMPAGNE [employer]KER Work Phone: Start: 11-02-2023 Us breast uni real t ashwini with image limited Ann Ellen GRID MAKER.CHAMPAGNE MAKER Work Phone: Start: 11-02-2023 Digital breast tomosynthesis bilateral Ann Avis GRID MAKER.CHAMPAGNE MAKER Work Phone: Start: 05-03-2023 Urnls dip stick/tabl et rgnt auto w/o microscopy Destini Aparicio GRID MAKER.CHAMPAGNE MAKER Work Phone: Start: 05-26-[address] Trever Anderson Work Phone: Start: 05-14-2022 Parathyroid imaging w/tomographic spect & ct Antoine Braswell MD Work Phone: Start: 03-20-2022 Adult depression screening assessment Deejay Anderson MD Work Phone: Start: 02-25-2022 Radex spine lumbosac ral 2/3 views Antoine Braswell MD Work Phone: Start: 02-25-2022 Us soft tissue head & neck real time imge docm Antoine Braswell MD Work Phone: H/O: surgery Hx of dilation a nd curettage Dr. Deejay Anderson Work Phone: Plan of Treatment Date Care Activity Detail Author Start: 09-25-2027 Diabetes Screening Diabetes Screening [facility] Start: 03-27-2027 Diabetes Screening Diabetes Screening [facility] Start: 03-08-2027 Diabetes Screening Diabetes Screening [facility] Start: 11-16-2026 Screening for osteoporosis Bone Density Screening [facility] Start: 03-24-2026 DIABETES SCREEN DIABETES SCREEN [facility] Start: 03-24-2026 Diabetes Screening Diabetes Screening [facility] Start: 08-03-2025 DIABETES SCREEN DIABETES SCREEN [facility] Start: 05-07-2025 Influenza vaccination [facility] Start: 04-09-2025 DIABETES SCREEN DIABETES SCREEN [facility] Start: 04-04-2025 End: 04-04-2025 Patient encounter procedure 04/04/2025 10:00 AM EDT Office Visit [facility] [address] [place] [address] Deejay Anderson MD [address] [place] [id number] Medicare Wellness [facility] Comment on above: Medicare Wellness Start: 03-28-2025 End: 03-28-2025 Patient encounter procedure [facility] Comment on above: Medicare Wellness Start: 03-27-2025 Complete blood count Hemoglobin/Hematocrit [facility] Start: 03-27-2025 Creatinine measurement Serum Creatinine [facility] Start: 03-24-2025 Annual PCP Team Chronic Disease Visit Annual PCP Team Chronic Disease Visit [facility] Start: 03-24-2025 BP Controlled (<130/80) BP Controlled (<130/80) [facility] in Start: 03-24-2025 Depression Screening Depression Screening [facility] Start: 03-24-2025 RSV Vaccine (1 - 1-dose 60+ series) RSV Vaccine (1 - 1-dose 60+ series) [facility] Comment on above: Postponed from 2003 (Insurance Cov erage) Start: 03-24-2025 RSV Vaccine (1 - 1-dose 75+ series) RSV Vaccine (1 - 1-dose 75+ series) [facility] Comment on above: Postponed from 2018 (Insurance Cov erage) Start: 03-16-2025 DIABETES SCREEN DIABETES SCREEN [facility] Start: 03-13-2025 End: 03-13-2025 Patient encounter procedure 03/13/2025 4:40 PM EDT Office Visit Endocrinology [address] [phone] Antoine Braswell MD [address] [place], [place] [phone] osteo follow up Endocrinology Comment on above: osteo follow up Start: 03-08-2025 Annual PCP Team Chronic Disease Visit Annual PCP Team Chronic Disease Visit [facility] Start: 03-08-2025 Creatinine measurement Serum Creatinine [facility] Start: 02-27-2025 Annual PCP Team Chronic Disease Visit Annual PCP Team Chronic Disease Visit [facility] Start: 01-23-2025 End: 01-23-2025 ambulatory 01/23/2025 1:45 PM EDT Results Only Cardiology [address] [place] [address] Dx: Syncope, unspecified syncope type Cardiology Comment on above: Dx: Syncope, unspecified syncope type Start: 01-23-2025 End: 01-23-2025 Patient encounter procedure Cardiology Comment on above: Dx: Syncope, unspecified syncope type Start: 01-17-2025 Annual PCP Team Chronic Disease Visit Annual PCP Team Chronic Disease Visit [facility] Start: 12-21-2024 Creatinine measurement Serum Creatinine [facility] Start: 11-16-2024 End: 11-16-2024 Patient encounter procedure 11/16/2024 10:05 AM EDT Appointment Rad[facility] [address] [facility] [place] [place] [address] Primary hyperparathyroidism (HCC) [E21.0]; Osteoporosis without current pathological fracture, unspecified osteoporosis type [M81.0] Radiology Comment on above: Primary hyperparathyroidism (HCC) [E21.0 ]; Osteoporosis without current pathological fracture, unspecified osteoporosis type [M81.0] Start: 11-02-2024 Screening for osteoporosis Bone Density Screening [facility] Start: 10-17-2024 DIABETES SCREEN DIABETES SCREEN [facility] Start: 10-10-2024 End: 01-09-2025 25-hydroxyvitamin D3 [Mass/volume] in Serum or Plasma VITAMIN D 25 HYDROXY Lab Routine Hypercalcemia Expected: 10/10/2024, Expires: 01/09/2025 [facility] Comment on above: Expected: 10/10/2024, Expires: Start: 10-10-2024 End: 01-09-2025 Calcium [Mass/volume] in Serum or Plasma CALCIUM, TOTAL Lab Routine Hypercalcemia Expected: 10/10/2024, Expires: 01/09/2025 [facility] Work Phone: Comment on above: Expected: 10/10/2024, Expires: Start: 10-10-2024 End: 01-09-2025 Parathyrin.intact [Mass/volume] in Serum or Plasma PTH INTACT Lab Routine Hypercalcemia Expected: 10/10/2024, Expires: 01/09/2025 [facility] Comment on above: Expected: 10/10/2024, Expires: Start: 09-26-2024 End: 12-26-2024 Bacteria identified in Urine by Culture BACTERIAL CULTURE, URINE Microbiology Routine Abnormal urine odor Expected: 09/26/2024, Expires: 12/26/2024 [facility] Comment on above: Expected: 09/26/2024, Expires: Start: 09-26-2024 End: 12-26-2024 Urinalysis complete panel - Urine URINALYSIS, WITH MICROSCOPIC Lab Routine Abnormal urine odor Expected: 09/26/2024, Expires: 12/26/2024 [facility] Comment on above: Expected: 09/26/2024, Expires: Start: 09-25-2024 End: 12-25-2024 Bacteria identified in Urine by Culture [facility] Comment on above: Expected: 09/25/2024, Expires: Start: 09-25-2024 End: 12-25-2024 Urinalysis complete panel - Urine [facility] Work Phone: Comment on above: Expected: 09/25/2024, Expires: Start: 09-25-2024 End: 09-25-2024 Patient encounter procedure 09/25/2024 10:00 AM EST Office Visit Family [facility] [address] [place] [phone] Betty Jennings PA-C [address] [place] [id number] 6 month follow up [facility] Comment on above: 6 month follow up Start: 09-15-2024 End: 12-15-2024 Basic metabolic 2000 panel - Serum or Plasma BASIC METABOLIC PANEL Lab Routine Essential hypertension, benign Mixed hyperlipidemia Stage 3b chronic kidney disease (HCC) Expected: 09/15/2024, Expires: 12/15/2024 [facility] Work Phone: Comment on above: Expected: 09/15/2024, Expires: Start: 09-15-2024 End: 12-15-2024 LIPID PANEL, NONFASTING LIPID PANEL, NONFASTING Lab Routine Essential hypertension, benign Mixed hyperlipidemia Expected: 09/15/2024, Expires: 12/15/2024 [facility] Comment on above: Expected: 09/15/2024, Expires: Start: 09-06-2024 Advance Directive Discussion Advance Directive Discussion [facility] Start: 09-06-2024 Medicare Advantage Annual Wellness Visit Medicare Advantage Annual Wellness Visit [facility] Start: 05-10-2024 End: 05-10-2024 Patient encounter procedure 05/10/2024 10:00 AM EDT Appointment Radiology [address] [place] [id number] Encounter for screening for other musculoskeletal disorder [Z13.828] Radiology Comment on above: Encounter for screening for other muscul oskeletal disorder [Z13.828] Start: 09-01-2024 Influenza vaccination Influenza Vaccine (#1) [facility] Start: 05-03-2024 ANNUAL PCP TEAM CHRONIC DISEASE VISIT ANNUAL PCP TEAM CHRONIC DISEASE VISIT [facility] Start: 04-20-2024 End: 04-20-2024 Patient encounter procedure Nuclear Medicine Comment on above: Elevated alkaline phosphatase level [R74 .8] Start: 04-12-2024 End: 04-12-2024 Patient encounter procedure 04/12/2024 8:00 AM EDT Office Visit Vasculary Surgery [address] [place] [address] Syncope, unspecified syncope type [R55] [facility] Comment on above: Syncope, unspecified syncope type [R55] Start: 04-06-2024 End: 05-06-2025 US Abdomen RUQ US ABD RIGHT UPPER QUADRANT Radiology Routine Elevated alkaline phosphatase level Expected: 04/06/2024, Expires: 05/06/2025 [facility] Work Phone: Comment on above: Expected: 04/06/2024, Expires: 5 Start: 04-04-2024 End: 04-04-2024 Patient encounter procedure 04/04/2024 10:00 AM EDT Appointment [facility] [address] [place] [address] 30 day [facility] Comment on above: 30 day Start: 03-28-2024 End: 06-27-2024 ALK PHOS ISOENZYM BL ALK PHOS ISOENZYM BL Lab Routine Elevated alkaline phosphatase level Expected: 03/28/2024, Expires: 06/27/2024 [facility] Work Phone: Comment on above: Expected: 03/28/2024, Expires: 4 Start: 03-24-2024 ANNUAL PCP TEAM CHRONIC DISEASE VISIT ANNUAL PCP TEAM CHRONIC DISEASE VISIT [facility] Start: 03-24-2024 BP CONTROLLED (<130/80) BP CONTROLLED (<130/80) [facility] in Start: 03-24-2024 Complete blood count Hemoglobin/Hematocrit [facility] Start: 03-24-2024 COVID-19 VACCINE (4 - Moderna series) COVID-19 VACCINE (4 - Moderna series) [facility] Comment on above: Postponed from 10/02/2021 (Declined at t his time) Start: 03-24-2024 Creatinine measurement Serum Creatinine [facility] Start: 03-24-2024 HEMOGLOBIN/HEMATOCRIT HEMOGLOBIN/HEMATOCRIT [facility] Start: 03-24-2024 SERUM CREATININE SERUM CREATININE [facility] Start: 03-24-2024 Urine microalbumin profile [facility] Comment on above: Postponed from 07/20/2006 (Insurance Cov erage) Start: 03-24-2024 End: 03-24-2024 Patient encounter procedure 03/24/2024 1:50 PM EDT Office Visit Cardiology [address] [facility] [place] [id number] Syncope, unspecified syncope type [R55] Cardiology Comment on above: Syncope, unspecified syncope type [R55] Start: 03-24-2024 End: 03-24-2024 Patient encounter procedure 03/24/2024 9:20 AM EDT Office Visit [facility] [address] [facility] [place] [id number] Deejay Anderson MD [address] [place] [address] medicare wellness [facility] [place] Comment on above: medicare wellness Start: 03-14-2024 End: 03-14-2024 ambulatory 03/14/2024 9:40 AM EDT Results Only [facility] [address] [facility] [place] [place] [address] [facility] Start: 03-13-2024 End: 06-12-2024 Bacteria identified in Urine by Culture URINE CULTURE Microbiology Routine UTI symptoms Expected: 03/13/2024, Expires: 06/12/2024 [facility] Comment on above: Expected: 03/13/2024, Expires: Start: 03-13-2024 End: 06-12-2024 Urinalysis complete panel - Urine URINALYSIS, WITH MICROSCOPIC Lab Routine UTI symptoms Expected: 03/13/2024, Expires: 06/12/2024 [facility] Work Phone: Comment on above: Expected: 03/13/2024, Expires: Start: 02-24-2024 End: 02-24-2024 Patient encounter procedure 02/24/2024 11:00 AM EDT Office Visit [facility] [address] [place] [address] Mukesh Dempsey PA-C [address] [place] [address] DDD (degenerative disc disease), lumbar [M51.36] [facility] Comment on above: DDD (degenerative disc disease), lumbar [M51.36] Start: 02-02-2024 End: 02-02-2024 ambulatory 02/02/2024 8:15 AM EDT OT/PT/Speech Visit [facility] [address] [place] [address] OBrittnee Mejía, PT Acute midline low back pain without sciatica [M54.50] [facility] Comment on above: Acute midline low back pain without scia joan [M54.50] Start: 12-07-2023 End: 03-07-2024 25-hydroxyvitamin D3 [Mass/volume] in Serum or Plasma VITAMIN D 25 HYDROXY Lab Routine Primary hyperparathyroidism (HCC) Osteoporosis without current pathological fracture, unspecified osteoporosis type Expected: 12/07/2023, Expires: 03/07/2024 [facility] Work Phone: Comment on above: Expected: 12/07/2023, Expires: Start: 12-07-2023 End: 03-07-2024 Albumin [Mass/volume] in Serum or Plasma ALBUMIN BLD Lab Routine Primary hyperparathyroidism (HCC) Osteoporosis without current pathological fracture, unspecified osteoporosis type Expected: 12/07/2023, Expires: 03/07/2024 [facility] Work Phone: Comment on above: Expected: 12/07/2023, Expires: 4 Start: 12-07-2023 End: 03-07-2024 ALK PHOS BONE SPEC ALK PHOS BONE SPEC Lab Routine Primary hyperparathyroidism (HCC) Osteoporosis without current pathological fracture, unspecified osteoporosis type Expected: 12/07/2023, Expires: 03/07/2024 [facility] Work Phone: Comment on above: Expected: 12/07/2023, Expires: Start: 12-07-2023 End: 03-07-2024 Calcium [Mass/volume] in Serum or Plasma CALCIUM TOTAL BLD Lab Routine Primary hyperparathyroidism (HCC) Osteoporosis without current pathological fracture, unspecified osteoporosis type Expected: 12/07/2023, Expires: 03/07/2024 [facility] Work Phone: Comment on above: Expected: 12/07/2023, Expires: Start: 12-07-2023 End: 03-07-2024 Collagen crosslinked C-telopeptide [Mass/volume] in Serum or Plasma C TELOPEPTIDE, BETA Lab Routine Primary hyperparathyroidism (HCC) Osteoporosis without current pathological fracture, unspecified osteoporosis type Expected: 12/07/2023, Expires: 03/07/2024 [facility] Work Phone: Comment on above: Expected: 12/07/2023, Expires: Start: 12-07-2023 End: 03-07-2024 Creatinine and Glomerular filtration rate.predicted panel - Serum, Plasma or Blood GFR ESTIMATED Lab Routine Primary hyperparathyroidism (HCC) Osteoporosis without current pathological fracture, unspecified osteoporosis type Expected: 12/07/2023, Expires: 03/07/2024 [facility] Work Phone: Comment on above: Expected: 12/07/2023, Expires: Start: 12-07-2023 End: 03-07-2024 CREATININE BLD CREATININE BLD Lab Routine Primary hyperparathyroidism (HCC) Osteoporosis without current pathological fracture, unspecified osteoporosis type Expected: 12/07/2023, Expires: 03/07/2024 [facility] Work Phone: Comment on above: Expected: 12/07/2023, Expires: Start: 12-07-2023 End: 03-07-2024 Parathyrin.intact [Mass/volume] in Serum or Plasma PTH INTACT BLD Lab Routine Primary hyperparathyroidism (HCC) Osteoporosis without current pathological fracture, unspecified osteoporosis type Expected: 12/07/2023, Expires: 03/07/2024 [facility] Work Phone: Comment on above: Expected: 12/07/2023, Expires: 4 Start: 12-07-2023 End: 03-07-2024 Thyrotropin [Units/volume] in Serum or Plasma TSH BLD Lab Routine Multiple thyroid nodules Expected: 12/07/2023, Expires: 03/07/2024 [facility] Work Phone: Comment on above: Expected: 12/07/2023, Expires: 4 Start: 09-06-2023 Advance Directive Discussion Advance Directive Discussion [facility] Start: 09-06-2023 Behavioral Health Screening Behavioral Health Screening [facility] Start: 09-06-2023 Depression Assessment Depression Assessment [facility] Start: 08-13-2023 End: 08-27-2023 SARS-CoV-2 (COVID-19) RNA [Presence] in Respiratory specimen by ENOCH with probe detection [facility] Work Phone: Comment on above: Expected: 08/13/2023, Expires: 3 Start: 08-03-2023 HEMOGLOBIN/HEMATOCRIT HEMOGLOBIN/HEMATOCRIT [facility] Start: 08-03-2023 SERUM CREATININE SERUM CREATININE [facility] Start: 07-01-2023 ANNUAL PCP TEAM CHRONIC DISEASE VISIT ANNUAL PCP TEAM CHRONIC DISEASE VISIT [facility] Start: 05-28-2023 ANNUAL PCP TEAM CHRONIC DISEASE VISIT ANNUAL PCP TEAM CHRONIC DISEASE VISIT [facility] Start: 05-07-2023 Covid-19 Vaccine () Covid-19 Vaccine () [facility] Start: 05-07-2023 Influenza vaccination INFLUENZA (#1) [facility] Start: 04-09-2023 SERUM CREATININE SERUM CREATININE [facility] Start: 03-20-2023 Adult depression screening assessment DEPRESSION SCREENING [facility] Start: 03-20-2023 ANNUAL PCP TEAM CHRONIC DISEASE VISIT ANNUAL PCP TEAM CHRONIC DISEASE VISIT [facility] Start: 03-20-2023 BP CONTROLLED (<130/80) BP CONTROLLED (<130/80) [facility] Start: 03-20-2023 Urine microalbumin profile DTAP,TDAP,TD (1 - Tdap) [facility] Comment on above: Postponed from 07/20/2006 (Insurance Cov erage) Start: 03-16-2023 HEMOGLOBIN/HEMATOCRIT HEMOGLOBIN/HEMATOCRIT [facility] Start: 03-16-2023 SERUM CREATININE SERUM CREATININE [facility] Start: 02-06-2023 End: 03-08-2023 25-hydroxyvitamin D3 [Mass/volume] in Serum or Plasma VITAMIN D 25 HYDROXY Lab Routine Primary hyperparathyroidism (HCC) Hyperparathyroidism (HCC) Expected: 02/06/2023, Expires: 03/08/2023 [facility] Work Phone: Comment on above: Expected: 02/06/2023, Expires: 3 Start: 02-06-2023 End: 03-08-2023 Calcium [Mass/volume] in Serum or Plasma CALCIUM TOTAL BLD Lab Routine Primary hyperparathyroidism (HCC) Hyperparathyroidism (HCC) Expected: 02/06/2023, Expires: 03/08/2023 [facility] Work Phone: Comment on above: Expected: 02/06/2023, Expires: 3 Start: 02-06-2023 End: 03-08-2023 Parathyrin.intact [Mass/volume] in Serum or Plasma PTH INTACT BLD Lab Routine Primary hyperparathyroidism (HCC) Hyperparathyroidism (HCC) Expected: 02/06/2023, Expires: 03/08/2023 [facility] Work Phone: Comment on above: Expected: 02/06/2023, Expires: 3 Start: 10-17-2022 ANNUAL PCP TEAM CHRONIC DISEASE VISIT ANNUAL PCP TEAM CHRONIC DISEASE VISIT [facility] Start: 10-17-2022 SERUM CREATININE SERUM CREATININE [facility] Start: 09-06-2022 ADVANCE DIRECTIVE DISCUSSION ADVANCE DIRECTIVE DISCUSSION [facility] Start: 09-06-2022 DEPRESSION ASSESSMENT DEPRESSION ASSESSMENT [facility] Start: 08-24-2022 End: 10-24-2022 Calcium [Mass/volume] in Serum or Plasma CALCIUM TOTAL BLD Lab Routine Primary hyperparathyroidism (HCC) Hyperparathyroidism (HCC) Expected: 08/24/2022, Expires: 10/24/2022 [facility] Work Phone: Comment on above: Expected: 08/24/2022, Expires: 3 Start: 08-24-2022 End: 10-24-2022 Parathyrin.intact [Mass/volume] in Serum or Plasma PTH INTACT BLD Lab Routine Primary hyperparathyroidism (HCC) Hyperparathyroidism (HCC) Expected: 08/24/2022, Expires: 10/24/2022 [facility] Work Phone: Comment on above: Expected: 08/24/2022, Expires: 3 Start: 08-13-2022 End: 06-30-2023 SARS-CoV-2 (COVID-19) RNA [Presence] in Respiratory specimen by ENOCH with probe detection PRE-PROCEDURE & PRE-OPERATIVE COVID Microbiology Routine Primary hyperparathyroidism (HCC) Expected: 08/13/2022, Expires: 06/30/2023 [facility] Work Phone: Comment on above: Expected: 08/13/2022, Expires: 3 Start: 08-13-2022 US THYROID/PARATHYROID (POC) ENDO USE ONLY US THYROID/PARATHYROID (POC) ENDO USE ONLY Imaging Diagnostic Routine Primary hyperparathyroidism (HCC) Expected: 08/13/2022 [facility] Work Phone: Comment on above: Expected: 08/13/2022 Start: 07-28-2022 HEMOGLOBIN/HEMATOCRIT HEMOGLOBIN/HEMATOCRIT [facility] Start: 06-30-2022 End: 06-30-2023 Basic metabolic 2000 panel - Serum or Plasma BASIC METABOLIC PNL Lab Routine Primary hyperparathyroidism (HCC) Expected: 06/30/2022, Expires: 06/30/2023 [facility] Work Phone: Comment on above: Expected: 06/30/2022, Expires: 3 Start: 06-30-2022 End: 06-30-2023 CBC W Auto Differential panel - Blood CBC + DIFF Lab Routine Primary hyperparathyroidism (HCC) Expected: 06/30/2022, Expires: 06/30/2023 [facility] Work Phone: Comment on above: Expected: 06/30/2022, Expires: 3 Start: 06-30-2022 End: 08-30-2022 Parathyrin.intact [Mass/volume] in Serum or Plasma PTH INTACT BLD Lab Routine Primary hyperparathyroidism (HCC) Expected: 06/30/2022, Expires: 08/30/2022 [facility] Work Phone: Comment on above: Expected: 06/30/2022, Expires: 2 Start: 05-26-2022 Patient discharge [facility] Work Phone: Start: 05-07-2022 Influenza vaccination INFLUENZA (#1) [facility] Start: 04-28-2022 End: 05-28-2023 Dxa bone density study / sites axial skel DXA-AXIAL SKELETON Radiology Routine Osteoporosis, unspecified osteoporosis type, unspecified pathological fracture presence Expected: 04/28/2022, Expires: 05/28/2023 [facility] Work Phone: Comment on above: Expected: 04/28/2022, Expires: 3 Start: 03-24-2022 End: 05-24-2022 25-hydroxyvitamin D3 [Mass/volume] in Serum or Plasma VITAMIN D 25 HYDROXY Lab Routine Serum calcium elevated Increased PTH level Expected: 03/24/2022 (Approximate), Expires: 05/24/2022 [facility] Work Phone: Comment on above: Expected: 03/24/2022 (Approximate), Expi res: 05/24/2022 Start: 03-24-2022 End: 05-24-2022 CALCIUM 24 HR URINE CALCIUM 24 HR URINE Lab Routine Serum calcium elevated Increased PTH level Expected: 03/24/2022 (Approximate), Expires: 05/24/2022 [facility] Work Phone: Comment on above: Expected: 03/24/2022 (Approximate), Expi res: 05/24/2022 Start: 03-24-2022 End: 05-24-2022 Calcium.ionized [Moles/volume] in Blood CALCIUM IONIZED BLOOD Lab Routine Serum calcium elevated Increased PTH level Expected: 03/24/2022 (Approximate), Expires: 05/24/2022 [facility] Work Phone: Comment on above: Expected: 03/24/2022 (Approximate), Expi res: 05/24/2022 Start: 03-24-2022 End: 05-24-2022 Comprehensive metabolic 2000 panel - Serum or Plasma COMP METABOLIC PANEL Lab Routine Serum calcium elevated Increased PTH level Expected: 03/24/2022 (Approximate), Expires: 05/24/2022 [facility] Work Phone: Comment on above: Expected: 03/24/2022 (Approximate), Expi res: 05/24/2022 Start: 03-24-2022 End: 05-24-2022 CREATININE 24 HR UR CREATININE 24 HR UR Lab Routine Serum calcium elevated Increased PTH level Expected: 03/24/2022 (Approximate), Expires: 05/24/2022 [facility] Work Phone: Comment on above: Expected: 03/24/2022 (Approximate), Expi res: 05/24/2022 Start: 03-24-2022 End: 05-24-2022 Parathyrin.intact [Mass/volume] in Serum or Plasma PTH INTACT BLD Lab Routine Serum calcium elevated Increased PTH level Expected: 03/24/2022 (Approximate), Expires: 05/24/2022 [facility] Work Phone: Comment on above: Expected: 03/24/2022 (Approximate), Expi res: 05/24/2022 Start: 03-24-2022 End: 05-24-2022 Phosphate [Mass/volume] in Serum or Plasma PHOSPHORUS INORGANIC Lab Routine Serum calcium elevated Increased PTH level Expected: 03/24/2022 (Approximate), Expires: 05/24/2022 [facility] Work Phone: Comment on above: Expected: 03/24/2022 (Approximate), Expi res: 05/24/2022 Start: 01-30-2022 End: 04-01-2022 Calcium [Mass/volume] in Serum or Plasma CALCIUM TOTAL BLD Lab Routine Hypercalcemia Expected: 01/30/2022, Expires: 04/01/2022 [facility] Work Phone: Comment on above: Expected: 01/30/2022, Expires: 2 Start: 01-30-2022 End: 04-01-2022 PTH INTACT BLD PTH INTACT BLD Lab Routine Hypercalcemia Expected: 01/30/2022, Expires: 04/01/2022 [facility] Work Phone: Comment on above: Expected: 01/30/2022, Expires: 2 Start: 01-13-2022 Urine microalbumin profile DTAP,TDAP,TD (1 - Tdap) [facility] Comment on above: Postponed from 07/20/2006 (Insurance Cov erage) Start: 12-06-2021 COVID-19 VACCINE (4 - Booster for Moderna series) COVID-19 VACCINE (4 - Booster for Moderna series) [facility] Start: 10-23-2021 BP CONTROLLED (<130/80) BP CONTROLLED (<130/80) [facility] Start: 10-02-2021 COVID-19 VACCINE (4 - Booster for Moderna series) COVID-19 VACCINE (4 - Booster for Moderna series) [facility] Start: 09-06-2021 ADVANCE DIRECTIVE DISCUSSION ADVANCE DIRECTIVE DISCUSSION [facility] Start: 09-06-2021 DEPRESSION ASSESSMENT DEPRESSION ASSESSMENT [facility] Start: 07-20-2006 Urine microalbumin profile [facility] sunil Start: 2003 RSV Vaccine (1 - 1-dose 60+ series) RSV Vaccine (1 - 1-dose 60+ series) [facility] Bacteria identified in Urine by Culture URINE CULTURE Microbiology Routine UTI symptoms 05/03/2023 2:31 PM EDT [facility] Work Phone: End: 01-05-2025 BD DXA TRABECULAR BONE SCORE (TBS) BD DXA TRABECULAR BONE SCORE (TBS) Radiology Routine Primary hyperparathyroidism (HCC) Osteoporosis without current pathological fracture, unspecified osteoporosis type 1 Occurrences starting 12/07/2023 until 01/05/2025 [facility] Work Phone: Comment on above: 1 Occurrences starting 12/07/2023 until 01/05/2025 BD DXA TRABECULAR GEORGE NE SCORE (TBS) BD DXA TRABECULAR BONE SCORE (TBS) Radiology Routine Primary hyperparathyroidism (HCC) Osteoporosis without current pathological fracture, unspecified osteoporosis type 11/16/2024 10:31 AM EDT [facility] End: 02-16-2026 DBT Breast - bilateral screening JAMIL SCREENING W ALEJANDRO Radiology Routine Screening mammogram for breast cancer 1 Occurrences starting 01/17/2025 until 02/16/2026 [facility] Work Phone: Comment on above: 1 Occurrences starting 01/17/2025 until 02/16/2026 DBT Breast - bilater al screening JAMIL SCREENING W ALEJANDRO Radiology Routine Screening mammogram for breast cancer 01/17/2025 1:51 PM T [facility] End: 05-28-2023 Dxa bone density study 1/>sites appendiclr skel DXA-FOREARM SKELETON Radiology Routine Osteoporosis, unspecified osteoporosis type, unspecified pathological fracture presence 1 Occurrences starting 04/28/2022 until 05/28/2023 [facility] Work Phone: Comment on above: 1 Occurrences starting 04/28/2022 until 05/28/2023 End: 01-05-2025 DXA Skeletal system.axial Views for bone density DXA-AXIAL SKELETON Radiology Routine Primary hyperparathyroidism (HCC) Osteoporosis without current pathological fracture, unspecified osteoporosis type 1 Occurrences starting 12/07/2023 until 01/05/2025 [facility] Work Phone: Comment on above: 1 Occurrences starting 12/07/2023 until 01/05/2025 DXA Skeletal system. axial Views for bone density DXA-AXIAL SKELETON Radiology Routine Primary hyperparathyroidism (HCC) Osteoporosis without current pathological fracture, unspecified osteoporosis type 11/16/2024 10:31 AM T [facility] Work Phone: End: 01-05-2025 DXA-FOREARM SKELETON DXA-FOREARM SKELETON Radiology Routine Primary hyperparathyroidism (HCC) Osteoporosis without current pathological fracture, unspecified osteoporosis type 1 Occurrences starting 12/07/2023 until 01/05/2025 [facility] Work Phone: Comment on above: 1 Occurrences starting 12/07/2023 until 01/05/2025 DXA-FOREARM SKELETON DXA-FOREARM SKELETON Radiology Routine Primary hyperparathyroidism (HCC) Osteoporosis without current pathological fracture, unspecified osteoporosis type 11/16/2024 10:31 AM EDT [facility] End: 06-30-2023 ECG COMPLETE ECG COMPLETE ECG Routine Primary hyperparathyroidism (HCC) 1 Occurrences starting 06/30/2022 until 06/30/2023 [facility] Work Phone: Comment on above: 1 Occurrences starting 06/30/2022 until 06/30/2023 End: 07-10-2025 ECG COMPLETE ECG COMPLETE ECG Routine Syncope, unspecified syncope type Abnormal Holter exam 1 Occurrences starting 07/10/2024 until 07/10/2025 [facility] Work Phone: Comment on above: 1 Occurrences starting 07/10/2024 until 07/10/2025 End: 03-08-2025 Echocardiography ECHO Cardiology Routine Syncope, unspecified syncope type 1 Occurrences starting 03/08/2024 until 03/08/2025 [facility] Comment on above: 1 Occurrences starting 03/08/2024 until 03/08/2025 [email or web address] EVENT MONITOR [email or web address] Cardiology Routine Syncope, unspecified syncope type Ordered: 03/08/2024 [facility] Comment on above: Ordered: 03/08/2024 End: 11-06-2024 JAMIL DIAGNOSTIC BILATERAL JAMIL DIAGNOSTIC BILATERAL Radiology Routine Abnormal mammogram 1 Occurrences starting 10/08/2023 until 11/06/2024 [facility] Work Phone: Comment on above: 1 Occurrences starting 10/08/2023 until 11/06/2024 JAMIL SCREENING W ALEJANDRO JAMIL SCREENI NG W ALEJANDRO Radiology Routine Encounter for screening mammogram for breast cancer Dense breast tissue 10/07/2023 1:14 PM EST [facility] Work Phone: End: 05-20-2025 MR Pelvis WO and W contrast IV MRI PELVIS ORTHO GENERAL WO/W IVCON Radiology Routine Encounter for screening for other musculoskeletal disorder 1 Occurrences starting 04/20/2024 until 05/20/2025 [facility] Work Phone: Comment on above: 1 Occurrences starting 04/20/2024 until 05/20/2025 End: 05-06-2025 NM Whole body Bone Views NM BONE WHOLE BODY Radiology Routine Elevated alkaline phosphatase level 1 Occurrences starting 04/06/2024 until 05/06/2025 [facility] Comment on above: 1 Occurrences starting 04/06/2024 until 05/06/2025 End: 05-28-2023 Parathyroid imaging w/tomographic spect & ct NM PARATHYROID W SPECT/CT Radiology Routine Hypercalcemia 1 Occurrences starting 04/28/2022 until 05/28/2023 [facility]: Comment on above: 1 Occurrences starting 04/28/2022 until 05/28/2023 Patient referral [facility] Work Phone: End: 03-26-2023 Radex spine lumbosacral 2/3 views XR LUMBAR GENERAL 3V AP/LAT/L5-S1 Radiology Routine Increased PTH level 1 Occurrences starting 02/24/2022 until 03/26/2023 [facility] Work Phone: Comment on above: 1 Occurrences starting 02/24/2022 until 03/26/2023 End: 03-26-2023 Radex spine thoracic 2 views XR THORACIC LIMITED 2V AP/LAT Radiology Routine Increased PTH level 1 Occurrences starting 02/24/2022 until 03/26/2023 [facility]: Comment on above: 1 Occurrences starting 02/24/2022 until 03/26/2023 REFER FOR ADMIT INTERVIEW REFER FOR ADMIT INTERVIEW Procedures Routine Primary hyperparathyroidism (HCC) Ordered: 06/30/2022 [facility] Work Phone: Comment on above: Ordered: 06/30/2022 End: 11-06-2024 US BREAST LTD LEFT US BREAST LTD LEFT Radiology Routine Abnormal mammogram 1 Occurrences starting 10/08/2023 until 11/06/2024 [facility] Work Phone: Comment on above: 1 Occurrences starting 10/08/2023 until 11/06/2024 End: 11-06-2024 US BREAST LTD RIGHT US BREAST LTD RIGHT Radiology Routine Abnormal mammogram 1 Occurrences starting 10/08/2023 until 11/06/2024 [facility]: Comment on above: 1 Occurrences starting 10/08/2023 until 11/06/2024 End: 03-08-2025 US Carotid arteries - bilateral US CAROTID ARTERIES [facility] Vascular Lab Routine Syncope, unspecified syncope type 1 Occurrences starting 03/08/2024 until 03/08/2025 [facility] Work Phone: Comment on above: 1 Occurrences starting 03/08/2024 until 03/08/2025 End: 05-28-2023 US LEG VEIN DVT [facility] US LEG VEIN DVT [facility] Vascular Lab Routine Pain of right lower extremity 1 Occurrences starting 05/28/2022 until 05/28/2023 [facility] Work Phone: Comment on above: 1 Occurrences starting 05/28/2022 until 05/28/2023 End: 03-26-2023 Us soft tissue head & neck real time imge docm US THYROID/PARATHYROID Radiology Routine Increased PTH level 1 Occurrences starting 02/24/2022 until 03/26/2023 [facility] Work Phone: Comment on above: 1 Occurrences starting 02/24/2022 until 03/26/2023 End: 01-05-2025 US Thyroid gland US THYROID/PARATHYROID Radiology Routine Multiple thyroid nodules 1 Occurrences starting 12/07/2023 until 01/05/2025 [facility] Work Phone: Comment on above: 1 Occurrences starting 12/07/2023 until 01/05/2025 US Thyroid gland US THYROID/PARA THYROID Radiology Routine Multiple thyroid nodules 01/07/2024 11:05 AM EDT [facility] Work Phone: End: 04-12-2026 US Thyroid gland US THYROID/PARATHYROID Radiology Routine Multiple thyroid nodules 1 Occurrences starting 03/13/2025 until 04/12/2026 [facility] Work Phone: Comment on above: 1 Occurrences starting 03/13/2025 until 04/12/2026 US THYROID/PARATHYRO ID (POC) ENDO USE ONLY US THYROID/PARATHYROID (POC) ENDO USE ONLY Imaging Diagnostic Routine Primary hyperparathyroidism (HCC) Ordered: 06/29/2022 [facility] Work Phone: Comment on above: Ordered: 06/29/2022 End: 06-13-2025 XR Lumbar spine AP and Lateral and oblique XR LUMBAR PARS DEFECT 4V AP/LAT/BOTH OBL Radiology Routine Acute midline low back pain without sciatica 1 Occurrences starting 01/18/2024 until 02/16/2025 [facility] Work Phone: Comment on above: 1 Occurrences starting 01/18/2024 until 02/16/2025 XR Lumbar spine AP a nd Lateral and oblique XR LUMBAR PARS DEFECT 4V AP/LAT/BOTH OBL Radiology Routine Acute midline low back pain without sciatica 01/18/2024 12:06 PM EDT [facility] Immunizations Immunization Date Immunization Notes Care Provider [facility] 05-13-2024 respiratory syncytia l virus (RSV) vaccine, adjuvanted (AREXVY) Betty Jennings PA-C Work Phone: [facility] 05-13-2024 Seasonal trivalent influenza vaccine, adjuvanted, preservative free Betty Jennings PA-C Work Phone: [facility] 05-13-2024 influenza virus vacc ine, unspecified formulation Antoine Braswell MD Work Phone: [facility] 06-08-2023 influenza, high dose seasonal, preservative-free Deejay Anderson MD Work Phone: [facility] 06-08-2023 influenza virus vacc ine, unspecified formulation Mitchell Sorensen MA [facility] 06-16-2022 influenza (aIIV4) vaccine, age 65+ yr, quadrivalent, PF (FLUAD QUADRIVALENT) Deejay Anderson MD Work Phone: [facility] 03-20-2022 pneumococcal (PCV20) vaccine, 20 valent (PREVNAR 20) Deejay Anderson MD Work Phone: [facility] 03-20-2022 pneumococcal Conjuga te, unspecified formulation Deejay Anderson MD Work Phone: [facility] Work Phone: 05-22-2021 influenza, high dose seasonal, preservative-free Deejay Anderson MD Work Phone: [facility] 12-03-2020 COVID-19 vaccine, fu ll dose (MODERNA) Deejay Anderson MD Work Phone: [facility] Work Phone: 11-05-2020 COVID-19 vaccine, fu ll dose (MODERNA) Deejay Anderson MD Work Phone: [facility] 05-25-2020 influenza, high dose seasonal, preservative-free Deejay Anderson MD Work Phone: [facility] 06-23-2019 influenza, high dose seasonal, preservative-free Deejay Anderson MD Work Phone: [facility] 05-30-2018 influenza, high dose seasonal, preservative-free Deejay Anderson MD Work Phone: [facility] 06-24-2017 influenza, high dose seasonal, preservative-free Deejay Anderson MD Work Phone: [facility] 04-09-2016 pneumococcal conjuga te vaccine, 13 valent Deejay Anderson MD Work Phone: [facility] 07-11-2015 influenza, high dose seasonal, preservative-free Deejay Anderson MD Work Phone: [facility] 11-09-2013 zoster vaccine, live Deejay Anderson MD Work Phone: [facility] 07-27-2013 influenza virus vacc ine, unspecified formulation Deejay Anderson MD Work Phone: [facility] 06-17-2012 influenza virus vacc ine, unspecified formulation Deejay Anderson MD Work Phone: [facility] 12-05-2010 pneumococcal polysaccharide vaccine, 23 valent Deejay Anderson MD Work Phone: [facility] 07-19-2006 influenza virus vacc ine, unspecified formulation Deejay Anderson MD Work Phone: [facility] Work Phone: 07-19-2006 tetanus and diphther ia toxoids, adsorbed, preservative free, for adult use (2 Lf of tetanus toxoid and 2 Lf of diphtheria toxoid) Deejay Anderson MD Work Phone: [facility] Work Phone: Payers Date Payer Category Payer Self-pay [id number] 2019 Medicare UHC AAR MEDICAR E [facility] MED[facility] HMO [id number] 2019-Present [phone] [address] [address] [place] [address] O [id number] 2019 Medicare UHC AAR MEDICAR E [facility] MEDICARE O [id number] 2019-Present [phone] [address] [address] [place] [address] HMO [id number] 2019 Medicare (Managed Care) [facility] MEDICARE HMO [id number] 2019 Unknown [id number] 2008 Medicare MEDICARE PART A B [id number] 1959 Medicare [id number] 1959 Unknown [id number] 1943 Unknown [id number] Unknown [id number] Unknown [id number] Unknown [id number] Social History Date Type Detail Facility Start: 04-28-2022 [facility] Work Phone: Start: 10-17-2021 End: 07-01-2022 Alcohol intake Current drinker of alcohol (finding) [facility] Start: 10-17-2021 End: 03-24-2023 Alcohol intake [facility] Work Phone: Start: 09-28-2019 End: 09-30-2020 History SDOH Social Connections Phone 5 [facility] Start: 09-28-2019 History SDOH Social Connections Get Together 2 [facility] Start: 09-30-2020 History SDOH Social Connections Christianity 3 [facility] Start: 09-28-2019 End: 09-30-2020 History SDOH Social Connections Membership 1 [facility] Start: 09-30-2020 History SDOH Physica l Activity DPW 0 [facility] Start: 09-30-2020 Education 13 [facility] Start: 1945 Sex Assigned At Not on file [facility] Start: 10-06-2021 End: 08-10-2022 Exposure to SARS-CoV-2 (event) Not sure [facility] History of tobacco use Current smoker [facility] Start: 04-28-2022 Tobacco use and exposure Smoke less tobacco non-user [facility] Start: 04-28-2022 Tobacco Comment QUIT 1976 [facility] Start: 05-25-2022 Tobacco smoking stat us NHIS Unknown if ever smoked [facility] Work Phone: Start: 1945 Sex Assigned At Female W [facility] Work Phone: Start: 08-03-2022 End: 03-13-2025 Alcohol intake Ex-drinker (finding) [facility] Start: 09-30-2020 End: 03-24-2023 Social connection and isolation panel [facility] Work Phone: Frequency of Social Gatherings with Friends and Family Not on file [facility] Do you belong to any clubs or organizations such as voodoo groups, unions, fraternal or athletic groups, or school groups? Yes [facility] Work Phone: Are you now , , , , never or living with a partner? [facility] Work Phone: Do you feel stress - tense, restless, nervous, or anxious, or unable to sleep at night because your mind is troubled all the time - these days [OSQ] Not at all [facility] Work Phone: (I/We) worried wheth er (my/our) food would run out before (I/we) got money to buy more. Never true [facility] How many standard dr inks containing alcohol do you have on a typical day? 1 or 2 [facility] How often do you hav e 6 or more drinks on 1 occasion? Never [facility] Medical Equipment Procedure Code Equipment Code Equipment Origin al Text Equipment Identifier Dates CEMENT,BONE OLGA H 1/2 BATCH FDA Start: 07-09-2021 ([id number]) Coated knee femu r prosthesis ()[id number] FDA Start: 07-09-2021 ([id number]) Coated knee tibi a prosthesis ()[id number] FDA Start: 07-09-2021 ([id number]) Polyethylene pat agus prosthesis ()[id number] FDA Start: 07-09-2021 ([id number]) Tibial insert [id number] FDA Start: 07-09-2021 Goals Date Patient Goal Desired Activity /State Functional Status Date Assessment Result Facility 08-14-2022 Are you deaf, or do you have serious difficulty hearing No 08/14/2022 10:00 AM Zulema Bruce, YEIMI No [facility] 08-14-2022 Are you blind, or do you have serious difficulty seeing, even when wearing glasses No 08/14/2022 10:00 AM Zulema Bruce, YEIMI No [facility] 08-14-2022 Do you have serious difficulty walking or climbing stairs No 08/14/2022 10:00 AM Zulema Bruce, YEIMI No [facility] 08-14-2022 Do you have difficul ty dressing or bathing No 08/14/2022 10:00 AM Zulema Bruce, YEIMI [facility] 08-14-2022 Because of a physica l, mental, or emotional condition, do you have difficulty doing errands alone such as visiting a physician's office or shopping No 08/14/2022 10:00 AM Zulema Bruce, YEIMI No [facility] Mental Status Date Assessment Result Facility 08-14-2022 Because of a physica l, mental, or emotional condition, do you have serious difficulty concentrating, remembering, or making decisions No 08/14/2022 10:00 AM Zulema Bruce, YEIMI [facility] 05-26-2022 Cognitive function Voice/Name [facility] Work Phone: Clinical Notes 05-24-2017 to 03-13-2025 Patient InstructionsAntoine Braswell MD - 03/13/2025 4:32 PM EDTTelephone Encounter - Mitchell Sorensen MA - 02/05/2025 9:59 AM EDTTelephone Encounter - Mitchell Sorensen MA - 02/05/2025 9:59 AM EDT Note Date & Type Note Facility 03-13-2025 Instructions Antoine Braswell MD - 03/13/2025 5:05 PM EDT - Please do thyroid ultrasound. Call [phone] to schedule - I will update you about the results and next steps - Continue Fosamax once a week - Follow up in one year documented in this encounter [facility] 03-13-2025 Note HNO ID: [id number] Author: ANTOINE BRASWELL MD Service: ? Author Type: Physician Type: Progress Notes Filed: 03/13/2025 17:15 Note Text: ENDOCRINOLOGY CLINIC NOTE Ms. Ndiaye is a pleasant 77 year old female with osteoporosis, HTN, dyslipidemia, stage III CKD presented for follow-up of hypercalcemia and low bone density HPI Hypercalcemia: Ms. Ndiaye has had mild hypercalcemia since 2016, when her calcium was 10.9 (corrected 10.2) with a GFR of 50. Since then, she has had mild hypercalcemia. The highest documented calcium level is 11.5 but without concomitant albumin level. Her PTH has been between 43-81. Ms. Ndiaye is known to have osteoporosis. DXA scan in 10/2020 showed lowest T score -2.4 at the left femoral neck. Comparison with the previous one could not be done because a different machine was used. She was taking HCTZ 12.5 mg daily but was stopped 12/2021. Ms. Ndiaye denied muscle aches and pains, polyuria, polydipsia, and no history of kidney stones or fractures. There is no family history of calcium related conditions. He used to take calcium and vitamin D but they were stopped few months ago. Repeat labs after optimizing her calcium and vitamin D intake showed corrected calcium 10.2, ionized calcium 1.36, vitamin D 46, P3.2, GFR 47, PTH 71 and 24-hour urine calcium 62.9. She underwent left lower parathyroidectomy by Dr. Perez on 2022. Intraoperative PTH declined from 205 to 18. Postoperative calcium and PTH were normal. Pathology showed hypercellular parathyroid tissue Interval events: She is taking Citracal petites 1 caplet (150 mg calcium but serving size is 2 caps she was no aware) + vitamin D 500 units per 2 caps Her calcium was 9.6 in 10/2024, GFR 46, PTH 45 and vitamin D 52 Thyroid nodules: Thyroid ultrasound in 02/2022 showed 4 nodules, the largest being 2.7 cm right mid cystic nodule. In office ultrasound was done in the endocrine surgery clinic showed a cystic nodule on the right measuring 2.5 cm and a subcentimeter complex isoechoic nodule on the right Repeat ultrasound in 01/2024 report reviewed. Overall stable nodules, and one of them decreased in size. Follow-up imaging annually was recommended. Osteoporosis: No fractures or falls Her bone turnover markers were not elevated in 12/2023 DXA scan 11/16/2024 Lumbar spine (L1, L2, L3, L4): 0.936 g/cm2, T-score -1.0, -0.9 TBS adjusted Lumbar spine: 2022: 0.970 g/cm2 Statistically significant decrease Right Femoral Neck: 0.599 g/cm2, T-score -2.2 Right Femoral Neck: 2022: 0.618 g/cm2 No statistically significant change Right Total Hip: 0.777 g/cm2, T-score -1.4 Right Total Hip: 2022: 0.760 g/cm2 No statistically significant change Left Femoral Neck: 0.557 g/cm2, T-score -2.6 Left Femoral Neck: 2022: 0.568 g/cm2 No statistically significant change Left Total Hip: 0.768 g/cm2, T-score -1.4 Left Total Hip: 2022: 0.775 g/cm2 No statistically significant change Right Forearm, Distal 1/3 of Radius: 0.705 g/cm2, T-score 0.2 Right Forearm: 2022: 0.726 g/cm2 No statistically significant change Fracture history: none Treatment history (including any side effects/contraindications): Fosamax 2019-present Family history of metabolic bone disease or fractures: None Risk factors: > 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 Vitamin D intake: none currently Weight bearing exercise: No structured physical activity Dental Procedure: None in the near future but may plan to do extraction next Radiation Exposure: None Height Loss: She possible lost an inch PAST MEDICAL HISTORY Diagnosis Date Advance directive discussed with patient 03/20/2022 Discussed 03/2022 Age related osteoporosis Age related osteoporosis Fosamax started 12/2018 Aortic heart murmur 10/01/2011 Arthritis of knee 08/05/2017 left knee Benign neoplasm of colon 10/21/2005 Class 1 obesity due to excess calories without serious comorbidity with body mass index (BMI) of 31.0 to 31.9 in adult 08/03/2022 Cystocele, midline 12/11/2009 Essential hypertension, benign Family history of colon cancer 03/20/2022 sister Glaucoma Hx of total knee replacement 10/05/2023 Hypercalcemia 10/19/2021 10/21/2021: Vit D stopped. Seeing Dr. French Haley as of 02/2022 Internal hemorrhoids without mention of complication 10/21/2005 Living will on file 03/20/2022 DPA: [facility] () Medicare annual wellness visit, subsequent 03/20/2022 Medicare Part B: 08/06/2008 Last done:03/20/2022 Mixed hyperlipidemia 04/09/2016 Pleural e (more content not included)... [facility] 03-13-2025 History of Present illness Narrative Images from the original note were not included. ENDOCRINOLOGY CLINIC NOTE Ms. Ndiaye is a pleasant 77 year old female with osteoporosis, HTN, dyslipidemia, stage III CKD presented for follow-up of hypercalcemia and low bone density HPI Hypercalcemia: Ms. Ndiaye has had mild hypercalcemia since 2016, when her calcium was 10.9 (corrected 10.2) with a GFR of 50. Since then, she has had mild hypercalcemia. The highest documented calcium level is 11.5 but without concomitant albumin level. Her PTH has been between 43-81. Ms. Ndiaye is known to have osteoporosis. DXA scan in 10/2020 showed lowest T score -2.4 at the left femoral neck. Comparison with the previous one could not be done because a different machine was used. She was taking HCTZ 12.5 mg daily but was stopped 12/2021. Ms. Ndiaye denied muscle aches and pains, polyuria, polydipsia, and no history of kidney stones or fractures. There is no family history of calcium related conditions. He used to take calcium and vitamin D but they were stopped few months ago. Repeat labs after optimizing her calcium and vitamin D intake showed corrected calcium 10.2, ionized calcium 1.36, vitamin D 46, P3.2, GFR 47, PTH 71 and 24-hour urine calcium 62.9. She underwent left lower parathyroidectomy by Dr. Perez on 2022. Intraoperative PTH declined from 205 to 18. Postoperative calcium and PTH were normal. Pathology showed hypercellular parathyroid tissue Interval events: She is taking Citracal petites 1 caplet (150 mg calcium but serving size is 2 caps she was no aware) + vitamin D 500 units per 2 caps Her calcium was 9.6 in 10/2024, GFR 46, PTH 45 and vitamin D 52 Thyroid nodules: Thyroid ultrasound in 02/2022 showed 4 nodules, the largest being 2.7 cm right mid cystic nodule. In office ultrasound was done in the endocrine surgery clinic showed a cystic nodule on the right measuring 2.5 cm and a subcentimeter complex isoechoic nodule on the right Repeat ultrasound in 01/2024 report reviewed. Overall stable nodules, and one of them decreased in size. Follow-up imaging annually was recommended. Osteoporosis: No fractures or falls Her bone turnover markers were not elevated in 12/2023 DXA scan 11/16/2024 Lumbar spine (L1, L2, L3, L4): 0.936 g/cm2, T-score -1.0, -0.9 TBS adjusted Lumbar spine: 2022: 0.970 g/cm2 Statistically significant decrease Right Femoral Neck: 0.599 g/cm2, T-score -2.2 Right Femoral Neck: 2022: 0.618 g/cm2 No statistically significant change Right Total Hip: 0.777 g/cm2, T-score -1.4 Right Total Hip: 2022: 0.760 g/cm2 No statistically significant change Left Femoral Neck: 0.557 g/cm2, T-score -2.6 Left Femoral Neck: 2022: 0.568 g/cm2 No statistically significant change Left Total Hip: 0.768 g/cm2, T-score -1.4 Left Total Hip: 2022: 0.775 g/cm2 No statistically significant change Right Forearm, Distal 1/3 of Radius: 0.705 g/cm2, T-score 0.2 Right Forearm: 2022: 0.726 g/cm2 No statistically significant change Fracture history: none Treatment history (including any side effects/contraindications): Fosamax 2019-present Family history of metabolic bone disease or fractures: None Risk factors: > 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 Vitamin D intake: none currently Weight bearing exercise: No structured physical activity Dental Procedure: None in the near future but may plan to do extraction next Radiation Exposure: None Height Loss: She possible lost an inch PAST MEDICAL HISTORY Diagnosis Date Advance directive discussed with patient 03/20/2022 Discussed 03/2022 Age related osteoporosis Age related osteoporosis Fosamax started 12/2018 Aortic heart murmur 10/01/2011 Arthritis of knee 08/05/2017 left knee Benign neoplasm of colon 10/21/2005 Class 1 obesity due to excess calories without serious comorbidity with body mass index (BMI) of 31.0 to 31.9 in adult 08/03/2022 Cystocele, midline 12/11/2009 Essential hypertension, benign Family history of colon cancer 03/20/2022 sister Glaucoma Hx of total knee replacement 10/05/2023 Hypercalcemia 10/19/2021 10/21/2021: Vit D stopped. Seeing Dr. French Haley as of 02/2022 Internal hemorrhoids without mention of complication 10/21/2005 Living will on file 03/20/2022 DPA: [facility] () Medicare annual wellness visit, subsequent 03/20/2022 Medicare Part B: 08/06/2008 Last done:03/20/2022 Mixed hyperlipidemia 04/09/2016 Pleural effusion on right 04/01/2019 Postmenopausal atrophic vaginitis 12/11/2009 Situational anxiety 03/24/2023 mainly related to husbands health Stage 3a chronic kidney disease (HCC) 12/19/2020 Stage 3b chronic kidney disease (HCC) 12/19/2020 Symptomatic menopausal or female climacteric states Trochanteric bursitis, right hip 2018 Unilateral primary osteoarthritis, left knee 2018 Vasovagal syncope 10/01/2011 PAST SURGICAL HISTORY Procedure Laterality Date ARTHRP KNE CONDYLE&PLATU MEDIAL&LAT COMPARTMENTS Right 08/17/2011 Dr. 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 left dorsal hand skin lesion MAL LESION TRUNK,ARM,LEG 1.1-2.0 CM Right 12/14/2015 Exc. right dorsal forearm lesion PAST SURGICAL HISTORY OF Right 11/2020 right hip tendon repairs PT ED ENDOCRINOLOGY Left 08/2022 one on the left side TOTAL KNEE REPLACEMENT Left 07/09/2021 TOTAL KNEE REPLACEMENT Left 07/2021 FAMILY HISTORY Problem Relation Age of Onset Stroke Mother 88 Alcohol/Drug Father Hypertension Father Breast Cancer Sister Colon Cancer Sister 79 No Known Problems Maternal Grandmother No Known Problems Maternal Grandfather No Known Problems Paternal Grandmother No Known Problems Paternal Grandfather No Known Problems Son Diabetes Son No Known Problems Son Social History Tobacco Use Smoking status: Former Smokeless tobacco: Never Tobacco comments: QUIT 1976 Vaping Use Vaping status: Never Used Substance Use Topics Alcohol use: Not Currently Alcohol/week: 1.0 standard drink of alcohol Types: 1 Shots of liquor per week Drug use: No (Not in a hospital admission) Allergies As of Date: 03/13/2025 Allergen Noted Reaction SUTURES 02/14/2013 Hives LISINOPRIL 02/24/2022 Cough MONOPRIL [FOSINOPRIL SODIUM] 07/15/2005 Cough Fully Assessed 09/25/2024 Current Outpatient Medications Medication Sig Dispense Refill amLODIPine (NORVASC) 5 mg tablet Take 1 tablet by mouth once daily. 90 tablet 1 spironolactone (ALDACTONE) 25 mg tablet Take 1 tablet by mouth once daily. 90 tablet 1 simvastatin (ZOCOR) 20 mg tablet Take 1 tablet by mouth daily at bedtime. 90 tablet 3 alendronate (FOSAMAX) 70 mg tablet Take 1 tablet by mouth one time a week. In AM with cup of water on empty stomach. Nothing else by mouth and stay upright for 30 min. 12 tablet 3 lisinopril (ZESTRIL) 40 mg tablet Take 1 tablet by mouth once daily. 90 tablet 3 calcium citrate/vitamin D3 (CITRACAL + D PETITES ORAL) Take 2 tablets by mouth once daily. No current facility-administered medications for this visit. COMPLETE REVIEW OF SYSTEMS: Answers submitted by the patient for this visit: Core Review of Systems (Submitted on 03/06/2025) Fever : No Night sweats: No Recent unintentional weight change: No Nasal Congestion: No Hearing Loss: No Vision Disturbance: No A cough: No Difficulty Breathing?: No Chest pain: No Irregular heartbeat: No Leg Swelling: No Nausea: No Diarrhea: No Black tarry stools: No Difficulty Urinating?: No Awaken at Night More Than Once to Urinate?: No Joint pain or stiffness: No Muscle aches: No Leg or Foot Discomfort at Night?: No A rash: No Dizziness: No Headaches: No Memory Loss: No Seizures: No PHYSICAL EXAM: 03/13/25 1640 BP: 145/81 Pulse: (!) 59 Resp: 16 SpO2: 98% Weight: 84.8 kg (186 lb 15.2 oz) Height: 162.6 cm (5' 4.02) General: NAD, alert and cooperative Previous exam HEENT: EOMI, no proptosis/stare. Neck: supple with full ROM. No thyromegaly. There is a possible left lower thyroid nodule Cardiovascular: RRR, +S1 and S2. There is a left parasternal systolic murmur lungs: Clear to auscultation bilaterally Abdomen: soft, non-tender, non-distended, +BS, no striae Extremities: No LE oedema Neuro: No tremor of outstretched hands noted. Deep tendon reflexes are normal with a normal relaxation phase. Psych: Normal affect Labs: 11/20/2021 11:15 12/25/2021 12:07 01/27/2022 11:35 Calcium 10.7 (H) 10.7 (H) 10.9 (H) Vitamin D 25 Hydroxy 52.8 PTH, Intact 59 81 (H) Images: DXA scans and thyroid ultrasound as mentioned above Assessment and Recommendations: Ms. De León is a pleasant 79-year-old woman presented with her for evaluation and management of hypercalcemia. She also has osteoporosis. Hypercalcemia: She has had hypercalcemia with PTH in the upper half of normal and normal vitamin D. This is therefore PTH dependent hypercalcemia consistent with primary hyperparathyroidism. FHH is unlikely given the age of onset of the hypercalcemia, the lack of family history and the degree of hypercalcemia of 11.5 at one point. Repeat labs after stopping the HCTZ showed a similar picture. Her 24-hour urine calcium is low, likely in the setting of CKD and inadequate calcium intake. The picture is consistent with primary hyperparathyroidism and given the presence of CKD, osteoporosis and the degree of hypercalcemia, surgical intervention was recommended. She underwent left lower parathyroidectomy by Dr. Perez and had postoperative parathyroid and calcium levels were normal.. We will continue with the current calcium and vitamin D intake. Her most recent PTH, vitamin D and calcium were normal. Will recheck next year Thyroid nodules: Thyroid ultrasound showed several thyroid nodules that have been stable. One of the nodules decreased in size. We will repeat the ultrasound now Low bone density: Most recent DXA from 11/2024 showed lowest T-score -2.6 at the femoral neck, with some decline at the spine and stability at the other sites. Her bone turnover markers were not elevated and she has not had fragility fractures. Given that the parameters are still within the osteoporosis range, we will continue Fosamax and we will recheck her bone turnover markers next year, and DXA scan in 2026. RTC in 1 year Some of the above has been copied from prior documentation on 12/07/2023 but barry elements reviewed, confirmed, and/or updated by me (Antoine Braswell MD) on 03/13/2025 Medical Decision Making: Problems: Moderate: 2+ stable chronic illnesses Data: Unique test result(s) reviewed: 3+ Unique test(s) ordered: 1 Risk: Moderate: Moderate risk from testing/treatment Medical Decision Making Level: 4 - Moderate Antoine Braswell MD documented in this encounter [facility] 02-05-2025 Telephone encounter Note Prescription Refill Information The patient has been identified by name and date of : Yes Caregiver verified no other encounters exist for this prescription request: Yes Caregiver confirmed with patient/requestor that no other refills are due, in the near future, with this provider at this time: Yes The last office visit in the department: 09/2024 Does the patient have a future office visit with this provider/department: Yes Requested Prescriptions Pending Prescriptions Disp Refills amLODIPine (NORVASC) 5 mg tablet 90 tablet 1 Sig: Take 1 tablet by mouth once daily. spironolactone (ALDACTONE) 25 mg tablet 90 tablet 1 Sig: Take 1 tablet by mouth once daily. Mitchell Sorensen MA February 05, 2025 9:59 AM [facility] 02-05-2025 Miscellaneous Notes Prescription Refill Information The patient has been identified by name and date of : Yes Caregiver verified no other encounters exist for this prescription request: Yes Caregiver confirmed with patient/requestor that no other refills are due, in the near future, with this provider at this time: Yes The last office visit in the department: 09/2024 Does the patient have a future office visit with this provider/department: Yes Requested Prescriptions Pending Prescriptions Disp Refills amLODIPine (NORVASC) 5 mg tablet 90 tablet 1 Sig: Take 1 tablet by mouth once daily. spironolactone (ALDACTONE) 25 mg tablet 90 tablet 1 Sig: Take 1 tablet by mouth once daily. Mitchell Sorensen MA February 05, 2025 9:59 AM documented in this encounter [facility] 01-22-2025 Telephone encounter Note Pt notified of same. Raina Murry LPN [facility] 01-22-2025 Miscellaneous Notes Pt notified of efren. Raina Murry LPN ----- Message from Betty Jennings PA-C sent at 01/22/2025 9:01 AM EDT ----- Normal mammogram. Repeat in 1 year. documented in this encounter [facility] 01-22-2025 Telephone encounter Note ----- Message from Betty Jennings PA-C sent at 01/22/2025 9:01 AM EDT ----- Normal mammogram. Repeat in 1 year. [facility] 01-17-2025 History of Present illness Narrative Radiology Service Progress Note PATIENT NAME: Karla Ndiaye DATE OF SERVICE: January 17, 2025 TIME: 1:50 PM PATIENT IDENTITY VERIFICATION COMPLETED USING TWO (2) IDENTIFIERS: Name and Date of confirmed by patient verbally. FALL SCREENING: Has the patient had 2 falls in the last year or 1 fall with injury or currently using an Ambulatory Assistive Device (Walker, Cane, Wheelchair, Crutches, etc.)? No PATIENT GENDER DATA: Assigned female at . status: : No status: NO. PATIENT RELEVANT IMPLANT DATA REVIEWED: Not Applicable PATIENT PRESENTS WITH AN IMPLANTABLE OR ATTACHED GOLD LAYER: No RADIOLOGY DEPARTMENT: Mammography PERIPHERAL IV DATA: Not applicable SIGNED BY: Jay Cannon January 17, 2025 1:50 PM documented in this encounter [facility] 01-17-2025 Note HNO ID: [id number] Author: CAMRYN JUAN Mammo Tech Service: ? Author Type: Sole Blacker Type: Progress Notes Filed: 01/17/2025 13:50 Note Text: Radiology Service Progress Note PATIENT NAME: Karla Ndiaye DATE OF SERVICE: January 17, 2025 TIME: 1:50 PM PATIENT IDENTITY VERIFICATION COMPLETED USING TWO (2) IDENTIFIERS: Name and Date of confirmed by patient verbally. FALL SCREENING: Has the patient had 2 falls in the last year or 1 fall with injury or currently using an Ambulatory Assistive Device (Walker, Cane, Wheelchair, Crutches, etc.)? No PATIENT GENDER DATA: Assigned female at . status: : No status: NO. PATIENT RELEVANT IMPLANT DATA REVIEWED: Not Applicable PATIENT PRESENTS WITH AN IMPLANTABLE OR ATTACHED GOLD LAYER: No RADIOLOGY DEPARTMENT: Mammography PERIPHERAL IV DATA: Not applicable SIGNED BY: Camryn Juan [employer] January 17, 2025 1:50 PM [facility] 01-17-2025 Telephone encounter Note Called pt back and notified order placed and transferred pt to scheduled to set up appt. [facility] 01-17-2025 Miscellaneous Notes Called pt back and notified order placed and transferred pt to scheduled to set up appt. Order placed. Patient calling received her reminder letter to have her yearly mamm done. Patient had last one Oct 2023, Mamm with alejandro, due to dense breasts. Pending order to file. Please advise documented in this encounter [facility] 01-17-2025 Telephone encounter Note Order placed. [facility] 01-17-2025 Telephone encounter Note Patient calling received her reminder letter to have her yearly mamm done. Patient had last one Oct 2023, Mamm with alejandro, due to dense breasts. Pending order to file. Please advise [facility] 12-18-2024 Miscellaneous Notes The following approved medication requests have been transmitted electronically. Requested Prescriptions Signed Prescriptions Disp Refills simvastatin (ZOCOR) 20 mg tablet 90 tablet 3 Sig: Take 1 tablet by mouth daily at bedtime. Authorizing Provider: DEEJAY ANDERSON MD Prescription Refill Information The patient has been identified by name and date of : Yes Caregiver verified no other encounters exist for this prescription request: Yes Caregiver confirmed with patient/requestor that no other refills are due, in the near future, with this provider at this time: Yes The last office visit in the department: 09/25/24 Does the patient have a future office visit with this provider/department: Yes, 03/28/25 Requested Prescriptions Pending Prescriptions Disp Refills simvastatin (ZOCOR) 20 mg tablet 90 tablet 3 Sig: Take 1 tablet by mouth daily at bedtime. Ricky Dawson LPN December 18, 2024 10:35 AM documented in this encounter [facility] 12-18-2024 Telephone encounter Note The following approved medication requests have been transmitted electronically. Requested Prescriptions Signed Prescriptions Disp Refills simvastatin (ZOCOR) 20 mg tablet 90 tablet 3 Sig: Take 1 tablet by mouth daily at bedtime. Authorizing Provider: DEEJAY ANDERSON MD [facility] 12-18-2024 Telephone encounter Note Prescription Refill Information The patient has been identified by name and date of : Yes Caregiver verified no other encounters exist for this prescription request: Yes Caregiver confirmed with patient/requestor that no other refills are due, in the near future, with this provider at this time: Yes The last office visit in the department: 09/25/24 Does the patient have a future office visit with this provider/department: Yes, 03/28/25 Requested Prescriptions Pending Prescriptions Disp Refills simvastatin (ZOCOR) 20 mg tablet 90 tablet 3 Sig: Take 1 tablet by mouth daily at bedtime. Ricky Dawson LPN December 18, 2024 10:35 AM [facility] 11-16-2024 History of Present illness Narrative Radiology Service Progress Note PATIENT NAME: Karla Ndiaye DATE OF SERVICE: November 16, 2024 TIME: 10:02 AM PATIENT IDENTITY VERIFICATION COMPLETED USING TWO (2) IDENTIFIERS: Name and Date of confirmed by patient verbally. FALL SCREENING: Has the patient had 2 falls in the last year or 1 fall with injury or currently using an Ambulatory Assistive Device (Walker, Cane, Wheelchair, Crutches, etc.)? No PATIENT GENDER DATA: Assigned female at . status: : No status: NO. PATIENT RELEVANT IMPLANT DATA REVIEWED: Not Applicable PATIENT PRESENTS WITH AN IMPLANTABLE OR ATTACHED GOLD LAYER: No RADIOLOGY DEPARTMENT: Bone Density PERIPHERAL IV DATA: Not applicable SIGNED BY: MIKE Oh) November 16, 2024 10:02 AM documented in this encounter [facility] 11-16-2024 Note HNO ID: [id number] Author: KLAUDIA BOONE RT(R) Service: ? Author Type: Technologist Type: Progress Notes Filed: 11/16/2024 10:12 Note Text: Radiology Service Progress Note PATIENT NAME: Karla Ndiaye DATE OF SERVICE: November 16, 2024 TIME: 10:02 AM PATIENT IDENTITY VERIFICATION COMPLETED USING TWO (2) IDENTIFIERS: Name and Date of confirmed by patient verbally. FALL SCREENING: Has the patient had 2 falls in the last year or 1 fall with injury or currently using an Ambulatory Assistive Device (Walker, Cane, Wheelchair, Crutches, etc.)? No PATIENT GENDER DATA: Assigned female at . status: : No status: NO. PATIENT RELEVANT IMPLANT DATA REVIEWED: Not Applicable PATIENT PRESENTS WITH AN IMPLANTABLE OR ATTACHED GOLD LAYER: No RADIOLOGY DEPARTMENT: Bone Density PERIPHERAL IV DATA: Not applicable SIGNED BY: RT Adriano(R) November 16, 2024 10:02 AM [facility] 10-10-2024 Telephone encounter Note Pt notified of results and provider message. Danielle Shah LPN [facility] 10-10-2024 Miscellaneous Notes Pt notified of results and provider message. Danielle Shah LPN TC no answer. Left VM to return call. REECE Brower Repeat calcium is normal. Vit D in good range. Thanks. Betty Jennings PA-C documented in this encounter [facility] 10-10-2024 Telephone encounter Note TC no answer. Left VM to return call. REECE Brower [facility] 10-10-2024 Telephone encounter Note Repeat calcium is normal. Vit D in good range. Thanks. Betty Jennings PA-C [facility] 09-29-2024 Telephone encounter Note Pt called and is notified of providers results and instructions. Pt voices understanding. Safia Wise, RN [facility] 09-29-2024 Miscellaneous Notes Pt called and is notified of providers results and instructions. Pt voices understanding. Safia Wsie, RN Urine grew e. Coli. Will send in antibiotic. Let us know if symptoms don't improve. Betty Jennings PA-C documented in this encounter [facility] 09-29-2024 Telephone encounter Note Urine grew e. Coli. Will send in antibiotic. Let us know if symptoms don't improve. Betty Jennings PA-C [facility] 09-26-2024 Telephone encounter Note Patient notified of results and provider's instructions. Patient verbalizes understanding. Pt would like to repeat urine. Raina Murry LPN [facility] 09-26-2024 Miscellaneous Notes Patient notified of results and provider's instructions. Patient verbalizes understanding. Pt would like to repeat urine. Raina Murry LPN Urine placed Let patient know that her urine showed mixed bacteria. Which could be from contamination in collection process. No other evidence of UTI in the urinalysis.. We can try to get another clean catch one, or we can monitor symptoms. Which does she prefer? Her cholesterol is normal. Renal function is stable Calcium is just slightly elevated. Repeat in 2-4 weeks. Betty Jennings PA-C documented in this encounter [facility] 09-26-2024 Telephone encounter Note Urine placed [facility] 09-26-2024 Telephone encounter Note Let patient know that her urine showed mixed bacteria. Which could be from contamination in collection process. No other evidence of UTI in the urinalysis.. We can try to get another clean catch one, or we can monitor symptoms. Which does she prefer? Her cholesterol is normal. Renal function is stable Calcium is just slightly elevated. Repeat in 2-4 weeks. Betty Jennings PA-C [facility] 09-25-2024 Note HNO ID: [id number] Author: BETTY JENNINGS PA-C Service: ? Author Type: Physician Multiple Knife Edge Trimmer Operator Type: Progress Notes Filed: 09/25/2024 10:10 Note Text: Chief Complaint Patient presents with: 6 Month Exam HPI Karla Ndiaye is a 79 year old female who presents here today for Chronic Medical Conditions.. Patient with hx of HTN, Hyperlipidemia, elevated calcium, osteopetrosis, CKD stage 3 as well as those reviewed and addressed blow and in ROS. Patient has noted abnormal urine odor for a few months. No other urinary symptoms. Past medical history, appointments, medications, allergies reviewed. Previous Medical History PAST MEDICAL HISTORY Diagnosis Date Advance directive discussed with patient 03/20/2022 Discussed 03/2022 Age related osteoporosis Age related osteoporosis Fosamax started 12/2018 Aortic heart murmur 10/01/2011 Arthritis of knee 08/05/2017 left knee Benign neoplasm of colon 10/21/2005 Class 1 obesity due to excess calories without serious comorbidity with body mass index (BMI) of 31.0 to 31.9 in adult 08/03/2022 Cystocele, midline 12/11/2009 Essential hypertension, benign Family history of colon cancer 03/20/2022 sister Glaucoma Hx of total knee replacement 10/05/2023 Hypercalcemia 10/19/2021 10/21/2021: Vit D stopped. Seeing Dr. French Haley as of 02/2022 Internal hemorrhoids without mention of complication 10/21/2005 Living will on file 03/20/2022 DPA: Jameson () Medicare annual wellness visit, subsequent 03/20/2022 Medicare Part B: 08/06/2008 Last done:03/20/2022 Mixed hyperlipidemia 04/09/2016 Pleural effusion on right 04/01/2019 Postmenopausal atrophic vaginitis 12/11/2009 Situational anxiety 03/24/2023 mainly related to husbands health Stage 3a chronic kidney disease (HCC) 12/19/2020 Stage 3b chronic kidney disease (HCC) 12/19/2020 Symptomatic menopausal or female climacteric states Trochanteric bursitis, right hip 2018 Unilateral primary osteoarthritis, left knee 2018 Vasovagal syncope 10/01/2011 Previous Surgical History PAST SURGICAL HISTORY Procedure Laterality Date ARTHRP KNE CONDYLEANDPLATU MEDIALANDLAT COMPARTMENTS Right 08/17/2011 Dr. Berry COLONOSCOPY FLX DX W/COLLJ SPEC WHEN PFRMD 01/2009 with polypectomy and needs repeat 3 yrs COLSC FLX W/RMVL OF TUMOR POLYP LESION SNARE TQ 10/21/2005 DILATION AND CURETTAGE DXAND/THER NONOBSTETRIC Dilation AND curettage HIP SURGERY HX 11/2020 tendon repair MAL LESION NECK,HAND,SCAL 1.1-2CM 10/21/2011 Exc. 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 left dorsal hand skin lesion MAL LESION TRUNK,ARM,LEG 1.1-2.0 CM Right 12/14/2015 Exc. right dorsal forearm lesion PAST SURGICAL HISTORY OF Right 11/2020 right hip tendon repairs PT ED ENDOCRINOLOGY Left 08/2022 one on the left side TOTAL KNEE REPLACEMENT Left 07/09/2021 TOTAL KNEE REPLACEMENT Left 07/2021 Family History FAMILY HISTORY Problem Relation Age of Onset Stroke Mother 88 Alcohol/Drug Father Hypertension Father Breast Cancer Sister Colon Cancer Sister 79 No Known Problems Maternal Grandmother No Known Problems Maternal Grandfather No Known Problems Paternal Grandmother No Known Problems Paternal Grandfather No Known Problems Son Diabetes Son No Known Problems Son Patient Allergies ALLERGIES Allergen Reactions Sutures Hives high level reaction to CAT GUT suture Lisinopril Cough Monopril [Fosinopri* Cough Current Medications Current Outpatient Medications on File Prior to Visit Medication Sig alendronate (FOSAMAX) 70 mg tablet Take 1 tablet by mouth one time a week. In AM with cup of water on empty stomach. Nothing else by mouth and stay upright for 30 min. lisinopril (ZESTRIL) 40 mg tablet Take 1 tablet by mouth once daily. simvastatin (ZOCOR) 20 mg tablet Take 1 tablet by mouth daily at bedtime. calcium citrate/vitamin D3 (CITRACAL + D PETITES ORAL) Take 2 tablets by mouth once daily. No current facility-administered medications on file prior to visit. Social History Social History Tobacco Use Smoking status: Former Smokeless tobacco: Never Tobacco comments: QUIT 1976 Vaping Use Vaping status: Never Used Substance Use Topics Alcohol use: Not Currently Alcohol/week: 1.0 standard drink of alcohol Types: 1 Shots of liquor per week Drug use: No Review of Symptoms REVIEW OF SYSTEMS GENERAL: No weight loss, malaise or fevers NECK: Negative for lumps, goiter, pain and significant neck swelling RESPIRATORY: Negative for cough, hemoptysis, wheezing, COPD, dyspnea or shortness of breath CARDIOVASCULAR: Negative for chest pain, leg swelling, hypertension, CHF or palpitations NEURO: No history of headaches, syncope, paralysis, seizures or tremors See HPI EXAM: BP 110/76 (BP Site: Left Arm, BP Position: Sitting, BP Cuff Size: Large Adult) Pulse 80 Temp 36.3 ?C (97.3 ?F) Resp 18 Wt 84.8 kg (more content not included)... [facility] 09-25-2024 History of Present illness Narrative Chief Complaint Patient presents with: 6 Month Exam HPI Karla Ndiaye is a 79 year old female who presents here today for Chronic Medical Conditions.. Patient with hx of HTN, Hyperlipidemia, elevated calcium, osteopetrosis, CKD stage 3 as well as those reviewed and addressed blow and in ROS. Patient has noted abnormal urine odor for a few months. No other urinary symptoms. Past medical history, appointments, medications, allergies reviewed. Previous Medical History PAST MEDICAL HISTORY Diagnosis Date Advance directive discussed with patient 03/20/2022 Discussed 03/2022 Age related osteoporosis Age related osteoporosis Fosamax started 12/2018 Aortic heart murmur 10/01/2011 Arthritis of knee 08/05/2017 left knee Benign neoplasm of colon 10/21/2005 Class 1 obesity due to excess calories without serious comorbidity with body mass index (BMI) of 31.0 to 31.9 in adult 08/03/2022 Cystocele, midline 12/11/2009 Essential hypertension, benign Family history of colon cancer 03/20/2022 sister Glaucoma Hx of total knee replacement 10/05/2023 Hypercalcemia 10/19/2021 10/21/2021: Vit D stopped. Seeing Dr. French Haley as of 02/2022 Internal hemorrhoids without mention of complication 10/21/2005 Living will on file 03/20/2022 DPA: Jameson () Medicare annual wellness visit, subsequent 03/20/2022 Medicare Part B: 08/06/2008 Last done:03/20/2022 Mixed hyperlipidemia 04/09/2016 Pleural effusion on right 04/01/2019 Postmenopausal atrophic vaginitis 12/11/2009 Situational anxiety 03/24/2023 mainly related to husbands health Stage 3a chronic kidney disease (HCC) 12/19/2020 Stage 3b chronic kidney disease (HCC) 12/19/2020 Symptomatic menopausal or female climacteric states Trochanteric bursitis, right hip 2018 Unilateral primary osteoarthritis, left knee 2018 Vasovagal syncope 10/01/2011 Previous Surgical History PAST SURGICAL HISTORY Procedure Laterality Date ARTHRP KNE CONDYLE&PLATU MEDIAL&LAT COMPARTMENTS Right 08/17/2011 Dr. 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 left dorsal hand skin lesion MAL LESION TRUNK,ARM,LEG 1.1-2.0 CM Right 12/14/2015 Exc. right dorsal forearm lesion PAST SURGICAL HISTORY OF Right 11/2020 right hip tendon repairs PT ED ENDOCRINOLOGY Left 08/2022 one on the left side TOTAL KNEE REPLACEMENT Left 07/09/2021 TOTAL KNEE REPLACEMENT Left 07/2021 Family History FAMILY HISTORY Problem Relation Age of Onset Stroke Mother 88 Alcohol/Drug Father Hypertension Father Breast Cancer Sister Colon Cancer Sister 79 No Known Problems Maternal Grandmother No Known Problems Maternal Grandfather No Known Problems Paternal Grandmother No Known Problems Paternal Grandfather No Known Problems Son Diabetes Son No Known Problems Son Patient Allergies ALLERGIES Allergen Reactions Sutures Hives high level reaction to CAT GUT suture Lisinopril Cough Monopril [Fosinopri* Cough Current Medications Current Outpatient Medications on File Prior to Visit Medication Sig alendronate (FOSAMAX) 70 mg tablet Take 1 tablet by mouth one time a week. In AM with cup of water on empty stomach. Nothing else by mouth and stay upright for 30 min. lisinopril (ZESTRIL) 40 mg tablet Take 1 tablet by mouth once daily. simvastatin (ZOCOR) 20 mg tablet Take 1 tablet by mouth daily at bedtime. calcium citrate/vitamin D3 (CITRACAL + D PETITES ORAL) Take 2 tablets by mouth once daily. No current facility-administered medications on file prior to visit. Social History Social History Tobacco Use Smoking status: Former Smokeless tobacco: Never Tobacco comments: QUIT 1976 Vaping Use Vaping status: Never Used Substance Use Topics Alcohol use: Not Currently Alcohol/week: 1.0 standard drink of alcohol Types: 1 Shots of liquor per week Drug use: No Review of Symptoms REVIEW OF SYSTEMS GENERAL: No weight loss, malaise or fevers NECK: Negative for lumps, goiter, pain and significant neck swelling RESPIRATORY: Negative for cough, hemoptysis, wheezing, COPD, dyspnea or shortness of breath CARDIOVASCULAR: Negative for chest pain, leg swelling, hypertension, CHF or palpitations NEURO: No history of headaches, syncope, paralysis, seizures or tremors See HPI EXAM: BP 110/76 (BP Site: Left Arm, BP Position: Sitting, BP Cuff Size: Large Adult) Pulse 80 Temp 36.3 C (97.3 F) Resp 18 Wt 84.8 kg (187 lb) SpO2 97% BMI 32.10 kg/m General Appearance: Well appearing, alert, in no acute distress, well-hydrated, well nourished.. Neck: Supple, no adenopathy; thyroid symmetric, normal size, no bruits. Lungs: Lungs clear to auscultation. No wheezing, rhonchi, rales.. Heart: RRR without murmur, gallop, or rubs. No ectopy. Extremities: No deformities, edema, skin discoloration, clubbing or cyanosis. Good capillary refill. . Peripheral Pulses: Normal. Health Maintenance List DTaP,Tdap,Td Vaccine(1 - Tdap) due on 07/20/2006 Advance Directive Discussion due on 09/06/2024 Bone Density Screening due on 11/02/2024 Depression Screening due on 03/24/2025 Diabetes Screening due on 03/27/2027 Influenza Vaccine Completed RSV Vaccine Completed Pneumococcal Vaccine: 50+ Completed Colorectal Cancer Screening Discontinued Shingrix Vaccine Discontinued Covid-19 Vaccine Discontinued Data reviewed N/a ASSESSMENT/PLAN: 1. Essential hypertension, benign - ICD9: 401.1, ICD10: I10 (primary diagnosis) - Controlled - Continue current medications - Recommend home blood pressure monitoring, to bring results to next visit - Encouraged sodium restriction, DASH or Mediterranean diet - Recommend regular aerobic exercise 2. Mixed hyperlipidemia - ICD9: 272.2, ICD10: E78.2 - Control undetermined, due for labs - Continue current medications - Counseled on healthy diet and regular exercise 3. Stage 3b chronic kidney disease (HCC) - ICD9: 585.3, ICD10: N18.32 - eGFR: 38 Due for labs - Counseled on avoiding NSAIDs, adequate hydration 4. Class 1 obesity due to excess calories without serious comorbidity with body mass index (BMI) of 31.0 to 31.9 in adult - ICD9: 278.00, V85.31, ICD10: E66.811, E66.09, Z68.31 Stable - Behavioral intervention 5. Age-related osteoporosis without current pathological fracture - ICD9: 733.01, ICD10: M81.0 Continue with endo. Patient to schedule dxa 6. Hypercalcemia - ICD9: 275.42, ICD10: E83.52 Cont with endo 7. Abnormal urine odor - ICD9: 791.9, ICD10: R82.90 Check: - URINALYSIS, WITH MICROSCOPIC - BACTERIAL CULTURE, URINE Follow up in 6 months for wellness. Sooner prn. Betty Jennings PA-C documented in this encounter [facility] 09-01-2024 Telephone encounter Note Prescription Refill Information The patient has been identified by name and date of : Yes Caregiver verified no other encounters exist for this prescription request: Yes Caregiver confirmed with patient/requestor that no other refills are due, in the near future, with this provider at this time: Yes The last office visit in the department: 03/24/2024 Does the patient have a future office visit with this provider/department: Yes Requested Prescriptions Pending Prescriptions Disp Refills alendronate (FOSAMAX) 70 mg tablet 12 tablet 3 Sig: Take 1 tablet by mouth one time a week. In AM with cup of water on empty stomach. Nothing else by mouth and stay upright for 30 min. Jannie Galvez LPN September 01, 2024 9:55 AM [facility] 09-01-2024 Miscellaneous Notes Prescription Refill Information The patient has been identified by name and date of : Yes Caregiver verified no other encounters exist for this prescription request: Yes Caregiver confirmed with patient/requestor that no other refills are due, in the near future, with this provider at this time: Yes The last office visit in the department: 03/24/2024 Does the patient have a future office visit with this provider/department: Yes Requested Prescriptions Pending Prescriptions Disp Refills alendronate (FOSAMAX) 70 mg tablet 12 tablet 3 Sig: Take 1 tablet by mouth one time a week. In AM with cup of water on empty stomach. Nothing else by mouth and stay upright for 30 min. Jannie Galvez LPN September 01, 2024 9:55 AM documented in this encounter [facility] 08-04-2024 Telephone encounter Note Prescription Refill Information The patient has been identified by name and date of : Yes Caregiver verified no other encounters exist for this prescription request: Yes Caregiver confirmed with patient/requestor that no other refills are due, in the near future, with this provider at this time: Yes The last office visit in the department: 03/24/2024 Does the patient have a future office visit with this provider/department: Yes Requested Prescriptions Pending Prescriptions Disp Refills lisinopril (ZESTRIL) 40 mg tablet 90 tablet 3 Sig: Take 1 tablet by mouth once daily. spironolactone (ALDACTONE) 25 mg tablet 90 tablet 1 Sig: Take 1 tablet by mouth once daily. amLODIPine (NORVASC) 5 mg tablet 90 tablet 1 Sig: Take 1 tablet by mouth once daily. Jannie Galvez LPN August 04, 2024 11:25 AM [facility] 08-04-2024 Miscellaneous Notes Prescription Refill Information The patient has been identified by name and date of : Yes Caregiver verified no other encounters exist for this prescription request: Yes Caregiver confirmed with patient/requestor that no other refills are due, in the near future, with this provider at this time: Yes The last office visit in the department: 03/24/2024 Does the patient have a future office visit with this provider/department: Yes Requested Prescriptions Pending Prescriptions Disp Refills lisinopril (ZESTRIL) 40 mg tablet 90 tablet 3 Sig: Take 1 tablet by mouth once daily. spironolactone (ALDACTONE) 25 mg tablet 90 tablet 1 Sig: Take 1 tablet by mouth once daily. amLODIPine (NORVASC) 5 mg tablet 90 tablet 1 Sig: Take 1 tablet by mouth once daily. Jannie Galvez LPN August 04, 2024 11:25 AM documented in this encounter [facility] 07-12-2024 Note HNO ID: [id number] Author: LESLIE OH MA Service: ? Author Type: Director Graphics Type: Progress Notes Filed: 07/12/2024 08:41 Note Text: Scan on 07/10/2024 2:17 PM by Provider, External, PA-C: Consultation - Cardiology [facility] 07-12-2024 History of Present illness Narrative Scan on 07/10/2024 2:17 PM by ProviderSteve PA-C: Consultation - Cardiology documented in this encounter [facility] 06-12-2024 Telephone encounter Note All requested referral paperwork has been faxed to [facility] at [phone]. Updated referral in [facility] to [facility]. Judie Jain MA [facility] 06-12-2024 Miscellaneous Notes All requested referral paperwork has been faxed to [facility] at [phone]. Updated referral in [facility] to [facility]. Judie Jain MA Please fax copy of halter report along with consult order, demographics and Snap shot. Phoned patient and given provider's message below with verbalized understanding. Patient agreeable to see [facility], Dr Jessica Locke. Please fax referral to [facility]. Let patient know her Holter shows episodes of a slow heart rate and on two occasions a mild increased heart rate. I would like for her to see cardiology. We can do [facility] but could be a few months or we can do [facility]. documented in this encounter [facility] 06-12-2024 Telephone encounter Note Please fax copy of halter report along with consult order, demographics and Snap shot. [facility] 06-12-2024 Telephone encounter Note Phoned patient and given provider's message below with verbalized understanding. Patient agreeable to see [facility], Dr Jessica Locke. Please fax referral to [facility]. [facility] 06-12-2024 Telephone encounter Note Let patient know her Holter shows episodes of a slow heart rate and on two occasions a mild increased heart rate. I would like for her to see cardiology. We can do [facility] but could be a few months or we can do [facility]. [facility] 06-06-2024 Telephone encounter Note Noted. [facility] 06-06-2024 Miscellaneous Notes Noted. Spoke with Blas in respiratory at [facility]. He indicated that the company that [facility] is using is really back logged. He said they are not even scheduling any more until they can get caught. He indicated that he saw karla's had been over a month. He reached out to them to put this in as a stat. He should have something back in a week. Spoke with patient and gave her update. Mitchell Sorensen MA Can we contact the respiratory dept at [facility] jose see if they have any worn on patient's halter monitor that was returned on 05/03/2024 and results are still not back yet. Pt calling again to check status on the heart monitor testing she did. Did test on 04/09/24 and sent in the mail back on 05/03/24. This was sent back to [facility] Please advise pt. documented in this encounter [facility] 06-06-2024 Telephone encounter Note Spoke with Blas in respiratory at [facility]. He indicated that the company that [facility] is using is really back logged. He said they are not even scheduling any more until they can get caught. He indicated that he saw karla's had been over a month. He reached out to them to put this in as a stat. He should have something back in a week. Spoke with patient and gave her update. Mitchell Sorensen MA [facility] 06-06-2024 Telephone encounter Note Can we contact the respiratory dept at [facility] jose see if they have any worn on patient's halter monitor that was returned on 05/03/2024 and results are still not back yet. [facility] 06-06-2024 Telephone encounter Note Pt calling again to check status on the heart monitor testing she did. Did test on 04/09/24 and sent in the mail back on 05/03/24. This was sent back to [facility] Please advise pt. [facility] 05-25-2024 Telephone encounter Note Pt notified of pcp's message and instructions. Pt verbalizes understanding. Raina Murry LPN [facility] 05-25-2024 Miscellaneous Notes Pt notified of pcp's message and instructions. Pt verbalizes understanding. Raina Murry LPN Let patient know that there are times that it can take up to a month to get the reads back. However, if there was something significant presented itself we should have been notified immediately. If we do not let her know anything by the end of the month advise her to reach out again and then we would need to follow up with [facility] on the results since adequate time was allotted for it to be read and sent back. . Spoke with pt. She states she mailed it back via [employer] on 05/03/24. She advises that they tols her it could take 1 week to 10 days to get the results so she was just checking since it has been a little longer. Raina Murry LPN Can we re-verify the date she sent the event monitor back in. Message says 06/03/2024 and it's only 05/25/24 today. Patient calling to ask PCP if there is any update on results of a heart monitor she completed and sent back on 06/03/24? States the monitor was placed on her at [facility]. Please call patient with any updates. Thank you. documented in this encounter [facility] 05-25-2024 Telephone encounter Note Let patient know that there are times that it can take up to a month to get the reads back. However, if there was something significant presented itself we should have been notified immediately. If we do not let her know anything by the end of the month advise her to reach out again and then we would need to follow up with [facility] on the results since adequate time was allotted for it to be read and sent back. . [facility] 05-25-2024 Telephone encounter Note Spoke with pt. She states she mailed it back via [employer] on 05/03/24. She advises that they tols her it could take 1 week to 10 days to get the results so she was just checking since it has been a little longer. Raina Murry LPN [facility] 05-25-2024 Telephone encounter Note Can we re-verify the date she sent the event monitor back in. Message says 06/03/2024 and it's only 05/25/24 today. [facility] 05-25-2024 Telephone encounter Note Patient calling to ask PCP if there is any update on results of a heart monitor she completed and sent back on 06/03/24? States the monitor was placed on her at [facility]. Please call patient with any updates. Thank you. [facility] 05-17-2024 Telephone encounter Note CD READY FOR GALLERY MANAGER AT [facility] PT KNOWS [facility] 05-17-2024 Miscellaneous Notes CD READY FOR GALLERY MANAGER AT [facility] PT KNOWS Patient requesting a disk of her MRI that was completed on 05/10/24. Patient would like to pick it up tomorrow for her appt with Dr. Chinchilla. De Courtney May 17, 2024 1:36 PM documented in this encounter [facility] 05-17-2024 Telephone encounter Note Patient requesting a disk of her MRI that was completed on 05/10/24. Patient would like to pick it up tomorrow for her appt with Dr. Chinchilla. De Courtney May 17, 2024 1:36 PM [facility] 05-16-2024 Telephone encounter Note Faxed MRI results to [facility], per patient request. . [facility] 05-16-2024 Miscellaneous Notes Faxed MRI results to [facility], per patient request. . documented in this encounter [facility] 05-12-2024 Telephone encounter Note Message relayed [facility] Work Phone: 05-12-2024 Miscellaneous Notes Message relayed Discussed mri with patient. Again did it because of abnormal bone scan done because of elevated bone alk phos. Shows an h sacral fracture. She also has a complex cyst in her gluteus. She had a fall a few months ago. Pain is improved. No other neuro complaints. Has seen Dr Chinchilla in the past for the cyst. Suggested we could have them see her again for both at this point to make sure nothing else needs done. Red flags for re-assessment reviewed with patient in detail. Please assist in having her see Dr. Chinchilla[facility] for the cyst and sacral fracture Will likely need to take films to them. documented in this encounter [facility] 05-10-2024 Telephone encounter Note Discussed mri with patient. Again did it because of abnormal bone scan done because of elevated bone alk phos. Shows an h sacral fracture. She also has a complex cyst in her gluteus. She had a fall a few months ago. Pain is improved. No other neuro complaints. Has seen Dr Chinchilla in the past for the cyst. Suggested we could have them see her again for both at this point to make sure nothing else needs done. Red flags for re-assessment reviewed with patient in detail. Please assist in having her see Dr. Chinchilla[facility] for the cyst and sacral fracture Will likely need to take films to them. [facility] 05-10-2024 History of Present illness Narrative Radiology Service Progress Note DATE OF SERVICE: May 10, 2024 TIME: 10:28 AM PATIENT IDENTITY VERIFICATION COMPLETED USING TWO (2) STANDARD IDENTIFIERS: Name and Date of confirmed by patient verbally. FALL SCREENING: Has the patient had 2 falls in the last year or 1 fall with injury or currently using an Ambulatory Assistive Device (Walker, Cane, Wheelchair, Crutches, etc.)? No PATIENT GENDER DATA: Female. status: : No status: NO. PATIENT RELEVANT IMPLANT DATA REVIEWED: Yes PATIENT PRESENTS WITH AN IMPLANTABLE OR ATTACHED GOLD LAYER: No ALLERGIES: Reviewed and unchanged CONTRAST ALLERGY: NO. EXAM: MRI - CONTRAST TYPE: GROUP II PERIPHERAL IV DATA: Ambulatory: A peripheral IV was started in the Left antecubital site with a Angio cath: 24 gauge. RADIOLOGY DEPARTMENT: MR; Exam(s) Completed: Spine: Sacrum/Coccyx SIGNATURE: RT Vicente(Maribel) PATIENT NAME: Karla Ndiaye DATE: May 10, 2024 TIME: 10:28 AM documented in this encounter [facility] 05-10-2024 Note HNO ID: [id number] Author: EMBER HOOD RT (R) Service: ? Author Type: Technologist Type: Progress Notes Filed: 05/10/2024 10:29 Note Text: Radiology Service Progress Note DATE OF SERVICE: May 10, 2024 TIME: 10:28 AM PATIENT IDENTITY VERIFICATION COMPLETED USING TWO (2) STANDARD IDENTIFIERS: Name and Date of confirmed by patient verbally. FALL SCREENING: Has the patient had 2 falls in the last year or 1 fall with injury or currently using an Ambulatory Assistive Device (Walker, Cane, Wheelchair, Crutches, etc.)? No PATIENT GENDER DATA: Female. status: : No status: NO. PATIENT RELEVANT IMPLANT DATA REVIEWED: Yes PATIENT PRESENTS WITH AN IMPLANTABLE OR ATTACHED GOLD LAYER: No ALLERGIES: Reviewed and unchanged CONTRAST ALLERGY: NO. EXAM: MRI - CONTRAST TYPE: GROUP II PERIPHERAL IV DATA: Ambulatory: A peripheral IV was started in the Left antecubital site with a Angio cath: 24 gauge. RADIOLOGY DEPARTMENT: MR; Exam(s) Completed: Spine: Sacrum/Coccyx SIGNATURE: RT Vicente(Maribel) PATIENT NAME: Karla Ndiaye DATE: May 10, 2024 TIME: 10:28 AM [facility] 04-20-2024 Telephone encounter Note I discussed bone scan with patient. She had an elevated bone alk phos. She has an area of uptake in her sacrum. May be an insufficiency fracture. She was having pain after her last fall but is feeling better than she was. If is otherwise stable, may not require any treatment or intervention but offered to order mri to fully evaluate. She is willing. Please set up. [facility] 04-20-2024 Miscellaneous Notes I discussed bone scan with patient. She had an elevated bone alk phos. She has an area of uptake in her sacrum. May be an insufficiency fracture. She was having pain after her last fall but is feeling better than she was. If is otherwise stable, may not require any treatment or intervention but offered to order mri to fully evaluate. She is willing. Please set up. documented in this encounter [facility] 04-20-2024 History of Present illness Narrative Radiology Service Progress Note PATIENT NAME: Karla Ndiaye DATE OF SERVICE: April 20, 2024 TIME: 11:33 AM PATIENT IDENTITY VERIFICATION COMPLETED USING TWO (2) IDENTIFIERS: Name and Date of confirmed by patient verbally. FALL SCREENING: Has the patient had 2 falls in the last year or 1 fall with injury or currently using an Ambulatory Assistive Device (Walker, Cane, Wheelchair, Crutches, etc.)? No PATIENT GENDER DATA: Female. status: : No status: NO. PATIENT RELEVANT IMPLANT DATA REVIEWED: Not Applicable PATIENT PRESENTS WITH AN IMPLANTABLE OR ATTACHED GOLD LAYER: No RADIOLOGY DEPARTMENT: Ultrasound PERIPHERAL IV DATA: Not applicable SIGNED BY: Brittnee Benton RDMS RVT April 20, 2024 11:33 AM documented in this encounter [facility] 04-20-2024 Note HNO ID: [id number] Author: BRITTNEE BENTON RDMS Service: ? Author Type: Sample Worker Type: Progress Notes Filed: 04/20/2024 11:33 Note Text: Radiology Service Progress Note PATIENT NAME: Karla Ndiaye DATE OF SERVICE: April 20, 2024 TIME: 11:33 AM PATIENT IDENTITY VERIFICATION COMPLETED USING TWO (2) IDENTIFIERS: Name and Date of confirmed by patient verbally. FALL SCREENING: Has the patient had 2 falls in the last year or 1 fall with injury or currently using an Ambulatory Assistive Device (Walker, Cane, Wheelchair, Crutches, etc.)? No PATIENT GENDER DATA: Female. status: : No status: NO. PATIENT RELEVANT IMPLANT DATA REVIEWED: Not Applicable PATIENT PRESENTS WITH AN IMPLANTABLE OR ATTACHED GOLD LAYER: No RADIOLOGY DEPARTMENT: Ultrasound PERIPHERAL IV DATA: Not applicable SIGNED BY: Brittnee Benton RDMS RVBalwinder April 20, 2024 11:33 AM [facility] 04-20-2024 History of Present illness Narrative RADIOLOGY SERVICE PROGRESS NOTE SERVICE DATE: 04/20/2024 SERVICE TIME: 8:03 AM PATIENT IDENTITY VERIFICATION COMPLETED USING TWO (2) STANDARD IDENTIFIERS: Name and Date of confirmed by patient verbally FALL SCREENING: Has the patient had 2 falls in the last year or 1 fall with injury or currently using an Ambulatory Assistive Device (Walker, Cane, Wheelchair, Crutches, etc.)? No PATIENT GENDER DATA: .female : No ALLERGIES: Reviewed and unchanged MEDICATIONS REVIEWED: No PATIENT RELEVANT IMPLANT DATA REVIEWED: Not Applicable PATIENT PRESENTS WITH AN IMPLANTABLE OR ATTACHED GOLD LAYER: No CREATININE: Creatinine Date Value Ref Range Status 03/27/2024 1.40 (H) 0.58 - 0.96 mg/dL Final 03/08/2024 1.32 (H) 0.58 - 0.96 mg/dL Final 12/22/2023 1.26 (H) 0.58 - 0.96 mg/dL Final 12/22/2023 1.21 (H) 0.58 - 0.96 mg/dL Final Estimated Glomerular Filtration Rate Date Value Ref Range Status 03/27/2024 38 (L) >=60 mL/min/1.73m Final Comment: Estimated Glomerular Filtration Rate (eGFR) is calculated using the 2020 CKD-EPI creatinine equation. This equation utilizes serum creatinine, sex, and age as parameters. The creatinine assay has traceable calibration to isotope dilution-mass spectrometry. Refer to KDIGO guidelines for clinical interpretation. In patients with unstable renal function, e.g. those with acute kidney injury, the eGFR may not accurately reflect actual GFR. eGFR- Date Value Ref Range Status 10/17/2021 59 Final P.O.C.T. RESULTS: N/A April 20, [address] PERFORMED: No IV SITE: Ambulatory: A peripheral IV was started in the Left antecubital site with a Angio cath: 22 gauge. POST EXAM PIV STATUS: Discontinued PROCEDURE TYPE: NM INJECT: Whole Body Bone Scan. 22.3 mCi Tc99m MDP. No other medications given.. ADMINISTRATION TIME: 0800 PATIENT DISCHARGED TO: Ambulatory patient, left NM department area. A Diagnostic radioactive procedure has taken place, with no further precautions necessary other than routine body substance precautions. More information regarding radiation safety can be found using this link: [email or web address] %[email or web address] SIGNATURE: MIKE Mayer) PATIENT NAME: Karla Ndiaye DATE: April 20, 2024 TIME: 8:03 AM PAGER/CONTACT #: documented in this encounter [facility] 04-20-2024 Note HNO ID: [id number] Author: JESSICA ABBOTT RT (R) Service: Nuclear Medicine Author Type: Technologist Type: Progress Notes Filed: 04/20/2024 08:04 Note Text: RADIOLOGY SERVICE PROGRESS NOTE SERVICE DATE: 04/20/2024 SERVICE TIME: 8:03 AM PATIENT IDENTITY VERIFICATION COMPLETED USING TWO (2) STANDARD IDENTIFIERS: Name and Date of confirmed by patient verbally FALL SCREENING: Has the patient had 2 falls in the last year or 1 fall with injury or currently using an Ambulatory Assistive Device (Walker, Cane, Wheelchair, Crutches, etc.)? No PATIENT GENDER DATA: .female : No ALLERGIES: Reviewed and unchanged MEDICATIONS REVIEWED: No PATIENT RELEVANT IMPLANT DATA REVIEWED: Not Applicable PATIENT PRESENTS WITH AN IMPLANTABLE OR ATTACHED GOLD LAYER: No CREATININE: Creatinine Date Value Ref Range Status 03/27/2024 1.40 (H) 0.58 - 0.96 mg/dL Final 03/08/2024 1.32 (H) 0.58 - 0.96 mg/dL Final 12/22/2023 1.26 (H) 0.58 - 0.96 mg/dL Final 12/22/2023 1.21 (H) 0.58 - 0.96 mg/dL Final Estimated Glomerular Filtration Rate Date Value Ref Range Status 03/27/2024 38 (L) >=60 mL/min/1.73m? Final Comment: Estimated Glomerular Filtration Rate (eGFR) is calculated using the 2020 CKD-EPI creatinine equation. This equation utilizes serum creatinine, sex, and age as parameters. The creatinine assay has traceable calibration to isotope dilution-mass spectrometry. Refer to KDIGO guidelines for clinical interpretation. In patients with unstable renal function, e.g. those with acute kidney injury, the eGFR may not accurately reflect actual GFR. eGFR- Date Value Ref Range Status 10/17/2021 59 Final P.O.C.T. RESULTS: N/A April 20, [address] PERFORMED: No IV SITE: Ambulatory: A peripheral IV was started in the Left antecubital site with a Angio cath: 22 gauge. POST EXAM PIV STATUS: Discontinued PROCEDURE TYPE: NM INJECT: Whole Body Bone Scan. 22.3 mCi Tc99m MDP. No other medications given.. ADMINISTRATION TIME: 0800 PATIENT DISCHARGED TO: Ambulatory patient, left NM department area. A Diagnostic radioactive procedure has taken place, with no further precautions necessary other than routine body substance precautions. More information regarding radiation safety can be found using this link: [email or web address] 20Diagnostic%20Nuclear%20Medicine% 20Procedures.[email or web address] SIGNATURE: RT Moreno(R) PATIENT NAME: Karla Ndiaye DATE: April 20, 2024 TIME: 8:03 AM PAGER/CONTACT #: [facility] 04-17-2024 Telephone encounter Note Pt notified and verbalized understanding Anusha Hollingsworth MA [facility] 04-17-2024 Miscellaneous Notes Pt notified and verbalized understanding Anusha Hollingsworth MA Please let patient know her carotid US shows minimal stenosis. No further action needed at this time. documented in this encounter [facility] 04-17-2024 Telephone encounter Note Please let patient know her carotid US shows minimal stenosis. No further action needed at this time. [facility] Work Phone: 04-06-2024 Telephone encounter Note Phoned patient and went over results, notes from Dr Brantley with understanding. Assisted with transfer to package pick up to get testing appt set up. [facility] 04-06-2024 Miscellaneous Notes Phoned patient and went over results, notes from Dr Brantley with understanding. Assisted with transfer to package pick up to get testing appt set up. Let her know both the liver and bone portions of the alk phos are high. I usually recommend an us of the liver and a bone scan. These are often due to fatty liver and arthritis but we can make sure they are otherwise ok. documented in this encounter [facility] 04-06-2024 Telephone encounter Note Let her know both the liver and bone portions of the alk phos are high. I usually recommend an us of the liver and a bone scan. These are often due to fatty liver and arthritis but we can make sure they are otherwise ok. [facility] 03-28-2024 Telephone encounter Note Patient informed and verbalized understanding. Leslie Oh MA [facility] 03-28-2024 Miscellaneous Notes Patient informed and verbalized understanding. Leslie Oh MA Labs are stable, except alk phos which is a blood enzyme is up. Recheck alk phos isoenzymes in one week documented in this encounter [facility] 03-28-2024 Telephone encounter Note Labs are stable, except alk phos which is a blood enzyme is up. Recheck alk phos isoenzymes in one week [facility] 03-24-2024 Instructions Deejay Anderson MD - 03/24/2024 9:32 AM EDT Consider getting the RSV vaccine and the shingrix from a local pharmacy in late Apr or early May. Please get labs done on or after 09/15/2023 prior to your next visit. Screening schedule The following prevention plan is recommended: RSV Vaccine(1 - 1-dose 60+ series) Never done Covid-19 Vaccine(2022- season) due on 05/07/2023 Advance Directive Discussion due on 09/06/2023 Behavioral Health Screening Never done Hemoglobin/Hematocrit due on 03/24/2024 BP Controlled (<130/80) due on 03/24/2024 WHAT YOU CAN DO TO PREVENT FALLS Many falls can be prevented. By making some changes, you can lower your chances of falling. Four things YOU can do to prevent falls for you* and your caregiver 1. Begin a regular exercise program Exercise is one of the most important ways to lower your chances of falling. It makes you stronger and helps you feel better. Exercises that improve balance and coordination (like [place]y Chi) are the most helpful. Lack of exercise leads to weakness and increases your chances of falling. Ask your doctor or health care provider about the best type of exercise program for you. 2. Have your health care provider review your medicines Have your doctor or pharmacist review all the medicines you take, even [id number] medicines. As you get older, the way medicines work in your body can change. Some medicines, or combinations of medicines, can make you sleepy or dizzy and can cause you to fall. 3. Have your vision checked Have your eyes checked by an eye doctor at least once a year. You may be wearing the wrong glasses or have a condition like glaucoma or cataracts that limits your vision. Poor vision can increase your chances of falling. 4. Make your home safer About half of all falls happen at home. To make your home safer: Remove things you can trip over (like papers, books, clothes, and shoes) from stairs and places where you walk. Remove small throw rugs or use double-sided tape to keep the rugs from slipping. Keep items you use often in cabinets you can reach easily without using a step stool. Have grab bars put in next to your toilet and in the tub or shower. Use non-slip mats in the bathtub and on shower floors. Improve the lighting in your home. As you get older, you need brighter lights to see well. Hang light-weight curtains or shades to reduce glare. Have handrails and lights put in on all staircases. Wear shoes both inside and outside the house. Avoid going barefoot or wearing slippers. For more information, contact: Centers for Disease Control and Prevention www.cdc.gov/injury * This information may not apply if you have certain medical conditions. documented in this encounter [facility] 03-24-2024 Note HNO ID: [id number] Author: DEEJAY ANDERSON MD Service: ? Author Type: Physician Type: Progress Notes Filed: 04/01/2024 11:39 Note Text: Karla Ndiaye is a 78 year old female here for a Medicare wellness visit. Medicare Health Risk Assessment General Health Good Exercise: Minutes/Day 0 min Exercise: Days/Week 0 days Alcohol: Daily Use Alcohol: Drinks/Day 1 or 2 Alcohol: 6 or more drinks Never Feel off balance No Concerns: Teeth/Dentures No Concerns: Sexual function No Troubled by feelings None of the above Frequency: Eating healthy diet Nearly every day ADLs requiring help None of the above Safety precautions in home/vehicle No Smoke, vape, chews tobacco No Difficulty hearing No Difficulty seeing No Current Providers Specialists: I have reviewed specialist-related care of the patient in the medical record. Current care team: Patient Care Team: Deejay Anderson MD as PCP - General (Family Medicine) Dr. Braswell: [facility] Medical/Family history review Reviewed and updated problem list, medical/surgical/family/social history, medications, and allergies. Opioid use review Opioid Medications (last 90 days) No data to display Anxiety/Depression screening PHQ-2 Score: 0 (Lower risk for depression) Recommendation: no further intervention at this time Cognitive screening Score: 4 Cognitive screening reviewed and No further action needed (score 3-5). Functional Observation Was the patient's Timed Up AND Go test unsteady or ? 12 seconds? No Advance Care Planning Surrogate decision maker documented and/or advance directives scanned in chart Measurements BP 136/70 Pulse 76 Resp 18 Ht 5' 4 (1.63m) Wt 181 lb (82.1kg) BMI 31.05 kg/(m2). Vision Screening: Follows with optometry/ophthalmology Assessment/Plan Medicare annual wellness visit, subsequent (Z00.00) - Counseled on healthy diet and regular exercise - Fall avoidance information provided - Personalized prevention plan provided See below Chief Complaint Patient presents with: Medicare Wellness Exam HPI Karla Ndiaye is a 78 year old female who presents here today for Chronic Medical Conditions. and Medicare Annual Visit. Patient with hx of HTN, Hyperlipidemia, elevated calcium, osteopetrosis, CKD stage 3 as well as those reviewed and addressed blow and in ROS. Patient sees Dr. Will Haley. [facility] ER visit 03/08/2024 Patient resented to [facility] ER on 03/05/2024 for syncope and head injury. 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 She began feeling lightheaded and sweaty. She had sat down and when she got back up and started walking she had the syncopal episode. She struck the back of her head on the concrete. Son and a friend who is physical therapist told her she was out for about 45 sec. During the visit her Creatinine was significantly elevated 2.37. CT head was normal. Chest x-ray, right foot x-ray and pelvis x-ray all showed no acute findings. Foot xray show some degenerative Athrosis of the metatarsophalangeal joint of the hallux with a hallus valgus deformity. EKG showed no acute findings. Patient had been on a medrol dose pack at the time Patient indicated that she has noticed left neck pain/left pain. No additional dizziness episodes but she still has fatigue and pain in tailbone; back of head and left side of jaw and left ear started hurting after she got home. Ear felt like it is full. If lays on the left, her ear will be sore. The jaw and ear symptoms have improved and the tailbone is tender but better. Past medical history, appointments, medications, allergies reviewed. Previous Medical History PAST MEDICAL HISTORY Diagnosis Date Advance directive discussed with patient 03/20/2022 Discussed 03/2022 Age related osteoporosis Age related osteoporosis Fosamax started 12/2018 Aortic heart murmur 10/01/2011 Arthritis of knee 08/05/2017 left knee Benign neoplasm of colon 10/21/2005 Class 1 obesity due to excess calories without serious comorbidity with body mass index (BMI) of 31.0 to 31.9 in adult 08/03/2022 Cystocele, midline 12/11/2009 Essential hypertension, benign Family history of colon cancer 03/20/2022 sister Glaucoma Hypercalcemia 10/19/2021 10/21/2021: Vit D stopped. Seeing Dr. French Haley as of 02/2022 Internal hemorrhoids without mention of complication 10/21/2005 Living will on file 03/20/2022 DPA: Jameson () Medicare annual wellness visit, subsequent 03/20/2022 Medicare Part B: 08/06/2008 Last done:03/20/2022 Mixed hyperlipidemia 04/09/2016 Pleural effusion on right 04/01/2019 Postmenopausal atrophic vaginitis 12/11/2009 Situational anxiety 03/24/2023 mainly related to husbands health Stage 3a chronic kidney disease (HCC) 12/19/2020 Stage 3b chronic kidney disease (HCC) 12/19/2020 Symptomatic menopausal or female climacteric states Trochanteric bursitis, right hip 2018 Unilateral primary osteoarthritis, left (more content not included)... [facility] 03-24-2024 History of Present illness Narrative Images from the original note were not included. Karla Ndiaye is a 78 year old female here for a Medicare wellness visit. Medicare Health Risk Assessment General Health Good Exercise: Minutes/Day 0 min Exercise: Days/Week 0 days Alcohol: Daily Use Alcohol: Drinks/Day 1 or 2 Alcohol: 6 or more drinks Never Feel off balance No Concerns: Teeth/Dentures No Concerns: Sexual function No Troubled by feelings None of the above Frequency: Eating healthy diet Nearly every day ADLs requiring help None of the above Safety precautions in home/vehicle No Smoke, vape, chews tobacco No Difficulty hearing No Difficulty seeing No Current Providers Specialists: I have reviewed specialist-related care of the patient in the medical record. Current care team: Patient Care Team: Deejay Anderson MD as PCP - General (Family Medicine) Dr. Braswell: Endo Optho Medical/Family history review Reviewed and updated problem list, medical/surgical/family/social history, medications, and allergies. Opioid use review Opioid Medications (last 90 days) No data to display Anxiety/Depression screening PHQ-2 Score: 0 (Lower risk for depression) Recommendation: no further intervention at this time Cognitive screening Score: 4 Cognitive screening reviewed and No further action needed (score 3-5). Functional Observation Was the patient's Timed Up & Go test unsteady or ? 12 seconds? No Advance Care Planning Surrogate decision maker documented and/or advance directives scanned in chart Measurements BP 136/70 Pulse 76 Resp 18 Ht 5' 4 (1.63m) Wt 181 lb (82.1kg) BMI 31.05 kg/(m^2). Vision Screening: Follows with optometry/ophthalmology Assessment/Plan Medicare annual wellness visit, subsequent (Z00.00) - Counseled on healthy diet and regular exercise - Fall avoidance information provided - Personalized prevention plan provided See below Chief Complaint Patient presents with: Medicare Wellness Exam HPI Karla Ndiaye is a 78 year old female who presents here today for Chronic Medical Conditions. and Medicare Annual Visit. Patient with hx of HTN, Hyperlipidemia, elevated calcium, osteopetrosis, CKD stage 3 as well as those reviewed and addressed blow and in ROS. Patient sees Dr. Will Haley. [facility] ER visit 03/08/2024 Patient resented to [facility] ER on 03/05/2024 for syncope and head injury. 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 She began feeling lightheaded and sweaty. She had sat down and when she got back up and started walking she had the syncopal episode. She struck the back of her head on the concrete. Son and a friend who is physical therapist told her she was out for about 45 sec. During the visit her Creatinine was significantly elevated 2.37. CT head was normal. Chest x-ray, right foot x-ray and pelvis x-ray all showed no acute findings. Foot xray show some degenerative Athrosis of the metatarsophalangeal joint of the hallux with a hallus valgus deformity. EKG showed no acute findings. Patient had been on a medrol dose pack at the time Patient indicated that she has noticed left neck pain/left pain. No additional dizziness episodes but she still has fatigue and pain in tailbone; back of head and left side of jaw and left ear started hurting after she got home. Ear felt like it is full. If lays on the left, her ear will be sore. The jaw and ear symptoms have improved and the tailbone is tender but better. Past medical history, appointments, medications, allergies reviewed. Previous Medical History PAST MEDICAL HISTORY Diagnosis Date Advance directive discussed with patient 03/20/2022 Discussed 03/2022 Age related osteoporosis Age related osteoporosis Fosamax started 12/2018 Aortic heart murmur 10/01/2011 Arthritis of knee 08/05/2017 left knee Benign neoplasm of colon 10/21/2005 Class 1 obesity due to excess calories without serious comorbidity with body mass index (BMI) of 31.0 to 31.9 in adult 08/03/2022 Cystocele, midline 12/11/2009 Essential hypertension, benign Family history of colon cancer 03/20/2022 sister Glaucoma Hypercalcemia 10/19/2021 10/21/2021: Vit D stopped. Seeing Dr. French Haley as of 02/2022 Internal hemorrhoids without mention of complication 10/21/2005 Living will on file 03/20/2022 DPA: Jameson () Medicare annual wellness visit, subsequent 03/20/2022 Medicare Part B: 08/06/2008 Last done:03/20/2022 Mixed hyperlipidemia 04/09/2016 Pleural effusion on right 04/01/2019 Postmenopausal atrophic vaginitis 12/11/2009 Situational anxiety 03/24/2023 mainly related to husbands health Stage 3a chronic kidney disease (HCC) 12/19/2020 Stage 3b chronic kidney disease (HCC) 12/19/2020 Symptomatic menopausal or female climacteric states Trochanteric bursitis, right hip 2018 Unilateral primary osteoarthritis, left knee 2018 Vasovagal syncope 10/01/2011 Previous Surgical History PAST SURGICAL HISTORY Procedure Laterality Date ARTHRP KNE CONDYLE&PLATU MEDIAL&LAT COMPARTMENTS Right 08/17/2011 Dr. 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 left dorsal hand skin lesion MAL LESION TRUNK,ARM,LEG 1.1-2.0 CM Right 12/14/2015 Exc. right dorsal forearm lesion PAST SURGICAL HISTORY OF Right 11/2020 right hip tendon repairs PT ED ENDOCRINOLOGY Left 08/2022 one on the left side TOTAL KNEE REPLACEMENT Left 07/09/2021 TOTAL KNEE REPLACEMENT Left 07/2021 Family History FAMILY HISTORY Problem Relation Age of Onset Stroke Mother 88 Alcohol/Drug Father Hypertension Father Breast Cancer Sister Colon Cancer Sister 79 No Known Problems Maternal Grandmother No Known Problems Maternal Grandfather No Known Problems Paternal Grandmother No Known Problems Paternal Grandfather No Known Problems Son Diabetes Son No Known Problems Son Patient Allergies ALLERGIES Allergen Reactions Sutures Hives high level reaction to CAT GUT suture Lisinopril Cough Monopril [Fosinopri* Cough Current Medications Current Outpatient Medications on File Prior to Visit Medication Sig spironolactone (ALDACTONE) 25 mg tablet Take 1 tablet by mouth once daily. amLODIPine (NORVASC) 5 mg tablet Take 1 tablet by mouth once daily. simvastatin (ZOCOR) 20 mg tablet Take 1 tablet by mouth daily at bedtime. calcium citrate/vitamin D3 (CITRACAL + D PETITES ORAL) Take 2 tablets by mouth once daily. lisinopril (ZESTRIL) 40 mg tablet Take 1 tablet by mouth once daily. alendronate (FOSAMAX) 70 mg tablet Take 1 tablet by mouth one time a week. In AM with cup of water on empty stomach. Nothing else by mouth and stay upright for 30 min. No current facility-administered medications on file prior to visit. Social History Social History Tobacco Use Smoking status: Former Smokeless tobacco: Never Tobacco comments: QUIT 1976 Vaping Use Vaping Use: Never used Substance Use Topics Alcohol use: Not Currently Alcohol/week: 1.0 standard drink of alcohol Types: 1 Shots of liquor per week Drug use: No Review of Symptoms REVIEW OF SYSTEMS GENERAL: No weight loss, malaise or fevers HEENT: Negative for frequent or significant headaches, No changes in hearing or vision, no nose bleeds or other nasal problems NECK: Negative for lumps, goiter, pain and significant neck swelling RESPIRATORY: Negative for cough, hemoptysis, wheezing, COPD, dyspnea or shortness of breath CARDIOVASCULAR: Negative for chest pain, leg swelling, hypertension, CHF or palpitations GI: No nausea, vomiting, or diarrhea, No heartburn or reflux symptoms, and no blood : No history of dysuria, frequency or blood MUSCULOSKELETAL: Negative for joint pain or swelling, back pain or muscle pain SKIN: Negative for lesions, has a rash on the left side that she has had for over a week. Has been itchy but not tender or burning. PSYCH: Negative for sleep disturbance, mood disorder and recent psychosocial stressors HEMATOLOGY/LYMPHOLOGY: Negative for prolonged bleeding, bruising easily or swollen nodes ENDOCRINE: Negative for cold or heat intolerance, polyuria, polydipsia and goiter NEURO: No history of headaches, syncope (none since her recent episode), paralysis, seizures or tremors EXAM: BP 136/70 (BP Site: Left Arm, BP Position: Sitting, BP Cuff Size: Large Adult) Pulse 76 Resp 18 Ht 162.6 cm (5' 4) Wt 82.1 kg (181 lb) BMI 31.07 kg/m Last 5 Encounter Wt Readings: Date: Wt: 03/24/2024 82.1 kg (181 lb) 03/08/2024 82.1 kg (181 lb) 02/28/2024 82.1 kg (181 lb) 01/18/2024 84.4 kg (186 lb) 12/07/2023 84 kg (185 lb 3 oz) General Appearance: Well appearing, alert, in no acute distress, well-hydrated, well nourished.. Skin: Skin color, texture, turgor normal, no suspicious rashes or lesions. Has a non-vesicular rash on the left lower back towards the side. Does odalys. Head: Normocephalic, no masses, lesions, tenderness or abnormalities. Eyes: Anicteric sclera. Pupils are equally round and reactive to light. Extraocular movements are intact. . Ears: External ears, TM's normal, canals clear. Nose/Sinuses: Nares normal, septum midline, mucosa normal, no drainage or sinus tenderness. Oropharynx: Lips, mucosa, and tongue normal, teeth and gums normal, oropharynx normal. Neck: Supple, no adenopathy; thyroid symmetric, normal size, no bruits. Lungs: Lungs clear to auscultation. No wheezing, rhonchi, rales.. Heart: RRR without murmur, gallop, or rubs. No ectopy. Abdomen: Normal abdominal exam, Abdomen soft, non-tender. Bowel sounds normal. No masses, organomegaly. Extremities: No deformities, edema, skin discoloration, clubbing or cyanosis. Good capillary refill. . Musculoskeletal: Muscular strength intact, No joint swelling, deformity. Slight tailbone tenderness. Peripheral Pulses: Normal. Neurologic: Gait normal. Reflexes normal and symmetric. Sensation to light touch and crainal nerves 2-12 intact.. Health Maintenance List RSV Vaccine(1 - 1-dose 60+ series) Never done Covid-19 Vaccine(2022- season) due on 05/07/2023 Advance Directive Discussion due on 09/06/2023 Behavioral Health Screening Never done Hemoglobin/Hematocrit due on 03/24/2024 BP Controlled (<130/80) due on 03/24/2024 DTaP,Tdap,Td Vaccine(1 - Tdap) due on 03/24/2024 Influenza Vaccine(1) due on 05/07/2024 Bone Density Screening due on 11/02/2024 Annual PCP Team Chronic Disease Visit due on 03/08/2025 Serum Creatinine due on 03/08/2025 Diabetes Screening due on 03/08/2027 Pneumococcal Vaccine: 65+ Completed Colorectal Cancer Screening Discontinued Shingrix Vaccine Discontinued Data reviewed Latest Ref Rng 03/14/2024 Color Yellow Yellow Clarity Clear Clear Glucose, Urine Negative Negative Bilirubin, Urine Negative Negative Ketones, Urine Negative Negative Specific [place], Ur 1.005 - 1.030 1.009 Hemoglobin/Blood,Ur Negative Negative pH, Urine <8.5 7.5 Protein, Urine Negative Negative Urobilinogen 0.2-1.0 EU/dL 0.2 EU/dL Nitrites Negative Negative Leukest Negative 3+ ! WBC, Urine 0-5 /HPF 0-5 /HPF RBC, Urine 0-2 /HPF 0-2 /HPF Bacteria Negative /HPF Negative Epithelial Cells /HPF None Seen Hyaline Cast 0 /LPF 1-3 /LPF ! A/P ASSESSMENT/PLAN: 1. Medicare annual wellness visit, subsequent - ICD9: V70.0, ICD10: Z00.00 (primary diagnosis) - Counseled on healthy diet and regular exercise - Discussed need and benefit for weight loss. BMI 31.07 kg/(m^2) - Follow up for annual exam in one year - Advised on Shingrix, RSV, and COVID. 2. Essential hypertension, benign - ICD9: 401.1, ICD10: I10 - Controlled - Continue current medications - Recommend home blood pressure monitoring, to bring results to next visit - Encouraged sodium restriction, DASH or Mediterranean diet - Recommend regular aerobic exercise - COMPREHENSIVE METABOLIC PANEL - LIPID PANEL, NONFASTING 3. Mixed hyperlipidemia - ICD9: 272.2, ICD10: E78.2 - await labs - Continue current medications - Counseled on healthy diet and regular exercise - Discussed need for and benefit of weight loss. BMI 31.07 kg/(m^2) - COMPREHENSIVE METABOLIC PANEL - LIPID PANEL, NONFASTING 4. Stage 3b chronic kidney disease (HCC) - ICD9: 585.3, ICD10: N18.32 - await labs - Counseled on avoiding NSAIDs, adequate hydration - ACEi/ARB prescribed: Yes - COMPREHENSIVE METABOLIC PANEL - COMPLETE BLOOD COUNT AND DIFFERENTIAL 5. Situational anxiety - ICD9: 300.09, ICD10: F41.8 - stable and not needing med management - COMPLETE BLOOD COUNT AND DIFFERENTIAL 6. Hypercalcemia - ICD9: 275.42, ICD10: E83.52 - seeing Endo - COMPREHENSIVE METABOLIC PANEL 7. Class 1 obesity due to excess calories without serious comorbidity with body mass index (BMI) of 31.0 to 31.9 in adult - ICD9: 278.00, V85.31, ICD10: E66.09, Z68.31 Weight decreasing - Behavioral intervention - will stay on the Fosamax for at least till next year. 8. Age-related osteoporosis without current pathological fracture - ICD9: 733.01, ICD10: M81.0 - continue tx with alendronate (Fosamax) - Reviewed the need for Calcium and Vitamin D supplements and weight bearing exercise as tolerated 9. Advance directive discussed with patient - ICD9: V65.49, ICD10: Z71.89 - up to date 10. Medication management - ICD9: V58.69, ICD10: Z79.899 Check - COMPLETE BLOOD COUNT AND DIFFERENTIAL 11. Rash - ICD9: 782.1, ICD10: R21 - discussed Tx with oral steroid or continuing the topical steroid and patient prefers the later. F/u in 6 months routine check BMP and Lipids prior I spent a total of 40 minutes on the date of the service which included preparing to see the patient, [id number] patient care, completing clinical documentation, performing a medically appropriate examination, counseling and educating the patient/family/caregiver and ordering medications, tests, or procedures. Deejay Anderson MD Behavioral Health Screening PHQ-2 Score: 0 (Lower risk for depression) Recommendation: no further intervention at this time documented in this encounter [facility] 03-13-2024 Telephone encounter Note Order placed. [facility] 03-13-2024 Miscellaneous Notes Order placed. Pt notified. She would like to have urine done to r/o kidney infection. Pt reports back pain (that is from her fall), increased frequency and burning with urination. She has increased fluids. Denies fever, visible blood in urine, feeling of retention. Order pended, please file if agreeable. Armida Paige MA Overall only mildly decreased from baseline and actually improved since hospitalization. I see she has follow up with Dr. Anderson on 03/24 and he will discuss the labs in more detail with her. Pt calls asking doctor to take a look at blood work she saw this on my chart and worried about her creatinine.Please advise. Latest Ref Rng 03/08/2024 Glucose 74 - 99 mg/dL 90 BUN 7 - 21 mg/dL 17 Creatinine 0.58 - 0.96 mg/dL 1.32 (H) Sodium 136 - 144 mmol/L 140 Potassium 3.7 - 5.1 mmol/L 4.7 Chloride 98 - 107 mmol/L 104 CO2 22 - 30 mmol/L 25 Anion Gap 8 - 15 mmol/L 11 Calcium 8.5 - 10.2 mg/dL 9.8 eGFR >=60 mL/min/1.73m 41 (L) TSH 0.270 - 4.200 mIU/L 2.990 Legend: (H) High (L) Low documented in this encounter [facility] 03-13-2024 Telephone encounter Note Pt notified. She would like to have urine done to r/o kidney infection. Pt reports back pain (that is from her fall), increased frequency and burning with urination. She has increased fluids. Denies fever, visible blood in urine, feeling of retention. Order pended, please file if agreeable. Armida Paige MA [facility] 03-13-2024 Telephone encounter Note Overall only mildly decreased from baseline and actually improved since hospitalization. I see she has follow up with Dr. Anderson on 03/24 and he will discuss the labs in more detail with her. [facility] 03-13-2024 Telephone encounter Note Pt calls asking doctor to take a look at blood work she saw this on my chart and worried about her creatinine.Please advise. Latest Ref Rng 03/08/2024 Glucose 74 - 99 mg/dL 90 BUN 7 - 21 mg/dL 17 Creatinine 0.58 - 0.96 mg/dL 1.32 (H) Sodium 136 - 144 mmol/L 140 Potassium 3.7 - 5.1 mmol/L 4.7 Chloride 98 - 107 mmol/L 104 CO2 22 - 30 mmol/L 25 Anion Gap 8 - 15 mmol/L 11 Calcium 8.5 - 10.2 mg/dL 9.8 eGFR >=60 mL/min/1.73m 41 (L) TSH 0.270 - 4.200 mIU/L 2.990 Legend: (H) High (L) Low [facility] 03-08-2024 Telephone encounter Note Left message for Blas in [place] to assist with scheduling 30 day monitor. Mitchell Sorensen MA [facility] 03-08-2024 Miscellaneous Notes Left message for Blas in [place] to assist with scheduling 30 day monitor. Mitchell Sorensen MA documented in this encounter [facility] 03-08-2024 History of Present illness Narrative Chief Complaint Patient presents with: ED Follow-up HPI Karla Ndiaye is a 78 year old female who presents here today for [facility] ER follow up. Patient resented to [facility] ER on 03/05/2024 for syncope and head injury. 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 She began feeling lightheaded and sweaty. She had sat down and when she got back up and started walking she had the syncopal episode. She struck the back of her head on the concrete. Son and a friend who is physical therapist told her she was out for about 45 sec. During the visit her Creatinine was significantly elevated 2.37. CT head was normal. Chest x-ray, right foot x-ray and pelvis x-ray all showed no acute findings. Foot xray show some degenerative Athrosis of the metatarsophalangeal joint of the hallux with a hallus valgus deformity. EKG showed no acute findings. Patient had eric on a medrol dose pack at the time Patient indicated that she has noticed left neck pain/left pain. No additional dizziness episodes but she still has fatigue and pain in tailbone; back of head and left side of jaw and left ear started hurting after she got home. Ear felt like it is full. If lays on the left, her ear will be sore. Past medical history, appointments, medications, allergies reviewed. Previous Medical History PAST MEDICAL HISTORY Diagnosis Date Advance directive discussed with patient 03/20/2022 Discussed 03/2022 Age related osteoporosis Age related osteoporosis Fosamax started 12/2018 Aortic heart murmur 10/01/2011 Arthritis of knee 08/05/2017 left knee Benign neoplasm of colon 10/21/2005 Class 1 obesity due to excess calories without serious comorbidity with body mass index (BMI) of 31.0 to 31.9 in adult 08/03/2022 Cystocele, midline 12/11/2009 Essential hypertension, benign Family history of colon cancer 03/20/2022 sister Glaucoma Hypercalcemia 10/19/2021 10/21/2021: Vit D stopped. Seeing Dr. French Haley as of 02/2022 Internal hemorrhoids without mention of complication 10/21/2005 Living will on file 03/20/2022 DPA: Jameson () Medicare annual wellness visit, subsequent 03/20/2022 Medicare Part B: 08/06/2008 Last done:03/20/2022 Mixed hyperlipidemia 04/09/2016 Pleural effusion on right 04/01/2019 Postmenopausal atrophic vaginitis 12/11/2009 Situational anxiety 03/24/2023 mainly related to husbands health Stage 3a chronic kidney disease (HCC) 12/19/2020 Symptomatic menopausal or female climacteric states Trochanteric bursitis, right hip 2018 Unilateral primary osteoarthritis, left knee 2018 Vasovagal syncope 10/01/2011 Previous Surgical History PAST SURGICAL HISTORY Procedure Laterality Date ARTHRP KNE CONDYLE&PLATU MEDIAL&LAT COMPARTMENTS Right 08/17/2011 Dr. 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 left dorsal hand skin lesion MAL LESION TRUNK,ARM,LEG 1.1-2.0 CM Right 12/14/2015 Exc. right dorsal forearm lesion PAST SURGICAL HISTORY OF Right 11/2020 right hip tendon repairs PT ED ENDOCRINOLOGY Left 08/2022 one on the left side TOTAL KNEE REPLACEMENT Left 07/09/2021 TOTAL KNEE REPLACEMENT Left 07/2021 Family History FAMILY HISTORY Problem Relation Age of Onset Stroke Mother 88 Alcohol/Drug Father Hypertension Father Breast Cancer Sister Colon Cancer Sister 79 No Known Problems Maternal Grandmother No Known Problems Maternal Grandfather No Known Problems Paternal Grandmother No Known Problems Paternal Grandfather No Known Problems Son Diabetes Son No Known Problems Son Patient Allergies ALLERGIES Allergen Reactions Sutures Hives high level reaction to CAT GUT suture Lisinopril Cough Monopril [Fosinopri* Cough Current Medications Current Outpatient Medications on File Prior to Visit Medication Sig spironolactone (ALDACTONE) 25 mg tablet Take 1 tablet by mouth once daily. amLODIPine (NORVASC) 5 mg tablet Take 1 tablet by mouth once daily. simvastatin (ZOCOR) 20 mg tablet Take 1 tablet by mouth daily at bedtime. calcium citrate/vitamin D3 (CITRACAL + D PETITES ORAL) Take 2 tablets by mouth once daily. lisinopril (ZESTRIL) 40 mg tablet Take 1 tablet by mouth once daily. alendronate (FOSAMAX) 70 mg tablet Take 1 tablet by mouth one time a week. In AM with cup of water on empty stomach. Nothing else by mouth and stay upright for 30 min. No current facility-administered medications on file prior to visit. Social History Social History Tobacco Use Smoking status: Former Smokeless tobacco: Never Tobacco comments: QUIT 1976 Vaping Use Vaping Use: Never used Substance Use Topics Alcohol use: Not Currently Alcohol/week: 1.0 standard drink of alcohol Types: 1 Shots of liquor per week Drug use: No Review of Symptoms REVIEW OF SYSTEMS See HPI EXAM: BP 138/88 (BP Site: Right Arm, BP Position: Sitting, BP Cuff Size: Large Adult) Pulse 69 Temp 36.6 C (97.9 F) (Tympanic) Resp 18 Wt 82.1 kg (181 lb) SpO2 97% BMI 30.53 kg/m General Appearance: Well appearing, alert, in no acute distress, well-hydrated, well nourished.. Head: Normocephalic, no masses, lesions, tenderness or abnormalities. No pain with palpation over the left TMJ. No pain with opening or closing her jaw. Ears: left: External ear, TM were normal, canal clear. Neck: Supple, no adenopathy; thyroid symmetric, normal size, no bruits. Back:no pain to palpation of vertebrae, good flexion and extension, good range of motion, motor and sensory appear to be normal Lungs: Lungs clear to auscultation. No wheezing, rhonchi, rales.. Heart: RRR without murmur, gallop, or rubs. No ectopy. Health Maintenance List RSV Vaccine(1 - 1-dose 60+ series) Never done Covid-19 Vaccine( season) due on 05/07/2023 Advance Directive Discussion due on 09/06/2023 Behavioral Health Screening Never done DTaP,Tdap,Td Vaccine(1 - Tdap) due on 03/24/2024 Hemoglobin/Hematocrit due on 03/24/2024 BP Controlled (<130/80) due on 03/24/2024 Influenza Vaccine(1) due on 05/07/2024 Bone Density Screening due on 11/02/2024 Serum Creatinine due on 12/21/2024 Annual PCP Team Chronic Disease Visit due on 02/27/2025 Diabetes Screening due on 03/24/2026 Pneumococcal Vaccine: 65+ Completed Colorectal Cancer Screening Discontinued Shingrix Vaccine Discontinued Data reviewed A/P ASSESSMENT/PLAN: 1. Syncope, unspecified syncope type - ICD9: 780.2, ICD10: R55 (primary diagnosis) Check - US CAROTID ARTERIES [facility] - ECHO - PERFLUTREN LIPID MICROSPHERES 1.1 MG/ML INJECTION IN NS 10 ML - SODIUM CHLORIDE 0.9 % (FLUSH) INJECTION SYRINGE - Cloneless EVENT MONITOR 2. Elevated serum creatinine - ICD9: 790.99, ICD10: R79.89 Check - BASIC METABOLIC PANEL - TSH 3. Tail bone pain - ICD9: 724.79, ICD10: M53.3 - due to contusion. Advised on use of tylenol. 4. Situational anxiety - ICD9: 300.09, ICD10: F41.8 Check - THYROID STIMULATING HORMONE 5. Stage 3b chronic kidney disease (HCC) - ICD9: 585.3, ICD10: N18.32 - eGFR: 41 Worsening - Counseled on avoiding NSAIDs, adequate hydration - ACEi/ARB prescribed: Yes F/u if recurs will need to pursue additional w/u with possibly cardio or neurology. Deejay Anderson MD documented in this encounter [facility] 02-28-2024 History of Present illness Narrative Chief Complaint Patient presents with: Follow Up HPI Karla Ndiaye is a 78 year old female who presents here today for poison jose g on face. When did you it start? Just started Location? Face - left lower calf and under her eyes. Any pain? None Any OTC? Yes Eyes feel dry. No pain. Some itching. No shortness of breath or wheezing. Past medical history, appointments, medications, allergies reviewed. Previous Medical History PAST MEDICAL HISTORY Diagnosis Date Advance directive discussed with patient 03/20/2022 Discussed 03/2022 Age related osteoporosis Age related osteoporosis Fosamax started 12/2018 Aortic heart murmur 10/01/2011 Arthritis of knee 08/05/2017 left knee Benign neoplasm of colon 10/21/2005 Class 1 obesity due to excess calories without serious comorbidity with body mass index (BMI) of 31.0 to 31.9 in adult 08/03/2022 Cystocele, midline 12/11/2009 Essential hypertension, benign Family history of colon cancer 03/20/2022 sister Glaucoma Hypercalcemia 10/19/2021 10/21/2021: Vit D stopped. Seeing Dr. French Haley as of 02/2022 Internal hemorrhoids without mention of complication 10/21/2005 Living will on file 03/20/2022 DPA: [place] () Medicare annual wellness visit, subsequent 03/20/2022 Medicare Part B: 08/06/2008 Last done:03/20/2022 Mixed hyperlipidemia 04/09/2016 Pleural effusion on right 04/01/2019 Postmenopausal atrophic vaginitis 12/11/2009 Situational anxiety 03/24/2023 mainly related to husbands health Stage 3a chronic kidney disease (HCC) 12/19/2020 Symptomatic menopausal or female climacteric states Trochanteric bursitis, right hip 2018 Unilateral primary osteoarthritis, left knee 2018 Vasovagal syncope 10/01/2011 Previous Surgical History PAST SURGICAL HISTORY Procedure Laterality Date ARTHRP KNE CONDYLE&PLATU MEDIAL&LAT COMPARTMENTS Right 08/17/2011 Dr. 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 left dorsal hand skin lesion MAL LESION TRUNK,ARM,LEG 1.1-2.0 CM Right 12/14/2015 Exc. right dorsal forearm lesion PAST SURGICAL HISTORY OF Right 11/2020 right hip tendon repairs PT ED ENDOCRINOLOGY Left 08/2022 one on the left side TOTAL KNEE REPLACEMENT Left 07/09/2021 TOTAL KNEE REPLACEMENT Left 07/2021 Family History FAMILY HISTORY Problem Relation Age of Onset Stroke Mother 88 Alcohol/Drug Father Hypertension Father Breast Cancer Sister Colon Cancer Sister 79 No Known Problems Maternal Grandmother No Known Problems Maternal Grandfather No Known Problems Paternal Grandmother No Known Problems Paternal Grandfather No Known Problems Son Diabetes Son No Known Problems Son Patient Allergies ALLERGIES Allergen Reactions Sutures Hives high level reaction to CAT GUT suture Lisinopril Cough Monopril [Fosinopri* Cough Current Medications Current Outpatient Medications on File Prior to Visit Medication Sig spironolactone (ALDACTONE) 25 mg tablet Take 1 tablet by mouth once daily. amLODIPine (NORVASC) 5 mg tablet Take 1 tablet by mouth once daily. simvastatin (ZOCOR) 20 mg tablet Take 1 tablet by mouth daily at bedtime. cyclobenzaprine (FLEXERIL) 10 mg tablet Take 1 tablet by mouth three times a day as needed for muscle spasm. calcium citrate/vitamin D3 (CITRACAL + D PETITES ORAL) Take 2 tablets by mouth once daily. lisinopril (ZESTRIL) 40 mg tablet Take 1 tablet by mouth once daily. alendronate (FOSAMAX) 70 mg tablet Take 1 tablet by mouth one time a week. In AM with cup of water on empty stomach. Nothing else by mouth and stay upright for 30 min. hydrOXYzine HCl (ATARAX) 10 mg tablet Take 1 tablet by mouth three times daily as needed for anxiety. No current facility-administered medications on file prior to visit. Social History Social History Tobacco Use Smoking status: Former Smokeless tobacco: Never Tobacco comments: QUIT 1976 Vaping Use Vaping Use: Never used Substance Use Topics Alcohol use: Not Currently Alcohol/week: 1.0 standard drink of alcohol Types: 1 Shots of liquor per week Drug use: No Review of Symptoms REVIEW OF SYSTEMS See HPI EXAM: BP 126/80 (BP Site: Left Arm, BP Position: Sitting, BP Cuff Size: Large Adult) Resp 16 Wt 82.1 kg (181 lb) BMI 30.53 kg/m General Appearance: Well appearing, alert, in no acute distress, well-hydrated, well nourished.. Skin: some erythema under both eyes and a blister patch under the right eye. Developing a patch on the left calf. Eyes: sclera and conjunctiva are normal. . Lungs: CTA with good air movement. Health Maintenance List RSV Vaccine(1 - 1-dose 60+ series) Never done Covid-19 Vaccine( season) due on 05/07/2023 Advance Directive Discussion due on 09/06/2023 Behavioral Health Screening Never done DTaP,Tdap,Td Vaccine(1 - Tdap) due on 03/24/2024 Hemoglobin/Hematocrit due on 03/24/2024 BP Controlled (<130/80) due on 03/24/2024 Bone Density Screening due on 11/02/2024 Serum Creatinine due on 12/21/2024 Annual PCP Team Chronic Disease Visit due on 01/17/2025 Diabetes Screening due on 03/24/2026 Influenza Vaccine Completed Pneumococcal Vaccine: 65+ Completed Colorectal Cancer Screening Discontinued Shingrix Vaccine Discontinued Data reviewed A/P ASSESSMENT/PLAN: 1. Contact dermatitis, unspecified contact dermatitis type, unspecified trigger - ICD9: 692.9, ICD10: L25.9 Suspect early poison jose g - Oral Steriod tx -Medrol dose pack - discussed skin care of rash - follow up if symptoms persist or worsen. Requested Prescriptions Signed Prescriptions Disp Refills methylPREDNISolone (MEDROL, DEVYN,) 4 mg Dose-Pack 21 tablet 0 Sig: Follow dosing instructions, take with food. F/u if not resolving. Deejay Anderson MD documented in this encounter [facility] 02-14-2024 Telephone encounter Note Patient MyChart message requesting the following refill Refill(s) Requested: Requested Prescriptions Pending Prescriptions Disp Refills spironolactone (ALDACTONE) 25 mg tablet 90 tablet 1 Sig: Take 1 tablet by mouth once daily. amLODIPine (NORVASC) 5 mg tablet 90 tablet 1 Sig: Take 1 tablet by mouth once daily. simvastatin (ZOCOR) 20 mg tablet 90 tablet 3 Sig: Take 1 tablet by mouth daily at bedtime. ALLERGIES Allergen Reactions Sutures Hives high level reaction to CAT GUT suture Lisinopril Cough Monopril [Fosinopri* Cough (home) [phone] (cell) Last Office Visit Date: 01/18/2024 Last [facility] Visit: Visit date not found Future Appointment: 03/24/2024 The patients preferred pharmacy has been captured for this encounter? yes Request is for script(s) to be escript to pharmacy. Helen Painter LPN [facility] 02-14-2024 Miscellaneous Notes Patient MyChart message requesting the following refill Refill(s) Requested: Requested Prescriptions Pending Prescriptions Disp Refills spironolactone (ALDACTONE) 25 mg tablet 90 tablet 1 Sig: Take 1 tablet by mouth once daily. amLODIPine (NORVASC) 5 mg tablet 90 tablet 1 Sig: Take 1 tablet by mouth once daily. simvastatin (ZOCOR) 20 mg tablet 90 tablet 3 Sig: Take 1 tablet by mouth daily at bedtime. ALLERGIES Allergen Reactions Sutures Hives high level reaction to CAT GUT suture Lisinopril Cough Monopril [Fosinopri* Cough (home) [phone] (cell) Last Office Visit Date: 01/18/2024 Last [facility] Visit: Visit date not found Future Appointment: 03/24/2024 The patients preferred pharmacy has been captured for this encounter? yes Request is for script(s) to be escript to pharmacy. Helen Painter LPN documented in this encounter [facility] 02-02-2024 History of Present illness Narrative Program_ID:[id number] Access Code: [email or web address] URL: [email or web address] Date: 02-02-2024 Prepared By: Brittnee Whiting Program Notes Exercises - Hooklying Single Knee to Chest Stretch - 2 x daily - 7 x weekly - 3 sets - 10 reps - Supine Double Knee to Chest - 2 x daily - 7 x weekly - 3 sets - 10 reps - Seated Transversus Abdominis Bracing - 2 x daily - 7 x weekly - 2-3 sets - 10 reps - Seated Flexion Stretch - 2 x daily - 7 x weekly - 2-3 sets - 10 reps Episode Visit Count: 1 Therapist That Will Accept/Oversee The Plan Of Care: Brittnee Whiting Start of Care Date: 02/02/24 Onset Date: 01/11/24 Plan of Care Certification Date: 02/02/24 Next Certification Due Date: 03/08/24 Patient Identified by Name and Date of : Yes [facility]AB[facility]TS THERAPY PHYSICAL THERAPY EVALUATION PLAN OF CARE: Assessment: Karla Ndiaye presents with diagnosis of acute midline low back pain without sciatica that interferes with rising from a chair, standing (turning) . She presents with impairments in ADL's, flexibility, independence in exercise, joint mobility, overall function, patient reported outcome measures, range of motion, strength, symptom management, and tissue tenderness. PROMIS (Patient-Reported Outcomes Measurement Information System) scores were reviewed and identified as within normal limits. Prognosis for therapy is Excellent due to: good support system/ coping skills, within-session changes, positive past response to therapy, acuteness of condition, good overall health status, current objective clinical presentation . She will benefit from skilled therapy services to meet the goals established for this plan of care as noted below. Goals for Episode of Care: created on 02/02/24 through 03/15/24 Independent in home exercises. Patient will decrease pain to 1-2/10 with functional activities to allow patient to improve ambulation, transfers, and standing tolerance for ADLs. Restore pain-free lumbar ROM to minimal to no limitation SG, SB, or rotation bilaterally to allow for ADLs Patient will be able to tolerate functional activities for 3-4 hours without increased symptoms. Patient Goals: indep with HEP to self manage symptoms Planned Interventions, Frequency, and Duration: Current Frequency: 1x/week Duration: 6 weeks Total Number of Visits Planned: 6 Planned Treatment Interventions: Therapeutic exercise (73314), Neuromuscular re-education (42426), Manual therapy (28175), Therapeutic activities (02811), Self-mcfp management (76565), Gait Training (45492) PLAN FOR NEXT VISIT: Patient demonstrates good understanding of plan of care and treatment. The above goals and plan of care were discussed and agreed upon by patient/family. SUBJECTIVE: for LBP that has improved since onset about 1 mo. ago. Pt attributes the pain to bending foward for prolonged duration and then sudden increased pain upon standing while gardening. She was Rx'd muscle relaxers which did not help. Pt. went to ED and was also rx'd pain medication and patches which have helped. Pt. reports some Am stiffness. Aggravating factors include getting sharp pains with stepping wrong. She has no trouble with bending forward. She is not taking anything over the counter. She has no interest in surgery. Burning in the R thigh is chronic but questions if it is related to her low back. Mentions hx of sciatica before in the past and rx'd extension exercises which do not help currently. Patient Goals: indep with HEP to self manage symptoms Functional Limitations: rising from a chair, standing (turning) Prior Level of Function: Independent without limitations Relevant History Employment: Retired Hobbies / Interests: gardening Intake Information: Prescription present Previous Treatment: Ice , Heat , Muscle relaxer , Chiropractor Falls Interview: No positive findings with falls interview Red Flags Vertebral Fracture Red Flags: Female, Age >70 Abdominal Aortic Aneurysm Red Flags: Age >60 Abdominal Aortic Aneurysm Clinical Reasoning: Proceed with caution Cancer Clinical Reasoning: No identified risk factors. Infection Clinical Reasoning: No identified risk factors. Cauda Equina Syndrome Clinical Reasoning: No identified risk factors. Red Flags - Cervical Cancer Clinical Reasoning: No identified risk factors. Infection Clinical Reasoning: No identified risk factors. Spine History Symptoms Location at Onset: Back Symptoms Since Onset: Improving Pain is Worse Always: Turning, Lying, Standing, Rising Pain is Better Always: Sitting, Bending Sleep Affected by Pain: Not affected by pain Pain: Pain Pain Level: (does not rate) Pain Location: Low Back/Lumbar Spine- Midline Description: Sharp Frequency: With movement Additional Pain Information : Location 2 Pain Location 2: Thigh - Right (does not rate) Description 2: Burning Post Treatment Pain Post Treatment Pain Level: 0 Post Treatment Pain Location: Back Post Treatment Symptoms: resolved symptoms upon sitting up and standing/amb Post Treatment Pain Score 2: 0/10 Post Treatment Pain Location 2: Thigh - Right Post Treatment Pain Description 2: Burning PROMIS Scales 02/02/2024 Higher is Better Phys Func - Score 53 (within normal limits) Phys Func - Percentile 62 Self-Eff Symptom - Score 51 (Average) Self-Eff Symptom - Percentile 54 T-scores: mean of general population = 50. 5 points is clinically meaningfully difference Percentiles provide an indication of how the patient's score ranks in relation to the general population. Higher percentile rankings indicate better function/quality of life. 50th percentile is the average of the general population and indicates half of respondents had a worse score. OBJECTIVE MEASURES WITH LEVEL OF FUNCTION: Posture / Alignment Posture: Good Lumbo - Pelvic Alignment: weight shift over LLE, B PSIS and iliac crest level with equal WB BLE correction - denies pain Spine Observations R Lumbar Spine Palpation Tenderness: PSIS (posterior superior iliac spine), Paraspinals, Quadratus Lumborum L Lumbar Spine Palpation Tenderness: Paraspinals, Quadratus Lumborum, PSIS (posterior superior iliac spine) Sensation - Lumbar Sensation: Grossly Intact Lumbar Spine AROM Lumbar Flexion: Normal Lumbar Extension: Moderate limitation, Produces Lumbar R Side Pathfork: Minimal limitation, Produces Lumbar L Side Pathfork: Normal Lumbar R Side-Bend: Normal Lumbar L Side-Bend: Minimal limitation, Produces Lumbar R Rotation: Normal Lumbar L Rotation: Normal, Produces Repeated Test Movements - Lumbar RFIL - Symptoms During: abolishes RFIL - Symptoms After: better Other Lumbar Repeated Test Movements: Yes Other Repeated Test Movements - Lumbar RFISit / Symptoms During: decreases RFISit / Symptoms After: abolished Gait Gait Observation: unremarkable Education: Education Learning Preferences: Demonstration, Explanation, Performance, Printed Materials Barriers: None Learning/educational needs: Plan of Care, Home exercise program Education Provided: Yes, see treatment interventions for education provided Education Provided To: Patient Education Mode/Type: Demonstration, Explanation/Discussion, Literature/Printed Materials, Performance Response to Education/Teach Back: States/Identifies, Return Demonstration TREATMENT: PT Treatment Interventions: Therapeutic Exercise, Self-Retirement Management Evaluation Therapeutic Exercise: 1: *Access Code: [email or web address] URL: [email or web address] Date: 02/02/2024 Prepared by: Brittnee Paz Exercises - Hooklying Single Knee to Chest Stretch - 2 x daily - 7 x weekly - 3 sets - 10 reps - 30 hold - Supine Double Knee to Chest - 2 x daily - 7 x weekly - 3 sets - 10 reps - 30 hold - Seated Transversus Abdominis Bracing - 2 x daily - 7 x weekly - 2-3 sets - 10 reps - Seated Flexion Stretch - 2 x daily - 7 x weekly - 2-3 sets - 10 reps - 1 hold Skilled Intervention: Patient was educated in proper exercise technique and purpose for exercises. Reviewed and educated patient on additions/changes for home exercise program as above (*). Skilled judgment was used in selection of appropriate interventions. Provided written instruction for home exercise program to facilitate proper performance and compliance. Correct performance of therapeutic exercises was facilitated with verbal, visual, and tactile cuing. Educated patient on rationale for performing exercises in regards to decreasing fatigue , increase ease of ADL, and ROM and function . Patient education as noted. Self-Retirement Management: 1: discussed directional preference - dc extension exercises given in the past 2: discussed lumbar spine mechanics and reasoning for reduced symptoms with flexion 3: discussed body mechanics, pt. is able to squat without knee or back pain 4: discussed activity modification and performing HEP throughout her time gardening to manage/avoid symptom onset Skilled Intervention: Skilled judgment in the selection of proper modification for activity of daily living/home management based on clinical presentation, deficits, and needs. Provided written instruction for activities of daily living techniques to facilitate proper performance and compliance. Reviewed patient specific diagnosis in relation to activities of daily living/home management. Activity progression based on professional judgement. Provided written instruction for home program to facilitate proper performance and compliance. Correct performance of home program was facilitated with verbal, visual, and tactile cueing. Billing * Evaluation Low Complexity: 1 Unit Therapeutic Exercise Treatment Minutes: 10 Self-Care/Home Management Treatment Minutes: 15 Skilled Treatment Time Minutes (timed and untimed codes): 45 Total Session Time (minutes): 45 Session Start Time : 0800 Session Stop Time : 0845 Brittnee Whiting PT documented in this encounter [facility] 01-24-2024 History of Present illness Narrative Scan on 01/21/2024 7:40 PM by Provider, External, [facility]VAL[facility]: Consultation - Emergency Medicine documented in this encounter [facility] 01-21-2024 Telephone encounter Note Pt notified and verbalized understanding. Pt would like package pick up to call her to set up spine appointment Anusha Hollingsworth MA [facility] 01-21-2024 Miscellaneous Notes Pt notified and verbalized understanding. Pt would like package pick up to call her to set up spine appointment Anusha Hollingsworth MA Please let patient know her xray shows worsening degeneration of her lower spine. I have placed a consult for her to see a range management specialist. documented in this encounter [facility] 01-20-2024 Telephone encounter Note Please let patient know her xray shows worsening degeneration of her lower spine. I have placed a consult for her to see a range management specialist. [facility] 01-20-2024 Note IMPRESSION: SOME PROGRESSION OF DEGENERATIVE CHANGES. ALIGNMENT ABNORMALITIES DESCRIBED Optical Dispenser: JADIEL Transcribe Date/Time: Jan 20 2024 3:28P Dictated by : VERONICA HESTER MD This examination was interpreted and the report reviewed and electronically signed by: VERONICA HESTER MD on Jan 20 2024 3:29PM [facility] [[email or web address]] DIVISION OF RADIOLOGY 01-18-2024 History of Present illness Narrative Radiology Service Progress Note PATIENT NAME: Karla Ndiaye DATE OF SERVICE: January 18, 2024 TIME: 11:45 AM PATIENT IDENTITY VERIFICATION COMPLETED USING TWO (2) IDENTIFIERS: Name and Date of confirmed by patient verbally. FALL SCREENING: Has the patient had 2 falls in the last year or 1 fall with injury or currently using an Ambulatory Assistive Device (Walker, Cane, Wheelchair, Crutches, etc.)? No PATIENT GENDER DATA: Female. status: : No status: NO. PATIENT RELEVANT IMPLANT DATA REVIEWED: Yes PATIENT PRESENTS WITH AN IMPLANTABLE OR ATTACHED GOLD LAYER: No RADIOLOGY DEPARTMENT: General X-ray: Exam(s) Completed: Spine X-Ray(s): Lumbar AP / LAT / L5-S1 / OBL No L5-S1 ordered PERIPHERAL IV DATA: Not applicable SIGNED BY: Estefany Rees RT(R) January 18, 2024 11:45 AM documented in this encounter [facility] 01-18-2024 History of Present illness Narrative Chief Complaint Patient presents with: Back Pain: Low back pain X 1 week HPI Karla Ndiaye is a 78 year old female who presents here today for Above Complaints.. Patient presents for low back pain x1 week. Patient reports she has been working in the garden and bending over a lot as she has knee replacements and can not get down on the ground. Patient reports she went to chiropractor and did not get any improvement. Past medical history, appointments, medications, allergies reviewed. Previous Medical History PAST MEDICAL HISTORY Diagnosis Date Advance directive discussed with patient 03/20/2022 Discussed 03/2022 Age related osteoporosis Age related osteoporosis Fosamax started 12/2018 Aortic heart murmur 10/01/2011 Arthritis of knee 08/05/2017 left knee Benign neoplasm of colon 10/21/2005 Class 1 obesity due to excess calories without serious comorbidity with body mass index (BMI) of 31.0 to 31.9 in adult 08/03/2022 Cystocele, midline 12/11/2009 Essential hypertension, benign Family history of colon cancer 03/20/2022 sister Glaucoma Hypercalcemia 10/19/2021 10/21/2021: Vit D stopped. Seeing Dr. French Haley as of 02/2022 Internal hemorrhoids without mention of complication 10/21/2005 Living will on file 03/20/2022 DPA: Jameson () Medicare annual wellness visit, subsequent 03/20/2022 Medicare Part B: 08/06/2008 Last done:03/20/2022 Mixed hyperlipidemia 04/09/2016 Pleural effusion on right 04/01/2019 Postmenopausal atrophic vaginitis 12/11/2009 Situational anxiety 03/24/2023 mainly related to husbands health Stage 3a chronic kidney disease (HCC) 12/19/2020 Symptomatic menopausal or female climacteric states Trochanteric bursitis, right hip 2018 Unilateral primary osteoarthritis, left knee 2018 Vasovagal syncope 10/01/2011 Previous Surgical History PAST SURGICAL HISTORY Procedure Laterality Date ARTHRP KNE CONDYLE&PLATU MEDIAL&LAT COMPARTMENTS Right 08/17/2011 Dr. 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 left dorsal hand skin lesion MAL LESION TRUNK,ARM,LEG 1.1-2.0 CM Right 12/14/2015 Exc. right dorsal forearm lesion PAST SURGICAL HISTORY OF Right 11/2020 right hip tendon repairs PT ED ENDOCRINOLOGY Left 08/2022 one on the left side TOTAL KNEE REPLACEMENT Left 07/09/2021 TOTAL KNEE REPLACEMENT Left 07/2021 Family History FAMILY HISTORY Problem Relation Age of Onset Stroke Mother 88 Alcohol/Drug Father Hypertension Father Breast Cancer Sister Colon Cancer Sister 79 No Known Problems Maternal Grandmother No Known Problems Maternal Grandfather No Known Problems Paternal Grandmother No Known Problems Paternal Grandfather No Known Problems Son Diabetes Son No Known Problems Son Patient Allergies ALLERGIES Allergen Reactions Sutures Hives high level reaction to CAT GUT suture Lisinopril Cough Monopril [Fosinopri* Cough Current Medications Current Outpatient Medications on File Prior to Visit Medication Sig simvastatin (ZOCOR) 20 mg tablet Take 1 tablet by mouth daily at bedtime. calcium citrate/vitamin D3 (CITRACAL + D PETITES ORAL) Take 2 tablets by mouth once daily. amLODIPine (NORVASC) 5 mg tablet Take 1 tablet by mouth once daily. spironolactone (ALDACTONE) 25 mg tablet Take 1 tablet by mouth once daily. lisinopril (ZESTRIL) 40 mg tablet Take 1 tablet by mouth once daily. alendronate (FOSAMAX) 70 mg tablet Take 1 tablet by mouth one time a week. In AM with cup of water on empty stomach. Nothing else by mouth and stay upright for 30 min. hydrOXYzine HCl (ATARAX) 10 mg tablet Take 1 tablet by mouth three times daily as needed for anxiety. No current facility-administered medications on file prior to visit. Social History Social History Tobacco Use Smoking status: Former Smokeless tobacco: Never Tobacco comments: QUIT 1976 Vaping Use Vaping Use: Never used Substance Use Topics Alcohol use: Not Currently Alcohol/week: 1.0 standard drink of alcohol Types: 1 Shots of liquor per week Drug use: No Review of Symptoms REVIEW OF SYSTEMS SEE HPI EXAM: BP 134/77 Pulse 72 Resp 16 Wt 84.4 kg (186 lb) BMI 31.37 kg/m General Appearance: Well appearing, alert, in no acute distress, well-hydrated, well nourished.. Back: Pain with palpation of supraspinal muscles bilaterally, decreased ROM with flexion and extension. no pain to palpation of vertebrae, reflexes are 2+ and symmetric, motor and sensory appear to be normal Health Maintenance List RSV Vaccine(1 - 1-dose 60+ series) Never done Covid-19 Vaccine( season) due on 05/07/2023 Advance Directive Discussion due on 09/06/2023 Behavioral Health Screening Never done DTaP,Tdap,Td Vaccine(1 - Tdap) due on 03/24/2024 Hemoglobin/Hematocrit due on 03/24/2024 BP Controlled (<130/80) due on 03/24/2024 Annual PCP Team Chronic Disease Visit due on 05/03/2024 Bone Density Screening due on 11/02/2024 Serum Creatinine due on 12/21/2024 Diabetes Screening due on 03/24/2026 Influenza Vaccine Completed Pneumococcal Vaccine: 65+ Completed Colorectal Cancer Screening Discontinued Shingrix Vaccine Discontinued ASSESSMENT/PLAN: 1. Acute midline low back pain without sciatica - ICD9: 724.2, ICD10: M54.50 - XR LUMBAR PARS DEFECT 4V AP/LAT/BOTH OBL - CONSULT TO PHYSICAL THERAPY - CYCLOBENZAPRINE 10 MG TABLET Marya Jerome APRN.[employer] documented in this encounter [facility] 01-07-2024 History of Present illness Narrative Radiology Service Progress Note PATIENT NAME: Karla Ndiaye DATE OF SERVICE: January 07, 2024 TIME: 1:32 PM PATIENT IDENTITY VERIFICATION COMPLETED USING TWO (2) IDENTIFIERS: Name and Date of confirmed by patient verbally. FALL SCREENING: Has the patient had 2 falls in the last year or 1 fall with injury or currently using an Ambulatory Assistive Device (Walker, Cane, Wheelchair, Crutches, etc.)? No PATIENT GENDER DATA: Female. status: : No status: NO. PATIENT RELEVANT IMPLANT DATA REVIEWED: Not Applicable PATIENT PRESENTS WITH AN IMPLANTABLE OR ATTACHED GOLD LAYER: No RADIOLOGY DEPARTMENT: Ultrasound PERIPHERAL IV DATA: Not applicable SIGNED BY: Brittnee Benton RDMS RVT January 07, 2024 1:32 PM documented in this encounter [facility] 12-10-2023 Miscellaneous Notes Patient has been identified by name and date of : Yes Patient phones for refill(s): Requested Prescriptions Pending Prescriptions Disp Refills spironolactone (ALDACTONE) 25 mg tablet 90 tablet 1 Sig: Take 1 tablet by mouth once daily. amLODIPine (NORVASC) 5 mg tablet 90 tablet 1 Sig: Take 1 tablet by mouth once daily. Date of last office visit in primary care: 05/03/2023 Date of next office visit in primary care: 03/24/2024 Spironolactone 25mg last written 11/03/23 #90 with 1 refill. Pt is not due refills Amlodipine 5mg last written 11/11/23 #90 with 1 refill. Pt is not due for refills. message to pt advising to contact pharmacy regarding refills d/t active rx(s) at the pharmacy. Please advise. Thank you. Ricky Dawson LPN. documented in this encounter [facility] 12-10-2023 Miscellaneous Notes Patient has been identified by name and date of : Yes Patient phones for refill(s): Requested Prescriptions Pending Prescriptions Disp Refills simvastatin (ZOCOR) 20 mg tablet 90 tablet 3 Sig: Take 1 tablet by mouth daily at bedtime. Date of last office visit in primary care: 05/03/2023 Date of next office visit in primary care: 03/24/2024 Please advise. Thank you. Ricky Dawson LPN. documented in this encounter [facility] 12-07-2023 Instructions Antoine Braswell MD - 12/07/2023 10:26 AM EDT - Please do blood tests at your convenience - Please do thyroid ultrasound and a bone density scan (if insurance covers). Call [phone] to schedule - I will update you about the results and next steps documented in this encounter [facility] 12-07-2023 History of Present illness Narrative Images from the original note were not included. ENDOCRINOLOGY CLINIC NOTE Ms. Ndiaye is a pleasant 77 year old female with osteoporosis, HTN, dyslipidemia, stage III CKD presented for follow-up of hypercalcemia and low bone density HPI Hypercalcemia: Ms. Ndiaye has had mild hypercalcemia since 2016, when her calcium was 10.9 (corrected 10.2) with a GFR of 50. Since then, she has had mild hypercalcemia. The highest documented calcium level is 11.5 but without concomitant albumin level. Her PTH has been between 43-81. Ms. Ndiaye is known to have osteoporosis. DXA scan in 10/2020 showed lowest T score -2.4 at the left femoral neck. Comparison with the previous one could not be done because a different machine was used. She was taking HCTZ 12.5 mg daily but was stopped 12/2021. Ms. Ndiaye denied muscle aches and pains, polyuria, polydipsia, and no history of kidney stones or fractures. There is no family history of calcium related conditions. He used to take calcium and vitamin D but they were stopped few months ago. Repeat labs after optimizing her calcium and vitamin D intake showed corrected calcium 10.2, ionized calcium 1.36, vitamin D 46, P3.2, GFR 47, PTH 71 and 24-hour urine calcium 62.9. She underwent left lower parathyroidectomy by Dr. Perez on 2022. Intraoperative PTH declined from 205 to 18. Postoperative calcium and PTH were normal. Pathology showed hypercellular parathyroid tissue Interval events: She is taking Citracal petites 1 caplet (150 mg calcium but serving size is 2 caps she was no aware) + vitamin D 500 units per 2 caps. Thyroid nodules: Thyroid ultrasound in 02/2022 showed 4 nodules, the largest being 2.7 cm right mid cystic nodule. In office ultrasound was done in the endocrine surgery clinic showed a cystic nodule on the right measuring 2.5 cm and a subcentimeter complex isoechoic nodule on the right Osteoporosis: No fractures DXA scan 10/2022: L-spine T score 0.7 nonsignificant decline 2.1% Left hip T score -1.4 nonsignificant decline -2.3 Left femoral neck T score -2.5 Right hip T score -1.5 significant 5.7% decline Right femoral neck T score -2.1 Right distal forearm T score -0.3 DXA 10/2020: L-spine T score -0.5 Left total hip T score -1.2 Left femoral T score -2.4 Right total hip T score -1.1 Right femoral neck T score -2.0 Fracture history: none Treatment history (including any side effects/contraindications): Fosamax 2018-present Family history of metabolic bone disease or fractures: None Risk factors: > 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 Vitamin D intake: none currently Weight bearing exercise: No structured physical activity Dental Procedure: None in the near future but may plan to do extraction next Radiation Exposure: None Height Loss: She possible lost an inch PAST MEDICAL HISTORY Diagnosis Date Advance directive discussed with patient 03/20/2022 Discussed 03/2022 Age related osteoporosis Age related osteoporosis Fosamax started 12/2018 Aortic heart murmur 10/01/2011 Arthritis of knee 08/05/2017 left knee Benign neoplasm of colon 10/21/2005 Class 1 obesity due to excess calories without serious comorbidity with body mass index (BMI) of 31.0 to 31.9 in adult 08/03/2022 Cystocele, midline 12/11/2009 Essential hypertension, benign Family history of colon cancer 03/20/2022 sister Glaucoma Hypercalcemia 10/19/2021 10/21/2021: Vit D stopped. Seeing Dr. French Haley as of 02/2022 Internal hemorrhoids without mention of complication 10/21/2005 Living will on file 03/20/2022 DPA: Jameson () Medicare annual wellness visit, subsequent 03/20/2022 Medicare Part B: 08/06/2008 Last done:03/20/2022 Mixed hyperlipidemia 04/09/2016 Pleural effusion on right 04/01/2019 Postmenopausal atrophic vaginitis 12/11/2009 Situational anxiety 03/24/2023 mainly related to husbands health Stage 3a chronic kidney disease (HCC) 12/19/2020 Symptomatic menopausal or female climacteric states Trochanteric bursitis, right hip 2018 Unilateral primary osteoarthritis, left knee 2018 Vasovagal syncope 10/01/2011 PAST SURGICAL HISTORY Procedure Laterality Date ARTHRP KNE CONDYLE&PLATU MEDIAL&LAT COMPARTMENTS Right 08/17/2011 Dr. 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 left dorsal hand skin lesion MAL LESION TRUNK,ARM,LEG 1.1-2.0 CM Right 12/14/2015 Exc. right dorsal forearm lesion PAST SURGICAL HISTORY OF Right 11/2020 right hip tendon repairs PT ED ENDOCRINOLOGY Left 08/2022 one on the left side TOTAL KNEE REPLACEMENT Left 07/09/2021 TOTAL KNEE REPLACEMENT Left 07/2021 FAMILY HISTORY Problem Relation Age of Onset Stroke Mother 88 Alcohol/Drug Father Hypertension Father Breast Cancer Sister Colon Cancer Sister 79 No Known Problems Maternal Grandmother No Known Problems Maternal Grandfather No Known Problems Paternal Grandmother No Known Problems Paternal Grandfather No Known Problems Son Diabetes Son No Known Problems Son Social History Tobacco Use Smoking status: Former Smokeless tobacco: Never Tobacco comments: QUIT 1976 Vaping Use Vaping Use: Never used Substance Use Topics Alcohol use: Not Currently Alcohol/week: 1.0 standard drink of alcohol Types: 1 Shots of liquor per week Drug use: No (Not in a hospital admission) Allergies As of Date: 12/07/2023 Allergen Noted Reaction SUTURES 02/14/2013 Hives LISINOPRIL 02/24/2022 Cough MONOPRIL [FOSINOPRIL SODIUM] 07/15/2005 Cough Fully Assessed 12/07/2023 Current Outpatient Medications Medication Sig Dispense Refill amLODIPine (NORVASC) 5 mg tablet Take 1 tablet by mouth once daily. 90 tablet 1 spironolactone (ALDACTONE) 25 mg tablet Take 1 tablet by mouth once daily. 90 tablet 1 lisinopril (ZESTRIL) 40 mg tablet Take 1 tablet by mouth once daily. 90 tablet 3 alendronate (FOSAMAX) 70 mg tablet Take 1 tablet by mouth one time a week. In AM with cup of water on empty stomach. Nothing else by mouth and stay upright for 30 min. 12 tablet 3 calcium carbonate (CALTRATE) 600 mg calcium (1,500 mg) tab Take 600 mg by mouth. Take one tablet daily simvastatin (ZOCOR) 20 mg tablet Take 1 tablet by mouth daily at bedtime. 90 tablet 3 hydrOXYzine HCl (ATARAX) 10 mg tablet Take 1 tablet by mouth three times daily as needed for anxiety. 20 tablet 0 No current facility-administered medications for this visit. COMPLETE REVIEW OF SYSTEMS: Answers submitted by the patient for this visit: Core Review of Systems (Submitted on 12/06/2023) Fever : No Night sweats: No Recent unintentional weight change: No Nasal Congestion: No Hearing Loss: No Vision Disturbance: No A cough: No Difficulty Breathing?: No Chest pain: No Irregular heartbeat: No Leg Swelling: No Nausea: No Diarrhea: No Black tarry stools: No Difficulty Urinating?: No Awaken at Night More Than Once to Urinate?: No Joint pain or stiffness: No Muscle aches: No Leg or Foot Discomfort at Night?: No A rash: No Dizziness: No Headaches: No Memory Loss: No Seizures: No PHYSICAL EXAM: 12/07/23 1002 BP: 135/89 Pulse: 74 Resp: 16 SpO2: 99% Weight: 84 kg (185 lb 3 oz) Height: 164 cm (5' 4.57) General: NAD, alert and cooperative Previous exam HEENT: EOMI, no proptosis/stare. Neck: supple with full ROM. No thyromegaly. There is a possible left lower thyroid nodule Cardiovascular: RRR, +S1 and S2. There is a left parasternal systolic murmur lungs: Clear to auscultation bilaterally Abdomen: soft, non-tender, non-distended, +BS, no striae Extremities: No LE oedema Neuro: No tremor of outstretched hands noted. Deep tendon reflexes are normal with a normal relaxation phase. Psych: Normal affect Labs: 11/20/2021 11:15 12/25/2021 12:07 01/27/2022 11:35 Calcium 10.7 (H) 10.7 (H) 10.9 (H) Vitamin D 25 Hydroxy 52.8 PTH, Intact 59 81 (H) Images: DXA scan 10/2020: L-spine T score 2.0 Left total hip T score -1.2 Left femoral T score -2.4 Right total hip T score -1.1 Right femoral neck T score -2.0 Thyroid ultrasound 02/2022: Right Lobe: 6 x 2.7 x 2.1 cm; heterogeneous with numerous nodules, expected vascular flow. Left Lobe: 5.3 x 2.1 x 1.8 cm; heterogeneous with numerous nodules, expected vascular flow. Isthmus: 0.2 cm The most suspicious thyroid nodule(s) (up to four) as below: NODULE 1: Location: Right upper pole Size: 1.3 x 1 x 0.7 cm Characteristics: Composition: Solid or almost completely solid, 2 points Echogenicity: Hypoechoic, 2 points Shape: [id number], 0 points Margin: Smooth, 0 points Echogenic foci (add points for all that apply): Punctate echogenic foci, 3 points Internal vascularity: present Interval growth: No prior available for comparison TI-RADS Category: TR5 ACR Recommendation: TI-RADS 5 nodule. FNA is advised. NODULE 2: Location: Right mid Size: 2.7 x 2 x 1.3 cm Characteristics: Composition: Cystic or almost completely cystic, 0 points Echogenicity: Anechoic, 0 points Shape: [id number], 0 points Margin: Smooth, 0 points Echogenic foci (add points for all that apply): None, 0 points Internal vascularity: present Interval growth: No prior available for comparison TI-RADS Category: TR1, benign ACR Recommendation: TI-RADS 1 Nodule, no follow-up or FNA is advised. NODULE 3: Location: Left upper pole Size: 0.8 x 0.6 x 0.4 cm Characteristics: Composition: Solid or almost completely solid, 2 points Echogenicity: Hypoechoic, 2 points Shape: [id number], 0 points Margin: Smooth, 0 points Echogenic foci (add points for all that apply): None, 0 points Internal vascularity: present Interval growth: No prior available for comparison TI-RADS Category: TR4 ACR Recommendation: TI-RADS 4 nodule. No FNA or follow-up imaging is advised. NODULE 4: Location: Left lower pole Size: 1.1 x 0.9 x 0.5 cm Characteristics: Composition: Solid or almost completely solid, 2 points Echogenicity: Hypoechoic, 2 points Shape: [id number], 0 points Margin: Smooth, 0 points Echogenic foci (add points for all that apply): None, 0 points Internal vascularity: present Interval growth: No prior available for comparison TI-RADS Category: TR4 ACR Recommendation: TI-RADS 4 nodule. Follow up imaging in 1, 2, 3 and 5 years is advised. IMPRESSION: Thyroid nodule(s) is/are present. Fine needle aspiration is recommended for one or more nodules as detailed in the synoptic report. Assessment and Recommendations: Ms. De León is a pleasant 78-year-old woman presented with her for evaluation and management of hypercalcemia. She also has osteoporosis. Hypercalcemia: She has had hypercalcemia with PTH in the upper half of normal and normal vitamin D. This is therefore PTH dependent hypercalcemia consistent with primary hyperparathyroidism. FHH is unlikely given the age of onset of the hypercalcemia, the lack of family history and the degree of hypercalcemia of 11.5 at one point. Repeat labs after stopping the HCTZ showed a similar picture. Her 24-hour urine calcium is low, likely in the setting of CKD and inadequate calcium intake. The picture is consistent with primary hyperparathyroidism and given the presence of CKD, osteoporosis and the degree of hypercalcemia, surgical intervention was recommended. She underwent left lower parathyroidectomy by Dr. Perez and had postoperative parathyroid and calcium levels were normal. Labs in 03/2023 showed normal calcium, PTH and vitamin D. We will continue with the current calcium and vitamin D intake. I will check her PTH, calcium and vitamin D now Thyroid nodules: Thyroid ultrasound showed several thyroid nodules. Repeat ultrasound by Dr. Perez showed cystic nodules and a subcentimeter complex nodule. We will repeat the ultrasound now Low bone density: Most recent DXA from 10/2022 showed stable BMD of all, but there is decline at the hip level. This decline could be due to the fact that she has had the hyperparathyroidism and the response to the Fosamax has been suboptimal. Given the decline and that her lowest T score is still in the osteoporosis range, we will continue the Fosamax. We will repeat her DXA scan if it is covered by insurance but I will also check her bone turnover markers. If the T-score values are outside the osteoporosis range, we will start a drug holiday. However, if insurance does not cover the scan or if she is still in the osteoporosis range, we will continue the Fosamax RTC in 1 year Some of the above has been copied from prior documentation on 12/08/2022 but barry elements reviewed, confirmed, and/or updated by me (Antoine Braswell MD) on 12/07/2023 Medical Decision Making: Problems: Moderate: 2+ stable chronic illnesses Data: Unique test result(s) reviewed: 3+ Unique test(s) ordered: 3+ Risk: Moderate: Moderate risk from testing/treatment Medical Decision Making Level: 4 - Moderate Antoine Braswell MD documented in this encounter [facility] 11-11-2023 Miscellaneous Notes Patient has been identified by name and date of : Yes, Provider Dr Anderson Date 03/08/24 Time 12:23 pm Patient phones for refill(s): Requested Prescriptions Pending Prescriptions Disp Refills amLODIPine (NORVASC) 5 mg tablet 90 tablet 1 Sig: Take 1 tablet by mouth once daily. Date of last office visit in primary care: 05/03/2023 Date of next office visit in primary care: 03/24/2024 Please advise. Thank you. Raina Murry LPN. documented in this encounter [facility] 11-03-2023 Miscellaneous Notes Rx refilled on 10/01/23 Qty: 90 with 1 refill. Should have refills left. Advised pt via [facility]. Raina Murry LPN documented in this encounter [facility] 11-03-2023 Miscellaneous Notes Patient has been identified by name and date of : Yes, Provider DR Anderson Date 11/03/23 Time 9:34 am Patient phones for refill(s): Requested Prescriptions Pending Prescriptions Disp Refills spironolactone (ALDACTONE) 25 mg tablet 90 tablet 1 Sig: Take 1 tablet by mouth once daily. Date of last office visit in primary care: 05/03/2023 Date of next office visit in primary care: 03/24/24 Please advise. Thank you. Raina Murry LPN. documented in this encounter [facility] 11-02-2023 History of Present illness Narrative Radiology Service Progress Note PATIENT NAME: Karla Ndiaye DATE OF SERVICE: November 02, 2023 TIME: 2:53 PM PATIENT IDENTITY VERIFICATION COMPLETED USING TWO (2) IDENTIFIERS: Name and Date of confirmed by patient verbally. FALL SCREENING: Has the patient had 2 falls in the last year or 1 fall with injury or currently using an Ambulatory Assistive Device (Walker, Cane, Wheelchair, Crutches, etc.)? No PATIENT GENDER DATA: Female. status: : No status: NO. PATIENT RELEVANT IMPLANT DATA REVIEWED: Not Applicable PATIENT PRESENTS WITH AN IMPLANTABLE OR ATTACHED GOLD LAYER: No RADIOLOGY DEPARTMENT: Ultrasound PERIPHERAL IV DATA: Not applicable SIGNED BY: Brittnee Benton RDMS RVT November 02, 2023 2:53 PM documented in this encounter [facility] 11-02-2023 History of Present illness Narrative Radiology Service Progress Note PATIENT NAME: Karla Ndiaye DATE OF SERVICE: November 02, 2023 TIME: 9:29 AM PATIENT IDENTITY VERIFICATION COMPLETED USING TWO (2) IDENTIFIERS: Name and Date of confirmed by patient verbally. FALL SCREENING: Has the patient had 2 falls in the last year or 1 fall with injury or currently using an Ambulatory Assistive Device (Walker, Cane, Wheelchair, Crutches, etc.)? No PATIENT GENDER DATA: Male PATIENT RELEVANT IMPLANT DATA REVIEWED: Not Applicable PATIENT PRESENTS WITH AN IMPLANTABLE OR ATTACHED GOLD LAYER: No RADIOLOGY DEPARTMENT: Mammography PERIPHERAL IV DATA: Not applicable SIGNED BY: RT Rina(R) November 02, 2023 9:29 AM documented in this encounter [facility] 10-18-2023 Miscellaneous Notes Patient called to schedule CB imaging documented in this encounter [facility] 10-08-2023 Miscellaneous Notes October 08, 2023 PID: [id number] Karla Ndiaye [address] [place] [address] Dear Ms. Ndiaye, Your recent breast imaging exam on 10/07/2023 showed a possible finding that requires additional imaging studies for a complete evaluation. Most such findings are probably benign (not cancer). If you have a healthcare provider who ordered/prescribed your screening mammogram: Please call [phone] or [phone]: [phone] to schedule an appointment for your additional imaging (if you have not already done so). If you DO NOT have a healthcare provider (ie you did not have an order/prescription for your screening mammogram): Please call to schedule an appointment for your additional imaging (if you have not already done so). You must have an order/prescription from your physician when calling to schedule your appointment. If your order/prescription is not electronic, you must bring the hard copy with you on the day of your exam to avoid delays. Your imaging studies and reports are kept on file at [facility] as part of your permanent medical record, and are available for your continuing care. Thank you for allowing us to help in meeting your health care needs. Sincerely, Dr. Dalton Interpreting Radiologist [facility] (Additional imaging) documented in this encounter [facility] 10-07-2023 History of Present illness Narrative Radiology Service Progress Note PATIENT NAME: Karla Ndiaye DATE OF SERVICE: October 07, 2023 TIME: 12:51 PM PATIENT IDENTITY VERIFICATION COMPLETED USING TWO (2) IDENTIFIERS: Name and Date of confirmed by patient verbally. FALL SCREENING: Has the patient had 2 falls in the last year or 1 fall with injury or currently using an Ambulatory Assistive Device (Walker, Cane, Wheelchair, Crutches, etc.)? No PATIENT GENDER DATA: Female. status: : No status: NO. PATIENT RELEVANT IMPLANT DATA REVIEWED: Not Applicable PATIENT PRESENTS WITH AN IMPLANTABLE OR ATTACHED GOLD LAYER: No RADIOLOGY DEPARTMENT: Mammography PERIPHERAL IV DATA: Not applicable SIGNED BY: Camryn Juan Embarr Downs Paul October 07, 2023 12:51 PM documented in this encounter [facility] 08-26-2023 Miscellaneous Notes The following approved medication requests have been transmitted electronically. Requested Prescriptions Signed Prescriptions Disp Refills spironolactone (ALDACTONE) 25 mg tablet 90 tablet 1 Sig: Take 1 tablet by mouth once daily. Authorizing Provider: DEEJAY ANDERSON MD Patient has been identified by name and date of : Yes Patient phones for refill(s): Requested Prescriptions Pending Prescriptions Disp Refills spironolactone (ALDACTONE) 25 mg tablet 90 tablet 1 Sig: Take 1 tablet by mouth once daily. Date of last office visit in primary care: 03/24/2023 Date of next office visit in primary care: 03/24/2024 Please advise. Thank you. Jannie Galvez LPN. documented in this encounter [facility] 08-13-2023 History of Present illness Narrative Subjective HPI Nontoxic-appearing female presents urgent care chief complaint COVID-19 concerns. Duration of symptoms 5 days. Associated symptoms sore throat nasal congestion cough. Patient states has mild symptoms. Did take a home test which was positive today. Patient states symptoms started Wednesday morning. Describes symptoms as mild. States feels like she has a sinus infection and has had multiple sinus infections in the past. Has not used any OTC medications recently. Did use Advil Cold and Sinus this did help. No known sick contacts. Denies any fever body aches chills productive cough chest pain shortness of breath pleuritic pain hemoptysis nausea vomiting abdominal pain change in bowel or bladder habits. Past medical history prescription medication use and allergies reviewed. .Patient presents with: Sore Throat: Cough, headache x 5 days At home Covid test + PAST MEDICAL HISTORY Diagnosis Date Advance directive discussed with patient 03/20/2022 Discussed 03/2022 Age related osteoporosis Age related osteoporosis Fosamax started 12/2018 Aortic heart murmur 10/01/2011 Arthritis of knee 08/05/2017 left knee Benign neoplasm of colon 10/21/2005 Class 1 obesity due to excess calories without serious comorbidity with body mass index (BMI) of 31.0 to 31.9 in adult 08/03/2022 Cystocele, midline 12/11/2009 Essential hypertension, benign Family history of colon cancer 03/20/2022 sister Glaucoma Hypercalcemia 10/19/2021 10/21/2021: Vit D stopped. Seeing Dr. French Haley as of 02/2022 Internal hemorrhoids without mention of complication 10/21/2005 Living will on file 03/20/2022 DPA: Jameson () Medicare annual wellness visit, subsequent 03/20/2022 Medicare Part B: 08/06/2008 Last done:03/20/2022 Mixed hyperlipidemia 04/09/2016 Pleural effusion on right 04/01/2019 Postmenopausal atrophic vaginitis 12/11/2009 Situational anxiety 03/24/2023 mainly related to husbands health Stage 3a chronic kidney disease (HCC) 12/19/2020 Symptomatic menopausal or female climacteric states Trochanteric bursitis, right hip 2018 Unilateral primary osteoarthritis, left knee 2018 Vasovagal syncope 10/01/2011 PAST SURGICAL HISTORY Procedure Laterality Date ARTHRP KNE CONDYLE&PLATU MEDIAL&LAT COMPARTMENTS Right 08/17/2011 Dr. 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 left dorsal hand skin lesion MAL LESION TRUNK,ARM,LEG 1.1-2.0 CM Right 12/14/2015 Exc. right dorsal forearm lesion PAST SURGICAL HISTORY OF Right 11/2020 right hip tendon repairs PT ED ENDOCRINOLOGY Left 08/2022 one on the left side TOTAL KNEE REPLACEMENT Left 07/09/2021 TOTAL KNEE REPLACEMENT Left 07/2021 ALLERGIES Sutures, Lisinopril, and Monopril [Fosinopril Sodium] MEDICATIONS amLODIPine (NORVASC) 5 mg tablet Take 1 tablet by mouth once daily. spironolactone (ALDACTONE) 25 mg tablet Take 1 tablet by mouth once daily. calcium carbonate (CALTRATE) 600 mg calcium (1,500 mg) tab Take 600 mg by mouth. Take one tablet daily simvastatin (ZOCOR) 20 mg tablet Take 1 tablet by mouth daily at bedtime. lisinopril (ZESTRIL) 40 mg tablet Take 1 tablet by mouth once daily. hydrOXYzine HCl (ATARAX) 10 mg tablet Take 1 tablet by mouth three times daily as needed for anxiety. alendronate (FOSAMAX) 70 mg tablet Take 1 tablet by mouth one time a week. In AM with cup of water on empty stomach. Nothing else by mouth and stay upright for 30 min. timoloL maleate (TIMOPTIC) 0.25 % ophthalmic solution Use 1 Drop in the left eye twice daily. FAMILY HISTORY Problem Relation Age of Onset Stroke Mother 88 Alcohol/Drug Father Hypertension Father Breast Cancer Sister Colon Cancer Sister 79 No Known Problems Maternal Grandmother No Known Problems Maternal Grandfather No Known Problems Paternal Grandmother No Known Problems Paternal Grandfather No Known Problems Son Diabetes Son No Known Problems Son Social History Tobacco Use Smoking status: Former Smokeless tobacco: Never Tobacco comments: QUIT 1975 Vaping Use Vaping Use: Never used Substance Use Topics Alcohol use: Not Currently Alcohol/week: 1.0 standard drink of alcohol Types: 1 Shots of liquor per week Drug use: No BP 122/85 Pulse 79 Temp 36.5 C (97.7 F) Resp 18 Wt 83.5 kg (184 lb) SpO2 99% BMI 32.08 kg/m Review of Systems Constitutional: Negative for chills, fever and malaise/fatigue. HENT: Positive for congestion and sore throat. Negative for ear discharge, ear pain and sinus pain. Eyes: Negative for blurred vision, pain, discharge and redness. Respiratory: Positive for cough. Negative for hemoptysis, sputum production, shortness of breath, wheezing and stridor. Cardiovascular: Negative for chest pain. Gastrointestinal: Negative for abdominal pain, diarrhea, nausea and vomiting. Musculoskeletal: Negative for myalgias. Skin: Negative for itching and rash. Neurological: Negative for dizziness and headaches. Objective Physical Exam Constitutional: General: She is not in acute distress. Appearance: She is not diaphoretic. HENT: Head: Normocephalic. Jaw: No trismus, tenderness, swelling or pain on movement. Nose: Congestion present. Mouth/Throat: Mouth: Mucous membranes are moist. Pharynx: Oropharynx is clear. Uvula midline. No pharyngeal swelling, oropharyngeal exudate, posterior oropharyngeal erythema or uvula swelling. Eyes: Conjunctiva/sclera: Conjunctivae normal. Pupils: Pupils are equal, round, and reactive to light. Cardiovascular: Rate and Rhythm: Normal rate and regular rhythm. Heart sounds: Normal heart sounds. Pulmonary: Effort: Pulmonary effort is normal. No tachypnea, accessory muscle usage or respiratory distress. Breath sounds: Normal breath sounds. No stridor. No wheezing, rhonchi or rales. Abdominal: General: There is no distension. Palpations: Abdomen is soft. Tenderness: There is no abdominal tenderness. There is no guarding or rebound. Musculoskeletal: Cervical back: Normal range of motion and neck supple. No edema, erythema, rigidity or tenderness. No pain with movement. Normal range of motion. Lymphadenopathy: Cervical: No cervical adenopathy. Skin: General: Skin is warm and dry. Neurological: Mental Status: She is alert and oriented to person, place, and time. ASSESSMENT/PLAN: 1. Suspected COVID-19 virus infection - ICD9: V01.79, ICD10: Z20.822 - COVID NAAT, UPPER RESPIRATORY, ROUTINE Patient nontoxic-appearing. Hemodynamically stable. Suspicious of COVID-19 with positive home test. We discussed antiviral treatment. Declined treatment at today's visit. Discussed treatment window. Patient was educated on supportive therapies. Patient will follow up with primary care provider as needed. Patient was instructed to immediately proceed to emergency room for any new, worsening, or symptoms lasting longer than anticipated. The patient's clinical presentation is otherwise unremarkable at this time. Based on exam and clinical finding, the patient is stable for discharge. Plan of care was discussed with patient. Patient verbalizes understanding and agrees to plan of care. This note was generated using [employer] software. It may contain errors in wording, punctuation, or spelling. Deejay Agarwal APRN.CHAMPAGNE MAKER documented in this encounter [facility] 07-22-2023 Miscellaneous Notes Last refill 03/24/23 Qty: 90 with 1 refill ADIA 05/03/23 NOV 03/24/24 Raina Murry LPN documented in this encounter [facility] 05-14-2023 Miscellaneous Notes Patient phones requesting refills as follows: Requested Prescriptions Pending Prescriptions Disp Refills amLODIPine (NORVASC) 5 mg tablet 90 tablet 1 Sig: Take 1 tablet by mouth once daily. lisinopril (ZESTRIL) 40 mg tablet 90 tablet 3 Sig: Take 1 tablet by mouth once daily. ADIA 05/03/23 with JOE NOV 03/24/24 Last rx(s) written 03/24/23 #90 with 1 refill (amlodipine); 3 refills (lisinopril) *Pt has an active prescription at pharmacy. Pt notified of the same via . Please review and advise. Ricky Dawson LPN documented in this encounter [facility] 05-05-2023 Miscellaneous Notes Patient notified and voiced her understanding. Phoned patient and left message to return call and ask to speak to a triage nurse for results. ----- Message from Destini Aparicio APRN.CHAMPAGNE MAKER sent at 05/05/2023 11:02 AM EDT ----- Urine culture shows bacterial infection with E. Coli. The antibiotic she is taking will cover this. Complete entire course and follow-up if symptoms not improving. Destini Aparicio APRN.CHAMPAGNE MAKER documented in this encounter [facility] 05-03-2023 History of Present illness Narrative 05/03/2023 Patient presents with: Acute Visit: Patient with lower back pain and burning when sitting, concerned about UTI SUBJECTIVE: This is a 77 year old that is here today for Above Complaints.. Last week started with low back pain. Reports burning to urethra when sitting but not when urinating. Going more frequently. Noticed and odor and cloudiness. Denies fevers, chills, abdominal pain, nausea, vomiting, urinary urgency, incontinence or hematuria Component Latest Ref Rng & Units 05/03/2023 GLUCOSE UA (POCT) Negative mg/dL Negative BILIRUBIN UA (POCT) Negative Negative KETONE UA (POCT) Negative mg/dL Negative SPECIFIC GRAVITY UA (POCT) 1.005 - 1.030 1.015 HEMOGLOBIN/BLOOD UA (POCT) Negative Trace-intact (A) PH UA (POCT) 4.5 - 8.0 7.0 PROTEIN UA (POCT) Negative mg/dL Negative UROBILINOGEN UA (POCT) Normal E.U./dL 0.2 NITRITE UA (POCT) Negative Positive (A) LEUKOCYTES UA (POCT) Negative Moderate (A) COLOR UA (POCT) Yellow CLARITY UA (POCT) Cloudy PAST MEDICAL HISTORY Diagnosis Date Advance directive discussed with patient 03/20/2022 Discussed 03/2022 Age related osteoporosis Age related osteoporosis Fosamax started 12/2018 Aortic heart murmur 10/01/2011 Arthritis of knee 08/05/2017 left knee Benign neoplasm of colon 10/21/2005 Class 1 obesity due to excess calories without serious comorbidity with body mass index (BMI) of 31.0 to 31.9 in adult 08/03/2022 Cystocele, midline 12/11/2009 Essential hypertension, benign Family history of colon cancer 03/20/2022 sister Glaucoma Hypercalcemia 10/19/2021 10/21/2021: Vit D stopped. Seeing Dr. French Haley as of 02/2022 Internal hemorrhoids without mention of complication 10/21/2005 Living will on file 03/20/2022 DPA: Jameson () Medicare annual wellness visit, subsequent 03/20/2022 Medicare Part B: 08/06/2008 Last done:03/20/2022 Mixed hyperlipidemia 04/09/2016 Pleural effusion on right 04/01/2019 Postmenopausal atrophic vaginitis 12/11/2009 Situational anxiety 03/24/2023 mainly related to husbands health Stage 3a chronic kidney disease (HCC) 12/19/2020 Symptomatic menopausal or female climacteric states Trochanteric bursitis, right hip 2018 Unilateral primary osteoarthritis, left knee 2018 Vasovagal syncope 10/01/2011 ALLERGIES Sutures, Lisinopril, and Monopril [Fosinopril Sodium] MEDICATIONS Current Outpatient Medications Medication Sig calcium carbonate (CALTRATE) 600 mg calcium (1,500 mg) tab Take 600 mg by mouth. Take one tablet daily amLODIPine (NORVASC) 5 mg tablet Take 1 tablet by mouth once daily. simvastatin (ZOCOR) 20 mg tablet Take 1 tablet by mouth daily at bedtime. lisinopril (ZESTRIL) 40 mg tablet Take 1 tablet by mouth once daily. hydrOXYzine HCl (ATARAX) 10 mg tablet Take 1 tablet by mouth three times daily as needed for anxiety. spironolactone (ALDACTONE) 25 mg tablet Take 1 tablet by mouth once daily. alendronate (FOSAMAX) 70 mg tablet Take 1 tablet by mouth one time a week. In AM with cup of water on empty stomach. Nothing else by mouth and stay upright for 30 min. timoloL maleate (TIMOPTIC) 0.25 % ophthalmic solution Use 1 Drop in the left eye twice daily. No current facility-administered medications for this visit. Medications and allergies reviewed by this provider. SOCIAL HISTORY Social History Tobacco Use Smoking status: Former Smokeless tobacco: Never Tobacco comments: QUIT 1976 Vaping Use Vaping Use: Never used Substance Use Topics Alcohol use: Not Currently Alcohol/week: 1.0 standard drink of alcohol Types: 1 Shots of liquor per week Drug use: No REVIEW OF SYSTEMS All other reviewed and negative other than HPI. OBJECTIVE: BP 142/78 Pulse 74 Temp 36.7 C (98.1 F) Resp 18 Wt 84.4 kg (186 lb) SpO2 98% BMI 32.43 kg/m . Vital signs reviewed by this provider. APPEARANCE Well appearing, alert, in no acute distress, well-hydrated, well nourished. EYES conjunctiva and sclera normal. BACK: No CVA tenderness HEART RRR with normal S1 and S2, no murmurs, no gallops, no JVD appreciated LUNG clear to auscultation. No wheezes, rhonchi or rales ABDOMEN bowel sounds normoactive, no bruits, soft, non-tender, non-distended SKIN Skin color, texture, turgor normal, no suspicious rashes or lesions to exposed skin DTAP,TDAP,TD(1 - Tdap) due on 03/24/2024 COVID-19 VACCINE(4 - Moderna series) due on 03/24/2024 INFLUENZA(1) due on 05/07/2023 SERUM CREATININE due on 03/24/2024 HEMOGLOBIN/HEMATOCRIT due on 03/24/2024 BP CONTROLLED (<130/80) due on 03/24/2024 ANNUAL PCP TEAM CHRONIC DISEASE VISIT due on 05/03/2024 DIABETES SCREEN due on 03/24/2026 BONE DENSITY Completed ADVANCE DIRECTIVE DISCUSSION Completed DEPRESSION ASSESSMENT Completed PNEUMOCOCCAL: 65+ Completed COLORECTAL CANCER SCREENING Discontinued SHINGRIX VACCINE Discontinued ASSESSMENT/PLAN: 1. UTI symptoms - ICD9: 788.99, ICD10: R39.9 - no red flag symptoms or exam findings - red flag symptoms discussed, verbalizes understanding - UA DIP, URINE (POC) - NITROFURANTOIN MONOHYDRATE & MACROCRYSTAL 100 MG ORAL CAP - URINE CULTURE - follow-up with PCP if symptoms fail to improve to ER with red flag symptoms Destini Aparicio APRN.CHAMPAGNE MAKER Prescription instructions reviewed with patient as applicable. Patient advised if symptoms do not improve or if symptoms worsen sooner, to contact their primary care physician. Potential red flag symptoms discussed with the patient. Reviewed appropriate action plan to take if red flag symptoms occur. Patient agreeable to treatment plan. I spent a total of 25 minutes on the date of the service which included preparing to see the patient, [id number] patient care, completing clinical documentation, obtaining and/or reviewing separately obtained history, performing a medically appropriate examination, counseling and educating the patient/family/caregiver, and ordering medications, tests, or procedures. documented in this encounter [facility] 05-03-2023 Miscellaneous Notes Pt called and is notified of providers message. Pt voices understanding and scheduled today with Destini Aparicio EXTENSION PROFESSOR. Safia Wise, RN Patient should be seen by a provider. There are KAYLA's with openings. Pt calls in and reports she has burning with urination, frequency, urgency, back pain, cloudy urine with and odor. Pt is asking if provider would put in for a UA and urine culture for her. Please call and advise. documented in this encounter [facility] 03-25-2023 Miscellaneous Notes Pt notified of results and providers msg. Pt denies any urinary symptoms. She will call if any develop. Left message for pt to contact office. Raina Murry LPN Let patient know her blood count, lipid panel, electrolytes and liver functions were all ok. Her kidney functions are stable. Her UA shows she may be starting or getting over a UTI. Yesterday she had no symptoms. If she develops any she should let us know. documented in this encounter [facility] 01-13-2023 Miscellaneous Notes Patient has one remaining refill at pharmacy. Should have enough medication until April. documented in this encounter [facility] 12-08-2022 Instructions Antoine Braswell MD - 12/08/2022 4:28 PM EDT - Continue Fosamax - Continue calcium + vitamin D once a day - Blood tests in February as ordered by Dr. Perez - I will see you in a year documented in this encounter [facility] 12-08-2022 History of Present illness Narrative Images from the original note were not included. ENDOCRINOLOGY CLINIC NOTE Ms. Ndiaye is a pleasant 77 year old female with osteoporosis, HTN, dyslipidemia, stage III CKD presented for follow-up of hypercalcemia and low bone density HPI Hypercalcemia: Ms. Ndiaye has had mild hypercalcemia since 2017, when her calcium was 10.9 (corrected 10.2) with a GFR of 50. Since then, she has had mild hypercalcemia. The highest documented calcium level is 11.5 but without concomitant albumin level. Her PTH has been between 43-81. Ms. Ndiaye is known to have osteoporosis. DXA scan in 10/2020 showed lowest T score -2.4 at the left femoral neck. Comparison with the previous one could not be done because a different machine was used. She was taking HCTZ 12.5 mg daily but was stopped 12/2021. Ms. Ndiaye denied muscle aches and pains, polyuria, polydipsia, and no history of kidney stones or fractures. There is no family history of calcium related conditions. He used to take calcium and vitamin D but they were stopped few months ago. Repeat labs after optimizing her calcium and vitamin D intake showed corrected calcium 10.2, ionized calcium 1.36, vitamin D 46, P3.2, GFR 47, PTH 71 and 24-hour urine calcium 62.9. Interval events: She underwent left lower parathyroidectomy by Dr. Perez on 2022. Intraoperative PTH declined from 205 to 18. Postoperative calcium and PTH were normal. Pathology showed hypercellular parathyroid tissue She is taking calcium (600mg) + vitamin D once a day. She is doing well with no major changes in her health Thyroid nodules: Thyroid ultrasound in 02/2022 showed 4 nodules, the largest being 2.7 cm right mid anechoic nodule. There was also a 1.3 cm right upper hypoechoic nodule with echogenic foci. In office ultrasound was done in the endocrine surgery clinic showed a cystic nodule on the right measuring 2.5 cm and a subcentimeter complex isoechoic nodule on the right Osteoporosis: DXA scan 10/2022: L-spine T score 0.7 nonsignificant decline 2.1% Left hip T score -1.4 nonsignificant decline -2.3 Left femoral neck T score -2.5 Right hip T score -1.5 significant 5.7% decline Right femoral neck T score -2.1 Right distal forearm T score -0.3 DXA 10/2020: L-spine T score -0.5 Left total hip T score -1.2 Left femoral T score -2.4 Right total hip T score -1.1 Right femoral neck T score -2.0 Fracture history: none Treatment history (including any side effects/contraindications): Fosamax for about 4 years now Family history of metabolic bone disease or fractures: None Risk factors: > 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 Vitamin D intake: none currently Weight bearing exercise: No structured physical activity Dental Procedure: None in the near future but may plan to do extraction next Radiation Exposure: None Height Loss: She possible lost an inch PAST MEDICAL HISTORY Diagnosis Date Advance directive discussed with patient 03/20/2022 Discussed 03/2022 Age related osteoporosis Age related osteoporosis Fosamax started 12/2018 Aortic heart murmur 10/01/2011 Arthritis of knee 08/05/2017 left knee Benign neoplasm of colon 10/21/2005 Cystocele, midline 12/11/2009 Essential hypertension, benign Family history of colon cancer 03/20/2022 sister Glaucoma Hypercalcemia 10/19/2021 10/21/2021: Vit D stopped. Seeing Dr. French Haley as of 02/2022 Internal hemorrhoids without mention of complication 10/21/2005 Living will on file 03/20/2022 DPA: [place] () Medicare annual wellness visit, subsequent 03/20/2022 Medicare Part B: 08/06/2008 Last done:03/20/2022 Mixed hyperlipidemia 04/09/2016 Pleural effusion on right 04/01/2019 Postmenopausal atrophic vaginitis 12/11/2009 Stage 3a chronic kidney disease (HCC) 12/19/2020 Symptomatic menopausal or female climacteric states Trochanteric bursitis, right hip 2018 Unilateral primary osteoarthritis, left knee 2018 Vasovagal syncope 10/01/2011 PAST SURGICAL HISTORY Procedure Laterality Date ARTHRP KNE CONDYLE&PLATU MEDIAL&LAT COMPARTMENTS Right 08/17/2011 Dr. 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 left dorsal hand skin lesion MAL LESION TRUNK,ARM,LEG 1.1-2.0 CM Right 12/14/2015 Exc. right dorsal forearm lesion PAST SURGICAL HISTORY OF Right 11/2020 right hip tendon repairs TOTAL KNEE REPLACEMENT Left 07/09/2021 TOTAL KNEE REPLACEMENT Left 07/2021 FAMILY HISTORY Problem Relation Age of Onset Stroke Mother 88 Alcohol/Drug Father Hypertension Father Breast Cancer Sister Colon Cancer Sister 79 No Known Problems Maternal Grandmother No Known Problems Maternal Grandfather No Known Problems Paternal Grandmother No Known Problems Paternal Grandfather No Known Problems Son Diabetes Son No Known Problems Son Social History Tobacco Use Smoking status: Former Smokeless tobacco: Never Tobacco comments: QUIT 1975 Vaping Use Vaping Use: Never used Substance Use Topics Alcohol use: Not Currently Alcohol/week: 1.0 standard drink Types: 1 Shots of liquor per week Drug use: No (Not in a hospital admission) Allergies As of Date: 12/08/2022 Allergen Noted Reaction SUTURES 02/14/2013 Hives LISINOPRIL 02/24/2022 Cough MONOPRIL [FOSINOPRIL SODIUM] 07/15/2005 Cough Fully Assessed 08/13/2022 Current Outpatient Medications Medication Sig Dispense Refill spironolactone (ALDACTONE) 25 mg tablet Take 1 tablet by mouth once daily. 90 tablet 1 alendronate (FOSAMAX) 70 mg tablet Take 1 tablet by mouth one time a week. In AM with cup of water on empty stomach. Nothing else by mouth and stay upright for 30 min. 12 tablet 3 amLODIPine (NORVASC) 5 mg tablet Take 1 tablet by mouth once daily. 90 tablet 1 acetaminophen (TYLENOL) 500 mg tablet Take 1 tablet by mouth every 4 hours as needed for pain. calcium carbonate (TUMS) 500 mg chew Take 1 tablet by mouth every hour as needed (mouth or hand numbness or tingling). cubcaoa-pahgfxldf-noblxna D3 500 mg-5 mcg (200 unit) per tablet Take 1 tablet by mouth three times daily. ibuprofen (MOTRIN) 200 mg tablet Take 3 tablets by mouth every 6 hours as needed for pain. simvastatin (ZOCOR) 20 mg tablet Take 1 tablet by mouth daily at bedtime. 90 tablet 3 lisinopril (ZESTRIL, PRINIVIL) 40 mg tablet Take 1 tablet by mouth once daily. 90 tablet 3 timoloL maleate (TIMOPTIC) 0.25 % ophthalmic solution Use 1 Drop in the left eye twice daily. No current facility-administered medications for this visit. COMPLETE REVIEW OF SYSTEMS: 10 point review of systems was negative other than what is mentioned in the H&P PHYSICAL EXAM: 12/08/22 1606 BP: 159/84 Pulse: 68 SpO2: 99% Weight: 84.4 kg (186 lb) Height: 162.6 cm (5' 4) General: NAD, alert and cooperative Previous exam HEENT: EOMI, no proptosis/stare. Neck: supple with full ROM. No thyromegaly. There is a possible left lower thyroid nodule Cardiovascular: RRR, +S1 and S2. There is a left parasternal systolic murmur lungs: Clear to auscultation bilaterally Abdomen: soft, non-tender, non-distended, +BS, no striae Extremities: No LE oedema Neuro: No tremor of outstretched hands noted. Deep tendon reflexes are normal with a normal relaxation phase. Psych: Normal affect Labs: 11/20/2021 11:15 12/25/2021 12:07 01/27/2022 11:35 Calcium 10.7 (H) 10.7 (H) 10.9 (H) Vitamin D 25 Hydroxy 52.8 PTH, Intact 59 81 (H) Images: DXA scan 10/2020: L-spine T score 2.0 Left total hip T score -1.2 Left femoral T score -2.4 Right total hip T score -1.1 Right femoral neck T score -2.0 Thyroid ultrasound 02/2022: Right Lobe: 6 x 2.7 x 2.1 cm; heterogeneous with numerous nodules, expected vascular flow. Left Lobe: 5.3 x 2.1 x 1.8 cm; heterogeneous with numerous nodules, expected vascular flow. Isthmus: 0.2 cm The most suspicious thyroid nodule(s) (up to four) as below: NODULE 1: Location: Right upper pole Size: 1.3 x 1 x 0.7 cm Characteristics: Composition: Solid or almost completely solid, 2 points Echogenicity: Hypoechoic, 2 points Shape: Yqcof-dgde-gevm, 0 points Margin: Smooth, 0 points Echogenic foci (add points for all that apply): Punctate echogenic foci, 3 points Internal vascularity: present Interval growth: No prior available for comparison TI-RADS Category: TR5 ACR Recommendation: TI-RADS 5 nodule. FNA is advised. NODULE 2: Location: Right mid Size: 2.7 x 2 x 1.3 cm Characteristics: Composition: Cystic or almost completely cystic, 0 points Echogenicity: Anechoic, 0 points Shape: Esxos-dsgd-xalw, 0 points Margin: Smooth, 0 points Echogenic foci (add points for all that apply): None, 0 points Internal vascularity: present Interval growth: No prior available for comparison TI-RADS Category: TR1, benign ACR Recommendation: TI-RADS 1 Nodule, no follow-up or FNA is advised. NODULE 3: Location: Left upper pole Size: 0.8 x 0.6 x 0.4 cm Characteristics: Composition: Solid or almost completely solid, 2 points Echogenicity: Hypoechoic, 2 points Shape: Ugldj-gwzs-fyqx, 0 points Margin: Smooth, 0 points Echogenic foci (add points for all that apply): None, 0 points Internal vascularity: present Interval growth: No prior available for comparison TI-RADS Category: TR4 ACR Recommendation: TI-RADS 4 nodule. No FNA or follow-up imaging is advised. NODULE 4: Location: Left lower pole Size: 1.1 x 0.9 x 0.5 cm Characteristics: Composition: Solid or almost completely solid, 2 points Echogenicity: Hypoechoic, 2 points Shape: Ansdn-wiqj-lfqu, 0 points Margin: Smooth, 0 points Echogenic foci (add points for all that apply): None, 0 points Internal vascularity: present Interval growth: No prior available for comparison TI-RADS Category: TR4 ACR Recommendation: TI-RADS 4 nodule. Follow up imaging in 1, 2, 3 and 5 years is advised. IMPRESSION: Thyroid nodule(s) is/are present. Fine needle aspiration is recommended for one or more nodules as detailed in the synoptic report. Assessment and Recommendations: Ms. De León is a pleasant 77-year-old woman presented with her for evaluation and management of hypercalcemia. She also has osteoporosis. Hypercalcemia: She has had hypercalcemia with PTH in the upper half of normal and normal vitamin D. This is therefore PTH dependent hypercalcemia consistent with primary hyperparathyroidism. FHH is unlikely given the age of onset of the hypercalcemia, the lack of family history and the degree of hypercalcemia of 11.5 at one point. Repeat labs after stopping the HCTZ showed a similar picture. Her 24-hour urine calcium is low, likely in the setting of CKD and inadequate calcium intake. The picture is consistent with primary hyperparathyroidism and given the presence of CKD, osteoporosis and the degree of hypercalcemia, surgical intervention was recommended. She underwent left lower parathyroidectomy by Dr. Perez and had postoperative parathyroid and calcium levels were normal. She is planned to repeat the labs in February. We will continue with the current calcium and vitamin D intake Thyroid nodules: Thyroid ultrasound showed several thyroid nodules. Repeat ultrasound by Dr. Pereira showed cystic nodules and a subcentimeter complex nodule. We will repeat the ultrasound again next year Low bone density: Most recent DXA from 10/2022 showed stable BMD of all, but there is decline at the hip level. This decline could be due to the fact that she has had the hyperparathyroidism and the response to the Fosamax has been suboptimal. Given the decline and that her lowest T score is still in the osteoporosis range, we will continue the Fosamax for another 1-2 years and reassess her bone density scan. We will also consider checking her bone turnover markers in the future Some of the above has been copied from prior documentation on 04/28/2022 but barry elements reviewed, confirmed, and/or updated by me (Antoine Braswell MD) on 12/08/2022 I spent a total of 26 minutes on the date of the service which included preparing to see the patient, yjhv-xf-hwxs patient care, completing clinical documentation, counseling and educating the patient/family/caregiver, and ordering medications, tests, or procedures. Antoine Braswell MD documented in this encounter [facility] 10-27-2022 Miscellaneous Notes Patient requests via [employer] refills as follows: Requested Prescriptions Pending Prescriptions Disp Refills spironolactone (ALDACTONE) 25 mg tablet 90 tablet 1 Sig: Take 1 tablet by mouth once daily. ADIA: 07/01/22 NOV: 03/24/23 Last Refill: 05/19/22 #90 1 refill Alicja Bateman LPN documented in this encounter [facility] 10-05-2022 Miscellaneous Notes October 07, 2022 PID: [id number] Karla Ndiaye [address] [place] [address] Dear Afshin Ndiaye, We are pleased to inform you that the results of your recent breast imaging exam on 10/05/2022 are normal. Early detection of cancer is very important. We also understand recommendations regarding breast cancer screening are controversial. Please discuss with your primary care provider which strategy is best for you and whether a mammogram is right for you. Your imaging studies and report will be kept on file at [facility] as part of your permanent medical record and are available for your continuing care. Thank you for allowing us to help in meeting your health care needs. Sincerely, Dr. Montes Interpreting Radiologist [facility] (Normal over 40) documented in this encounter [facility] 08-28-2022 Miscellaneous Notes Images from the original note were not included. ENDOCRINE SURGERY POST OP FOLLOW UP Name: Karla Ndiaye Date: August 28, 2022 PROCEDURE: left lower parathyroidectomy Patient is doing well overall. Voice is strong and normal. Reviewed pathology hypercellular Reviewed labs Ca 10.1 PTH 32 Incision care reviewed Plan: Oscal daily Repeat labs in six months Follow up with Dr. Braswell in December SIGNATURE: Riya Perez MD documented in this encounter [facility] 08-14-2022 Note HNO ID: [id number] Author: Latisha Flood MD Service: Endocrine Surgery Author Type: Resident Type: Progress Notes Filed: 08/14/2022 7:54 AM Note Text: ENDOCRINE SURGERY PROGRESS NOTE NAME: Karla Ndiaye August 14, 2022 7:50 AM 1 Day Post-Op AANDP: Karla Ndiaye is a 76 year old female s/p parathyroidectomy with bilateral neck dissection and excision of left lower parathyroid. She is doing well postoperatively and her PTH has normalized. She denies symptoms of hypocalcemia. - Neuro: prn pain control, tylenol/ibuprofen - Cardiopulm: HDS, pulse-ox, monitor for difficulty breathing, cepacol/chloraseptic for sore throat - FEN/GI: Regular diet. - : Voiding - ID: [id number]: none indicated - Heme: monitor for signs of hematoma - Endo: no signs of hypocalcemia, tid calcium carbonate/vitamin D and prn Tums for numbness - DVT ppx: SCDs only - Dispo: Stable for discharge today Discussed with Dr. Garcia, who discussed with Dr. Perez. S: No acute events since OR. No perioral numbness/tingling. No hoarseness/difficulty swallowing. No difficulty breathing/chest pain. On exam: BP 123/52 Pulse (!) 59 Temp 36.9 ?C (98.4 ?F) (Oral) Resp 16 Ht 162.6 cm (5' 4) Wt 86 kg (189 lb 11.2 oz) SpO2 95% BMI 32.56 kg/m? Gen: NAD CV: extremities warm and well perfused, pulse regular Pulm: no increased work of breathing on room air Neck incision clean/dry/intact, no signs of swelling, small amount of ecchymosis at left lateral aspect of incision, soft, steri strip in place clean and dry Current Facility-Administered Medications Medication Dose Route Frequency Provider Last Rate Last Admin scopolamine - REMOVE PATCH OTHER ONCE Tristan Thorne MD ibuprofen 600 mg tab(s) (MOTRIN) 600 mg ORAL q 6 H PRN Tino Pittman MD acetaminophen 500 mg tab(s) (TYLENOL) 500 mg ORAL q 4 H PRN Tino Pittman MD htlpbkp-tyswqcjqf-mocgpcm D3 500 mg-5 mcg (200 unit) 1 tablet 1 tablet ORAL TID Tino Pittman MD 1 tablet at 08/13/222023 calcium carbonate 500 mg chewable tab(s) (TUMS) 500 mg ORAL q 1 H PRN Tino Pittman benzocaine-menthol 1 Lozenge (CEPACOL) 1 Lozenge MUCOUS MEMBRANE (TOPICAL MOUTH AND THROAT) q 2 H PRN Tino Pittman MD 1 Lozenge at 08/13/222023 phenol 1 Dalton (CHLORASEPTIC) 1 Dalton MUCOUS MEMBRANE (TOPICAL MOUTH AND THROAT) q 2 H PRN Tino Pittman MD ondansetron (PF) 4 mg injection (ZOFRAN) 4 mg INTRAVENOUS q 6 H PRN Tino Bletsis, NaCl 0.9% iv flush bag 20 mL INTRAVENOUS PRN Tino BletsisMD sodium chloride 0.9 % (flush) 3-5 mL (BD POSIFLUSH) 3-5 mL INTRAVENOUS q 12 H Tino BletsMD cheryl 5 mL at 08/13/222026 NaCl 0.9% iv infusion 75 mL/hr INTRAVENOUS CONTINUOUS Tino BletsMD cheryl 75 mL/hr at 08/13/22 0900 75 mL/hr at 08/13/22 09 simvastatin 20 mg tab(s) (ZOCOR) 20 mg ORAL AT BEDTIME Tino Pittman MD 20 mg at 08/13/222023 lisinopril 40 mg tab(s) (ZESTRIL, PRINIVIL) 40 mg ORAL DAILY Tino MD Zain amLODIPine 5 mg tab(s) (NORVASC) 5 mg ORAL DAILY Tino BleMD kaelyn timolol maleate 0.25 % 1 Drop (TIMOPTIC) 1 Drop LEFT EYE BID Tino Pittman MD 1 Drop at 08/13/222024 spironolactone 25 mg tab(s) (ALDACTONE) 25 mg ORAL DAILY Tino MD Zain 25 mg at 08/13/22 1222 Date 08/13/22 07 - 08/14/22 0659 08/14/22 0700 - 08/15/22 0659 Shift 3883-3710 3987-7249 2136-6990 24 Hour Total 0031-7626 0262-2090 9668-8637 24 Hour Total INTAKE PO 360 300 660 PO 360 300 660 Shift Total 360 300 660 OUTPUT Urine Urine Not Saved. 2 x 2 x 4 x # of BMs Number of BMs 0 x 0 x Shift Total Weight (kg) 86 86 86 86 86 86 86 86 Recent Labs 08/14/22 0519 CA 10.4* Calcium, Total Date Value Ref Range Status 08/14/2022 10.4 (H) 8.5 - 10.2 mg/dL Final TSH Date Value Ref Range Status 12/23/2018 3.220 0.400 - 5.500 uU/mL Final PTH, Intact Date Value Ref Range Status 08/14/2022 19 15 - 65 pg/mL Final *A review of daily goals, interventions, and plan of care with the multidisciplinary team and patient has been conducted. The patient?s concerns have been addressed and he/she agrees to proceed with today?s plan of care. Latisha Flood MD General Surgery Resident PGY4 Endocrine Surgery [place] 08-13-2022 Note HNO ID: [id number] Author: Tino Pittman MD Service: Endocrine Surgery Author Type: Physician Type: Progress Notes Filed: 08/13/2022 1:07 PM Note Text: ENDOCRINE SURGERY INPATIENT PROGRESS NOTE Name: Karla Ndiaye Date: August 13, 2022 POD# 0 S/P parathyroidectomy S: Postoperative check was done and the patient is recovering appropriately. No dysphagia. No dysphonia. No paresthesias. No signs of hematoma. O: MEDICATIONS: Current Facility-Administered Medications Medication Dose Route Frequency scopolamine 1 mg over 3 days 1 Patch (TRANSDERM-SCOP) 1 Patch TRANSDERMAL ONCE scopolamine - VERIFY patch OTHER q 8 H [START ON 08/14/2022] scopolamine - REMOVE PATCH OTHER ONCE sodium chloride 0.9 % (flush) 2-10 mL (BD POSIFLUSH) 2-10 mL INTRAVENOUS q 12 H ibuprofen 600 mg tab(s) (MOTRIN) 600 mg ORAL q 6 H PRN acetaminophen 500 mg tab(s) (TYLENOL) 500 mg ORAL q 4 H PRN qgnbhxc-oifghmyyo-dovzfbv D3 500 mg-5 mcg (200 unit) 1 tablet 1 tablet ORAL TID calcium carbonate 500 mg chewable tab(s) (TUMS) 500 mg ORAL q 1 H PRN benzocaine-menthol 1 Lozenge (CEPACOL) 1 Lozenge MUCOUS MEMBRANE (TOPICAL MOUTH AND THROAT) q 2 H PRN phenol 1 Dalton (CHLORASEPTIC) 1 Dalton MUCOUS MEMBRANE (TOPICAL MOUTH AND THROAT) q 2 H PRN ondansetron (PF) 4 mg injection (ZOFRAN) 4 mg INTRAVENOUS q 6 H PRN NaCl 0.9% iv flush bag 20 mL INTRAVENOUS PRN sodium chloride 0.9 % (flush) 3-5 mL (BD POSIFLUSH) 3-5 mL INTRAVENOUS q 12 H NaCl 0.9% iv infusion 75 mL/hr INTRAVENOUS CONTINUOUS simvastatin 20 mg tab(s) (ZOCOR) 20 mg ORAL AT BEDTIME [START ON 08/14/2022] lisinopril 40 mg tab(s) (ZESTRIL, PRINIVIL) 40 mg ORAL DAILY amLODIPine 5 mg tab(s) (NORVASC) 5 mg ORAL DAILY timolol maleate 0.25 % 1 Drop (TIMOPTIC) 1 Drop LEFT EYE BID spironolactone 25 mg tab(s) (ALDACTONE) 25 mg ORAL DAILY PHYSICAL EXAM: BP 113/57 Pulse 68 Temp 36.5 ?C (97.7 ?F) (Oral) Resp 18 Ht 162.6 cm (5' 4) Wt 86 kg (189 lb 11.2 oz) SpO2 96% BMI 32.56 kg/m? General Appearance: In no acute distress. Well appearing. Neuro: Alert and oriented x3. Neck: soft, incision clean/dry/intact, no evidence of deep neck hematoma Abdomen: Soft. Non-distended. Non-tender. No guarding or rebound. Extremities: Warm and well perfused. No intake or output data in the 24 hours ending 08/13/22 1306 LABS: Calcium, Total Date Value Ref Range Status 08/03/2022 10.5 (H) 8.5 - 10.2 mg/dL Final No results found for: MG Phosphorus Date Value Ref Range Status 04/09/2022 3.2 2.7 - 4.8 mg/dL Final TSH Date Value Ref Range Status 12/23/2018 3.220 0.400 - 5.500 uU/mL Final PTH, Intact Date Value Ref Range Status 08/13/2022 18 15 - 65 pg/mL Final ASSESSMENT: Karla Ndiaye is POD 0 and recovering well. PLAN of Care: - Multimodal pain regimen, minimize narcotics - Regular diet - Scheduled calcium - Follow-up PTH and Ca in AM - SCDs, no SQH, holding anticoagulation due to elevated bleeding risk - Dispo: monitor overnight for any signs of neck hematoma, plan for discharge in AM A review of daily goals, interventions, and plan of care with the multidisciplinary team and patient has been conducted. The patient?s concerns have been addressed and the patient agrees to proceed with today?s plan of care. SIGNATURE: Tino Pittman MD [phone] Clinical Associate Endocrine [facility] Met[facility] [place], Department of Endocrine Surgery [place] 08-13-2022 Note HNO ID: [id number] Author: DOMINICK Medrano Service: ? 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 Staffing CAA: DOMINICK Medrano Indications and Patient Condition Indications for airway management: anesthesia Preoxygenated: yes anesthesia circuit Method: asleep Cricoid Pressure: No Manual In-Line Stabilization: No Difficult Mask: No Final Airway Details Final airway type: endotracheal airway Final Endotracheal Airway: ETT Cuffed: yes Successful intubation technique: video laryngoscopy Devices used: [employer] Endotracheal tube insertion site: oral Blade size: #3 ETT size (mm): 6.5 Measured from: lips Measurement (cm): 22 Placement verified by: chest auscultation and capnometry Cormack-Lehane Classification: grade I - full view of glottis Number of attempts at approach: 1 Failed airway: no Unrecognized esophageal intubation: no Airway not difficult SIGNATURE: DOMINICK Medrano PATIENT NAME: Karla Ndiaye DATE: August 13, 2022 TIME: 7:48 AM CSN: [id number] [place] 08-03-2022 History and physical note HISTORY AND PHYSICAL EXAMINATION SERVICE DATE: 08/03/2022 SERVICE TIME: 12:40 PM PRIMARY CARE PHYSICIAN: Deejay Anderson MD REASON FOR VISIT: Karla Ndiaye is a 76 year old female who is scheduled for Procedure(s): PARATHYROIDECTOMY (N/A) at the request of Dr. Riya Perez for consultation. My final recommendation will be communicated back to the requesting physician by way of shared medical record or letter. Subjective The patient has the following: ACTIVE PROBLEM LIST Essential Hypertension, Benign Benign neoplasm of colon Postmenopausal Atrophic Vaginitis Cystocele, Midline Age Related Osteoporosis Glaucoma Mixed Hyperlipidemia Arthritis of Knee Stage 3a Chronic Kidney Disease (Hcc) Hypercalcemia Medicare Annual Wellness Visit, Subsequent Living Will On File Advance Directive Discussed With Patient Family History of Colon Cancer Class 1 Obesity Due to Excess Calories Without Serious Comorbidity With Body Mass Index (Bmi) of 31.0 to 31.9 in Adult COVID-19 Immunization Status Overdue - COVID-19 VACCINE (4 - Booster for Moderna series) Overdue since 10/02/2021 08/07/2021 Imm Admin: COVID-19 vaccine, full dose (MODERNA) 12/03/2020 Imm Admin: COVID-19 vaccine, full dose (MODERNA) 11/05/2020 Imm Admin: COVID-19 vaccine, full dose (MODERNA) CHIEF COMPLAINT: Pre-op exam HPI: is a 76 yo seen for PAC due to scheduled above surgery because of hyperparathyroidism 06/29/2022 Dr. Perez Thank you for referring this patient to me. As you know, she is a 76 year old woman who was found to have elevated calcium levels during routine bloodwork. Subsequently biochemical workup also revealed an elevated PTH level. The diagnosis of primary hyperparathyroidism was made, and she was referred here for further evaluation. Looking back, her calcium levels have been high for at least 5 years. Ms. Ndiaye has a past medical history of HLD, CKD3, and osteoporosis. She had prior left total knee replacement and had no difficulty with anesthesia. She is quite active at baseline and reports chopping wood and tending to her garden on a daily basis. Her medication list was reviewed today and she has no known drug allergies. She was previously on HCTZ for hypertension but was instructed to discontinue this in December 2021. In terms of family history, her mother and sister have a history of goiter, and her sister also has hypercalcemia. And she has had no personal history of head and neck radiation. She is a former smoker (quit 1975). And she is and is Retired. In terms of symptoms related to hyperparathyroidism, she reports the following symptoms: musculoskeletal pain. She has not noticed any over fatigue, brain fog, abdominal pain, kidney stones, or other symptoms. Additional review of system showed the following pertinent findings: fatigue-no, weight problems-no, skin rash-no, shortness of breath-no, chest pain-no, heartburn/reflux-no, bleeding problems or easy bruising-no, headaches-no, anxiety-no and depression-no. In reviewing her biochemical studies, Ms. Ndiaye has had elevated serum calcium levels since 2017. Her most recent biochemical studies from 04/09/22 revealed a serum calcium of 10.6 (nl 8.5-10.5), corresponding PTH of 71 (nl <65), phosphorous of 3.2, ionized calcium of 1.40 (nl <1.3), 25-dihydroxyvitamin D level of 46.8 (nl 31-80). On 04/09/22, her 24-hour urinary calcium collection measured 63 (nl 100-300), with a total volume of 1700 mL. The result from the parathyroid scan performed 05/14/22 did not demonstrate a lesion suggestive of a parathyroid adenoma. The most recent bone density scan in 2020 revealed a T-score of -2.4 of the left femur, which was the lowest T-score, consistent with osteoporosis. She has been taking fosamax for 4 years. REVIEW OF SYSTEMS: General: No weight loss, malaise or fevers. Neurological: No history of TIA's, stroke, POST ACUTE CARE REGISTERED NURSE tumor, impaired sensorium, hemiplegia, paraplegia or quadraplegia. No neurological symptoms or problems. Respiratory: No history of current cough or dyspnea, or pneumonia in the past 6 weeks. No history of respiratory/pulmonary symptoms or problems. Cardiovascular: Positive for: hyperlipidemia and hypertension Negative for: anticoagulation therapy, arrhythmia, atrial fibrillation, CAD, chest pain, CHF, congenital heart defect, DVT/PE, recent OH, murmur/valvular heart disease, open heart surgery and valve surgery. GI: No history of GI symptoms or problems. No history of esophageal varices, recent ascites, or ETOH greater than 2 drinks per day. : Positive for: renal failure. Negative for: urinary incontinence, nephrolithiasis and urinary tract infection. GREASE CUP FILLER: Negative for abnormal vaginal bleeding, abnormal vaginal discharge. Endocrine: See HPI. Negative for: diabetes mellitus. Hematology: No history of bleeding or clotting disorder. Patient is not taking anti-coagulation or platelet medications. No history of hematological symptoms or problems. Oncology: No history of CA metastasis, chemo within 30 days, or radiotherapy within 90 days. No history of oncological symptoms or problems. Psych: No history of psychiatric symptoms or problems. Musculoskeletal: +osteoporosis, on rx Skin: Negative for lesions, rash and itching. PAST MEDICAL HISTORY Diagnosis Date Advance directive discussed with patient 03/20/2022 Discussed 03/2022 Age related osteoporosis Age related osteoporosis Fosamax started 12/2018 Aortic heart murmur 10/01/2011 Arthritis of knee 08/05/2017 left knee Benign neoplasm of colon 10/21/2005 Cystocele, midline 12/11/2009 Essential hypertension, benign Family history of colon cancer 03/20/2022 sister Glaucoma Hypercalcemia 10/19/2021 10/21/2021: Vit D stopped. Seeing Dr. French Haley as of 02/2022 Internal hemorrhoids without mention of complication 10/21/2005 Living will on file 03/20/2022 DPA: Jameson () Medicare annual wellness visit, subsequent 03/20/2022 Medicare Part B: 08/06/2008 Last done:03/20/2022 Mixed hyperlipidemia 04/09/2016 Pleural effusion on right 04/01/2019 Postmenopausal atrophic vaginitis 12/11/2009 Stage 3a chronic kidney disease (HCC) 12/19/2020 Symptomatic menopausal or female climacteric states Trochanteric bursitis, right hip 2018 Unilateral primary osteoarthritis, left knee 2018 Vasovagal syncope 10/01/2011 PAST SURGICAL HISTORY Procedure Laterality Date ARTHRP KNE CONDYLE&PLATU MEDIAL&LAT COMPARTMENTS Right 08/17/2011 Dr. 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 left dorsal hand skin lesion MAL LESION TRUNK,ARM,LEG 1.1-2.0 CM Right 12/14/2015 Exc. right dorsal forearm lesion PAST SURGICAL HISTORY OF Right 11/2020 right hip tendon repairs TOTAL KNEE REPLACEMENT Left 07/09/2021 TOTAL KNEE REPLACEMENT Left 07/2021 FAMILY HISTORY Problem Relation Age of Onset Stroke Mother 88 Alcohol/Drug Father Hypertension Father Breast Cancer Sister Colon Cancer Sister 79 No Known Problems Maternal Grandmother No Known Problems Maternal Grandfather No Known Problems Paternal Grandmother No Known Problems Paternal Grandfather No Known Problems Son Diabetes Son No Known Problems Son Social History Tobacco Use Smoking status: Former Smokeless tobacco: Never Tobacco comments: QUIT 1975 Vaping Use Vaping Use: Never used Substance Use Topics Alcohol use: Not Currently Alcohol/week: 1.0 standard drink Types: 1 Shots of liquor per week Drug use: No Prior to Admission medications as of 08/03/22 1140 Medication Sig Last Dose Taking amLODIPine (NORVASC) 5 mg tablet Take 1 tablet by mouth once daily. Taking Yes simvastatin (ZOCOR) 20 mg tablet Take 1 tablet by mouth daily at bedtime. Taking Yes lisinopril (ZESTRIL, PRINIVIL) 40 mg tablet Take 1 tablet by mouth once daily. Taking Yes spironolactone (ALDACTONE) 25 mg tablet Take 1 tablet by mouth once daily. Taking Yes alendronate (FOSAMAX) 70 mg tablet Take 1 tablet by mouth one time a week. In AM with cup of water on empty stomach. Nothing else by mouth and stay upright for 30 min. Taking Yes timoloL maleate (TIMOPTIC) 0.25 % ophthalmic solution Use 1 Drop in the left eye twice daily. Taking Yes No medication comments found. ALLERGIES Allergen Reactions Sutures Hives high level reaction to CAT GUT suture Lisinopril Cough Monopril [Fosinopri* Cough Objective PHYSICAL EXAM: General: alert and oriented (x3), healthy appearance and obese. Pertinent negatives noted - not distressed. Skin: normal color, no rash or lesions. HEENT: EOM intact and pupils equal round. Pertinent negatives noted - no carotid bruit. Cardiovascular: regular rate and rhythm, normal S1 and S2, no rub, murmurs, or gallop. Respiratory: normal breath sounds, no wheezes or crackles. No chest wall deformity or tenderness. Abdomen: soft. Pertinent negatives noted - not tender. Extremities: no deformity, no edema or tenderness, no joint swelling or clubbing. Neurological: normal cognition and motor skills. Gait normal. No weakness or sensory deficit. PAIN ASSESSMENT: VITALS: BP 122/80 Pulse 68 Temp (Src) 97.6 (Temporal) Resp 12 Ht 5' 4 (1.63m) Wt 181 lb (82.1kg) SpO2 97% BMI 31.05 kg/(m^2). Diagnostic tests reviewed for today's visit: Lab Value Units Date High Low HB 13.2 g/dL 08/03/2022 15.5 11.5 HCT 40.5 % 08/03/2022 46.0 36.0 WBC 6.17 k/uL 08/03/2022 11.00 3.70 PLT 230 k/uL 08/03/2022 400 150 NA 143 mmol/L 04/09/2022 144 136 K 4.5 mmol/L 04/09/2022 5.1 3.7 GLUC 116 mg/dL 04/09/2022 99 74 BUN 22 mg/dL 04/09/2022 21 7 CREAT 1.19 mg/dL 04/09/2022 0.96 0.58 PTSEC No results within date range. INR No results within date range. APTT No results within date range. ALT 21 U/L 04/09/2022 38 7 AST 22 U/L 04/09/2022 35 13 TBILI 0.7 mg/dL 04/09/2022 1.3 0.2 TSH No results within date range. Lab Value Units Date High Low HCGQT No results within date range. UHCG No results within date range. HCG, BODY* No results within date range. Lab Value Units Date High Low ABORHD No results within date range. ABSCREEN No results within date range. No results found for: HBA1C Recent Results (from the past 8760 hour(s)) ECG COMPLETE Collection Time: 08/03/22 12:33 PM Result Value Ventricular Rate 60 Atrial Rate 60 P-R Interval 208 QRS Duration 92 QT Interval 406 QTC Calculation (Bazett) 406 Calculated P [place] 32 Calculated R [place] -12 Calculated T [place] 11 Impression WARNING: INTERPRETATION OF THIS ECG, ALTHOUGH ATTEMPTED, MAY BE ADVERSELY AFFECTED BY DATA QUALITY NORMAL SINUS RHYTHM POSSIBLE ANTERIOR MYOCARDIAL INFARCTION , AGE UNDETERMINED ABNORMAL ECG No results found for this or any previous visit (from the past 17111 hour(s)). Assessment Stage 3a chronic kidney disease (HCC) Assessment: Creatinine Date Value Ref Range Status 04/09/2022 1.19 (H) 0.58 - 0.96 mg/dL Final 03/16/2022 1.04 (H) 0.58 - 0.96 mg/dL Final 10/17/2021 1.09 (H) 0.58 - 0.96 mg/dL Final 09/11/2021 1.05 (H) 0.58 - 0.96 mg/dL Final Mixed hyperlipidemia Assessment: c/w statin Essential hypertension, benign Assessment: controlled on rx Last 14 BP Last 14 Encounter BP Readings: Date: BP: 08/03/2022 122/80 07/01/2022 122/86 06/29/2022 140/72 05/28/2022 140/80 04/28/2022 143/85 03/20/2022 132/78 02/24/2022 145/66 10/17/2021 130/80 10/02/2021 120/80 09/03/2021 132/84 06/10/2021 138/82 02/10/2021 126/78 01/13/2021 148/82 12/19/2020 150/82 Age related osteoporosis Assessment: Fosamax Class 1 obesity due to excess calories without serious comorbidity with body mass index (BMI) of 31.0 to 31.9 in adult Assessment: Body mass index is 31.07 kg/m . Porter Activity Status Index: METS: Climb a flight of stairs or walk up a hill (5.50 METs) DASI Score: 5.5 Patient denies any chest pain or undue shortness of breath with the above physical activity. Clinical Frailty Scale: 3. Well, with treated comorbid disease STOP-Bang Score: Snores loudly Has or is being treated for high blood pressure Patient over 50 years old Denies feeling tired, fatigued, or sleepy during the daytime Has not been observed to stop breathing or choking/gasping during sleep BMI less than or equal to 35 kg/m^2 Does not have a large neck Non-male patient STOP-Bang Score: 3 [id number] Score: Age: >=75 Sex: female CHF history: No Hypertension history: Yes Stroke/TIA/thromboembolism history: No Vascular disease history: No Diabetes history: No [id number] Score: 4 ARISCAT Score: Age: 51-80 Preoperative SpO2: >=96% Respiratory infection in the last month: No Preoperative anemia: No Surgical incision: peripheral Duration of surgery: <2 hrs Emergency procedure: No ARISCAT Score: 3 ASA Class: 3 ANESTHESIA FINDINGS: Intubation History: No history of difficult intubation Significant Anesthesia Considerations: none Airway History: No history of difficult airway I - PHYSICAL EVALUATION AIRWAY Patient intubated: No. Tracheostomy tube not present Mallampati: II. TM distance: >3 FB. Neck ROM: full ROM without neurological symptoms. Mouth opening: adequate. Short neck: no. Thick neck: no Thomas present: no DENTAL Dental findings: teeth intact. Additional comments: Crowns/back. II - ANESTHESIA PLAN ASA Score: 3 Anesthetic Plan: other Anesthetic plan additional comments: *PACC/TCI - anesthesia choice. Beta Josué Monitoring Plan Post Procedure Analgesic Plan Informed Consent Anesthetic risks, benefits, alternatives, personnel and consent discussed: yes. Patient / Responsible Green Party agrees to proceed: yes Patient / Surrogate agrees to blood products: blood products not planned Prepared for Surgery: optimally prepared for surgery, pending [see comment]. Labs, EKG and COVID CONSULTS: Patient does not require consults for optimization at this time Planned Anesthetic: other anesthesia choice The Following Tests/Procedures Have Been Initiated: No orders of the defined types were placed in this encounter. Instructions Given to Patient: Instructions located in the after visit summary. Patient given verbal and written preop instructions and voices comprehension and compliance. SIGNATURE: Emily Cespedes APRN.CNP PATIENT NAME: Karla Ndiaye DATE: August 03, 2022 TIME: 11:36 AM PAGER/CONTACT #: documented in this encounter [facility] 08-03-2022 Instructions Emily Cespedes APRN.CNP - 08/03/2022 11:36 AM EST PATIENT PREOPERATIVE INSTRUCTIONS Riya Perez MD has scheduled you for your procedure at this surgery center: [place]: [phone] -- [address], [place] [address]. Please read below carefully for your personalized instructions. Dietary Restrictions: - No solid food after midnight. - You may have 12 ounces of clear liquids (water, clear juices such as apple juice or gatorade, carbonated beverages, clear tea, black coffee, jello) until 2 hours before scheduled arrival at facility. No red/purple coloring and no creamer/sugar Medications: Unless instructed differently below, stay on all of your medications until your surgery. Approved medications to take the morning of surgery with a sip of water: Amlodipine, Simvastatin Do not take Lisinopril or Spironolactone the morning and/or day prior surgery If you start any new medications after today's visit, please contact the surgeon's office. Blood Thinning Medications: - Stop NSAIDS (Ibuprofen, Advil, Aleve, Motrin, Celebrex, Mobic, etc.) 7 days before surgery, as directed by your surgeon. - Stop Aspirin 7 days before surgery, as directed by your surgeon. - Stop Vitamin E, ALL multi-vitamins, herbals and dietary supplements 7 days before surgery. - You may take Tylenol (Acetaminophen) or any of your pain medications that do not contain aspirin or NSAIDS as needed. Important Reminders: - If you use CPAP/BIPAP, bring the machine with you to the surgery center. - If you are prescribed inhalers for breathing, continue using them. - Candy, mints, and tobacco products are NOT permitted the morning of surgery. - Hearing aids, dentures and glasses may be worn the morning of surgery. - NO jewelry, body piercings, makeup, hairpins or contacts are to be worn the day of surgery. If you develop symptoms such as a fever, cold, or flu, or have other changes to your health within TWO DAYS of scheduled surgery or the morning of surgery, please contact the surgery center above. Personal Belongings: -Please have photo ID and insurance cards. -If you do not have a copy of advance directives on file with us, please bring a copy with you on the day of surgery. - Leave ALL valuables and money at home or with family members. For Outpatient Procedures: - YOU MUST HAVE A RESPONSIBLE MANAGER ADOBE TAKE YOU HOME. A DEPUTY CHIEF COUNSEL OR DIGITAL PRODUCER CANNOT BE MADE A RESPONSIBLE MANAGER ADOBE. - We recommend that a responsible person stays with you overnight to take care of you. - You cannot stay in a hotel alone after outpatient surgery. You will not be permitted to have your surgery, if you do not have someone to take care of you. Arrival Time for Surgery: - The Surgery Center or hospital where you are having surgery will call the afternoon before surgery (or Wednesday for Wednesday surgery) with a scheduled arrival time. - If you have not heard by 4 pm, please contact the surgery center above. Please be aware that emergency situations arise, which may delay or change your surgical time. If this happens, we will notify you as soon as possible and regret any inconvenience. If you already have an Advance Directive, please fax a copy to [phone] or email to for it to be added to your chart. If you do not have an Advance Directive, you can find the appropriate form and more information at [email or web address]. We recommend that you complete the Advance Directive form found on the website and bring it with you the day of your surgery. It can be witnessed and scanned into your chart that day. Emily Cespedes APRN.GIOVANNA documented in this encounter [facility] 07-01-2022 History of Present illness Narrative Chief Complaint Patient presents with: Musculoskeletal Problem: Patient states has burning right groin area HPI Karla Ndiaye is a 76 year old female who presents here today for Above Complaints.. Patient was seen approx 1 month ago for right leg/radha pain and burning. She was given prednisone which didn't seem to help. She has started Physical Therapy yet but did get scheduled. She was st to be seen today but she cancelled that appointment to make sure we didn't feel it was something different. She does feel like when she sits in a certain position for too long, she will adjust and it seems to improve. Past medical history, appointments, medications, allergies reviewed. Previous Medical History PAST MEDICAL HISTORY Diagnosis Date Advance directive discussed with patient 03/20/2022 Discussed 03/2022 Age related osteoporosis Age related osteoporosis Fosamax started 12/2018 Aortic heart murmur 10/01/2011 Arthritis of knee 08/05/2017 left knee Benign neoplasm of colon 10/21/2005 Cystocele, midline 12/11/2009 Essential hypertension, benign Family history of colon cancer 03/20/2022 sister Glaucoma Hypercalcemia 10/19/2021 10/21/2021: Vit D stopped. Seeing Dr. French Haley as of 02/2022 Internal hemorrhoids without mention of complication 10/21/2005 Living will on file 03/20/2022 DPA: Jameson () Medicare annual wellness visit, subsequent 03/20/2022 Medicare Part B: 08/06/2008 Last done:03/20/2022 Mixed hyperlipidemia 04/09/2016 Pleural effusion on right 04/01/2019 Postmenopausal atrophic vaginitis 12/11/2009 Stage 3a chronic kidney disease (HCC) 12/19/2020 Symptomatic menopausal or female climacteric states Trochanteric bursitis, right hip 2018 Unilateral primary osteoarthritis, left knee 2018 Vasovagal syncope 10/01/2011 Previous Surgical History PAST SURGICAL HISTORY Procedure Laterality Date ARTHRP KNE CONDYLE&PLATU MEDIAL&LAT COMPARTMENTS Right 08/17/2011 Dr. 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 left dorsal hand skin lesion MAL LESION TRUNK,ARM,LEG 1.1-2.0 CM Right 12/14/2015 Exc. right dorsal forearm lesion PAST SURGICAL HISTORY OF Right 11/2020 right hip tendon repairs TOTAL KNEE REPLACEMENT Left 07/09/2021 TOTAL KNEE REPLACEMENT Left 07/2021 Family History FAMILY HISTORY Problem Relation Age of Onset Stroke Mother 88 Alcohol/Drug Father Hypertension Father Breast Cancer Sister Colon Cancer Sister 79 No Known Problems Son Diabetes Son No Known Problems Son Patient Allergies ALLERGIES Allergen Reactions Sutures Hives high level reaction to CAT GUT suture Lisinopril Cough Monopril [Fosinopri* Cough Current Medications Current Outpatient Medications on File Prior to Visit Medication Sig amLODIPine (NORVASC) 5 mg tablet Take 1 tablet by mouth once daily. simvastatin (ZOCOR) 20 mg tablet Take 1 tablet by mouth daily at bedtime. lisinopril (ZESTRIL, PRINIVIL) 40 mg tablet Take 1 tablet by mouth once daily. spironolactone (ALDACTONE) 25 mg tablet Take 1 tablet by mouth once daily. alendronate (FOSAMAX) 70 mg tablet Take 1 tablet by mouth one time a week. In AM with cup of water on empty stomach. Nothing else by mouth and stay upright for 30 min. timoloL maleate (TIMOPTIC) 0.25 % ophthalmic solution Use 1 Drop in the left eye twice daily. latanoprost (XALATAN) 0.005 % ophthalmic solution 1 drop in each eye at bedtime No current facility-administered medications on file prior to visit. Social History Social History Tobacco Use Smoking status: Former Smokeless tobacco: Never Tobacco comments: QUIT 1976 Vaping Use Vaping Use: Never used Substance Use Topics Alcohol use: Yes Alcohol/week: 2.5 standard drinks Types: 1 Glasses of Wine (5oz) per week Comment: occasionally Drug use: No Review of Symptoms REVIEW OF SYSTEMS See hpi EXAM: BP 122/86 (BP Site: Left Arm, BP Position: Sitting, BP Cuff Size: Large Adult) Pulse 68 Temp 36.1 C (97 F) Resp 18 Wt 81.6 kg (180 lb) BMI 31.39 kg/m General Appearance: Well appearing, alert, in no acute distress, well-hydrated, well nourished.. Musculoskeletal: Pain to palp of lumbar paraspinous muscles. Pain at R SI joint. No pain to palp of hip. Neg SLR. R hip with FROM. NVI. Health Maintenance List DEPRESSION ASSESSMENT Never done COVID-19 VACCINE(4 - Booster for Moderna series) due on 10/02/2021 DTAP,TDAP,TD(1 - Tdap) due on 03/20/2023 HEMOGLOBIN/HEMATOCRIT due on 03/16/2023 BP CONTROLLED (<130/80) due on 03/20/2023 SERUM CREATININE due on 04/09/2023 ANNUAL PCP TEAM CHRONIC DISEASE VISIT due on 05/28/2023 DIABETES SCREEN due on 04/09/2025 BONE DENSITY Completed INFLUENZA Completed ADVANCE DIRECTIVE DISCUSSION Completed PNEUMOCOCCAL: 65+ Completed HEPATITIS C SCREENING Discontinued SHINGRIX VACCINE Discontinued Data reviewed ASSESSMENT/PLAN: 1. Sciatica, right side - ICD9: 724.3, ICD10: M54.31 Based on assessment, I do suspect that symptoms are related to a sciatic type issue and possible SI joint pain. I advised patient to start Physical Therapy. I offered gabapentin but patient decline. Consider EMG and possible MRI if not improving with Physical Therapy. Betty Jennings PA-C documented in this encounter [facility] 07-01-2022 Miscellaneous Notes Patient contacted and scheduled. She did not want to see Dorota again. Scheduled with Betty. Mitchell Sorensen MA Attempted to contact patient; unable to leave a message. Will try again. Mitchell Sorensen MA Patient needs seen again for reassessment. The original appt was a month ago and she was informed if not improving to return. Also at that time all the pain was in her lower back with radiation into the back of the right thigh. Ok to see Dorota Terry if needed since she was the provider who saw her on 05/28/2022. Pt called in and reports she had come in for leg pain and was told it was sciatica. She states it is constant and goes up into the groin. She states her groin reddy all the time, not just when she urinates. She denies back pain, dark urine, smelly urine. Pt asking if provider would put in a test for a UTI to see if this groin pain could be related to that. Please call Pt and advise. documented in this encounter [facility] 06-29-2022 History of Present illness Narrative [facility] Riya Perez M.D. [address] [place], [place] [address] Name: Karla Ndiaye Clinic Number: [id number] Date of Service: June 29, 2022 Karla Ndiaye has been referred by Dr. Braswell for evaluation of hyperparathyroidism. My assessment and recommendation for this patient will be communicated via shared medical records. Thank you for referring this patient to me. As you know, she is a 76 year old woman who was found to have elevated calcium levels during routine bloodwork. Subsequently biochemical workup also revealed an elevated PTH level. The diagnosis of primary hyperparathyroidism was made, and she was referred here for further evaluation. Looking back, her calcium levels have been high for at least 5 years. Ms. Ndiaye has a past medical history of HLD, CKD3, and osteoporosis. She had prior left total knee replacement and had no difficulty with anesthesia. She is quite active at baseline and reports chopping wood and tending to her garden on a daily basis. Her medication list was reviewed today and she has no known drug allergies. She was previously on HCTZ for hypertension but was instructed to discontinue this in December 2021. In terms of family history, her mother and sister have a history of goiter, and her sister also has hypercalcemia. And she has had no personal history of head and neck radiation. She is a former smoker (quit 1975). And she is and is Retired. In terms of symptoms related to hyperparathyroidism, she reports the following symptoms: musculoskeletal pain. She has not noticed any over fatigue, brain fog, abdominal pain, kidney stones, or other symptoms. Additional review of system showed the following pertinent findings: fatigue-no, weight problems-no, skin rash-no, shortness of breath-no, chest pain-no, heartburn/reflux-no, bleeding problems or easy bruising-no, headaches-no, anxiety-no and depression-no. In reviewing her biochemical studies, Ms. Ndiaye has had elevated serum calcium levels since 2016. Her most recent biochemical studies from 04/09/22 revealed a serum calcium of 10.6 (nl 8.5-10.5), corresponding PTH of 71 (nl <65), phosphorous of 3.2, ionized calcium of 1.40 (nl <1.3), 25-dihydroxyvitamin D level of 46.8 (nl 31-80). On 04/09/22, her 24-hour urinary calcium collection measured 63 (nl 100-300), with a total volume of 1700 mL. The result from the parathyroid scan performed 05/14/22 did not demonstrate a lesion suggestive of a parathyroid adenoma. The most recent bone density scan in 2020 revealed a T-score of -2.4 of the left femur, which was the lowest T-score, consistent with osteoporosis. She has been taking fosamax for 4 years. On physical exam, Ms. Ndiaye is a well appearing, alert and oriented woman who looks euthyroid. She walks with a normal gait. She does have glasses. There is no obvious skin rash or lesions. On inspection the skin over the anterior neck is smooth, no mass is visualized . Palpation revealed neck to be supple, thyroid gland is nonpalpable and overall normal in size. No lymphadenopathy was palpated on either side of the neck. The heart is regular rate and rhythm and she breathes with ease at rest. Her lungs are clear. There is no obvious extremity deformity. A neck US was performed in the procedure room today. This revealed the thyroid gland to be overall normal in size, with fine echogenicity. There are multiple cystic thyroid nodule(s) seen, the largest is in the right lobe measuring about 2.5 cm. A subcentimeter complex isoechoic nodule was also seen in the right thyroid lobe. There was no other area seen on ultrasound to suggest an abnormal parathyroid gland. There are benign appearing lymph nodes seen in the lateral neck compartments bilaterally. Assessment/Plan: This is a 76 year old patient with biochemical studies that is consistent with primary hyperparathyroidism. Given her clinical findings of osteoporosis, she would be best served by undergoing a parathyroid exploration. The surgical procedure, including the risks and benefits were discussed with the patient. In addition, she will need to undergo pre-operative testing to clear her for surgery. All her questions have been answered today. And she will contact my office if there is any additional questions. I appreciate being involved in the care of your patient and please feel free to contact me should you have any questions or concerns. Riya Perez MD documented in this encounter [facility] 06-29-2022 Instructions Dustin Gonzalez MA - 06/29/2022 1:48 PM EDT Thank you for choosing the [facility] Department of Endocrinology, Diabetes and Metabolism. Did you know that you need to call 48 hours in advance of your scheduled visit, if you are unable to make your appointment? The [facility] thanks you for your commitment, because patients not showing to their appointment results in a lost opportunity for patients to receive [facility] health care at the [facility]. To Cancel an appointment, please choose one of the following: - Call the Appointment Call Center at [phone] - From [employer], Go to Appointments - Cancel Appts If cancelling, consider your need to reschedule to prevent further delays in your care. To Schedule an appointment, please choose one of the following: - Call the Appointment Call Center at [phone] - From [employer], Go to Appointments - Request an Appt documented in this encounter [facility] 06-18-2022 Miscellaneous Notes Patient phones requesting refills as follows: Requested Prescriptions Pending Prescriptions Disp Refills simvastatin (ZOCOR) 20 mg tablet 90 tablet 3 Sig: Take 1 tablet by mouth daily at bedtime. ADIA-05/28/22 Labs-04/09/22 NOV-03/24/23 med filled 07/24/21 Please review and advise. Feliz Cruz LPN documented in this encounter [facility] 06-18-2022 Miscellaneous Notes Patient phones requesting refills as follows: Requested Prescriptions Pending Prescriptions Disp Refills amLODIPine (NORVASC) 5 mg tablet 90 tablet 1 Sig: Take 1 tablet by mouth once daily. ADIA-05/28/22 Labs-04/09/22 NOV-03/24/23 med filled 10/17/21 Please review and advise. Feliz Cruz LPN documented in this encounter [facility] 06-18-2022 Miscellaneous Notes Patient phones requesting refills as follows: Requested Prescriptions Pending Prescriptions Disp Refills lisinopril (ZESTRIL, PRINIVIL) 40 mg tablet 90 tablet 1 Sig: Take 1 tablet by mouth once daily. ADIA-05/28/22 Labs-04/09/22 NOV-03/24/23 med filled 02/03/22 Please review and advise. Feliz Cruz LPN documented in this encounter [facility] 06-10-2022 Miscellaneous Notes Mailed to patient. Mitchell Sorensen MA Letter printed and ready to be mailed. Please mail letter to patient. Mitchell Sorensen MA documented in this encounter [facility] 06-05-2022 Miscellaneous Notes Spoke with pt gave information provided. Pt voicrs understanding. Please call patient and let her know that US of leg was negative for any clots or DVT. Thank you, Dorota Terry APRN.[employer] documented in this encounter [facility] 05-29-2022 History of Present illness Narrative Dr Rodriguez's FYI regarding pt's path report from colonoscopy. Raina Murry LPN Scan on 05/28/2022 3:37 PM by External Provider: Pathology documented in this encounter [facility] 05-28-2022 Instructions Dorota Terry APRN.CNP - 05/28/2022 10:33 AM EDT Images from the original note were not included. documented in this encounter [facility] 05-28-2022 History of Present illness Narrative Chief Complaint Patient presents with: Leg Pain: Right leg X 1 week HPI Karla Ndiaye is a 76 year old female who presents here today for Above Complaints. Karla is an established patient of Dr. Justin MD. Karla is a new patient to me today. Concerns today... Leg/back pain --- Reports back of R leg pain x 1 weeks. Reports noticing lower back pain about 3 days ago that has subsided. Now it is just a shooting and burning back of R leg pain into buttock and down posterior R thigh. Reports worse when walking up stairs and turning certain ways. Took tylenol this morning around 9am -- no relief yet. Pt concerned for blood clot --- reports some mild swelling to groin and posterior thigh slightly. Denies any warmth or redness. Denies any known fall or injury. Denies similar symptoms in the past. Able to bear weight without difficulty. Ambulation is normal. Kidney function poor -- Limit NSAID use Component Latest Ref Rng & Units 04/09/2022 Protein, Total 6.3 - 8.0 g/dL 6.5 Albumin 3.9 - 4.9 g/dL 4.6 Calcium 8.5 - 10.2 mg/dL 10.6 (H) Bilirubin, Total 0.2 - 1.3 mg/dL 0.7 Alkaline Phosphatase 34 - 123 U/L 92 AST 13 - 35 U/L 22 ALT 7 - 38 U/L 21 Glucose 74 - 99 mg/dL 116 (H) BUN 7 - 21 mg/dL 22 (H) Creatinine 0.58 - 0.96 mg/dL 1.19 (H) Sodium 136 - 144 mmol/L 143 Potassium 3.7 - 5.1 mmol/L 4.5 Chloride 97 - 105 mmol/L 104 CO2 22 - 30 mmol/L 27 Anion Gap 9 - 18 mmol/L 12 eGFR >=60 mL/min/1.73m 47 (L) Past medical history, appointments, medications, allergies reviewed. Previous Medical History PAST MEDICAL HISTORY Diagnosis Date Advance directive discussed with patient 03/20/2022 Discussed 03/2022 Age related osteoporosis Age related osteoporosis Fosamax started 12/2018 Aortic heart murmur 10/01/2011 Arthritis of knee 08/05/2017 left knee Benign neoplasm of colon 10/21/2005 Cystocele, midline 12/11/2009 Essential hypertension, benign Family history of colon cancer 03/20/2022 sister Glaucoma Hypercalcemia 10/19/2021 10/21/2021: Vit D stopped. Seeing Dr. French Haley as of 02/2022 Internal hemorrhoids without mention of complication 10/21/2005 Living will on file 03/20/2022 DPA: Jameson () Medicare annual wellness visit, subsequent 03/20/2022 Medicare Part B: 08/06/2008 Last done:03/20/2022 Mixed hyperlipidemia 04/09/2016 Pleural effusion on right 04/01/2019 Postmenopausal atrophic vaginitis 12/11/2009 Stage 3a chronic kidney disease (HCC) 12/19/2020 Symptomatic menopausal or female climacteric states Trochanteric bursitis, right hip 2018 Unilateral primary osteoarthritis, left knee 2018 Vasovagal syncope 10/01/2011 Previous Surgical History PAST SURGICAL HISTORY Procedure Laterality Date ARTHRP KNE CONDYLE&PLATU MEDIAL&LAT COMPARTMENTS Right 08/17/2011 Dr. 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 left dorsal hand skin lesion MAL LESION TRUNK,ARM,LEG 1.1-2.0 CM Right 12/14/2015 Exc. right dorsal forearm lesion PAST SURGICAL HISTORY OF Right 11/2020 right hip tendon repairs TOTAL KNEE REPLACEMENT Left 07/09/2021 TOTAL KNEE REPLACEMENT Left 07/2021 Family History FAMILY HISTORY Problem Relation Age of Onset Stroke Mother 88 Alcohol/Drug Father Hypertension Father Breast Cancer Sister Colon Cancer Sister 79 No Known Problems Son Diabetes Son No Known Problems Son Patient Allergies ALLERGIES Allergen Reactions Sutures Hives high level reaction to CAT GUT suture Lisinopril Cough Monopril [Fosinopri* Cough Current Medications Current Outpatient Medications on File Prior to Visit Medication Sig spironolactone (ALDACTONE) 25 mg tablet Take 1 tablet by mouth once daily. lisinopril (ZESTRIL, PRINIVIL) 40 mg tablet TAKE 1 TABLET BY MOUTH ONCE DAILY alendronate (FOSAMAX) 70 mg tablet Take 1 tablet by mouth one time a week. In AM with cup of water on empty stomach. Nothing else by mouth and stay upright for 30 min. amLODIPine (NORVASC) 5 mg tablet Take 1 tablet by mouth once daily. simvastatin (ZOCOR) 20 mg tablet Take 1 tablet by mouth daily at bedtime. timoloL maleate (TIMOPTIC) 0.25 % ophthalmic solution Use 1 Drop in the left eye twice daily. latanoprost (XALATAN) 0.005 % ophthalmic solution 1 drop in each eye at bedtime No current facility-administered medications on file prior to visit. Social History Social History Tobacco Use Smoking status: Former Smokeless tobacco: Never Tobacco comments: QUIT 1975 Vaping Use Vaping Use: Never used Substance Use Topics Alcohol use: Yes Alcohol/week: 2.5 standard drinks Types: 1 Glasses of Wine (5oz) per week Comment: occasionally Drug use: No REVIEW OF SYSTEMS: as above Reviewed relevant PMHx, PSHx, Social Hx, current medications and allergies. Review of Symptoms REVIEW OF SYSTEMS See HPI. EXAM: BP 140/80 Pulse 68 Resp 14 Wt 81.6 kg (180 lb) BMI 31.39 kg/m General Appearance: Well appearing, alert, in no acute distress, well-hydrated, well nourished.. Skin: Skin color, texture, turgor normal, no suspicious rashes or lesions. Head: Normocephalic, no masses, lesions, tenderness or abnormalities. Lungs: Lungs clear to auscultation. No wheezing, rhonchi, rales.. Heart: RRR without murmur, gallop, or rubs. No ectopy. Extremities: No deformities, edema, skin discoloration, clubbing or cyanosis. Good capillary refill. Very minor swelling to posterior groin. Musculoskeletal: No joint swelling, deformity, or tenderness. Peripheral Pulses: Normal. Neurologic: Gait normal. Reflexes normal and symmetric. Sensation grossly intact.. Health Maintenance List COVID-19 VACCINE(4 - Booster for Moderna series) due on 10/02/2021 INFLUENZA(1) due on 05/07/2022 DTAP,TDAP,TD(1 - Tdap) due on 03/20/2023 HEMOGLOBIN/HEMATOCRIT due on 03/16/2023 ANNUAL PCP TEAM CHRONIC DISEASE VISIT due on 03/20/2023 BP CONTROLLED (<130/80) due on 03/20/2023 SERUM CREATININE due on 04/09/2023 DIABETES SCREEN due on 04/09/2025 BONE DENSITY Completed ADVANCE DIRECTIVE DISCUSSION Completed PNEUMOCOCCAL: 65+ Completed HEPATITIS C SCREENING Discontinued DEPRESSION SCREENING Discontinued SHINGRIX VACCINE Discontinued ASSESSMENT/PLAN: 1. Sciatica, right side - ICD9: 724.3, ICD10: M54.31 (primary diagnosis) Sciatica Rule DVT with US -- unlikely due to presentation. Due to poor kidney function, I would like to limit NSAID use so we started on prednisone taper x 9 days. Gave patient stretches to do for sciatica pain on AVS. - US LEG VEIN DVT UNL VAS LAB - PREDNISONE 10 MG TABLET - Ice for localized tenderness - Warm moist heat for 20 min three times a day - Prednisone burst- see orders - Patient given instructions use of medications as ordered, intermittent rest, back care exercise program, proper lifting techniques, intermittent use of heat, and avoiding sleeping on a heating pad 2. Pain of right lower extremity - ICD9: 729.5, ICD10: M79.604 See above. - US LEG VEIN DVT UNL VAS LAB - PREDNISONE 10 MG TABLET 3. Shooting pain - ICD9: 338.19, ICD10: R52 Nerve pain. Likely sciatica pain. See above. 4. Stage 3a chronic kidney disease (HCC) - ICD9: 585.3, ICD10: N18.31 See above. RTO as needed. Prescription instructions reviewed with patient as applicable. Potential red flag symptoms discussed with the patient. Reviewed appropriate action plan to take if red flag symptoms occur. Patient agreeable to treatment plan. Dorota Terry APRN.[employer] [address] [place] [address] documented in this encounter [facility] 05-19-2022 Miscellaneous Notes The following approved medication requests have been transmitted electronically. Requested Prescriptions Signed Prescriptions Disp Refills spironolactone (ALDACTONE) 25 mg tablet 90 tablet 1 Sig: Take 1 tablet by mouth once daily. Authorizing Provider: DEEJAY ANDERSON MD Spoke with pt. States she is taking one tablet daily. Was taking 1/[address] Anderson increased to 1 tablet at last ov per pt and 90 day rx was sent to [facility]. Pt can get this cheaper through [facility]. Call pt only if problem. Pended new order through refill. Raina Murry LPN Please contact patient and make sure correct dosing.. our records show that dr. Anderson sent in to take 1 tablet daily. Not 1/2. But I can't find notes to if this was a true change or not. Betty Jennings PA-C Pt should have 1 remaining refill for 90 days. Last office visit: 03/20/22 F/u scheduled: 03/24/23 Nikole Fernandez Ma Patient has been identified by name and date of : Yes Requested Prescriptions Pending Prescriptions Disp Refills spironolactone (ALDACTONE) 25 mg tablet 45 tablet 1 Sig: Take 0.5 tablets by mouth once daily. RX INSTRUCTIONS: Patient aware RX will be sent to pharmacy. No need to notify patient. Gladis Rowe documented in this encounter [facility] 05-14-2022 Note HNO ID: [id number] Author: Kendal Galvez [employer] Service: Nuclear Medicine Author Type: Sole Blacker Type: Progress Notes Filed: 05/14/2022 3:00 PM Note Text: RADIOLOGY SERVICE PROGRESS NOTE SERVICE DATE: 05/14/2022 SERVICE TIME: 2:59 PM PATIENT IDENTITY VERIFICATION COMPLETED USING TWO (2) STANDARD IDENTIFIERS: Name and Date of confirmed by patient verbally FALL SCREENING: Has the patient had 2 falls in the last year or 1 fall with injury or currently using an Ambulatory Assistive Device (Walker, Cane, Wheelchair, Crutches, etc.)? No PATIENT GENDER DATA: .female : No ALLERGIES: Reviewed and unchanged MEDICATIONS REVIEWED: Not applicable PATIENT RELEVANT IMPLANT DATA REVIEWED: Not Applicable CREATININE: Creatinine Date Value Ref Range Status 04/09/2022 1.19 (H) 0.58 - 0.96 mg/dL Final 03/16/2022 1.04 (H) 0.58 - 0.96 mg/dL Final 10/17/2021 1.09 (H) 0.58 - 0.96 mg/dL Final Estimated Glomerular Filtration Rate Date Value Ref Range Status 04/09/2022 47 (L) >=60 mL/min/1.73m? Final Comment: Estimated Glomerular Filtration Rate (eGFR) is calculated using the 2020 CKD-EPI creatinine equation. This equation utilizes serum creatinine, sex, and age as parameters. The creatinine assay has traceable calibration to isotope dilution-mass spectrometry. Refer to KDIGO guidelines for clinical interpretation. In patients with unstable renal function, e.g. those with acute kidney injury, the eGFR may not accurately reflect actual GFR. eGFR- Date Value Ref Range Status 10/17/2021 59 Final P.O.C.T. RESULTS: N/A May 14, [address] PERFORMED: No IV SITE: Ambulatory: A peripheral IV was started in the Left antecubital site with a Angio cath: 24 gauge. POST EXAM PIV STATUS: Discontinued PROCEDURE TYPE: NM Parathyroid: 238 microcurries of Nal 123 capsules was administered orally at 09:30. 30.1 mCi of Tc99m Sestamibi was injected IV at 1240. ADMINISTRATION TIME: 0930 PATIENT DISCHARGED TO: Ambulatory patient, left [place] department area. A Diagnostic radioactive procedure has taken place, with no further precautions necessary other than routine body substance precautions. More information regarding radiation safety can be found using this link: [email or web address]%20Medi [email or web address] SIGNATURE: Ajay Hernandez [employer] PATIENT NAME: Karla Ndiaye DATE: May 14, 2022 TIME: 2:59 PM PAGER/CONTACT #: [place] 05-14-2022 History of Present illness Narrative RADIOLOGY SERVICE PROGRESS NOTE SERVICE DATE: 05/14/2022 SERVICE TIME: 2:59 PM PATIENT IDENTITY VERIFICATION COMPLETED USING TWO (2) STANDARD IDENTIFIERS: Name and Date of confirmed by patient verbally FALL SCREENING: Has the patient had 2 falls in the last year or 1 fall with injury or currently using an Ambulatory Assistive Device (Walker, Cane, Wheelchair, Crutches, etc.)? No PATIENT GENDER DATA: .female : No ALLERGIES: Reviewed and unchanged MEDICATIONS REVIEWED: Not applicable PATIENT RELEVANT IMPLANT DATA REVIEWED: Not Applicable CREATININE: Creatinine Date Value Ref Range Status 04/09/2022 1.19 (H) 0.58 - 0.96 mg/dL Final 03/16/2022 1.04 (H) 0.58 - 0.96 mg/dL Final 10/17/2021 1.09 (H) 0.58 - 0.96 mg/dL Final Estimated Glomerular Filtration Rate Date Value Ref Range Status 04/09/2022 47 (L) >=60 mL/min/1.73m Final Comment: Estimated Glomerular Filtration Rate (eGFR) is calculated using the 2020 CKD-EPI creatinine equation. This equation utilizes serum creatinine, sex, and age as parameters. The creatinine assay has traceable calibration to isotope dilution-mass spectrometry. Refer to KDIGO guidelines for clinical interpretation. In patients with unstable renal function, e.g. those with acute kidney injury, the eGFR may not accurately reflect actual GFR. eGFR- Date Value Ref Range Status 10/17/2021 59 Final P.O.C.T. RESULTS: N/A May 14, [address] PERFORMED: No IV SITE: Ambulatory: A peripheral IV was started in the Left antecubital site with a Angio cath: 24 gauge. POST EXAM PIV STATUS: Discontinued PROCEDURE TYPE: NM Parathyroid: 238 microcurries of Nal 123 capsules was administered orally at 09:30. 30.1 mCi of Tc99m Sestamibi was injected IV at 1240. ADMINISTRATION TIME: 929 PATIENT DISCHARGED TO: Ambulatory patient, left [place] department area. A Diagnostic radioactive procedure has taken place, with no further precautions necessary other than routine body substance precautions. More information regarding radiation safety can be found using this link: [email or web address] %[email or web address] SIGNATURE: Ajay Hernandez PATIENT NAME: Karla Ndiaye DATE: May 14, 2022 TIME: 2:59 PM PAGER/CONTACT #: documented in this encounter [facility] 04-28-2022 Instructions Antoine Braswell MD - 04/28/2022 9:21 AM EDT - We will do parathyroid CT scan. Please call [phone] to schedule - See the endocrine surgeon after your do the parathyroid scan - Try to obtain 1000 mg of calcium per day from diet without using calcium pills - Bone density scan sometime in 11/2022 followed by a visit with me Here is the estimated calcium content of a variety of foods: Produce Serving Size Estimated Calcium* Arnaud greens, frozen 8 oz 360 mg Broccoli kellen 8 oz 200 mg Kale, frozen 8 oz 180 mg Soy Beans, green, boiled 8 oz 175 mg Bok Marquise, cooked, boiled 8 oz 160 mg Figs, dried 2 figs 65 mg Broccoli, fresh, cooked 8 oz 60 mg Oranges 1 whole 55 mg Seafood Serving Size Estimated Calcium* Sardines, canned with bones 3 oz 325 mg Whitney, canned with bones 3 oz 180 mg Shrimp, canned 3 oz 125 mg Dairy Serving Size Estimated Calcium* Ricotta, part-skim 4 oz 335 mg Yogurt, plain, low-fat 6 oz 310 mg Milk, skim, low-fat, whole 8 oz 300 mg Yogurt with fruit, low-fat 6 oz 260 mg Mozzarella, part-skim 1 oz 210 mg Cheddar 1 oz 205 mg Yogurt, Croatian 6 oz 200 mg Andorran Cheese 1 oz 195 mg Feta Cheese 4 oz 140 mg Cottage Cheese, 2% 4 oz 105 mg Frozen yogurt, vanilla 8 oz 105 mg Ice Cream, vanilla 8 oz 85 mg Parmesan 1 tbsp 55 mg Fortified Food Serving Size Estimated Calcium* Arbuckle milk, rice milk or soy milk, fortified 8 oz 300 mg [place] juice and other fruit juices, fortified 8 oz 300 mg Tofu, prepared with calcium 4 oz 205 mg Waffle, frozen, fortified 2 pieces 200 mg Oatmeal, fortified 1 packet 140 mg Solomon Islander muffin, fortified 1 muffin 100 mg Cereal, fortified 8 oz 100-1,000 mg Other Serving Size Estimated Calcium* Mac & cheese, frozen 1 package 325 mg Pizza, cheese, frozen 1 serving 115 mg Pudding, chocolate, prepared with 2% milk 4 oz 160 mg Beans, baked, canned 4 oz 160 mg documented in this encounter [facility] 04-28-2022 History of Present illness Narrative Images from the original note were not included. ENDOCRINOLOGY CLINIC NOTE Ms. Ndiaye is a pleasant 76 year old female with osteoporosis, HTN, dyslipidemia, stage III CKD presented for follow-up of hypercalcemia and low bone density HPI Hypercalcemia: Ms. Ndiaye has had mild hypercalcemia since 2017, when her calcium was 10.9 (corrected 10.2) with a GFR of 50. Since then, she has had mild hypercalcemia. The highest documented calcium level is 11.5 but without concomitant albumin level. Her PTH has been between 43-81. Ms. Ndiaye is known to have osteoporosis. DXA scan in 10/2020 showed lowest T score -2.4 at the left femoral neck. Comparison with the previous one could not be done because a different machine was used. She was taking HCTZ 12.5 mg daily but was stopped 12/2021. Ms. Ndiaye denied muscle aches and pains, polyuria, polydipsia, and no history of kidney stones or fractures. There is no family history of calcium related conditions. He used to take calcium and vitamin D but they were stopped few months ago. Interval events: Repeat labs after optimizing her calcium and vitamin D intake showed corrected calcium 10.2, ionized calcium 1.36, vitamin D 46, P3.2, GFR 47, PTH 71 and 24-hour urine calcium 62.9. Thyroid nodules: Thyroid ultrasound in 02/2022 showed 4 nodules, the largest being 2.7 cm right mid anechoic nodule. There was also a 1.3 cm right upper hypoechoic nodule with echogenic foci. 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 Vitamin D intake: none currently Weight bearing exercise: No structured physical activity Dental Procedure: None in the near future but may plan to do extraction next Radiation Exposure: None Height Loss: She possible lost an inch PAST MEDICAL HISTORY Diagnosis Date Advance directive discussed with patient 03/20/2022 Discussed 03/2022 Age related osteoporosis Age related osteoporosis Fosamax started 12/2018 Aortic heart murmur 10/01/2011 Arthritis of knee 08/05/2017 left knee Benign neoplasm of colon 10/21/2005 Cystocele, midline 12/11/2009 Essential hypertension, benign Family history of colon cancer 03/20/2022 sister Glaucoma Hypercalcemia 10/19/2021 10/21/2021: Vit D stopped. Seeing Dr. French Haley as of 02/2022 Internal hemorrhoids without mention of complication 10/21/2005 Living will on file 03/20/2022 DPA: Jameson () Medicare annual wellness visit, subsequent 03/20/2022 Medicare Part B: 08/06/2008 Last done:03/20/2022 Mixed hyperlipidemia 04/09/2016 Pleural effusion on right 04/01/2019 Postmenopausal atrophic vaginitis 12/11/2009 Stage 3a chronic kidney disease (HCC) 12/19/2020 Symptomatic menopausal or female climacteric states Trochanteric bursitis, right hip 2018 Unilateral primary osteoarthritis, left knee 2018 Vasovagal syncope 10/01/2011 PAST SURGICAL HISTORY Procedure Laterality Date ARTHRP KNE CONDYLE&PLATU MEDIAL&LAT COMPARTMENTS Right 08/17/2011 Dr. 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 left dorsal hand skin lesion MAL LESION TRUNK,ARM,LEG 1.1-2.0 CM Right 12/14/2015 Exc. right dorsal forearm lesion PAST SURGICAL HISTORY OF Right 11/2020 right hip tendon repairs TOTAL KNEE REPLACEMENT Left 07/09/2021 TOTAL KNEE REPLACEMENT Left 07/2021 FAMILY HISTORY Problem Relation Age of Onset Stroke Mother 88 Alcohol/Drug Father Hypertension Father Breast Cancer Sister Colon Cancer Sister 79 No Known Problems Son Diabetes Son No Known Problems Son Social History Tobacco Use Smoking status: Former Smokeless tobacco: Never Tobacco comments: QUIT 1976 Vaping Use Vaping Use: Never used Substance Use Topics Alcohol use: Yes Alcohol/week: 2.5 standard drinks Types: 1 Glasses of Wine (5oz) per week Comment: occasionally Drug use: No (Not in a hospital admission) Allergies As of Date: 04/28/2022 Allergen Noted Reaction SUTURES 02/14/2013 Hives LISINOPRIL 02/24/2022 Cough MONOPRIL [FOSINOPRIL SODIUM] 07/15/2005 Cough Fully Assessed 03/20/2022 Current Outpatient Medications Medication Sig Dispense Refill spironolactone (ALDACTONE) 25 mg tablet Take 1 tablet by mouth once daily. 90 tablet 1 lisinopril (ZESTRIL, PRINIVIL) 40 mg tablet TAKE 1 TABLET BY MOUTH ONCE DAILY 90 tablet 1 alendronate (FOSAMAX) 70 mg tablet Take 1 tablet by mouth one time a week. In AM with cup of water on empty stomach. Nothing else by mouth and stay upright for 30 min. 12 tablet 3 amLODIPine (NORVASC) 5 mg tablet Take 1 tablet by mouth once daily. 90 tablet 1 simvastatin (ZOCOR) 20 mg tablet Take 1 tablet by mouth daily at bedtime. 90 tablet 3 timoloL maleate (TIMOPTIC) 0.25 % ophthalmic solution Use 1 Drop in the left eye twice daily. latanoprost (XALATAN) 0.005 % ophthalmic solution 1 drop in each eye at bedtime 0 No current facility-administered medications for this visit. COMPLETE REVIEW OF SYSTEMS: 10 point review of systems was negative other than what is mentioned in the H&P PHYSICAL EXAM: 04/28/22 0858 BP: 143/85 BP Site: Right Arm BP Position: Sitting BP Cuff Size: Regular Adult Pulse: 73 SpO2: 99% Weight: 80.8 kg (178 lb 3.2 oz) General: NAD, alert and cooperative Previous exam HEENT: EOMI, no proptosis/stare. Neck: supple with full ROM. No thyromegaly. There is a possible left lower thyroid nodule Cardiovascular: RRR, +S1 and S2. There is a left parasternal systolic murmur lungs: Clear to auscultation bilaterally Abdomen: soft, non-tender, non-distended, +BS, no striae Extremities: No LE oedema Neuro: No tremor of outstretched hands noted. Deep tendon reflexes are normal with a normal relaxation phase. Psych: Normal affect Labs: 11/20/2021 11:15 12/25/2021 12:07 01/27/2022 11:35 Calcium 10.7 (H) 10.7 (H) 10.9 (H) Vitamin D 25 Hydroxy 52.8 PTH, Intact 59 81 (H) Images: DXA scan 10/2020: L-spine T score 2.0 Left total hip T score -1.2 Left femoral T score -2.4 Right total hip T score -1.1 Right femoral neck T score -2.0 Thyroid ultrasound 02/2022: Right Lobe: 6 x 2.7 x 2.1 cm; heterogeneous with numerous nodules, expected vascular flow. Left Lobe: 5.3 x 2.1 x 1.8 cm; heterogeneous with numerous nodules, expected vascular flow. Isthmus: 0.2 cm The most suspicious thyroid nodule(s) (up to four) as below: NODULE 1: Location: Right upper pole Size: 1.3 x 1 x 0.7 cm Characteristics: Composition: Solid or almost completely solid, 2 points Echogenicity: Hypoechoic, 2 points Shape: [id number]-qdyi, 0 points Margin: Smooth, 0 points Echogenic foci (add points for all that apply): Punctate echogenic foci, 3 points Internal vascularity: present Interval growth: No prior available for comparison TI-RADS Category: TR5 ACR Recommendation: TI-RADS 5 nodule. FNA is advised. NODULE 2: Location: Right mid Size: 2.7 x 2 x 1.3 cm Characteristics: Composition: Cystic or almost completely cystic, 0 points Echogenicity: Anechoic, 0 points Shape: Vfbtl-nedb-glnd, 0 points Margin: Smooth, 0 points Echogenic foci (add points for all that apply): None, 0 points Internal vascularity: present Interval growth: No prior available for comparison TI-RADS Category: TR1, benign ACR Recommendation: TI-RADS 1 Nodule, no follow-up or FNA is advised. NODULE 3: Location: Left upper pole Size: 0.8 x 0.6 x 0.4 cm Characteristics: Composition: Solid or almost completely solid, 2 points Echogenicity: Hypoechoic, 2 points Shape: Lzwig-imts-icud, 0 points Margin: Smooth, 0 points Echogenic foci (add points for all that apply): None, 0 points Internal vascularity: present Interval growth: No prior available for comparison TI-RADS Category: TR4 ACR Recommendation: TI-RADS 4 nodule. No FNA or follow-up imaging is advised. NODULE 4: Location: Left lower pole Size: 1.1 x 0.9 x 0.5 cm Characteristics: Composition: Solid or almost completely solid, 2 points Echogenicity: Hypoechoic, 2 points Shape: Ngnmv-giod-wrot, 0 points Margin: Smooth, 0 points Echogenic foci (add points for all that apply): None, 0 points Internal vascularity: present Interval growth: No prior available for comparison TI-RADS Category: TR4 ACR Recommendation: TI-RADS 4 nodule. Follow up imaging in 1, 2, 3 and 5 years is advised. IMPRESSION: Thyroid nodule(s) is/are present. Fine needle aspiration is recommended for one or more nodules as detailed in the synoptic report. Assessment and Recommendations: Ms. De León is a pleasant 76-year-old woman presented with her for evaluation and management of hypercalcemia. She also has osteoporosis. Hypercalcemia: She has had hypercalcemia with PTH in the upper half of normal and normal vitamin D. This is therefore PTH dependent hypercalcemia consistent with primary hyperparathyroidism. FHH is unlikely given the age of onset of the hypercalcemia, the lack of family history and the degree of hypercalcemia of 11.5 at one point. Repeat labs after stopping the HCTZ showed a similar picture. Her 24-hour urine calcium is low, likely in the setting of CKD and inadequate calcium intake. She stated that she is actually eliminating her dietary calcium intake. We again discussed the management options of primary hyperparathyroidism. These include observation with periodic monitoring, medical therapy and surgery. We discussed the indications for surgery which in her case include the presence of osteoporosis, CKD and the degree of hypercalcemia. After discussing the above, I referred her to my colleagues from endocrine surgery to discuss the surgical option. I encouraged her to achieve 1000 mg of calcium per day from diet without using calcium pills. This is important for bone health. Thyroid nodules: Thyroid ultrasound showed several thyroid nodules. FNA of nodule 1 is recommended based on TI-RADS, and FNA of nodule 4 can also be considered based on the HUI guidelines. This can be done by my colleagues from endocrine surgery Low bone density: Most recent DXA from 10/2020 shows lowest T score -2.4 at the left femoral neck. Comparison with the previous DXA scans was not possible due to difference in machines used. She has not had fragility fractures. Risk factors for low bone density include age, ethnicity, postmenopausal state and hyperparathyroidism. She has been taking Fosamax for about 4 years and has been tolerating well. Her creatinine clearance is 59, and we will continue with the treatment. If surgery is chosen for the hyperparathyroidism, improvement in BMD may also occur in the future. We will repeat her DXA scan in 2022. If the T score is outside the osteoporosis range, and her fracture risk is not elevated, we will start a drug holiday at that point. Some of the above has been copied from prior documentation on 02/24/2022 but barry elements reviewed, confirmed, and/or updated by me (Antoine Braswell MD) on 04/28/2022 I spent a total of 45 minutes on the date of the service which included preparing to see the patient, [id number] patient care, completing clinical documentation, counseling and educating the patient/family/caregiver, and ordering medications, tests, or procedures. Antoine Braswell MD documented in this encounter [facility] 04-06-2022 Miscellaneous Notes Referral faxed to Dr. Rodriguez office as requested. Patient would like Dr Maribel Rodriguez will call [facility] documented in this encounter [facility] 03-23-2022 Miscellaneous Notes Patient notified and voiced understanding. Mitchell Sorensen MA Let patient know CBC and lipid panel were ok. Her CMP was ok except for calcium elevated at 10.5 and was 10.9. Parathyroid hormone level is elevated at 75 and was 81. Advise her she still needs to complete the urine study for Dr. Schultz. documented in this encounter [facility] 03-20-2022 History of Present illness Narrative Medicare Yearly Visit Medical B eligibilty date 08/06/2008 Date of last exam NA PAST MEDICAL HISTORY Diagnosis Date Age related osteoporosis Age related osteoporosis Fosamax started 12/2018 Aortic heart murmur 10/01/2011 Arthritis of knee 08/05/2017 left knee Benign neoplasm of colon 10/21/2005 Cystocele, midline 12/11/2009 Essential hypertension, benign Glaucoma Hypercalcemia 10/19/2021 10/21/2021: Vit D stopped. Seeing Dr. French Haley as of 02/2022 Internal hemorrhoids without mention of complication 10/21/2005 Medicare annual wellness visit, subsequent 03/20/2022 Medicare Part B: 08/06/2008 Last done:03/20/2022 Mixed hyperlipidemia 04/09/2016 Pleural effusion on right 04/01/2019 Postmenopausal atrophic vaginitis 12/11/2009 Stage 3a chronic kidney disease (HCC) 12/19/2020 Symptomatic menopausal or female climacteric states Trochanteric bursitis, right hip 2018 Unilateral primary osteoarthritis, left knee 2018 Vasovagal syncope 10/01/2011 PAST SURGICAL HISTORY Procedure Laterality Date ARTHRP KNE CONDYLE&PLATU MEDIAL&LAT COMPARTMENTS Right 08/17/2011 Dr. 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 left dorsal hand skin lesion MAL LESION TRUNK,ARM,LEG 1.1-2.0 CM Right 12/14/2015 Exc. right dorsal forearm lesion PAST SURGICAL HISTORY OF Right 11/2020 right hip tendon repairs TOTAL KNEE REPLACEMENT Left 07/09/2021 TOTAL KNEE REPLACEMENT Left 07/2021 ALLERGIES: Sutures, Lisinopril, and Monopril [Fosinopril Sodium] Medications reviewed: Yes FAMILY HISTORY Problem Relation Age of Onset Stroke Mother 88 Alcohol/Drug Father Hypertension Father Breast Cancer Sister Colon Cancer Sister 79 No Known Problems Son Diabetes Son No Known Problems Son SOCIAL HISTORY: Social History Tobacco Use Smoking status: Former Smoker Smokeless tobacco: Never Used Tobacco comment: QUIT 1976 Vaping Use Vaping Use: Never used Substance Use Topics Alcohol use: Yes Alcohol/week: 2.5 standard drinks Types: 1 Glasses of Wine (5oz) per week Comment: occasionally Drug use: No Karla denies regular aerobic exercise but is very busy outside. She watches her diet for sodium, low fat and low cholesterol most of the time. List of current specialists seen: Dr. Braswell ([facility]) End of Live Planning discussed including patients advanced directive wishes: Yes I am willing to follow Karla's advanced directives. PHQ-2 / Depression screen Depression Screening 05/05/2017 05/30/2018 07/06/2019 03/20/2022 PHQ-2 Score 0 0 0 0 Depression screening tool completed and reviewed. Based on score and interview, patient is not at risk for depression. Screening tool discussed with patient, and I recommended no further intervention at this time. Functional Ability/Safety Screen 1. Was the patient's timed Up and Go test unsteady or longer than 30 seconds? No 2. Does the patient need help with the phone, transportation, shopping,preparing meals, housework, laundry, medications or managing money? No 3. Does your home have rugs in the hallway(Y), lack of grab bars in the bathroom(Y), lack of handrails on the stairs or have poor lighting? No Hearing Evaluation: normal PHYSICAL EXAM BP 132/78 (BP Site: Left Arm, BP Position: Sitting, BP Cuff Size: Regular Adult) Pulse 60 Resp 14 Ht 161.3 cm (5' 3.5) Wt 80.3 kg (177 lb) BMI 30.86 kg/m Alert and oriented X 3: YES Body mass index is 30.86 kg/m . Visual acuity: seeing optho See below ASSESSMENT/PLAN: 76 year old female The following prevention plan was discussed during the office visit and provided to the patient: See below Deejay Anderson MD Chief Complaint Patient presents with: Medicare Wellness Exam HPI Karla Ndiaye is a 76 year old female who presents here today for Medicare Annual Visit. Patient with hx of HTN, Hyperlipidemia, elevated calcium, osteopetrosis, CKD stage 3 as well as those reviewed and addressed blow and in ROS. Patient has been doing ok. Has seen Endo for her elevted Calcium. The have her reducing her calcium intact. Past medical history, appointments, medications, allergies reviewed. Previous Medical History PAST MEDICAL HISTORY Diagnosis Date Age related osteoporosis Age related osteoporosis Fosamax started 12/2018 Aortic heart murmur 10/01/2011 Arthritis of knee 08/05/2017 left knee Benign neoplasm of colon 10/21/2005 Cystocele, midline 12/11/2009 Essential hypertension, benign Glaucoma Hypercalcemia 10/19/2021 10/21/2021: Vit D stopped. Seeing Sudha, Dr. Braswell as of 02/2022 Internal hemorrhoids without mention of complication 10/21/2005 Mixed hyperlipidemia 04/09/2016 Pleural effusion on right 04/01/2019 Postmenopausal atrophic vaginitis 12/11/2009 Serum calcium elevated 01/13/2021 PTH normal 06/2019 Stage 3a chronic kidney disease (HCC) 12/19/2020 Symptomatic menopausal or female climacteric states Trochanteric bursitis, right hip 2018 Unilateral primary osteoarthritis, left knee 2018 Vasovagal syncope 10/01/2011 Previous Surgical History PAST SURGICAL HISTORY Procedure Laterality Date ARTHRP KNE CONDYLE&PLATU MEDIAL&LAT COMPARTMENTS Right 08/17/2011 Dr. 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 left dorsal hand skin lesion MAL LESION TRUNK,ARM,LEG 1.1-2.0 CM Right 12/14/2015 Exc. right dorsal forearm lesion PAST SURGICAL HISTORY OF Right 11/2020 right hip tendon repairs TOTAL KNEE REPLACEMENT Left 07/09/2021 TOTAL KNEE REPLACEMENT Left 07/2021 Family History FAMILY HISTORY Problem Relation Age of Onset Alcohol/Drug Father Hypertension Father Stroke Mother 88 Breast Cancer Sister No Known Problems Son Diabetes Son No Known Problems Son Patient Allergies ALLERGIES Allergen Reactions Sutures Hives high level reaction to CAT GUT suture Lisinopril Cough Monopril [Fosinopri* Cough Current Medications Current Outpatient Medications on File Prior to Visit Medication Sig lisinopril (ZESTRIL, PRINIVIL) 40 mg tablet TAKE 1 TABLET BY MOUTH ONCE DAILY alendronate (FOSAMAX) 70 mg tablet Take 1 tablet by mouth one time a week. In AM with cup of water on empty stomach. Nothing else by mouth and stay upright for 30 min. spironolactone (ALDACTONE) 25 mg tablet Take 0.5 tablets by mouth once daily. amLODIPine (NORVASC) 5 mg tablet Take 1 tablet by mouth once daily. simvastatin (ZOCOR) 20 mg tablet Take 1 tablet by mouth daily at bedtime. timoloL maleate (TIMOPTIC) 0.25 % ophthalmic solution Use 1 Drop in the left eye twice daily. latanoprost (XALATAN) 0.005 % ophthalmic solution 1 drop in each eye at bedtime No current facility-administered medications on file prior to visit. Social History Social History Tobacco Use Smoking status: Former Smoker Smokeless tobacco: Never Used Tobacco comment: QUIT 1975 Vaping Use Vaping Use: Never used Substance Use Topics Alcohol use: Yes Alcohol/week: 2.5 standard drinks Types: 1 Glasses of Wine (5oz) per week Comment: occasionally Drug use: No Review of Symptoms REVIEW OF SYSTEMS GENERAL: No weight loss, malaise or fevers HEENT: Negative for frequent or significant headaches, No changes in hearing or vision, no nose bleeds or other nasal problems NECK: Negative for lumps, goiter, pain and significant neck swelling RESPIRATORY: Negative for cough, hemoptysis, wheezing, COPD, dyspnea or shortness of breath CARDIOVASCULAR: Negative for chest pain, leg swelling, hypertension, CHF or palpitations GI: No nausea, vomiting, or diarrhea, No frequent heartburn or reflux symptoms and no blood : No history of dysuria, no blood MUSCULOSKELETAL: Negative for joint pain or swelling, back pain or muscle pain SKIN: Negative for lesions, rash, and itching PSYCH: Negative for sleep disturbance, mood disorder and recent psychosocial stressors HEMATOLOGY/LYMPHOLOGY: Negative for prolonged bleeding, bruising easily or swollen nodes ENDOCRINE: Negative for cold or heat intolerance, polyuria, polydipsia and goiter NEURO: No history of headaches, syncope, paralysis, seizures or tremors EXAM: BP 132/78 (BP Site: Left Arm, BP Position: Sitting, BP Cuff Size: Regular Adult) Pulse 60 Resp 14 Ht 161.3 cm (5' 3.5) Wt 80.3 kg (177 lb) BMI 30.86 kg/m Last 5 Encounter Wt Readings: Date: Wt: 03/20/2022 80.3 kg (177 lb) 02/24/2022 80.7 kg (178 lb) 10/17/2021 81.6 kg (180 lb) 10/02/2021 82.5 kg (181 lb 12.8 oz) 09/03/2021 81.3 kg (179 lb 3.2 oz) General Appearance: Well appearing, alert, in no acute distress, well-hydrated, well nourished.. Skin: Skin color, texture, turgor normal, no suspicious rashes or lesions. Head: Normocephalic, no masses, lesions, tenderness or abnormalities. Eyes: Anicteric sclera. Pupils are equally round and reactive to light. Extraocular movements are intact. . Ears: External ears, TM's normal, canals clear. Neck: Supple, no adenopathy; thyroid symmetric, normal size, no bruits. Lungs: Lungs clear to auscultation. No wheezing, rhonchi, rales.. Heart: RRR without murmur, gallop, or rubs. No ectopy. Abdomen: Normal abdominal exam, Abdomen soft, non-tender. Bowel sounds normal. No masses, organomegaly. Extremities: No deformities, edema, skin discoloration, clubbing or cyanosis. Musculoskeletal: Muscular strength intact, No joint swelling, deformity, or tenderness. Peripheral Pulses: Normal. Neurologic: Gait normal. Reflexes normal and symmetric. Sensation to light touch and crainal nerves 2-12 intact.. Health Maintenance List DTAP,TDAP,TD(1 - Tdap) due on 07/20/2006 ADVANCE DIRECTIVE DISCUSSION Never done BP CONTROLLED (<130/80) due on 10/23/2021 COVID-19 VACCINE(4 - Booster for Moderna series) due on 12/06/2021 INFLUENZA(1) due on 05/07/2022 ANNUAL PCP TEAM CHRONIC DISEASE VISIT due on 10/17/2022 SERUM CREATININE due on 03/16/2023 HEMOGLOBIN/HEMATOCRIT due on 03/16/2023 DIABETES SCREEN due on 03/16/2025 BONE DENSITY Completed PNEUMOCOCCAL: 65+ Completed HEPATITIS C SCREENING Discontinued DEPRESSION SCREENING Discontinued SHINGRIX VACCINE Discontinued Data reviewed Component Latest Ref Rng & Units 03/16/2022 WBC 3.70 - 11.00 k/uL 6.13 RBC 3.90 - 5.20 m/uL 4.87 Hemoglobin 11.5 - 15.5 g/dL 13.9 Hematocrit 36.0 - 46.0 % 45.1 MCV 80.0 - 100.0 fL 92.6 MCH 26.0 - 34.0 pg 28.5 MCHC 30.5 - 36.0 g/dL 30.8 RDW-CV 11.5 - 15.0 % 13.9 Platelet Count 150 - 400 k/uL 257 MPV 9.0 - 12.7 fL 10.0 Neut% % 57.1 Abs Neut (ANC) 1.45 - 7.50 k/uL 3.50 Lymph% % 33.4 Abs Lymph 1.00 - 4.00 k/uL 2.05 Beltrami% % 6.9 Abs Beltrami <0.87 k/uL 0.42 Eosin% % 1.3 Abs Eosin <0.46 k/uL 0.08 Baso% % 1.1 Abs Baso <0.11 k/uL 0.07 Immature Gran % % 0.2 IMMATURE GRANS (ABS) <0.10 k/uL <0.03 NRBC /100 WBC 0.0 Absolute nRBC <0.01 k/uL <0.01 DTYPE Auto Protein, Total 6.3 - 8.0 g/dL 6.5 Albumin 3.9 - 4.9 g/dL 4.6 Calcium 8.5 - 10.2 mg/dL 10.5 (H) Bilirubin, Total 0.2 - 1.3 mg/dL 0.6 Alkaline Phosphatase 34 - 123 U/L 95 AST 13 - 35 U/L 23 ALT 7 - 38 U/L 21 Glucose 74 - 99 mg/dL 83 BUN 7 - 21 mg/dL 16 Creatinine 0.58 - 0.96 mg/dL 1.04 (H) Sodium 136 - 144 mmol/L 140 Potassium 3.7 - 5.1 mmol/L 5.0 Chloride 97 - 105 mmol/L 104 CO2 22 - 30 mmol/L 24 Anion Gap 9 - 18 mmol/L 12 eGFR >=60 mL/min/1.73m 55 (L) Total Cholesterol, Nonfasting <200 mg/dL 172 Triglycerides, Nonfasting <150 mg/dL 110 HDL Cholesterol, Nonfasting >39 mg/dL 52 LDL Cholesterol, Nonfasting <100 mg/dL 98 Non HDL Cholesterol, Nonfasting <130 mg/dL 120 VLDL Cholesterol, Nonfasting <30 mg/dL 22 Total Chol/HDL Ratio, Nonfasting <5.10 mg/dL 3.31 LDL/HDL Ratio, Nonfasting <2.54 mg/dL 1.88 PTH, Intact 15 - 65 pg/mL 75 (H) A/P ASSESSMENT/PLAN: 1. Medicare annual wellness visit, subsequent - ICD9: V70.0, ICD10: Z00.00 (primary diagnosis) - Counseled on healthy diet and regular exercise - Patient was counseled [id number] by myself (the billing provider) for the following immunizations and vaccine components, including side effects: Pneumococcal PCV-20. Patient consents for immunization and understands risks and benefits. A VIS sheet on each immunization was given to the patient. - Follow up for annual exam in one year 2. Essential hypertension, benign - ICD9: 401.1, ICD10: I10 - good control - Continue current medication(s) - Recommended regular aerobic exercise. - Recommend home blood pressure monitoring, to bring results in on next visit - Goal of BP <130/80 3. Mixed hyperlipidemia - ICD9: 272.2, ICD10: E78.2 - good control - Encouraged following a low fat, low cholesterol diet. - Discussed the benefits of regular aerobic exercise and weight loss. - Encouraged following a low carbohydrate, healthy oil intake diet. - Continue current therapy. 4. Stage 3a chronic kidney disease (HCC) - ICD9: 585.3, ICD10: N18.31 - Stable no changes. 5. Hypercalcemia - ICD9: 275.42, ICD10: E83.52 - Seeing Endo for management 6. Living will on file - ICD9: V49.89, ICD10: Z87.898 - In chart 7. Advance directive discussed with patient - ICD9: V65.49, ICD10: Z71.89 - Discussed 8. Need for vaccination - ICD9: V05.9, ICD10: Z23 - PNEUMOCOCCAL VACCINE (PREVNAR 20): given 9. Benign neoplasm of colon, unspecified part of colon - ICD9: 211.3, ICD10: D12.6 - CONSULT TO GENERAL SURGERY: Dr. Rodriguez 10. Family history of colon cancer - ICD9: V16.0, ICD10: Z80.0 - CONSULT TO GENERAL SURGERY: Dr. Rodriguez Signed Prescriptions Disp Refills spironolactone (ALDACTONE) 25 mg tablet 90 tablet 1 Sig: Take 1 tablet by mouth once daily. YUKO: No F/u in a year or sooner if issues. I spent a total of 40 minutes on the date of the service which included preparing to see the patient, [id number] patient care, completing clinical documentation, performing a medically appropriate examination, counseling and educating the patient/family/caregiver and ordering medications, tests, or procedures. Deejay Anderson MD documented in this encounter [facility] 02-25-2022 History of Present illness Narrative Radiology Service Progress Note PATIENT NAME: Karla Ndiaye DATE OF SERVICE: February 25, 2022 TIME: 9:45 AM PATIENT IDENTITY VERIFICATION COMPLETED USING TWO (2) IDENTIFIERS: Name and Date of confirmed by patient verbally. FALL SCREENING: Has the patient had 2 falls in the last year or 1 fall with injury or currently using an Ambulatory Assistive Device (Walker, Cane, Wheelchair, Crutches, etc.)? No PATIENT GENDER DATA: Female. status: : No status: NO. PATIENT RELEVANT IMPLANT DATA REVIEWED: Not Applicable RADIOLOGY DEPARTMENT: General X-ray: Exam(s) Completed: Spine X-Ray(s): Thoracic and Lumbar AP / LAT / L5-S1 PERIPHERAL IV DATA: Not applicable SIGNED BY: RT Curt(R) February 25, 2022 9:45 AM documented in this encounter [facility] 02-25-2022 History of Present illness Narrative Radiology Service Progress Note PATIENT NAME: Karla Ndiaye DATE OF SERVICE: February 25, 2022 TIME: 9:37 AM PATIENT IDENTITY VERIFICATION COMPLETED USING TWO (2) IDENTIFIERS: Name and Date of confirmed by patient verbally. FALL SCREENING: Has the patient had 2 falls in the last year or 1 fall with injury or currently using an Ambulatory Assistive Device (Walker, Cane, Wheelchair, Crutches, etc.)? No PATIENT GENDER DATA: Female. status: : No status: N/A PATIENT RELEVANT IMPLANT DATA REVIEWED: Not Applicable RADIOLOGY DEPARTMENT: Ultrasound PERIPHERAL IV DATA: Not applicable SIGNED BY: Brittnee Benton RDMS RVT February 25, 2022 9:37 AM documented in this encounter [facility] 02-24-2022 Instructions Antoine Braswell MD - 02/24/2022 10:33 AM EDT - Try to obtain calcium 800-1000 mg per day from diet without using calcium pills - In about 6 weeks, do blood tests and a 24 hour urine collection - We will do xrays of your back and a parathyroid ultrasound. Please call [phone] to schedule Here is the estimated calcium content of a variety of foods: Produce Serving Size Estimated Calcium* Arnaud greens, frozen 8 oz 360 mg Broccoli kellen 8 oz 200 mg Kale, frozen 8 oz 180 mg Soy Beans, green, boiled 8 oz 175 mg Bok Marquise, cooked, boiled 8 oz 160 mg Figs, dried 2 figs 65 mg Broccoli, fresh, cooked 8 oz 60 mg Oranges 1 whole 55 mg Seafood Serving Size Estimated Calcium* Sardines, canned with bones 3 oz 325 mg Whitney, canned with bones 3 oz 180 mg Shrimp, canned 3 oz 125 mg Dairy Serving Size Estimated Calcium* Ricotta, part-skim 4 oz 335 mg Yogurt, plain, low-fat 6 oz 310 mg Milk, skim, low-fat, whole 8 oz 300 mg Yogurt with fruit, low-fat 6 oz 260 mg Mozzarella, part-skim 1 oz 210 mg Cheddar 1 oz 205 mg Yogurt, Croatian 6 oz 200 mg Andorran Cheese 1 oz 195 mg Feta Cheese 4 oz 140 mg Cottage Cheese, 2% 4 oz 105 mg Frozen yogurt, vanilla 8 oz 105 mg Ice Cream, vanilla 8 oz 85 mg Parmesan 1 tbsp 55 mg Fortified Food Serving Size Estimated Calcium* Arbuckle milk, rice milk or soy milk, fortified 8 oz 300 mg [place] juice and other fruit juices, fortified 8 oz 300 mg Tofu, prepared with calcium 4 oz 205 mg Waffle, frozen, fortified 2 pieces 200 mg Oatmeal, fortified 1 packet 140 mg Solomon Islander muffin, fortified 1 muffin 100 mg Cereal, fortified 8 oz 100-1,000 mg Other Serving Size Estimated Calcium* Mac & cheese, frozen 1 package 325 mg Pizza, cheese, frozen 1 serving 115 mg Pudding, chocolate, prepared with 2% milk 4 oz 160 mg Beans, baked, canned 4 oz 160 mg Patient information: Collection of a 24-hour urine specimen The following instructions will guide you in the proper collection of a 24-hour urine specimen. In some instances, you will be asked to collect two or three consecutive 24-hour urine samples. INSTRUCTIONS You should collect every drop of urine during each 24-hour period. It does not matter how much or little urine is passed each time, as long as every drop is collected. Begin the urine collection in the morning after you wake up, after you have emptied your bladder for the first time. Urinate (empty the bladder) for the first time and flush it down the toilet. Note the exact time (e.g., 6:15 AM). You will begin the urine collection at this time. 1. Collect every drop of urine during the day and night in an empty collection bottle. Store the bottle at room temperature or in the refrigerator. 1. If you need to have a bowel movement, any urine passed with the bowel movement should be collected. Try not to include feces with the urine collection. If feces do get mixed in, do not try to remove the feces from the urine collection bottle. 4. Finish by collecting the first urine passed the next morning, adding it to the collection bottle. This should be within ten minutes before or after the time of the first morning void on the first day (which was flushed). In this example, you would try to void between 6:05 and 6:25 on the second day. If you need to urinate one hour before the final collection time, drink a full glass of water so that you can void again at the appropriate time. If you have to urinate 20 minutes before, try to hold the urine until the proper time. Please note the exact time of the final collection, even if it is not the same time as when collection began on day one. STORAGE The bottle(s) may be kept at room temperature for a day or two, but should be kept cool or refrigerated for longer periods of time. documented in this encounter [facility] 02-24-2022 History of Present illness Narrative ENDOCRINOLOGY CLINIC NOTE Ms. Ndiaye is a pleasant 76 year old female with osteoporosis, HTN, dyslipidemia, stage III CKD was referred by Dr. Deejay Anderson for evaluation and management of hypercalcemia. She presented with her HPI Ms. Ndiaye has had mild hypercalcemia since 2016, when her calcium was 10.9 (corrected 10.2) with a GFR of 50. Since then, she has had mild hypercalcemia. The highest documented calcium level is 11.5 but without concomitant albumin level. Her PTH has been between 43 81. Ms. Ndiaye is known to have osteoporosis. DXA scan in 10/2020 showed lowest T score -2.4 at the left femoral neck. Comparison with the previous one could not be done because a different machine was used. She was taking HCTZ 12.5 mg daily but was stopped 2-3 months ago. Ms. Ndiaye denied muscle aches and pains, polyuria, polydipsia, and no history of kidney stones or fractures. There is no family history of calcium related conditions. He used to take calcium and vitamin D but they were stopped few months ago. 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 Vitamin D intake: none currently Weight bearing exercise: No structured physical activity Dental Procedure: None in the near future but may plan to do extraction next Radiation Exposure: None Height Loss: She possible lost an inch PAST MEDICAL HISTORY Diagnosis Date Age related osteoporosis Age related osteoporosis Fosamax started 12/2018 Aortic heart murmur 10/01/2011 Arthritis of knee 08/05/2017 left knee Benign neoplasm of colon 10/21/2005 Cystocele, midline 12/11/2009 Essential hypertension, benign Glaucoma Internal hemorrhoids without mention of complication 10/21/2005 Mixed hyperlipidemia 04/09/2016 Pleural effusion on right 04/01/2019 Postmenopausal atrophic vaginitis 12/11/2009 Serum calcium elevated 01/13/2021 PTH normal 06/2019 Stage 3a chronic kidney disease (HCC) 12/19/2020 Symptomatic menopausal or female climacteric states Trochanteric bursitis, right hip 2018 Unilateral primary osteoarthritis, left knee 2018 Vasovagal syncope 10/01/2011 PAST SURGICAL HISTORY Procedure Laterality Date ARTHRP KNE CONDYLE&PLATU MEDIAL&LAT COMPARTMENTS Right 08/17/2011 Dr. 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 left dorsal hand skin lesion MAL LESION TRUNK,ARM,LEG 1.1-2.0 CM Right 12/14/2015 Exc. right dorsal forearm lesion PAST SURGICAL HISTORY OF Right 11/2020 right hip tendon repairs TOTAL KNEE REPLACEMENT Left 07/09/2021 TOTAL KNEE REPLACEMENT Left 07/2021 FAMILY HISTORY Problem Relation Age of Onset Alcohol/Drug Father Hypertension Father Stroke Mother 88 Breast Cancer Sister No Known Problems Son Diabetes Son No Known Problems Son Social History Tobacco Use Smoking status: Former Smoker Smokeless tobacco: Never Used Tobacco comment: QUIT 1975 Vaping Use Vaping Use: Never used Substance Use Topics Alcohol use: Yes Alcohol/week: 2.5 standard drinks Types: 1 Glasses of Wine (5oz) per week Comment: occasionally Drug use: No (Not in a hospital admission) Allergies As of Date: 02/24/2022 Allergen Noted Reaction SUTURES 02/14/2013 Hives MONOPRIL [FOSINOPRIL SODIUM] 07/15/2005 Cough Fully Assessed 10/17/2021 Current Outpatient Medications Medication Sig Dispense Refill lisinopril (ZESTRIL, PRINIVIL) 40 mg tablet TAKE 1 TABLET BY MOUTH ONCE DAILY 90 tablet 1 alendronate (FOSAMAX) 70 mg tablet Take 1 tablet by mouth one time a week. In AM with cup of water on empty stomach. Nothing else by mouth and stay upright for 30 min. 12 tablet 3 spironolactone (ALDACTONE) 25 mg tablet Take 0.5 tablets by mouth once daily. 45 tablet 1 amLODIPine (NORVASC) 5 mg tablet Take 1 tablet by mouth once daily. 90 tablet 1 simvastatin (ZOCOR) 20 mg tablet Take 1 tablet by mouth daily at bedtime. 90 tablet 3 timoloL maleate (TIMOPTIC) 0.25 % ophthalmic solution Use 1 Drop in the left eye twice daily. latanoprost (XALATAN) 0.005 % ophthalmic solution 1 drop in each eye at bedtime 0 No current facility-administered medications for this visit. COMPLETE REVIEW OF SYSTEMS: 10 point review of systems was negative other than what is mentioned in the H&P PHYSICAL EXAM: 02/24/22 1001 BP: 145/66 Pulse: 68 SpO2: 98% Weight: 80.7 kg (178 lb) Height: 162.6 cm (5' 4) General: NAD, alert and cooperative HEENT: EOMI, no proptosis/stare. Neck: supple with full ROM. No thyromegaly. There is a possible left lower thyroid nodule Cardiovascular: RRR, +S1 and S2. There is a left parasternal systolic murmur lungs: Clear to auscultation bilaterally Abdomen: soft, non-tender, non-distended, +BS, no striae Extremities: No LE oedema Neuro: No tremor of outstretched hands noted. Deep tendon reflexes are normal with a normal relaxation phase. Psych: Normal affect Labs: 11/20/2021 11:15 12/25/2021 12:07 01/27/2022 11:35 Calcium 10.7 (H) 10.7 (H) 10.9 (H) Vitamin D 25 Hydroxy 52.8 PTH, Intact 59 81 (H) Images: DXA scan 10/2020: L-spine T score 2.0 Left total hip T score -1.2 Left femoral T score -2.4 Right total hip T score -1.1 Right femoral neck T score -2.0 Assessment and Recommendations: Ms. De León is a pleasant 76-year-old woman presented with her for evaluation and management of hypercalcemia. She also has osteoporosis. Hypercalcemia: She has had hypercalcemia with PTH in the upper half of normal and normal vitamin D. This is therefore PTH dependent hypercalcemia, most likely representing primary hyperparathyroidism. FHH is unlikely given the age of onset of the hypercalcemia and the lack of family history. I would like to optimize her calcium intake to target 800 1000 mg of calcium per day from diet without using calcium supplements. This is important for bone health and for the accuracy of the tests. Her vitamin D is normal without taking vitamin D supplements and she stated that she is in the sun often. In about 6-8 weeks , I will check her CMP, ionized calcium, PTH, P, vitamin D and do a 24-hour urine collection for calcium. We discussed the management options of primary hyperparathyroidism. These include observation with periodic monitoring, medical therapy and surgery. We discussed the indications for surgery which in her case include the presence of osteoporosis, CKD and the degree of hypercalcemia. We will discuss with the management again after the work-up above. Low bone density: Most recent DXA from 10/2020 shows lowest T score -2.4 at the left femoral neck. Comparison with the previous DXA scans was not possible due to difference in machines used. She has not had fragility fractures. Risk factors for low bone density include age, ethnicity, postmenopausal state and hyperparathyroidism. She has been taking Fosamax for about 4 years and has been tolerating well. Her creatinine clearance is 59, and we will continue with the treatment. If surgery is chosen for the hyperparathyroidism, improvement in BMD may also occur in the future. We will repeat her DXA scan in 2022 Calcium and vitamin D intake as mentioned above Dr. Anderson is thanked for involving me in the care of this patient My final recommendations will be communicated back to the requesting physician by way of shared Medical record or letter to requesting physician via [place] mail. I spent 60 minutes in the visit, with more than 50% of the total [id number] time of the visit in counseling / coordination of care. Antoine Braswell MD documented in this encounter [facility] 02-03-2022 Miscellaneous Notes The following approved medication requests have been transmitted electronically. Signed Prescriptions Disp Refills lisinopril (ZESTRIL, PRINIVIL) 40 mg tablet 90 tablet 1 Sig: TAKE 1 TABLET BY MOUTH ONCE DAILY YUKO: No Authorizing Provider: DEEJAY ANDERSON MD Patient last visit with PCP 10/17/21 Follow up appointment scheduled 04/24/22 Jaquelin Basilio Ma documented in this encounter [facility] 02-01-2022 Miscellaneous Notes Patient is scheduled 02/24 in [place] Patient notified of results, verbalizes understanding of instructions. Pt has referral for Endo per PCP. Assist in scheduling with her. Feliz Cruz LPN Let patient know her Calcium is more elevated and now the parathyroid level is elevated. I have placed a referral for her to see Endo. documented in this encounter [facility] 12-31-2021 Miscellaneous Notes Called and left a detailed voicemail notifying patient of providers message. Hospital phone number was left in case patient had any questions. Safia Wise RN Let patient know I want to give it another month and repeat the calcium. If still elevated would then suggest we get the opinion of a market reporter at that time. Order placed. Patient returned call and went over results, notes from Dr Anderson with understanding. Patient said she stopped the HCTZ and started the Spironolactone 25 mg one half tablet daily. Left message for patient to call office back Jaquelin Basilio Ma Let patient know her parathyroid hormone level was normal. Her calcium was the same as last month at 10.7. See if she did stop the hydrochlorothiazide a month ago as asked? documented in this encounter [facility] 06-12-2021 Miscellaneous Notes Faxed with requested documentation [facility] surgery clearance form 06/12/2021 @ 1:48 PM. Marysol Sumner LPN documented in this encounter [facility] 05-24-2017 History of Past i llness Narrative Problem Noted Date Resolved Date Right hip pain 05/24/2017 08/05/2017 Aortic heart murmur 10/01/2011 05/30/2018 Sprain and strain of unspecified site of knee an d leg 05/05/2011 09/21/2016 Osteoarthritis of hip 08/07/2009 08/05/2017 Symptomatic menopausal or female climacteric sta maria l 12/05/2008 09/21/2016 Other tenosynovitis of hand and wrist 02/02/2008 05/30/2018 documented as of this encounter (statuses as of 12/31/2021) [facility] History of Past illness Narrative* Problem Noted Date Resolved Date Right hip pain 05/24/2017 08/05/2017 Aortic heart murmur 10/01/2011 05/30/2018 Sprain and strain of unspecified site of knee an d leg 05/05/2011 09/21/2016 Osteoarthritis of hip 08/07/2009 08/05/2017 Symptomatic menopausal or female climacteric sta maria l 12/05/2008 09/21/2016 Other tenosynovitis of hand and wrist 02/02/2008 05/30/2018 documented as of this encounter (statuses as of 02/01/2022) [facility] History of Past illness Narrative* Problem Noted Date Resolved Date Right hip pain 05/24/2017 08/05/2017 Aortic heart murmur 10/01/2011 05/30/2018 Sprain and strain of unspecified site of knee an d leg 05/05/2011 09/21/2016 Osteoarthritis of hip 08/07/2009 08/05/2017 Symptomatic menopausal or female climacteric sta maria l 12/05/2008 09/21/2016 Other tenosynovitis of hand and wrist 02/02/2008 05/30/2018 documented as of this encounter (statuses as of 02/03/2022) [facility] of Past illness Narrative* Problem Noted Date Resolved Date Right hip pain 05/24/2017 08/05/2017 Aortic heart murmur 10/01/2011 05/30/2018 Sprain and strain of unspecified site of knee an d leg 05/05/2011 09/21/2016 Osteoarthritis of hip 08/07/2009 08/05/2017 Symptomatic menopausal or female climacteric sta maria l 12/05/2008 09/21/2016 Other tenosynovitis of hand and wrist 02/02/2008 05/30/2018 documented as of this encounter (statuses as of 02/10/2022) [facility] of Past [facility] Narrative* Problem Noted Date Resolved Date Right hip pain 05/24/2017 08/05/2017 Aortic heart murmur 10/01/2011 05/30/2018 Sprain and strain of unspecified site of knee an d leg 05/05/2011 09/21/2016 Osteoarthritis of hip 08/07/2009 08/05/2017 Symptomatic menopausal or female climacteric sta maria l 12/05/2008 09/21/2016 Other tenosynovitis of hand and wrist 02/02/2008 05/30/2018 documented as of this encounter (statuses as of 02/24/2022) [facility] of Past [facility] Narrative* Problem Noted Date Resolved Date Right hip pain 05/24/2017 08/05/2017 Aortic heart murmur 10/01/2011 05/30/2018 Sprain and strain of unspecified site of knee an d leg 05/05/2011 09/21/2016 Osteoarthritis of hip 08/07/2009 08/05/2017 Symptomatic menopausal or female climacteric sta maria l 12/05/2008 09/21/2016 Other tenosynovitis of hand and wrist 02/02/2008 05/30/2018 documented as of this encounter (statuses as of 02/26/2022) [facility] of [facility] Narrative* Problem Noted Date Resolved Date Right hip pain 05/24/2017 08/05/2017 Aortic heart murmur 10/01/2011 05/30/2018 Sprain and strain of unspecified site of knee an d leg 05/05/2011 09/21/2016 Osteoarthritis of hip 08/07/2009 08/05/2017 Symptomatic menopausal or female climacteric sta maria l 12/05/2008 09/21/2016 Other tenosynovitis of hand and wrist 02/02/2008 05/30/2018 documented as of this encounter (statuses as of 02/26/2022) [facility] of [facility] Narrative* Problem Noted Date Resolved Date Right hip pain 05/24/2017 08/05/2017 Aortic heart murmur 10/01/2011 05/30/2018 Sprain and strain of unspecified site of knee an d leg 05/05/2011 09/21/2016 Osteoarthritis of hip 08/07/2009 08/05/2017 Symptomatic menopausal or female climacteric sta maria l 12/05/2008 09/21/2016 Other tenosynovitis of hand and wrist 02/02/2008 05/30/2018 documented as of this encounter (statuses as of 03/20/2022) [facility] Narrative* Problem Noted Date Resolved Date Right hip pain 05/24/2017 08/05/2017 Aortic heart murmur 10/01/2011 05/30/2018 Sprain and strain of unspecified site of knee an d leg 05/05/2011 09/21/2016 Osteoarthritis of hip 08/07/2009 08/05/2017 Symptomatic menopausal or female climacteric sta maria l 12/05/2008 09/21/2016 Other tenosynovitis of hand and wrist 02/02/2008 05/30/2018 documented as of this encounter (statuses as of 03/23/2022) [facility] Narrative* Problem Noted Date Resolved Date Right hip pain 05/24/2017 08/05/2017 Aortic heart murmur 10/01/2011 05/30/2018 Sprain and strain of unspecified site of knee an d leg 05/05/2011 09/21/2016 Osteoarthritis of hip 08/07/2009 08/05/2017 Symptomatic menopausal or female climacteric sta maria l 12/05/2008 09/21/2016 Other tenosynovitis of hand and wrist 02/02/2008 05/30/2018 documented as of this encounter (statuses as of 04/06/2022) [facility] Narrative* Problem Noted Date Resolved Date Right hip pain 05/24/2017 08/05/2017 Aortic heart murmur 10/01/2011 05/30/2018 Sprain and strain of unspecified site of knee an d leg 05/05/2011 09/21/2016 Osteoarthritis of hip 08/07/2009 08/05/2017 Symptomatic menopausal or female climacteric sta maria l 12/05/2008 09/21/2016 Other tenosynovitis of hand and wrist 02/02/2008 05/30/2018 documented as of this encounter (statuses as of 04/28/2022) [facility] Narrative* Problem Noted Date Resolved Date Right hip pain 05/24/2017 08/05/2017 Aortic heart murmur 10/01/2011 05/30/2018 Sprain and strain of unspecified site of knee an d leg 05/05/2011 09/21/2016 Osteoarthritis of hip 08/07/2009 08/05/2017 Symptomatic menopausal or female climacteric sta maria l 12/05/2008 09/21/2016 Other tenosynovitis of hand and wrist 02/02/2008 05/30/2018 documented as of this encounter (statuses as of 05/15/2022) [facility] N[facility]ative* Problem Noted Date Resolved Date Right hip pain 05/24/2017 08/05/2017 Aortic heart murmur 10/01/2011 05/30/2018 Sprain and strain of unspecified site of knee an d leg 05/05/2011 09/21/2016 Osteoarthritis of hip 08/07/2009 08/05/2017 Symptomatic menopausal or female climacteric sta maria l 12/05/2008 09/21/2016 Other tenosynovitis of hand and wrist 02/02/2008 05/30/2018 documented as of this encounter (statuses as of 05/15/2022) [facility] Narrative* Problem Noted Date Resolved Date Right hip pain 05/24/2017 08/05/2017 Aortic heart murmur 10/01/2011 05/30/2018 Sprain and strain of unspecified site of knee an d leg 05/05/2011 09/21/2016 Osteoarthritis of hip 08/07/2009 08/05/2017 Symptomatic menopausal or female climacteric sta maria l 12/05/2008 09/21/2016 Other tenosynovitis of hand and wrist 02/02/2008 05/30/2018 documented as of this encounter (statuses as of 05/19/2022) [facility] Narrative* Problem Noted Date Resolved Date Right hip pain 05/24/2017 08/05/2017 Aortic heart murmur 10/01/2011 05/30/2018 Sprain and strain of unspecified site of knee an d leg 05/05/2011 09/21/2016 Osteoarthritis of hip 08/07/2009 08/05/2017 Symptomatic menopausal or female climacteric sta maria l 12/05/2008 09/21/2016 Other tenosynovitis of hand and wrist 02/02/2008 05/30/2018 documented as of this encounter (statuses as of 05/28/2022) [facility] Narrative* Problem Noted Date Resolved Date Right hip pain 05/24/2017 08/05/2017 Aortic heart murmur 10/01/2011 05/30/2018 Sprain and strain of unspecified site of knee an d leg 05/05/2011 09/21/2016 Osteoarthritis of hip 08/07/2009 08/05/2017 Symptomatic menopausal or female climacteric sta maria l 12/05/2008 09/21/2016 Other tenosynovitis of hand and wrist 02/02/2008 05/30/2018 documented as of this encounter (statuses as of 05/29/2022) [facility] History of Past illness Narrative* Problem Noted Date Resolved Date Right hip pain 05/24/2017 08/05/2017 Aortic heart murmur 10/01/2011 05/30/2018 Sprain and strain of unspecified site of knee an d leg 05/05/2011 09/21/2016 Osteoarthritis of hip 08/07/2009 08/05/2017 Symptomatic menopausal or female climacteric sta maria l 12/05/2008 09/21/2016 Other tenosynovitis of hand and wrist 02/02/2008 05/30/2018 documented as of this encounter (statuses as of 06/05/2022) [facility] History of Past illness Narrative* Problem Noted Date Resolved Date Right hip pain 05/24/2017 08/05/2017 Aortic heart murmur 10/01/2011 05/30/2018 Sprain and strain of unspecified site of knee an d leg 05/05/2011 09/21/2016 Osteoarthritis of hip 08/07/2009 08/05/2017 Symptomatic menopausal or female climacteric sta maria l 12/05/2008 09/21/2016 Other tenosynovitis of hand and wrist 02/02/2008 05/30/2018 documented as of this encounter (statuses as of 06/10/2022) [facility] History of Past illness Narrative* Problem Noted Date Resolved Date Right hip pain 05/24/2017 08/05/2017 Aortic heart murmur 10/01/2011 05/30/2018 Sprain and strain of unspecified site of knee an d leg 05/05/2011 09/21/2016 Osteoarthritis of hip 08/07/2009 08/05/2017 Symptomatic menopausal or female climacteric sta maria l 12/05/2008 09/21/2016 Other tenosynovitis of hand and wrist 02/02/2008 05/30/2018 documented as of this encounter (statuses as of 06/18/2022) [facility] History of Past illness Narrative* Problem Noted Date Resolved Date Right hip pain 05/24/2017 08/05/2017 Aortic heart murmur 10/01/2011 05/30/2018 Sprain and strain of unspecified site of knee an d leg 05/05/2011 09/21/2016 Osteoarthritis of hip 08/07/2009 08/05/2017 Symptomatic menopausal or female climacteric sta maria l 12/05/2008 09/21/2016 Other tenosynovitis of hand and wrist 02/02/2008 05/30/2018 documented as of this encounter (statuses as of 06/18/2022) [facility] History of Past illness Narrative* Problem Noted Date Resolved Date Right hip pain 05/24/2017 08/05/2017 Aortic heart murmur 10/01/2011 05/30/2018 Sprain and strain of unspecified site of knee an d leg 05/05/2011 09/21/2016 Osteoarthritis of hip 08/07/2009 08/05/2017 Symptomatic menopausal or female climacteric sta maria l 12/05/2008 09/21/2016 Other tenosynovitis of hand and wrist 02/02/2008 05/30/2018 documented as of this encounter (statuses as of 06/18/2022) [facility] History of Past illness Narrative* Problem Noted Date Resolved Date Right hip pain 05/24/2017 08/05/2017 Aortic heart murmur 10/01/2011 05/30/2018 Sprain and strain of unspecified site of knee an d leg 05/05/2011 09/21/2016 Osteoarthritis of hip 08/07/2009 08/05/2017 Symptomatic menopausal or female climacteric sta maria l 12/05/2008 09/21/2016 Other tenosynovitis of hand and wrist 02/02/2008 05/30/2018 documented as of this encounter (statuses as of 06/29/2022) [facility] History of Past illness Narrative* Problem Noted Date Resolved Date Right hip pain 05/24/2017 08/05/2017 Aortic heart murmur 10/01/2011 05/30/2018 Sprain and strain of unspecified site of knee an d leg 05/05/2011 09/21/2016 Osteoarthritis of hip 08/07/2009 08/05/2017 Symptomatic menopausal or female climacteric sta maria l 12/05/2008 09/21/2016 Other tenosynovitis of hand and wrist 02/02/2008 05/30/2018 documented as of this encounter (statuses as of 06/30/2022) [facility] History of Past illness Narrative* Problem Noted Date Resolved Date Right hip pain 05/24/2017 08/05/2017 Aortic heart murmur 10/01/2011 05/30/2018 Sprain and strain of unspecified site of knee an d leg 05/05/2011 09/21/2016 Osteoarthritis of hip 08/07/2009 08/05/2017 Symptomatic menopausal or female climacteric sta maria l 12/05/2008 09/21/2016 Other tenosynovitis of hand and wrist 02/02/2008 05/30/2018 documented as of this encounter (statuses as of 07/01/2022) [facility] History of Past illness Narrative* Problem Noted Date Resolved Date Right hip pain 05/24/2017 08/05/2017 Aortic heart murmur 10/01/2011 05/30/2018 Sprain and strain of unspecified site of knee an d leg 05/05/2011 09/21/2016 Osteoarthritis of hip 08/07/2009 08/05/2017 Symptomatic menopausal or female climacteric sta maria l 12/05/2008 09/21/2016 Other tenosynovitis of hand and wrist 02/02/2008 05/30/2018 documented as of this encounter (statuses as of 07/01/2022) [facility] History of Past illness Narrative* Problem Noted Date Resolved Date Right hip pain 05/24/2017 08/05/2017 Aortic heart murmur 10/01/2011 05/30/2018 Sprain and strain of unspecified site of knee an d leg 05/05/2011 09/21/2016 Osteoarthritis of hip 08/07/2009 08/05/2017 Symptomatic menopausal or female climacteric sta maria l 12/05/2008 09/21/2016 Other tenosynovitis of hand and wrist 02/02/2008 05/30/2018 documented as of this encounter (statuses as of 08/03/2022) [facility] History of Past illness Narrative* Problem Noted Date Resolved Date Right hip pain 05/24/2017 08/05/2017 Aortic heart murmur 10/01/2011 05/30/2018 Sprain and strain of unspecified site of knee an d leg 05/05/2011 09/21/2016 Osteoarthritis of hip 08/07/2009 08/05/2017 Symptomatic menopausal or female climacteric sta maria l 12/05/2008 09/21/2016 Other tenosynovitis of hand and wrist 02/02/2008 05/30/2018 documented as of this encounter (statuses as of 08/10/2022) [facility] History of Past illness Narrative* Problem Noted Date Resolved Date Right hip pain 05/24/2017 08/05/2017 Aortic heart murmur 10/01/2011 05/30/2018 Sprain and strain of unspecified site of knee an d leg 05/05/2011 09/21/2016 Osteoarthritis of hip 08/07/2009 08/05/2017 Symptomatic menopausal or female climacteric sta maria l 12/05/2008 09/21/2016 Other tenosynovitis of hand and wrist 02/02/2008 05/30/2018 documented as of this encounter (statuses as of 08/30/2022) [facility] History of Past illness Narrative* Problem Noted Date Resolved Date Right hip pain 05/24/2017 08/05/2017 Aortic heart murmur 10/01/2011 05/30/2018 Sprain and strain of unspecified site of knee an d leg 05/05/2011 09/21/2016 Osteoarthritis of hip 08/07/2009 08/05/2017 Symptomatic menopausal or female climacteric sta maria l 12/05/2008 09/21/2016 Other tenosynovitis of hand and wrist 02/02/2008 05/30/2018 documented as of this encounter (statuses as of 10/08/2022) [facility] History of Past illness Narrative* Problem Noted Date Resolved Date Right hip pain 05/24/2017 08/05/2017 Aortic heart murmur 10/01/2011 05/30/2018 Sprain and strain of unspecified site of knee an d leg 05/05/2011 09/21/2016 Osteoarthritis of hip 08/07/2009 08/05/2017 Symptomatic menopausal or female climacteric sta maria l 12/05/2008 09/21/2016 Other tenosynovitis of hand and wrist 02/02/2008 05/30/2018 documented as of this encounter (statuses as of 10/27/2022) [facility] History of Past illness Narrative* Problem Noted Date Resolved Date Right hip pain 05/24/2017 08/05/2017 Aortic heart murmur 10/01/2011 05/30/2018 Sprain and strain of unspecified site of knee an d leg 05/05/2011 09/21/2016 Osteoarthritis of hip 08/07/2009 08/05/2017 Symptomatic menopausal or female climacteric sta maria l 12/05/2008 09/21/2016 Other tenosynovitis of hand and wrist 02/02/2008 05/30/2018 documented as of this encounter (statuses as of 12/09/2022) [facility] History of Past illness Narrative* Problem Noted Date Resolved Date Right hip pain 05/24/2017 08/05/2017 Aortic heart murmur 10/01/2011 05/30/2018 Sprain and strain of unspecified site of knee an d leg 05/05/2011 09/21/2016 Osteoarthritis of hip 08/07/2009 08/05/2017 Symptomatic menopausal or female climacteric sta maria l 12/05/2008 09/21/2016 Other tenosynovitis of hand and wrist 02/02/2008 05/30/2018 documented as of this encounter (statuses as of 01/13/2023) [facility] History of Past illness Narrative* Problem Noted Date Diagnosed Date Resolved Date Right hip pain 05/24/2017 08/05/2017 Aortic heart murmur 10/01/2011 05/30/20 Sprain and strain of unspeci fied site of knee and leg 05/05/2011 09/21/2016 Osteoarthritis of hip 08/07/20092016 Symptomatic menopausal or fe male climacteric states 12/05/2008 09/21/2016 Other tenosynovitis of hand and wrist 02/02/2008 05/30/2018 documented as of this encounter (statuses as of 03/25/2023) [facility] History of Past illness Narrative* Problem Noted Date Diagnosed Date Resolved Date Right hip pain 05/24/2017 08/05/2017 Aortic heart murmur 10/01/2011 05/30/20 18 Sprain and strain of unspeci fied site of knee and leg 05/05/2011 09/21/2016 Osteoarthritis of hip 08/07/20092016 Symptomatic menopausal or fe male climacteric states 12/05/2008 09/21/2016 Other tenosynovitis of hand and wrist 02/02/2008 05/30/2018 documented as of this encounter (statuses as of 05/03/2023) [facility] History of Past illness Narrative* Problem Noted Date Diagnosed Date Resolved Date Right hip pain 05/24/2017 08/05/2017 Aortic heart murmur 10/01/2011 05/30/20 18 Sprain and strain of unspeci fied site of knee and leg 05/05/2011 09/21/2016 Osteoarthritis of hip 08/07/20092016 Symptomatic menopausal or fe male climacteric states 12/05/2008 09/21/2016 Other tenosynovitis of hand and wrist 02/02/2008 05/30/2018 documented as of this encounter (statuses as of 05/04/2023) [facility] History of Past illness Narrative* Problem Noted Date Diagnosed Date Resolved Date Right hip pain 05/24/2017 08/05/2017 Aortic heart murmur 10/01/2011 05/30/20 18 Sprain and strain of unspeci fied site of knee and leg 05/05/2011 09/21/2016 Osteoarthritis of hip 08/07/20092016 Symptomatic menopausal or fe male climacteric states 12/05/2008 09/21/2016 Other tenosynovitis of hand and wrist 02/02/2008 05/30/2018 documented as of this encounter (statuses as of 05/05/2023) [facility] History of Past illness Narrative* Problem Noted Date Diagnosed Date Resolved Date Right hip pain 05/24/2017 08/05/2017 Aortic heart murmur 10/01/2011 05/30/20 18 Sprain and strain of unspeci fied site of knee and leg 05/05/2011 09/21/2016 Osteoarthritis of hip 08/07/20092016 Symptomatic menopausal or fe male climacteric states 12/05/2008 09/21/2016 Other tenosynovitis of hand and wrist 02/02/2008 05/30/2018 documented as of this encounter (statuses as of 05/14/2023) [facility] History of Past illness Narrative* Problem Noted Date Diagnosed Date Resolved Date Right hip pain 05/24/2017 08/05/2017 Aortic heart murmur 10/01/2011 05/30/20 18 Sprain and strain of unspeci fied site of knee and leg 05/05/2011 09/21/2016 Osteoarthritis of hip 08/07/20092016 Symptomatic menopausal or fe male climacteric states 12/05/2008 09/21/2016 Other tenosynovitis of hand and wrist 02/02/2008 05/30/2018 documented as of this encounter (statuses as of 07/22/2023) [facility] History of Past illness Narrative* Problem Noted Date Diagnosed Date Resolved Date Right hip pain 05/24/2017 08/05/2017 Aortic heart murmur 10/01/2011 05/30/20 18 Sprain and strain of unspeci fied site of knee and leg 05/05/2011 09/21/2016 Osteoarthritis of hip 08/07/20092016 Symptomatic menopausal or fe male climacteric states 12/05/2008 09/21/2016 Other tenosynovitis of hand and wrist 02/02/2008 05/30/2018 documented as of this encounter (statuses as of 08/13/2023) [facility] History of Past illness Narrative* Problem Noted Date Diagnosed Date Resolved Date Right hip pain 05/24/2017 08/05/2017 Aortic heart murmur 10/01/2011 05/30/20 18 Sprain and strain of unspeci fied site of knee and leg 05/05/2011 09/21/2016 Osteoarthritis of hip 08/07/20092016 Symptomatic menopausal or fe male climacteric states 12/05/2008 09/21/2016 Other tenosynovitis of hand and wrist 02/02/2008 05/30/2018 documented as of this encounter (statuses as of 08/27/2023) [facility] History of Past illness Narrative* Problem Noted Date Diagnosed Date Resolved Date Right hip pain 05/24/2017 08/05/2017 Aortic heart murmur 10/01/2011 05/30/20 18 Sprain and strain of unspeci fied site of knee and leg 05/05/2011 09/21/2016 Osteoarthritis of hip 08/07/20092016 Symptomatic menopausal or fe male climacteric states 12/05/2008 09/21/2016 Other tenosynovitis of hand and wrist 02/02/2008 05/30/2018 documented as of this encounter (statuses as of 08/27/2023) [facility] History of Past illness Narrative* Problem Noted Date Diagnosed Date Resolved Date Right hip pain 05/24/2017 08/05/2017 Aortic heart murmur 10/01/2011 05/30/20 18 Sprain and strain of unspeci fied site of knee and leg 05/05/2011 09/21/2016 Osteoarthritis of hip 08/07/20092016 Symptomatic menopausal or fe male climacteric states 12/05/2008 09/21/2016 Other tenosynovitis of hand and wrist 02/02/2008 05/30/2018 documented as of this encounter (statuses as of 10/08/2023) [facility] History of Past illness Narrative* Problem Noted Date Diagnosed Date Resolved Date Right hip pain 05/24/2017 08/05/2017 Aortic heart murmur 10/01/2011 05/30/20 18 Sprain and strain of unspeci fied site of knee and leg 05/05/2011 09/21/2016 Osteoarthritis of hip 08/07/20092016 Symptomatic menopausal or fe male climacteric states 12/05/2008 09/21/2016 Other tenosynovitis of hand and wrist 02/02/2008 05/30/2018 documented as of this encounter (statuses as of 10/08/2023) [facility] History of Past illness Narrative* Problem Noted Date Diagnosed Date Resolved Date Right hip pain 05/24/2017 08/05/2017 Aortic heart murmur 10/01/2011 05/30/20 18 Sprain and strain of unspeci fied site of knee and leg 05/05/2011 09/21/2016 Osteoarthritis of hip 08/07/20092016 Symptomatic menopausal or fe male climacteric states 12/05/2008 09/21/2016 Other tenosynovitis of hand and wrist 02/02/2008 05/30/2018 documented as of this encounter (statuses as of 10/12/2023) [facility] History of Past illness Narrative* Problem Noted Date Diagnosed Date Resolved Date Right hip pain 05/24/2017 08/05/2017 Aortic heart murmur 10/01/2011 05/30/20 18 Sprain and strain of unspeci fied site of knee and leg 05/05/2011 09/21/2016 Osteoarthritis of hip 08/07/20092016 Symptomatic menopausal or fe male climacteric states 12/05/2008 09/21/2016 Other tenosynovitis of hand and wrist 02/02/2008 05/30/2018 documented as of this encounter (statuses as of 10/18/2023) [facility] History of Past illness Narrative* Problem Noted Date Diagnosed Date Resolved Date Right hip pain 05/24/2017 08/05/2017 Aortic heart murmur 10/01/2011 05/30/20 18 Sprain and strain of unspeci fied site of knee and leg 05/05/2011 09/21/2016 Osteoarthritis of hip 08/07/20092016 Symptomatic menopausal or fe male climacteric states 12/05/2008 09/21/2016 Other tenosynovitis of hand and wrist 02/02/2008 05/30/2018 documented as of this encounter (statuses as of 11/03/2023) [facility] History of Past illness Narrative* Problem Noted Date Diagnosed Date Resolved Date Right hip pain 05/24/2017 08/05/2017 Aortic heart murmur 10/01/2011 05/30/20 18 Sprain and strain of unspeci fied site of knee and leg 05/05/2011 09/21/2016 Osteoarthritis of hip 08/07/20092016 Symptomatic menopausal or fe male climacteric states 12/05/2008 09/21/2016 Other tenosynovitis of hand and wrist 02/02/2008 05/30/2018 documented as of this encounter (statuses as of 11/03/2023) [facility] History of Past illness Narrative* Problem Noted Date Diagnosed Date Resolved Date Right hip pain 05/24/2017 08/05/2017 Aortic heart murmur 10/01/2011 05/30/20 18 Sprain and strain of unspeci fied site of knee and leg 05/05/2011 09/21/2016 Osteoarthritis of hip 08/07/20092016 Symptomatic menopausal or fe male climacteric states 12/05/2008 09/21/2016 Other tenosynovitis of hand and wrist 02/02/2008 05/30/2018 documented as of this encounter (statuses as of 11/03/2023) [facility] of Past illness Narrative* Problem Noted Date Diagnosed Date Resolved Date Right hip pain 05/24/2017 08/05/2017 Aortic heart murmur 10/01/2011 05/30/20 18 Sprain and strain of unspeci fied site of knee and leg 05/05/2011 09/21/2016 Osteoarthritis of hip 08/07/20092016 Symptomatic menopausal or fe male climacteric states 12/05/2008 09/21/2016 Other tenosynovitis of hand and wrist 02/02/2008 05/30/2018 documented as of this encounter (statuses as of 11/03/2023) [facility] of Past illness Narrative* Problem Noted Date Diagnosed Date Resolved Date Right hip pain 05/24/2017 08/05/2017 Aortic heart murmur 10/01/2011 05/30/20 18 Sprain and strain of unspeci fied site of knee and leg 05/05/2011 09/21/2016 Osteoarthritis of hip 08/07/20092016 Symptomatic menopausal or fe male climacteric states 12/05/2008 09/21/2016 Other tenosynovitis of hand and wrist 02/02/2008 05/30/2018 documented as of this encounter (statuses as of 11/11/2023) [facility] of Past illness Narrative* Problem Noted Date Diagnosed Date Resolved Date Right hip pain 05/24/2017 08/05/2017 Aortic heart murmur 10/01/2011 05/30/20 18 Sprain and strain of unspeci fied site of knee and leg 05/05/2011 09/21/2016 Osteoarthritis of hip 08/07/20092016 Symptomatic menopausal or fe male climacteric states 12/05/2008 09/21/2016 Other tenosynovitis of hand and wrist 02/02/2008 05/30/2018 documented as of this encounter (statuses as of 12/07/2023) [facility] History of Past illness Narrative* Problem Noted Date Diagnosed Date Resolved Date Right hip pain 05/24/2017 08/05/2017 Aortic heart murmur 10/01/2011 05/30/20 18 Sprain and strain of unspeci fied site of knee and leg 05/05/2011 09/21/2016 Osteoarthritis of hip 08/07/20092016 Symptomatic menopausal or fe male climacteric states 12/05/2008 09/21/2016 Other tenosynovitis of hand and wrist 02/02/2008 05/30/2018 documented as of this encounter (statuses as of 12/10/2023) [facility] History of Past illness Narrative* Problem Noted Date Diagnosed Date Resolved Date Right hip pain 05/24/2017 08/05/2017 Aortic heart murmur 10/01/2011 05/30/20 18 Sprain and strain of unspeci fied site of knee and leg 05/05/2011 09/21/2016 Osteoarthritis of hip 08/07/20092016 Symptomatic menopausal or fe male climacteric states 12/05/2008 09/21/2016 Other tenosynovitis of hand and wrist 02/02/2008 05/30/2018 documented as of this encounter (statuses as of 12/10/2023) [facility]- [facility] Increased PTH level- Primary Unspecified endocrine disorder Serum calcium elevated Hypercalcemia [facility] Essential [facility], benign [facility] Serum calcium elevated Hypercalcemia Increased PTH level Unspecified endocrine disorder Osteoporosis without current pathological fracture, unspecified osteoporosis type [facility] Diagnosis Increased PTH level Unspecified endocrine disorder [facility] Diagnosis Increased PTH level Unspecified endocrine disorder [facility]* Diagnosis Medicare annual wellness visit, subsequent- Primary Routine general medical examination at a health care facility Essential hypertension, benign Mixed hyperlipidemia Stage 3a chronic kidney disease (HCC) Hypercalcemia Living will on file Advance directive discussed with patient Other specified counseling Need for vaccination Need for prophylactic vaccination and inoculation against unspecified single disease Benign neoplasm of colon, unspecified part of colon Family history of colon cancer Family history of malignant neoplasm of gastrointestinal tract [facility]* Diagnosis Hypercalcemia- Primary Primary hyperparathyroidism (HCC) Primary hyperparathyroidism Multiple thyroid nodules Nontoxic multinodular goiter Osteoporosis, unspecified osteoporosis type, unspecified pathological fracture presence [facility]* Diagnosis Hypercalcemia [facility]* Diagnosis Onset Date Resolution Status Family history of colon cancer acute Personal history of colonic polyps acute [facility] Work Phone: Evaluation note* Diagnosis Sciatica, right side- Primary Pain of right lower extremity Shooting pain Stage 3a chronic kidney disease (HCC) [facility] Diagnosis Hyperlipidemia LDL goal <100 Other and unspecified hyperlipidemia [facility]* Diagnosis Essential hypertension, benign [facility] Diagnosis Primary hyperparathyroidism (HCC)- Primary Primary hyperparathyroidism [facility]* Diagnosis Primary hyperparathyroidism (HCC)- Primary Primary hyperparathyroidism Hyperparathyroidism (HCC) Hyperparathyroidism, unspecified Primary hyperparathyroidism (HCC) Primary hyperparathyroidism [facility] Diagnosis Primary hyperparathyroidism (HCC) Primary hyperparathyroidism Multiple thyroid nodules Nontoxic multinodular goiter Primary hyperparathyroidism (HCC) Primary hyperparathyroidism [facility] Diagnosis Sciatica, right side- Primary Primary hyperparathyroidism (HCC) Primary hyperparathyroidism [facility]* Diagnosis Pre-operative examination- Primary Preoperative examination, unspecified Essential hypertension, benign Mixed hyperlipidemia Stage 3a chronic kidney disease (HCC) Age-related osteoporosis without current pathological fracture Senile osteoporosis Class 1 obesity due to excess calories without serious comorbidity with body mass index (BMI) of 31.0 to 31.9 in adult Primary hyperparathyroidism (HCC) Primary hyperparathyroidism documented in this encounter [facility] note* Diagnosis Primary hyperparathyroidism (HCC)- Primary Primary hyperparathyroidism Hyperparathyroidism (HCC) Hyperparathyroidism, unspecified Primary hyperparathyroidism (HCC) Primary hyperparathyroidism [facility]* Diagnosis Primary hyperparathyroidism (HCC)- Primary Primary hyperparathyroidism Multiple thyroid nodules Nontoxic multinodular goiter Osteoporosis without current pathological fracture, unspecified osteoporosis type documented in this encounter [facility] note* Diagnosis UTI symptoms- Primary Other symptoms involving urinary system documented in this encounter [facility] note* Diagnosis Suspected COVID-19 virus infection- Primary documented in this encounter [facility] note* Diagnosis Encounter for screening mammogram for breast cancer Dense breast tissue [facility]* Diagnosis Abnormal mammogram- Primary Abnormal mammogram, unspecified [facility]* Diagnosis Abnormal mammogram Abnormal mammogram, unspecified documented in [facility] Diagnosis Abnormal mammogram Abnormal mammogram, unspecified documented in this encounter [facility] note* Diagnosis Primary hyperparathyroidism (HCC)- Primary Primary hyperparathyroidism Multiple thyroid nodules Nontoxic multinodular goiter Osteoporosis without current pathological fracture, unspecified osteoporosis type documented in this [facility]* Diagnosis Multiple thyroid nodules Nontoxic multinodular goiter documented in [facility]* Diagnosis Acute midline low back pain without sciatica- Primary documented in [facility]* Diagnosis DDD (degenerative disc disease), lumbar- Primary Degeneration of lumbar or lumbosacral intervertebral disc documented in this encounter [facility] note* Diagnosis Acute midline low back pain without sciatica- Primary documented in [facility]* Diagnosis Contact dermatitis, unspecified contact dermatitis type, unspecified trigger- Primary documented [facility]* Diagnosis Syncope, unspecified syncope type- Primary Elevated serum creatinine Other nonspecific findings on examination of blood Tail bone pain Other disorder of coccyx Situational anxiety Other anxiety states Stage 3b chronic kidney disease (HCC) documented in [facility] encounter [facility]* Diagnosis UTI symptoms- Primary Other symptoms involving urinary system documented in this encounter [facility]* Diagnosis Elevated alkaline phosphatase level- Primary Other nonspecific abnormal serum enzyme levels [facility] Diagnosis Medicare annual wellness visit, subsequent- Primary Routine general medical examination at a health care facility Essential hypertension, benign Mixed hyperlipidemia Stage 3b chronic kidney disease (HCC) Situational anxiety Other anxiety states Hypercalcemia Class 1 obesity due to excess calories without serious comorbidity with body mass index (BMI) of 31.0 to 31.9 in adult Age-related osteoporosis without current pathological fracture Senile osteoporosis Advance directive discussed with patient Other specified counseling Medication management Encounter for long-term (current) use of other medications Rash Rash and other nonspecific skin eruption [facility] Diagnosis Elevated alkaline phosphatase level- Primary Other nonspecific abnormal serum enzyme levels [facility] Diagnosis Elevated alkaline phosphatase level Other nonspecific abnormal serum enzyme levels [facility] Diagnosis Elevated alkaline phosphatase level Other nonspecific abnormal serum enzyme levels [facility] Diagnosis Pre-operative examination- Primary Preoperative examination, unspecified Essential hypertension, benign Mixed hyperlipidemia Stage 3a chronic kidney disease (HCC) Age-related osteoporosis without current pathological fracture Senile osteoporosis Class 1 obesity due to excess calories without serious comorbidity with body mass index (BMI) of 31.0 to 31.9 in adult Encounter for screening for other musculoskeletal disorder- Primary [facility] Diagnosis Pre-operative examination- Primary Preoperative examination, unspecified Essential hypertension, benign Mixed hyperlipidemia Stage 3a chronic kidney disease (HCC) Age-related osteoporosis without current pathological fracture Senile osteoporosis Class 1 obesity due to excess calories without serious comorbidity with body mass index (BMI) of 31.0 to 31.9 in adult Encounter for screening for other musculoskeletal disorder [facility] Diagnosis Pre-operative examination- Primary Preoperative examination, unspecified Essential hypertension, benign Mixed hyperlipidemia Stage 3a chronic kidney disease (HCC) Age-related osteoporosis without current pathological fracture Senile osteoporosis Class 1 obesity due to excess calories without serious comorbidity with body mass index (BMI) of 31.0 to 31.9 in adult Closed fracture of sacrum with routine healing, unspecified portion of sacrum, subsequent encounter- Primary Muscle mass of leg Other musculoskeletal symptoms referable to limbs [facility] Diagnosis Pre-operative examination- Primary Preoperative examination, unspecified Essential hypertension, benign Mixed hyperlipidemia Stage 3a chronic kidney disease (HCC) Age-related osteoporosis without current pathological fracture Senile osteoporosis Class 1 obesity due to excess calories without serious comorbidity with body mass index (BMI) of 31.0 to 31.9 in adult Acute midline low back pain without sciatica documented in this encounter [facility] note* Diagnosis Pre-operative examination- Primary Preoperative examination, unspecified Essential hypertension, benign Mixed hyperlipidemia Stage 3a chronic kidney disease (HCC) Age-related osteoporosis without current pathological fracture Senile osteoporosis Class 1 obesity due to excess calories without serious comorbidity with body mass index (BMI) of 31.0 to 31.9 in adult Syncope, unspecified syncope type- Primary Abnormal Holter exam Nonspecific abnormal electrocardiogram (ECG) (EKG) documented in this encounter [facility]* Diagnosis Pre-operative examination- Primary Preoperative examination, unspecified Essential hypertension, benign Mixed hyperlipidemia Stage 3a chronic kidney disease (HCC) Age-related osteoporosis without current pathological fracture Senile osteoporosis Class 1 obesity due to excess calories without serious comorbidity with body mass index (BMI) of 31.0 to 31.9 in adult Syncope, unspecified syncope type- Primary Abnormal Holter exam Nonspecific abnormal electrocardiogram (ECG) (EKG) documented in this encounter [facility] note* Diagnosis Pre-operative examination- Primary Preoperative examination, unspecified Essential hypertension, benign Mixed hyperlipidemia Stage 3a chronic kidney disease (HCC) Age-related osteoporosis without current pathological fracture Senile osteoporosis Class 1 obesity due to excess calories without serious comorbidity with body mass index (BMI) of 31.0 to 31.9 in adult Essential hypertension, benign- Primary Mixed hyperlipidemia Stage 3b chronic kidney disease (HCC) Class 1 obesity due to excess calories without serious comorbidity with body mass index (BMI) of 31.0 to 31.9 in adult Age-related osteoporosis without current pathological fracture Senile osteoporosis Hypercalcemia Abnormal urine odor Other nonspecific finding on examination of urine documented in this encounter [facility] note* Diagnosis Pre-operative examination- Primary Preoperative examination, unspecified Essential hypertension, benign Mixed hyperlipidemia Stage 3a chronic kidney disease (HCC) Age-related osteoporosis without current pathological fracture Senile osteoporosis Class 1 obesity due to excess calories without serious comorbidity with body mass index (BMI) of 31.0 to 31.9 in adult Hypercalcemia- Primary Abnormal urine odor Other nonspecific finding on examination of urine documented in this encounter [facility] note* Diagnosis Pre-operative examination- Primary Preoperative examination, unspecified Essential hypertension, benign Mixed hyperlipidemia Stage 3a chronic kidney disease (HCC) Age-related osteoporosis without current pathological fracture Senile osteoporosis Class 1 obesity due to excess calories without serious comorbidity with body mass index (BMI) of 31.0 to 31.9 in adult Primary hyperparathyroidism (HCC) Primary hyperparathyroidism Osteoporosis without current pathological fracture, unspecified osteoporosis type documented in this encounter [facility] note* Diagnosis Pre-operative examination- Primary Preoperative examination, unspecified Essential hypertension, benign Mixed hyperlipidemia Stage 3a chronic kidney disease (HCC) Age-related osteoporosis without current pathological fracture Senile osteoporosis Class 1 obesity due to excess calories without serious comorbidity with body mass index (BMI) of 31.0 to 31.9 in adult Screening mammogram for breast cancer- Primary documented in this encounter [facility] note* Diagnosis Pre-operative examination- Primary Preoperative examination, unspecified Essential hypertension, benign Mixed hyperlipidemia Stage 3a chronic kidney disease (HCC) Age-related osteoporosis without current pathological fracture Senile osteoporosis Class 1 obesity due to excess calories without serious comorbidity with body mass index (BMI) of 31.0 to 31.9 in adult Screening mammogram for breast cancer documented in this encounter [facility] note* Diagnosis Pre-operative examination- Primary Preoperative examination, unspecified Essential hypertension, benign Mixed hyperlipidemia Stage 3a chronic kidney disease (HCC) Age-related osteoporosis without current pathological fracture Senile osteoporosis Class 1 obesity due to excess calories without serious comorbidity with body mass index (BMI) of 31.0 to 31.9 in adult Primary hyperparathyroidism (HCC)- Primary Primary hyperparathyroidism Multiple thyroid nodules Nontoxic multinodular goiter Osteoporosis without current pathological fracture, unspecified osteoporosis type documented in this encounter [facility] for referral (narrative)* Diagnostic Procedure Only (Routine) - Closed Specialty Diagnoses / Procedures Referred By Contracheal t Referred To Contact US IMAGING Diagnoses Increased PTH level Procedures US THYROID/PARATHYROID US SOFT TISSUE HEAD & NECK REAL TIME IMGE DOCM Antoine Braswell [place] [address] Us Imaging Referral ID Status Reason Start Date Expiration Date V isits Requested Visits Authorized [id number] Closed Auto-Generate d Referral 02/24/2022 03/26/2023 1 1 * Diagnostic Procedure Only (Routine) - Authorized Specialty Diagnoses / Procedures Referred By Contac t Referred To Contact XR IMAGING Diagnoses Increased PTH level Procedures XR THORACIC LIMITED 2V AP/LAT RADEX SPINE THORACIC 2 VIEWS Antoine Braswell MD [address] [place] [address] Xr Imaging Referral ID Status Reason Start Date Expiration Date Visits Requested Visits Authorized [id number] Authorized Auto-Generat ed Referral 02/24/2022 09/05/2022 1 1 * Diagnostic Procedure Only (Routine) - Pending Review Specialty Diagnoses / Procedures Referred By Contac t Referred To Contact XR IMAGING Diagnoses Increased PTH level Procedures XR LUMBAR GENERAL 3V AP/LAT/L5-S1 RADEX SPINE LUMBOSACRAL 2/3 VIEWS Antoine Braswell MD [address] [place] [address] Xr Imaging Referral ID Status Reason Start Date Expiration Date Visits Requested Visits Authorized [id number] Pending Review Auto-Generat ed Referral 02/24/2022 03/26/2023 1 1 [facility] for referral (narrative)* Diagnostic Procedure Only (Routine) - Closed Specialty Diagnoses / Procedures Referred By Contac t Referred To Contact US IMAGING Diagnoses Increased PTH level Procedures US THYROID/PARATHYROID US SOFT TISSUE HEAD & NECK REAL TIME IMGE [facility] Antoine Braswell MD [address] [place] [address] Us Imaging Referral ID Status Reason Start Date Expiration Date V isits Requested Visits Authorized [id number] Closed Auto-Generate d Referral 02/24/2022 03/26/2023 1 1 [facility] for referral (narrative)* Diagnostic Procedure Only (Routine) - Closed Specialty Diagnoses / Procedures Referred By Contac t Referred To Contact XR IMAGING Diagnoses Increased PTH level Procedures XR THORACIC LIMITED 2V AP/LAT RADEX SPINE THORACIC 2 VIEWS Antoine Braswell MD [address] [place] [address] Xr Imaging Referral ID Status Reason Start Date Expiration Date V isits Requested Visits Authorized [id number] Closed Auto-Generate d Referral 02/24/2022 09/05/2022 1 1 * Diagnostic Procedure Only (Routine) - Closed Specialty Diagnoses / Procedures Referred By Contac t Referred To Contact XR IMAGING Diagnoses Increased PTH level Procedures XR LUMBAR GENERAL 3V AP/LAT/L5-S1 RADEX SPINE LUMBOSACRAL 2/3 VIEWS Antoine Braswell MD [address] [place] [address] Xr Imaging Referral ID Status Reason Start Date Expiration Date V isits Requested Visits Authorized [id number] Closed Auto-Generate d Referral 02/25/2022 09/05/2022 1 1 [facility] for referral (narrative)* Diagnostic Procedure Only (Routine) - Pending Review Specialty Diagnoses / Procedures Referred By Contac t Referred To Contact XR IMAGING Diagnoses Osteoporosis, unspecified osteoporosis type, unspecified pathological fracture presence Procedures DXA-FOREARM SKELETON DXA BONE DENSITY STUDY 1/>SITES APPENDICLR Antoine Kennedy MD [address] [place] [address] Xr Imaging Referral ID Status Reason Start Date Expiration Date Visits Requested Visits Authorized [id number] Pending Review Auto-Generat ed Referral 04/28/2022 05/28/2023 1 1 * Consult, Test, Treat (Routine) - Pending Review Specialty Diagnoses / Procedures Referred By Contac t Referred To Contact Diagnoses Primary hyperparathyroidism (HCC) Multiple thyroid nodules Procedures CONSULT TO ENDOCRINE SURGERY OFFICE/OUTPATIENT NEW HIGH MDM 60-74 MINUTES Antoine Braswell MD [address] [place] [address] Referral ID Status Reason Start Date Expiration Date Visits Requested Visits Authorized [id number] Pending Review PCP Requested Referral 04/28/2022 04/28/2023 1 1 * Diagnostic Procedure Only (Routine) - Pending Review Specialty Diagnoses / Procedures Referred By Contac t Referred To Contact MOLECULAR & FUNCTIONAL IMAGING Diagnoses Hypercalcemia Procedures NM PARATHYROID W SPECT/CT PARATHYROID IMAGING W/TOMOGRAPHIC SPECT & CT Antoine Braswell MD [address] [place] [address] Molecular & Functional Imaging [address] [place] [address] Referral ID Status Reason Start Date Expiration Date Visits Requested Visits Authorized [id number] Pending Review Auto-Generat ed Referral 04/28/2022 05/28/2023 1 1 [facility] for referral (narrative)* Diagnostic Procedure Only (Routine) - Closed Specialty Diagnoses / Procedures Referred By Delbertac t Referred To Contact MOLECULAR & FUNCTIONAL IMAGING Diagnoses Hypercalcemia Procedures NM PARATHYROID W SPECT/CT PARATHYROID IMAGING W/TOMOGRAPHIC SPECT & CT Antoine Braswell MD [address] [place] [address] Molecular [facility] Functional Imaging [address] [place] [address] Referral ID Status Reason Start Date Expiration Date V isits Requested Visits Authorized [id number] Closed Auto-Generate d Referral 04/28/2022 05/28/2023 1 1 [facility] for referral (narrative)* Outpatient Procedure (Routine) - Authorized Specialty Diagnoses / Procedures Referred By Contac t Referred To [facility] Diagnoses Pain of right lower extremity Procedures US LEG VEIN DVT UNL VAS LAB DUP-SCAN XTR VEINS UNILATERAL/LIMITED STUDY Dorota Terry, GRID MAKER.CHAMPAGNE MAKER [address] [place] [address] [facility] [address] [place] [address] Referral ID Status Reason Start Date Expiration Date Visits Requested Visits Authorized [id number] Authorized Auto-Generat ed Referral 05/28/2022 05/28/2023 1 1 [facility] for referral (narrative)* Diagnostic Procedure Only (Routine) - Pending Review Specialty Diagnoses / Procedures Referred By Brent t Referred To Contact BR IMAGING Diagnoses Abnormal mammogram Procedures JAMIL DIAGNOSTIC BILATERAL DIAGNOSTIC MAMMOGRAPHY COMPUTER-AIDED DETCJ BI Ann Hughes APRN.CNP [address] [facility] [place] [address] Br Imaging [address] [place] [phone] Referral ID Status Reason Start Date Expiration Date Visits Requested Visits Authorized [id number] Pending Review Auto-Generat ed Referral 10/08/2023 11/06/2024 1 1 * Diagnostic Procedure Only (Routine) - Pending Review Specialty Diagnoses / Procedures Referred By Brent t Referred To Contact BR IMAGING Diagnoses Abnormal mammogram Procedures US BREAST LTD RIGHT US BREAST UNI REAL TIME WITH IMAGE LIMITED Ann Hughes APRN.CHAMPAGNE MAKER [address] [place] [address] Br Imaging [address] [place] [phone] Referral ID Status Reason Start Date Expiration Date Visits Requested Visits Authorized [id number] Pending Review Auto-Generat ed Referral 10/08/2023 11/06/2024 1 1 * Diagnostic Procedure Only (Routine) - Pending Review Specialty Diagnoses / Procedures Referred By Brent t Referred To Contact BR IMAGING Diagnoses Abnormal mammogram Procedures US BREAST LTD LEFT US BREAST UNI REAL TIME WITH IMAGE LIMITED Ann Hughes APRN.CNP [address] [place] [address] Br Imaging [address] [place] [address] Referral ID Status Reason Start Date Expiration Date Visits Requested Visits Authorized [id number] Pending Review Auto-Generat ed Referral 10/08/2023 11/06/2024 1 1 [facility] for referral (narrative)* Diagnostic Procedure Only (Routine) - Closed Specialty Diagnoses / Procedures Referred By Contac t Referred To Contact BR IMAGING Diagnoses Abnormal mammogram Procedures US BREAST LTD RIGHT US BREAST UNI REAL TIME WITH IMAGE LIMITED Ann Hughes APRN.CNP [address] [place] [address] [facility] Imaging [address] [place] [address] Referral ID Status Reason Start Date Expiration Date V isits Requested Visits Authorized [id number] Closed Auto-Generate d Referral 10/08/2023 11/06/2024 1 1 [facility] for referral (narrative)* Diagnostic Procedure Only (Routine) - Pending Review Specialty Diagnoses / Procedures Referred By Contac t Referred To Contact US IMAGING Diagnoses Multiple thyroid nodules Procedures US THYROID/PARATHYROID US SOFT TISSUE HEAD & NECK REAL TIME IMGE Antoine Chavez MD [address] [place] [address] [place] [address] Referral ID Status Reason Start Date Expiration Date Visits Requested Visits Authorized [id number] Pending Review Auto-Generat ed Referral 12/07/2023 01/05/2025 1 1 * Diagnostic Procedure Only (Routine) - Pending Review Specialty Diagnoses / Procedures Referred By Contac t Referred To Contact XR IMAGING Diagnoses Primary hyperparathyroidism (HCC) Osteoporosis without current pathological fracture, unspecified osteoporosis type Procedures DXA-FOREARM SKELETON DXA BONE DENSITY STUDY 1/>SITES APPENDICLR Antoine Kennedy MD [address] [place] [address] [place] [address] Referral ID Status Reason Start Date Expiration Date Visits Requested Visits Authorized [id number] Pending Review Auto-Generat ed Referral 12/07/2023 01/05/2025 1 1 * Diagnostic Procedure Only (Routine) - Pending Review Specialty Diagnoses / Procedures Referred By Contac t Referred To Contact XR IMAGING Diagnoses Primary hyperparathyroidism (HCC) Osteoporosis without current pathological fracture, unspecified osteoporosis type Procedures DXA-AXIAL SKELETON Antoine Braswell MD [address] [place] [address] [place] [address] Referral ID Status Reason Start Date Expiration Date Visits Requested Visits Authorized [id number] Pending Review Auto-Generat ed Referral 12/07/2023 01/05/2025 1 1 [facility] for referral (narrative)* Outpatient Procedure (Routine) - Authorized Specialty Diagnoses / Procedures Referred By Contac t Referred To Contact [facility] Diagnoses Syncope, unspecified syncope type Procedures ECHO ECHO TTHRC R-T 2D W/WOM-MODE COMPL SPEC&COLR D Deejay Anderson MD [address] [place] [address] [facility] [address] [place] [address] Referral ID Status Reason Start Date Expiration Date Visits Requested Visits Authorized [id number] Authorized Auto-Generat ed Referral 03/08/2024 03/08/2025 1 1 * Outpatient Procedure (Routine) - Pending Review Specialty Diagnoses / Procedures Referred By Contac t Referred To Contact [facility] Diagnoses Syncope, unspecified syncope type Procedures US CAROTID ARTERIES [facility] VAS LAB DUPLEX SCAN EXTRACRANIAL ART COMPL BI STUDY Deejay Anderson MD [address] [place] [address] [facility] [address] [place] [address] Referral ID Status Reason Start Date Expiration Date Visits Requested Visits Authorized [id number] Pending Review Auto-Generat ed Referral 03/08/2024 03/08/2025 1 1 [facility] for referral (narrative)* Diagnostic Procedure Only (Routine) - Authorized Specialty Diagnoses / Procedures Referred By Contac t Referred To Contact [facility]LEC[facility]AG[facility] Diagnoses Elevated alkaline phosphatase level Procedures NM BONE WHOLE BODY BONE &/JOINT IMAGING WHOLE BODY Kannan Brantley MD [address] [place] [address] [facility] [address] [place], [place] [id number] Referral ID Status Reason Start Date Expiration Date Visits Requested Visits Authorized [id number] Authorized Auto-Generat ed Referral 04/06/2024 05/06/2025 1 1 * Diagnostic Procedure Only (Routine) - Authorized Specialty Diagnoses / Procedures Referred By Contac t Referred To Contact US IMAGING Diagnoses Elevated alkaline phosphatase level Procedures US ABD RIGHT UPPER QUADRANT US ABDOMINAL REAL TIME W/IMAGE LIMITED aKnnan Brantley MD [address] [place] [address] Us Imaging [id number] Referral ID Status Reason Start Date Expiration Date Visits Requested Visits Authorized [id number] Authorized Auto-Generat ed Referral 04/06/2024 05/06/2025 1 1 [facility] for referral (narrative)* Diagnostic Procedure Only (Routine) - Closed Specialty Diagnoses / Procedures Referred By Contac t Referred To Contact [facility]LECULAR [facility] FUNCTIONAL [facility]AGING Diagnoses Elevated alkaline phosphatase level Procedures NM BONE WHOLE BODY BONE &/JOINT IMAGING WHOLE BODY Kannan Brantley MD [address] [place] [address] [facility] [address] [place] [address] Referral ID Status Reason Start Date Expiration Date V isits Requested Visits Authorized [id number] Closed Auto-Generate d Referral 04/06/2024 05/06/2025 1 1 [facility] for referral (narrative)* Diagnostic Procedure Only (Routine) - Closed Specialty Diagnoses / Procedures Referred By Contac t Referred To Contact US IMAGING Diagnoses Elevated alkaline phosphatase level Procedures US ABD RIGHT UPPER QUADRANT US ABDOMINAL REAL TIME W/IMAGE LIMITED Kannan Brantley MD [address] [place] [address] Us Imaging [id number] Referral ID Status Reason Start Date Expiration Date V isits Requested Visits Authorized [id number] Closed Auto-Generate d Referral 04/06/2024 05/06/2025 1 1 [facility] for referral (narrative)* Diagnostic Procedure Only (Routine) - Closed Specialty Diagnoses / Procedures Referred By Contac t Referred To Contact XR IMAGING Diagnoses Acute midline low back pain without sciatica Procedures XR LUMBAR PARS DEFECT 4V AP/LAT/BOTH OBL RADEX SPINE LUMBOSACRAL MINIMUM 4 VIEWS Marya Jerome, ARABELLA.CHAMPAGNE MAKER [address] [place] [address] Xr Imaging [id number] Referral ID Status Reason Start Date Expiration Date V isits Requested Visits Authorized [id number] Closed Auto-Generate d Referral 01/18/2024 02/16/2025 1 1 [facility] for referral (narrative)* Outpatient Procedure (Routine) - Authorized Specialty Diagnoses / Procedures Referred By Contac t Referred To Contact [facility] Diagnoses Syncope, unspecified syncope type Abnormal Holter exam Procedures ECG COMPLETE ECG ROUTINE ECG W/LEAST 12 LDS W/I&R Derek Linares, DO [address] [place] [address] [facility] [address] [place] [address] Referral ID Status Reason Start Date Expiration Date Visits Requested Visits Authorized [id number] Authorized Auto-Generat ed Referral 07/10/2024 07/10/2025 1 1 [facility] for visit Narrative* Diagnostic Procedure Only (Routine) - Closed Specialty Diagnoses / Procedures Referred By Contac t Referred To Contact XR IMAGING Diagnoses Increased PTH level Procedures XR THORACIC LIMITED 2V AP/LAT RADEX SPINE THORACIC 2 VIEWS Antoine Braswell MD [address] [place] [address] Xr Imaging Referral ID Status Reason Start Date Expiration Date V isits Requested Visits Authorized [id number] Closed Auto-Generate d Referral 02/24/2022 09/05/2022 1 1 [facility] for visit Narrative* Diagnostic Procedure Only (Routine) - Closed Specialty Diagnoses / Procedures Referred By Contac t Referred To Contact MOLECULAR & FUNCTIONAL IMAGING Diagnoses Hypercalcemia Procedures NM PARATHYROID W SPECT/CT PARATHYROID IMAGING W/TOMOGRAPHIC SPECT & CT Antoine Braswell MD [address] [place] [address] [facility] [address] [place] [address] Referral ID Status Reason Start Date Expiration Date V isits Requested Visits Authorized [id number] Closed Auto-Generate d Referral 04/28/2022 05/28/2023 1 1 [facility] for visit Narrative* Diagnostic Procedure Only (Routine) - Closed Specialty Diagnoses / Procedures Referred By Contac t Referred To Contact [facility] Diagnoses Encounter for screening mammogram for breast cancer Dense breast tissue Procedures JAMIL SCREENING W ALEJANDRO SCREENING DIGITAL BREAST TOMOSYNTHESIS BI SCREENING MAMMOGRAPHY BI 2-VIEW BREAST INC Ann Shaikh, GRID MAKER.CHAMPAGNE MAKER [address] [place] [address] [facility] [address] [place] [address] Referral ID Status Reason Start Date Expiration Date V isits Requested Visits Authorized [id number] Closed Auto-Generate d Referral 10/05/2023 11/03/2024 1 1 [facility] for visit Narrative* Diagnostic Procedure Only (Routine) - Closed Specialty Diagnoses / Procedures Referred By Contac t Referred To Contact [facility] Diagnoses Abnormal mammogram Procedures JAMIL DIAGNOSTIC BILATERAL DIAGNOSTIC MAMMOGRAPHY COMPUTER-AIDED DETCJ BI Ann Hughes, GRID MAKER.CHAMPAGNE MAKER [address] [place] [address] [facility] [address] [place] [address] Referral ID Status Reason Start Date Expiration Date V isits Requested Visits Authorized [id number] Closed Auto-Generate d Referral 10/08/2023 11/06/2024 1 1 [facility] for visit Narrative* Diagnostic Procedure Only (Routine) - Closed Specialty Diagnoses / Procedures Referred By Contac t Referred To Contact MOLECULAR & FUNCTIONAL IMAGING Diagnoses Elevated alkaline phosphatase level Procedures NM BONE WHOLE BODY BONE &/JOINT IMAGING [place] [address] [place] [address] [facility] [address] [place] [address] Referral ID Status Reason Start Date Expiration Date V isits Requested Visits Authorized [id number] Closed Auto-Generate d Referral 04/06/2024 05/06/2025 1 1 [facility] for visit Narrative* Diagnostic Procedure Only (Routine) - Closed Specialty Diagnoses / Procedures Referred By Contac t Referred To Contact XR IMAGING Diagnoses Acute midline low back pain without sciatica Procedures XR LUMBAR PARS DEFECT 4V AP/LAT/BOTH OBL RADEX SPINE LUMBOSACRAL MINIMUM 4 VIEWS Marya Jerome, GRID MAKER.CHAMPAGNE MAKER [address] [place] [address] [place] [id number] Referral ID Status Reason Start Date Expiration Date V isits Requested Visits Authorized [id number] Closed Auto-Generate d Referral 01/18/2024 02/16/2025 1 1 [facility] for visit Narrative* Diagnostic Procedure Only (Routine) - Closed Specialty Diagnoses / Procedures Referred By Contac t Referred To Contact XR IMAGING Diagnoses Primary hyperparathyroidism (HCC) Osteoporosis without current pathological fracture, unspecified osteoporosis type Procedures DXA-FOREARM SKELETON DXA BONE DENSITY STUDY SITES APPENDICLR Antoine Kennedy MD [address] [place] [address] Phone: tel: fax: [place] [id number] Referral ID Status Reason Start Date Expiration Date V isits Requested Visits Authorized [id number] Closed Auto-Generate d Referral 12/07/2023 01/05/[facility] Procedure Only (Routine) - Closed Specialty Diagnoses / Procedures Referred By Contac t Referred To Contact [facility] Diagnoses Screening mammogram for breast cancer Procedures JAMIL SCREENING W ALEJANDRO SCREENING DIGITAL BREAST TOMOSYNTHESIS BI SCREENING MAMMOGRAPHY BI 2-VIEW BREAST INC CAD Deejay Anderson MD [address] [place] [address] Phone: tel: fax: [facility] [address] [place] [address] Referral ID Status Reason Start Date Expiration Date V isits Requested Visits Authorized [id number] Closed Auto-Generate d Referral 01/17/2025 02/16/2026 1 1 [facility] Summary Purpose Family History No Family History Records Found Relationship Condition Age at Onset Recorded Date/T ashwini sister Malignant neoplasm of colon Unknown Advance Directives No Advanced Directives Records FoundDocuments on File Type Date Recorded 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 Advance Directive(s) 10/16/2014 12:57 PM Advance Directive(s) 10/07/2011 12:00 AM Advance Directive(s) 10/21/2006 12:00 AM Documents on File Type Date Recorded 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 Advance Directive(s) 10/16/2014 12:57 PM Advance Directive(s) 10/07/2011 12:00 AM Advance Directive(s) 10/21/2006 12:00 AM Documents on File Type Date Recorded 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 Advance Directive(s) 10/16/2014 12:57 PM Advance Directive(s) 10/07/2011 Advance Directive(s) 10/21/2006 Documents on File Type Date Recorded 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 Advance Directive(s) 10/16/2014 12:57 PM Advance Directive(s) 10/07/2011 Advance Directive(s) 10/21/2006 Advance Directive Response Recorded Date/ Time Name of Medical Power of Welding Machine Operator Plasma Arc JAMES herron May 25, 2022 4:12pm Living Will Yes May 25, 2022 4:12pm Power of Welding Machine Operator Plasma Arc Yes May 4:12pm Reason for Referral Specialty Diagnoses / Procedures Referred By Contac t Referred To Contact Endocrinology Diagnoses Serum calcium elevated Increased PTH level Procedures CONSULT TO ENDOCRINOLOGY OFFICE/OUTPATIENT [facility] 60-74 MINUTES Deejay Anderson MD [address] [place] [address] Referral ID Status Reason Start Date Expiration Date Visits Requested Visits Authorized [id number] Pending Review PCP Requested Referral 01/28/2022 01/28/2023 1 1 Specialty Diagnoses / Procedures Referred By Contac t Referred To Contact General Surgery Diagnoses Benign neoplasm of colon, unspecified part of colon Family history of colon cancer Procedures CONSULT TO GENERAL SURGERY OFFICE/OUTPATIENT [facility] MDM 60-74 MINUTES Deejay Anderson MD [address] [place] [address] Referral ID Status Reason Start Date Expiration Date Visits Requested Visits Authorized [id number] Pending Review PCP Requested Referral 03/20/2022 03/20/2023 1 1 Specialty Diagnoses / Procedures Referred By Contac t Referred To Contact Diagnoses Primary hyperparathyroidism (HCC) Procedures IN PERSON CONSULT TO PACC Riya Perez MD [address] [place] [address] Referral ID Status Reason Start Date Expiration Date Visits Requested Visits Authorized [id number] Ref Not Required PCP Requested Referral 09/28/2022 1 1 Specialty Diagnoses / Procedures Referred By Contact [facility]erred To Contact [facility] Diagnoses Primary hyperparathyroidism (HCC) Procedures ECG COMPLETE ECG ROUTINE ECG W/LEAST 12 LDS W/I&R Riya Perez MD [address] [facility] [place] [address] [facility] [address] [place] [address] Referral ID Status Reason Start Date Expiration Date Visits Requested Visits Authorized [id number] Pending Review Auto-Generat ed Referral 2 06/30/2023 1 1 Specialty Diagnoses / Procedures Referred By Contac t Referred To Contact [facility] Diagnoses Acute midline low back pain without sciatica Procedures CONSULT TO PHYSICAL THERAPY PHYSICAL THERAPY EVALUATION HIGH COMPLEX 45 MINS Marya Jerome, GRID MAKER.CHAMPAGNE MAKER [address] [place] [address] [facility] [address] [place] [address] Referral ID Status Reason Start Date Expiration Date Visits Requested Visits Authorized [id number] Authorized Auto-Generat ed Referral 09/06/2023 09/05/2024 99 99 Specialty Diagnoses / Procedures Referred By Contac t Referred To Contact XR IMAGING Diagnoses Acute midline low back pain without sciatica Procedures XR LUMBAR PARS DEFECT 4V AP/LAT/BOTH OBL RADEX SPINE LUMBOSACRAL MINIMUM 4 VIEWS Marya Jerome, GRID MAKER.CHAMPAGNE MAKER [address] [place] [address] [place] [address] Referral ID Status Reason Start Date Expiration Date V isits Requested Visits Authorized [id number] Closed Auto-Generate d Referral 01/18/2024 02/16/2025 1 1 Specialty Diagnoses / Procedures Referred By Contac t Referred To Contact [facility] Diagnoses DDD (degenerative disc disease), lumbar Procedures CONSULT TO [facility] OFFICE/OUTPATIENT [facility] MDM 60 MINUTES Marya Jerome, GRID MAKER.CHAMPAGNE MAKER [address] [place] [address] Referral ID Status Reason Start Date Expiration Date Visits Requested Visits Authorized [id number] Authorized PCP Requested Referral 01/20/2024 01/19/2025 1 1 Specialty Diagnoses / Procedures Referred By Contac t Referred To Contact [facility] Diagnoses Encounter for screening for other musculoskeletal disorder Procedures MRI PELVIS ORTHO GENERAL WO/W IVCON MRI ANY JT LOWER EXTREM W/O & W/CONTRAST Kannan Sultana MD [address] [place] [address] [place] [address] Referral ID Status Reason Start Date Expiration Date Visits Requested Visits Authorized [id number] Authorized Auto-Generat ed Referral 04/20/2024 05/20/2025 1 1 Referral ID Status Reason Start Date Expiration Date V isits Requested Visits Authorized [id number] Closed Auto-Generate d Referral 04/20/2024 05/20/2025 1 1 Specialty Diagnoses / Procedures Referred By Contac t Referred To Contact Orthopedics Diagnoses Closed fracture of sacrum with routine healing, unspecified portion of sacrum, subsequent encounter Muscle mass of leg Procedures CONSULT TO ORTHOPAEDICS Kannan Brantley MD [address] [place] [address] Referral ID Status Reason Start Date Expiration Date Visits Requested Visits Authorized [id number] Ref Not Required PCP Requested Referral 05/10/2024 05/10/2025 1 1 Specialty Diagnoses / Procedures Referred By Contac t Referred To Contact Cardiology Diagnoses Syncope, unspecified syncope type Abnormal Holter exam Procedures CONSULT TO CARDIOLOGY OFFICE/OUTPATIENT [facility] 60 MINUTES Deejay Anderson MD [address] [place] [address] Referral ID Status Reason Start Date Expiration Date Visits Requested Visits Authorized [id number] Authorized PCP Requested Referral 06/12/2024 06/12/2025 1 1 Health Concerns Infection Onset Date Last Indicated Resolved Time COVID-19 Rule-Out 09/03/2021 09/03/2021 09/04/2021 8:49 PM EST Infection Onset Date Last Indicated Resolved Time COVID-19 Rule-Out 08/13/2023 08/13/2023 Chief Complaint and Reason for Visit Chief Complaint COLONOSCOPY Reason for Visit Family history of co jesus cancer Personal history of colonic polyps Additional Source Comments INFORMATION SOURCE (unrecogn ized section and content) DATE CREATED AUTHOR 07/21/2018 [facility] DATE CREATED AUTHOR AUTHOR'S ORGANIZ ATION 11/28/2021 [facility] DATE CREATED AUTHOR AUTHOR'S ORGANIZ ATION 08/18/2022 [facility] DATE CREATED AUTHOR AUTHOR'S ORGANIZ ATION 04/06/2024 [facility] DATE CREATED AUTHOR AUTHOR'S ORGANIZ ATION 07/11/2024 [facility] DATE CREATED AUTHOR AUTHOR'S ORGANIZ ATION 03/18/2025 [facility] Source Comments (unrecognize d section and content) In the event this informatio n is protected by the Federal Confidentiality of Alcohol and Drug Abuse Patient Records regulations: The Federal rules restrict any use of the information to criminally investigate or prosecute any alcohol or drug abuse patient.[facility] the event this information is protected by the Federal Confidentiality of Alcohol and Drug Abuse Patient Records regulations: The Federal rules restrict any use of the information to criminally investigate or prosecute any alcohol or drug abuse patient.[facility] the event this information is protected by the Federal Confidentiality of Alcohol and Drug Abuse Patient Records regulations: The Federal rules restrict any use of the information to criminally investigate or prosecute any alcohol or drug abuse patient.[facility] the event this information is protected by the Federal Confidentiality of Alcohol and Drug Abuse Patient Records regulations: The Federal rules restrict any use of the information to criminally investigate or prosecute any alcohol or drug abuse patient.[facility] HospitalIn the event this information is protected by the Federal Confidentiality of Alcohol and Drug Abuse Patient Records regulations: The Federal rules restrict any use of the information to criminally investigate or prosecute any alcohol or drug abuse patient.[facility] HospitalIn the event this information is protected by the Federal Confidentiality of Alcohol and Drug Abuse Patient Records regulations: The Federal rules restrict any use of the information to criminally investigate or prosecute any alcohol or drug abuse patient.[facility] HospitalIn the event this information is protected by the Federal Confidentiality of Alcohol and Drug Abuse Patient Records regulations: The Federal rules restrict any use of the information to criminally investigate or prosecute any alcohol or drug abuse patient.[facility]In the event this information is protected by the Federal Confidentiality of Alcohol and Drug Abuse Patient Records regulations: The Federal rules restrict any use of the information to criminally investigate or prosecute any alcohol or drug abuse patient.[facility]In the event this information is protected by the Federal Confidentiality of Alcohol and Drug Abuse Patient Records regulations: The Federal rules restrict any use of the information to criminally investigate or prosecute any alcohol or drug abuse patient.[facility]In the event this information is protected by the Federal Confidentiality of Alcohol and Drug Abuse Patient Records regulations: The Federal rules restrict any use of the information to criminally investigate or prosecute any alcohol or drug abuse patient.[facility] HospitalIn the event this information is protected by the Federal Confidentiality of Alcohol and Drug Abuse Patient Records regulations: The Federal rules restrict any use of the information to criminally investigate or prosecute any alcohol or drug abuse patient.[facility] HospitalIn the event this information is protected by the Federal Confidentiality of Alcohol and Drug Abuse Patient Records regulations: The Federal rules restrict any use of the information to criminally investigate or prosecute any alcohol or drug abuse patient.[facility]In the event this information is protected by the Federal Confidentiality of Alcohol and Drug Abuse Patient Records regulations: The Federal rules restrict any use of the information to criminally investigate or prosecute any alcohol or drug abuse patient.[facility] HospitalIn the event this information is protected by the Federal Confidentiality of Alcohol and Drug Abuse Patient Records regulations: The Federal rules restrict any use of the information to criminally investigate or prosecute any alcohol or drug abuse patient.[facility] HospitalIn the event this information is protected by the Federal Confidentiality of Alcohol and Drug Abuse Patient Records regulations: The Federal rules restrict any use of the information to criminally investigate or prosecute any alcohol or drug abuse patient.[facility] HospitalIn the event this information is protected by the Federal Confidentiality of Alcohol and Drug Abuse Patient Records regulations: The Federal rules restrict any use of the information to criminally investigate or prosecute any alcohol or drug abuse patient.[facility] HospitalIn the event this information is protected by the Federal Confidentiality of Alcohol and Drug Abuse Patient Records regulations: The Federal rules restrict any use of the information to criminally investigate or prosecute any alcohol or drug abuse patient.[facility] HospitalIn the event this information is protected by the Federal Confidentiality of Alcohol and Drug Abuse Patient Records regulations: The Federal rules restrict any use of the information to criminally investigate or prosecute any alcohol or drug abuse patient.[facility] HospitalIn the event this information is protected by the Federal Confidentiality of Alcohol and Drug Abuse Patient Records regulations: The Federal rules restrict any use of the information to criminally investigate or prosecute any alcohol or drug abuse patient.[facility] HospitalIn the event this information is protected by the Federal Confidentiality of Alcohol and Drug Abuse Patient Records regulations: The Federal rules restrict any use of the information to criminally investigate or prosecute any alcohol or drug abuse patient.[facility] HospitalIn the event this information is protected by the Federal Confidentiality of Alcohol and Drug Abuse Patient Records regulations: The Federal rules restrict any use of the information to criminally investigate or prosecute any alcohol or drug abuse patient.[facility] HospitalIn the event this information is protected by the Federal Confidentiality of Alcohol and Drug Abuse Patient Records regulations: The Federal rules restrict any use of the information to criminally investigate or prosecute any alcohol or drug abuse patient.[facility] HospitalIn the event this information is protected by the Federal Confidentiality of Alcohol and Drug Abuse Patient Records regulations: The Federal rules restrict any use of the information to criminally investigate or prosecute any alcohol or drug abuse patient.[facility] HospitalIn the event this information is protected by the Federal Confidentiality of Alcohol and Drug Abuse Patient Records regulations: The Federal rules restrict any use of the information to criminally investigate or prosecute any alcohol or drug abuse patient.[facility] HospitalIn the event this information is protected by the Federal Confidentiality of Alcohol and Drug Abuse Patient Records regulations: The Federal rules restrict any use of the information to criminally investigate or prosecute any alcohol or drug abuse patient.[facility] HospitalIn the event this information is protected by the Federal Confidentiality of Alcohol and Drug Abuse Patient Records regulations: The Federal rules restrict any use of the information to criminally investigate or prosecute any alcohol or drug abuse patient.[facility] HospitalIn the event this information is protected by the Federal Confidentiality of Alcohol and Drug Abuse Patient Records regulations: The Federal rules restrict any use of the information to criminally investigate or prosecute any alcohol or drug abuse patient.[facility] HospitalIn the event this information is protected by the Federal Confidentiality of Alcohol and Drug Abuse Patient Records regulations: The Federal rules restrict any use of the information to criminally investigate or prosecute any alcohol or drug abuse patient.[facility] HospitalIn the event this information is protected by the Federal Confidentiality of Alcohol and Drug Abuse Patient Records regulations: The Federal rules restrict any use of the information to criminally investigate or prosecute any alcohol or drug abuse patient.[facility] HospitalIn the event this information is protected by the Federal Confidentiality of Alcohol and Drug Abuse Patient Records regulations: The Federal rules restrict any use of the information to criminally investigate or prosecute any alcohol or drug abuse patient.[facility] HospitalIn the event this information is protected by the Federal Confidentiality of Alcohol and Drug Abuse Patient Records regulations: The Federal rules restrict any use of the information to criminally investigate or prosecute any alcohol or drug abuse patient.[facility] HospitalIn the event this information is protected by the Federal Confidentiality of Alcohol and Drug Abuse Patient Records regulations: The Federal rules restrict any use of the information to criminally investigate or prosecute any alcohol or drug abuse patient.[facility] HospitalIn the event this information is protected by the Federal Confidentiality of Alcohol and Drug Abuse Patient Records regulations: The Federal rules restrict any use of the information to criminally investigate or prosecute any alcohol or drug abuse patient.[facility] HospitalIn the event this information is protected by the Federal Confidentiality of Alcohol and Drug Abuse Patient Records regulations: The Federal rules restrict any use of the information to criminally investigate or prosecute any alcohol or drug abuse patient.[facility] HospitalIn the event this information is protected by the Federal Confidentiality of Alcohol and Drug Abuse Patient Records regulations: The Federal rules restrict any use of the information to criminally investigate or prosecute any alcohol or drug abuse patient.[facility] HospitalIn the event this information is protected by the Federal Confidentiality of Alcohol and Drug Abuse Patient Records regulations: The Federal rules restrict any use of the information to criminally investigate or prosecute any alcohol or drug abuse patient.[facility] HospitalIn the event this information is protected by the Federal Confidentiality of Alcohol and Drug Abuse Patient Records regulations: The Federal rules restrict any use of the information to criminally investigate or prosecute any alcohol or drug abuse patient.[facility] HospitalIn the event this information is protected by the Federal Confidentiality of Alcohol and Drug Abuse Patient Records regulations: The Federal rules restrict any use of the information to criminally investigate or prosecute any alcohol or drug abuse patient.[facility] HospitalIn the event this information is protected by the Federal Confidentiality of Alcohol and Drug Abuse Patient Records regulations: The Federal rules restrict any use of the information to criminally investigate or prosecute any alcohol or drug abuse patient.[facility] HospitalIn the event this information is protected by the Federal Confidentiality of Alcohol and Drug Abuse Patient Records regulations: The Federal rules restrict any use of the information to criminally investigate or prosecute any alcohol or drug abuse patient.[facility] HospitalIn the event this information is protected by the Federal Confidentiality of Alcohol and Drug Abuse Patient Records regulations: The Federal rules restrict any use of the information to criminally investigate or prosecute any alcohol or drug abuse patient.[facility] HospitalIn the event this information is protected by the Federal Confidentiality of Alcohol and Drug Abuse Patient Records regulations: The Federal rules restrict any use of the information to criminally investigate or prosecute any alcohol or drug abuse patient.[facility] HospitalIn the event this information is protected by the Federal Confidentiality of Alcohol and Drug Abuse Patient Records regulations: The Federal rules restrict any use of the information to criminally investigate or prosecute any alcohol or drug abuse patient.[facility] HospitalIn the event this information is protected by the Federal Confidentiality of Alcohol and Drug Abuse Patient Records regulations: The Federal rules restrict any use of the information to criminally investigate or prosecute any alcohol or drug abuse patient.[facility] HospitalIn the event this information is protected by the Federal Confidentiality of Alcohol and Drug Abuse Patient Records regulations: The Federal rules restrict any use of the information to criminally investigate or prosecute any alcohol or drug abuse patient.[facility] HospitalIn the event this information is protected by the Federal Confidentiality of Alcohol and Drug Abuse Patient Records regulations: The Federal rules restrict any use of the information to criminally investigate or prosecute any alcohol or drug abuse patient.[facility] HospitalIn the event this information is protected by the Federal Confidentiality of Alcohol and Drug Abuse Patient Records regulations: The Federal rules restrict any use of the information to criminally investigate or prosecute any alcohol or drug abuse patient.[facility] HospitalIn the event this information is protected by the Federal Confidentiality of Alcohol and Drug Abuse Patient Records regulations: The Federal rules restrict any use of the information to criminally investigate or prosecute any alcohol or drug abuse patient.[facility] HospitalIn the event this information is protected by the Federal Confidentiality of Alcohol and Drug Abuse Patient Records regulations: The Federal rules restrict any use of the information to criminally investigate or prosecute any alcohol or drug abuse patient.[facility] HospitalIn the event this information is protected by the Federal Confidentiality of Alcohol and Drug Abuse Patient Records regulations: The Federal rules restrict any use of the information to criminally investigate or prosecute any alcohol or drug abuse patient.[facility] HospitalIn the event this information is protected by the Federal Confidentiality of Alcohol and Drug Abuse Patient Records regulations: The Federal rules restrict any use of the information to criminally investigate or prosecute any alcohol or drug abuse patient.[facility] HospitalIn the event this information is protected by the Federal Confidentiality of Alcohol and Drug Abuse Patient Records regulations: The Federal rules restrict any use of the information to criminally investigate or prosecute any alcohol or drug abuse patient.[facility] HospitalIn the event this information is protected by the Federal Confidentiality of Alcohol and Drug Abuse Patient Records regulations: The Federal rules restrict any use of the information to criminally investigate or prosecute any alcohol or drug abuse patient.[facility] HospitalIn the event this information is protected by the Federal Confidentiality of Alcohol and Drug Abuse Patient Records regulations: The Federal rules restrict any use of the information to criminally investigate or prosecute any alcohol or drug abuse patient.[facility] HospitalIn the event this information is protected by the Federal Confidentiality of Alcohol and Drug Abuse Patient Records regulations: The Federal rules restrict any use of the information to criminally investigate or prosecute any alcohol or drug abuse patient.[facility] HospitalIn the event this information is protected by the Federal Confidentiality of Alcohol and Drug Abuse Patient Records regulations: The Federal rules restrict any use of the information to criminally investigate or prosecute any alcohol or drug abuse patient.[facility] HospitalIn the event this information is protected by the Federal Confidentiality of Alcohol and Drug Abuse Patient Records regulations: The Federal rules restrict any use of the information to criminally investigate or prosecute any alcohol or drug abuse patient.[facility] HospitalIn the event this information is protected by the Federal Confidentiality of Alcohol and Drug Abuse Patient Records regulations: The Federal rules restrict any use of the information to criminally investigate or prosecute any alcohol or drug abuse patient.[facility] HospitalIn the event this information is protected by the Federal Confidentiality of Alcohol and Drug Abuse Patient Records regulations: The Federal rules restrict any use of the information to criminally investigate or prosecute any alcohol or drug abuse patient.[facility] HospitalIn the event this information is protected by the Federal Confidentiality of Alcohol and Drug Abuse Patient Records regulations: The Federal rules restrict any use of the information to criminally investigate or prosecute any alcohol or drug abuse patient.[facility] HospitalIn the event this information is protected by the Federal Confidentiality of Alcohol and Drug Abuse Patient Records regulations: The Federal rules restrict any use of the information to criminally investigate or prosecute any alcohol or drug abuse patient.[facility] HospitalIn the event this information is protected by the Federal Confidentiality of Alcohol and Drug Abuse Patient Records regulations: The Federal rules restrict any use of the information to criminally investigate or prosecute any alcohol or drug abuse patient.[facility] HospitalIn the event this information is protected by the Federal Confidentiality of Alcohol and Drug Abuse Patient Records regulations: The Federal rules restrict any use of the information to criminally investigate or prosecute any alcohol or drug abuse patient.[facility] HospitalIn the event this information is protected by the Federal Confidentiality of Alcohol and Drug Abuse Patient Records regulations: The Federal rules restrict any use of the information to criminally investigate or prosecute any alcohol or drug abuse patient.[facility] HospitalIn the event this information is protected by the Federal Confidentiality of Alcohol and Drug Abuse Patient Records regulations: The Federal rules restrict any use of the information to criminally investigate or prosecute any alcohol or drug abuse patient.[facility] HospitalIn the event this information is protected by the Federal Confidentiality of Alcohol and Drug Abuse Patient Records regulations: The Federal rules restrict any use of the information to criminally investigate or prosecute any alcohol or drug abuse patient.[facility] HospitalIn the event this information is protected by the Federal Confidentiality of Alcohol and Drug Abuse Patient Records regulations: The Federal rules restrict any use of the information to criminally investigate or prosecute any alcohol or drug abuse patient.[facility] HospitalIn the event this information is protected by the Federal Confidentiality of Alcohol and Drug Abuse Patient Records regulations: The Federal rules restrict any use of the information to criminally investigate or prosecute any alcohol or drug abuse patient.[facility] HospitalIn the event this information is protected by the Federal Confidentiality of Alcohol and Drug Abuse Patient Records regulations: The Federal rules restrict any use of the information to criminally investigate or prosecute any alcohol or drug abuse patient.[facility] HospitalIn the event this information is protected by the Federal Confidentiality of Alcohol and Drug Abuse Patient Records regulations: The Federal rules restrict any use of the information to criminally investigate or prosecute any alcohol or drug abuse patient.[facility] HospitalIn the event this information is protected by the Federal Confidentiality of Alcohol and Drug Abuse Patient Records regulations: The Federal rules restrict any use of the information to criminally investigate or prosecute any alcohol or drug abuse patient.[facility] HospitalIn the event this information is protected by the Federal Confidentiality of Alcohol and Drug Abuse Patient Records regulations: The Federal rules restrict any use of the information to criminally investigate or prosecute any alcohol or drug abuse patient.[facility] HospitalIn the event this information is protected by the Federal Confidentiality of Alcohol and Drug Abuse Patient Records regulations: The Federal rules restrict any use of the information to criminally investigate or prosecute any alcohol or drug abuse patient.[facility] HospitalIn the event this information is protected by the Federal Confidentiality of Alcohol and Drug Abuse Patient Records regulations: The Federal rules restrict any use of the information to criminally investigate or prosecute any alcohol or drug abuse patient.[facility] HospitalIn the event this information is protected by the Federal Confidentiality of Alcohol and Drug Abuse Patient Records regulations: The Federal rules restrict any use of the information to criminally investigate or prosecute any alcohol or drug abuse patient.[facility] HospitalIn the event this information is protected by the Federal Confidentiality of Alcohol and Drug Abuse Patient Records regulations: The Federal rules restrict any use of the information to criminally investigate or prosecute any alcohol or drug abuse patient.[facility] HospitalIn the event this information is protected by the Federal Confidentiality of Alcohol and Drug Abuse Patient Records regulations: The Federal rules restrict any use of the information to criminally investigate or prosecute any alcohol or drug abuse patient.[facility] HospitalIn the event this information is protected by the Federal Confidentiality of Alcohol and Drug Abuse Patient Records regulations: The Federal rules restrict any use of the information to criminally investigate or prosecute any alcohol or drug abuse patient.[facility] HospitalIn the event this information is protected by the Federal Confidentiality of Alcohol and Drug Abuse Patient Records regulations: The Federal rules restrict any use of the information to criminally investigate or prosecute any alcohol or drug abuse patient.[facility] HospitalIn the event this information is protected by the Federal Confidentiality of Alcohol and Drug Abuse Patient Records regulations: The Federal rules restrict any use of the information to criminally investigate or prosecute any alcohol or drug abuse patient.[facility] HospitalIn the event this information is protected by the Federal Confidentiality of Alcohol and Drug Abuse Patient Records regulations: The Federal rules restrict any use of the information to criminally investigate or prosecute any alcohol or drug abuse patient.[facility] HospitalIn the event this information is protected by the Federal Confidentiality of Alcohol and Drug Abuse Patient Records regulations: The Federal rules restrict any use of the information to criminally investigate or prosecute any alcohol or drug abuse patient.[facility] HospitalIn the event this information is protected by the Federal Confidentiality of Alcohol and Drug Abuse Patient Records regulations: The Federal rules restrict any use of the information to criminally investigate or prosecute any alcohol or drug abuse patient.[facility] HospitalIn the event this information is protected by the Federal Confidentiality of Alcohol and Drug Abuse Patient Records regulations: The Federal rules restrict any use of the information to criminally investigate or prosecute any alcohol or drug abuse patient.[facility] HospitalIn the event this information is protected by the Federal Confidentiality of Alcohol and Drug Abuse Patient Records regulations: The Federal rules restrict any use of the information to criminally investigate or prosecute any alcohol or drug abuse patient.[facility] HospitalIn the event this information is protected by the Federal Confidentiality of Alcohol and Drug Abuse Patient Records regulations: The Federal rules restrict any use of the information to criminally investigate or prosecute any alcohol or drug abuse patient.[facility] HospitalIn the event this information is protected by the Federal Confidentiality of Alcohol and Drug Abuse Patient Records regulations: The Federal rules restrict any use of the information to criminally investigate or prosecute any alcohol or drug abuse patient.[facility] HospitalIn the event this information is protected by the Federal Confidentiality of Alcohol and Drug Abuse Patient Records regulations: The Federal rules restrict any use of the information to criminally investigate or prosecute any alcohol or drug abuse patient.[facility] HospitalIn the event this information is protected by the Federal Confidentiality of Alcohol and Drug Abuse Patient Records regulations: The Federal rules restrict any use of the information to criminally investigate or prosecute any alcohol or drug abuse patient.[facility] HospitalIn the event this information is protected by the Federal Confidentiality of Alcohol and Drug Abuse Patient Records regulations: The Federal rules restrict any use of the information to criminally investigate or prosecute any alcohol or drug abuse patient.[facility] HospitalIn the event this information is protected by the Federal Confidentiality of Alcohol and Drug Abuse Patient Records regulations: The Federal rules restrict any use of the information to criminally investigate or prosecute any alcohol or drug abuse patient.[facility] HospitalIn the event this information is protected by the Federal Confidentiality of Alcohol and Drug Abuse Patient Records regulations: The Federal rules restrict any use of the information to criminally investigate or prosecute any alcohol or drug abuse patient.[facility] HospitalIn the event this information is protected by the Federal Confidentiality of Alcohol and Drug Abuse Patient Records regulations: The Federal rules restrict any use of the information to criminally investigate or prosecute any alcohol or drug abuse patient.[facility] HospitalIn the event this information is protected by the Federal Confidentiality of Alcohol and Drug Abuse Patient Records regulations: The Federal rules restrict any use of the information to criminally investigate or prosecute any alcohol or drug abuse patient.[facility] HospitalIn the event this information is protected by the Federal Confidentiality of Alcohol and Drug Abuse Patient Records regulations: The Federal rules restrict any use of the information to criminally investigate or prosecute any alcohol or drug abuse patient.[facility] HospitalIn the event this information is protected by the Federal Confidentiality of Alcohol and Drug Abuse Patient Records regulations: The Federal rules restrict any use of the information to criminally investigate or prosecute any alcohol or drug abuse patient.[facility] Reason for Visit (unrecogniz ed section and content) Reason Comments Radiology US Specialty Diagnoses / Procedures Referred By Contac t Referred To Contact [facility] Diagnoses Abnormal mammogram Procedures US BREAST LTD RIGHT US BREAST UNI REAL TIME WITH IMAGE LIMITED Ann Hughes APRN.[employer] [address] [place] [address] [facility] [address] [place] [address] Referral ID Status Reason Start Date Expiration Date V isits Requested Visits Authorized [id number] Closed Auto-Generate d Referral 10/08/2023 11/06/2024 1 1 Reason Comments Follow Up Specialty Diagnoses / Procedures Referred By Contact Referred To Contact Endocrinology / FAMILY MEDICINE Diagnoses Serum calcium elevated Increased PTH level Procedures CONSULT TO ENDOCRINOLOGY OFFICE/OUTPATIENT NEW HIGH MDM 60-74 MINUTES Deejay Anderson MD [address] [place] [address] [facility] [address] [place] [address] Referral ID Status Reason Start Date Expiration Date V isits Requested Visits Authorized [id number] Closed PCP Requested Referral 02/25/2022 09/05/2022 1 1 Reason Comments Results Reason Comments Results Appointment Reason Comments Refill Request Reason Comments Patient Update Orders Reason Comments Consult Specialty Diagnoses / Procedures Referred By Contac t Referred To Contact Radiology / [facility] Diagnoses Increased PTH level [E34.9] Procedures US SOFT TISSUE HEAD & NECK REAL TIME IMGE DOCM US THYROID Antoine Braswell MD [address] [place] [address] [facility] [address] [place] [address] Referral ID Status Reason Start Date Expiration Date Visits Re quested Visits Authorized [id number] Closed 02/25/2022 09/05/2022 1 1 Reason Comments Medicare Wellness Exam Specialty Diagnoses / Procedures Referred By Contac t Referred To Contact Family Practice / FAMILY MEDICINE Diagnoses Medicare Wellness Procedures 4C EST MD Justin Flowers Jeffrey A, MD [address] [place] [address] Referral ID Status Reason Start Date Expiration Date Visits Re quested Visits Authorized [id number] Closed 03/20/2022 09/05/2022 1 1 Reason Comments Outpatient Colonoscopy Reason Onset Date Comments Refill Request 05/19/2022 Reason Comments Leg Pain Right leg X 1 week Reason Comments Pathology Report colonoscopy Reason Onset Date Comments Refill Request 06/18/2022 Reason Comments preop pacc/ OR MM 08/13/22 Parathyroidect minerva Reason Comments Patient Question Orders Reason Comments Thyroid Nodule Specialty Diagnoses / Procedures Referred By Brent salcedo Referred To Contact Diagnoses Primary hyperparathyroidism (HCC) Multiple thyroid nodules Procedures CONSULT TO ENDOCRINE SURGERY OFFICE/OUTPATIENT [facility] MDM 60-74 MINUTES Antoine Braswell MD [address] [place] [address] Referral ID Status Reason Start Date Expiration Date Visits Requested Visits Authorized [id number] Pending Review PCP Requested Referral 04/28/2022 04/28/2023 1 1 Reason Comments Musculoskeletal Problem Patient states h as burning right groin area Reason Comments Consult Reason Onset Date Comments Refill Request 10/27/2022 Reason Comments Follow Up Reason Onset Date Comments Refill Request 01/13/2023 Reason Comments Patient Update Lab Orders Reason Comments Acute Visit Patient with lower b ack pain and burning when sitting, concerned about UTI Reason Onset Date Comments Refill Request 05/14/2023 Reason Onset Date Comments Refill Request 07/22/2023 Reason Comments Sore Throat Cough, headache x 5 daysAt home Covid test + Reason Onset Date Comments Refill Request 08/26/2023 Reason Comments Orders Reason Comments Mammogram Result Call Back pt was schdul ed Reason Onset Date Comments Refill Request 11/03/2023 Reason Onset Date Comments Refill Request 11/11/2023 Reason Comments Follow Up Established Patient Reason Comments Radiology US Specialty Diagnoses / Procedures Referred By Brent salcedo Referred To Contact [facility] Diagnoses Multiple thyroid nodules Procedures US THYROID/PARATHYROID US SOFT TISSUE HEAD & NECK REAL TIME IMGE DOCM Antoine Braswell MD [address] [place] [address] [place] [id number] Referral ID Status Reason Start Date Expiration Date V isits Requested Visits Authorized [id number] Closed Auto-Generate d Referral 12/07/2023 01/05/2025 1 1 Reason Comments Back Pain Low back pain X 1 we ek Reason Comments Outside ED Reason Comments Results Reason Comments PT Eval Specialty Diagnoses / Procedures Referred By Contac t Referred To Contact [facility] Diagnoses Acute midline low back pain without sciatica Procedures CONSULT TO PHYSICAL THERAPY PHYSICAL THERAPY EVALUATION HIGH COMPLEX 45 MINS Marya Jerome, ARABELLA.[employer]KER [address] [place] [address] [facility] [address] [place] [address] Referral ID Status Reason Start Date Expiration Date Visits Requested Visits Authorized [id number] Authorized Auto-Generat ed Referral 09/06/2023 09/05/2024 99 99 Reason Comments Appointment Reason Comments ED Follow-up Reason Comments Returning Patient's Call Reason Comments Medicare Wellness Exam Reason Comments Results Reason Comments Radiology NM Specialty Diagnoses / Procedures Referred By Contac t Referred To Contact [facility] Diagnoses Elevated alkaline phosphatase level Procedures US ABD RIGHT UPPER QUADRANT US ABDOMINAL REAL TIME W/IMAGE LIMITED Kannan Brantley MD [address] [place] [address] [place] [id number] Referral ID Status Reason Start Date Expiration Date V isits Requested Visits Authorized [id number] Closed Auto-Generate d Referral 04/06/2024 05/06/2025 1 1 Specialty Diagnoses / Procedures Referred By Contac t Referred To Contact [facility] Diagnoses Encounter for screening for other musculoskeletal disorder Procedures MRI PELVIS ORTHO GENERAL WO/W IVCON MRI ANY JT LOWER EXTREM W/O & W/CONTRAST MATRL Kannan Brantley MD [address] [place] [address] [place] [address] Referral ID Status Reason Start Date Expiration Date V isits Requested Visits Authorized [id number] Closed Auto-Generate d Referral 04/20/2024 05/20/2025 1 1 Reason Comments Faxed to Dr. Chinchilla Reason Comments Patient Question Reason Comments Heart Monitor Result Reason Comments results heart monitor Reason Onset Date Comments Refill Request 02/14/2024 Reason Onset Date Comments Refill Request 12/10/2023 Reason Onset Date Comments Refill Request 08/04/2024 Reason Onset Date Comments Refill Request 09/01/2024 Reason Comments 6 Month Exam Reason Onset Date Comments Refill Request 12/18/2024 Reason Comments Orders mammogram Reason Onset Date Comments Refill Request 02/05/2025 Reason Comments Follow Up Established Patient Care Teams (unrecognized sec tion and content) [employer] Consultant Relationship Specialty Start Date End Date Deejay Anderson MD [address] [place] [address] PCP - General Family Practice 01/13/21 [employer] Consultant Relationship Specialty Start Date End Date Deejay Anderson MD [address] [place] [address] PCP - General Family Practice 01/13/21 [employer] Consultant Relationship Specialty Start Date End Date Deejay Anderson MD [address] [place] [address] PCP - General Family Practice 01/13/21 [employer] Consultant Relationship Specialty Start Date End Date Deejay Anderson MD [address] [place] [address] PCP - General Family Practice 01/13/21 [employer] Consultant Relationship Specialty Start Date End Date Deejay Anderson MD [address] [place] [address] PCP - General Family Practice 01/13/21 [employer] Consultant Relationship Specialty Start Date End Date Deejay Anderson MD [address] [place] [address] PCP - General Family Practice 01/13/21 [employer] Consultant Relationship Specialty Start Date End Date Deejay Anderson MD [address] [place] [address] PCP - General Family Practice 01/13/21 [employer] Consultant Relationship Specialty Start Date End Date Deejay Anderson MD [address] [place] [address] PCP - General Family Practice 01/13/21 [employer] Consultant Relationship Specialty Start Date End Date Deejay Anderson MD [facility] [place] [address] PCP - General Family Practice 01/13/21 [employer] Consultant Relationship Specialty Start Date End Date Deejay Anderson MD [facility] [place] [address] PCP - General Family Practice 01/13/21 [employer] Consultant Relationship Specialty Start Date End Date Deejay Anderson MD [address] [place] [address], [place] [address] PCP - General Family Practice 01/13/21 [employer] Consultant Relationship Specialty Start Date End Date Deejay Anderson MD [address] [place] [address] [place] [address] PCP - General Family Practice 01/13/21 [employer] Consultant Relationship Specialty Start Date End Date Deejay Anderson MD [address] [place] [address] [place] [address] PCP - General Family Medicine 01/13/21 [employer] Consultant Relationship Specialty Start Date End Date Deejay Anderson MD [facility] [place] [address] PCP - General Family Medicine 01/13/21 [employer] Consultant Relationship Specialty Start Date End Date Deejay Anderson MD [facility] [place] [address] PCP - General Family Medicine 01/13/21 [employer] Consultant Relationship Specialty Start Date End Date Deejay Anderson MD [address] [place] [address] [place] [address] PCP - General Family Medicine 01/13/21 [employer] Consultant Relationship Specialty Start Date End Date Deejay Anderson MD [address] [place] [address] PCP - General Family Medicine 01/13/21 [employer] Consultant Relationship Specialty Start Date End Date Deejay Anderson MD [address] [place] [address] PCP - General Family Medicine 01/13/21 [employer] Consultant Relationship Specialty Start Date End Date Deejay Anderson MD [facility] [place] [address] PCP - General Family Medicine 01/13/21 [employer] Consultant Relationship Specialty Start Date End Date Deejay Anderson MD [address] [place] [address], [place] [address] PCP - General Family Medicine 01/13/21 [employer] Consultant Relationship Specialty Start Date End Date Deejay Anderson MD [facility] [place] [address] PCP - General Family Medicine 01/13/21 [employer] Consultant Relationship Specialty Start Date End Date Deejay Anderson MD [facility] [place] [address] PCP - General Family Medicine 01/13/21 [employer] Consultant Relationship Specialty Start Date End Date Deejay Anderson MD [facility] [place] [address] PCP - General Family Medicine 01/13/21 [employer] Consultant Relationship Specialty Start Date End Date Deejay Anderson MD [facility] [place] [address] PCP - General Family Medicine 01/13/21 [employer] Consultant Relationship Specialty Start Date End Date Deejay Anderson MD [facility] [place] [address] PCP - General Family Medicine 01/13/21 [employer] Consultant Relationship Specialty Start Date End Date Deejay Anderson MD [address] [place] [address] PCP - General Family Medicine 01/13/21 [employer] Consultant Relationship Specialty Start Date End Date Deejay Anderson MD [address] [place] [address] PCP - General Family Medicine 01/13/21 [employer] Consultant Relationship Specialty Start Date End Date Deejay Anderson MD [address] [place] [address] PCP - General Family Medicine 01/13/21 [employer] Consultant Relationship Specialty Start Date End Date Deejay Anderson MD [address] [place] [address] PCP - General Family Medicine 01/13/21 [employer] Consultant Relationship Specialty Start Date End Date Deejay Anderson MD [address] [place] [address] PCP - General Family Medicine 01/13/21 [employer] Consultant Relationship Specialty Start Date End Date Deejay Anderson MD [address] [place] [address] PCP - General Family Medicine 01/13/21 [employer] Consultant Relationship Specialty Start Date End Date Deejay Anderson MD [address] [place] [address] PCP - General Family Medicine 01/13/21 [employer] Consultant Relationship Specialty Start Date End Date Deejay Anderson MD [address] [place] [address] PCP - General Family Medicine 01/13/21 [employer] Consultant Relationship Specialty Start Date End Date Deejay Anderson MD [address] [place] [address] PCP - General Family Medicine 01/13/21 [employer] Consultant Relationship Specialty Start Date End Date Deejay Anderson MD [address] [place] [address] PCP - General Family Medicine 01/13/21 [employer] Consultant Relationship Specialty Start Date End Date Deejay Anderson MD [address] [place] [address] PCP - General Family Medicine 01/13/21 [employer] Consultant Relationship Specialty Start Date End Date Deejay Anderson MD [address] [place] [address] PCP - General Family Medicine 01/13/21 [employer] Consultant Relationship Specialty Start Date End Date Deejay Anderson MD [address] [place] [address] PCP - General Family Medicine 01/13/21 [employer] Consultant Relationship Specialty Start Date End Date Deejay Anderson MD [address] [place] [address] PCP - General Family Medicine 01/13/21 [employer] Consultant Relationship Specialty Start Date End Date Deejay Anderson MD [address] [place] [address] PCP - General Family Medicine 01/13/21 [employer] Consultant Relationship Specialty Start Date End Date Deejay Anderson MD [address] [place] [address] PCP - General Family Medicine 01/13/21 [employer] Consultant Relationship Specialty Start Date End Date Deejay Anderson MD [address] [place] [address] PCP - General Family Medicine 01/13/21 [employer] Consultant Relationship Specialty Start Date End Date Deejay Anderson MD [address] [place] [address] PCP - General Family Medicine 01/13/21 [employer] Consultant Relationship Specialty Start Date End Date Deejay Anderson MD [address] [place] [address] PCP - General Family Medicine 01/13/21 [employer] Consultant Relationship Specialty Start Date End Date Deejay Anderson MD [address] [place] [address] PCP - General Family Medicine 01/13/21 [employer] Consultant Relationship Specialty Start Date End Date Deejay Anderson MD [address] [place] [address] PCP - General Family Medicine 01/13/21 [employer] Consultant Relationship Specialty Start Date End Date Deejay Anderson MD [address] [place] [address] PCP - General Family Medicine 01/13/21 [employer] Consultant Relationship Specialty Start Date End Date Deejay Anderson MD [address] [place] [address] PCP - General Family Medicine 01/13/21 [employer] Consultant Relationship Specialty Start Date End Date Deejay Anderson MD [address] [place] [address] PCP - General Family Medicine 01/13/21 [employer] Consultant Relationship Specialty Start Date End Date Deejay Anderson MD [address] [place] [address] PCP - General Family Medicine 01/13/21 [employer] Consultant Relationship Specialty Start Date End Date Deejay Anderson MD [address] [place] [address] PCP - General Family Medicine 01/13/21 [employer] Consultant Relationship Specialty Start Date End Date Deejay Anderson MD [address] [place] [address] PCP - General Family Medicine 01/13/21 [employer] Consultant Relationship Specialty Start Date End Date Deejay Anderson MD [address] [place] [address] PCP - General Family Medicine 01/13/21 [employer] Consultant Relationship Specialty Start Date End Date Deejay Anderson MD [address] [place] [address] PCP - General Family Medicine 01/13/21 [employer] Consultant Relationship Specialty Start Date End Date Deejay Anderson MD [address] [place] [address] PCP - General Family Medicine 01/13/21 [employer] Consultant Relationship Specialty Start Date End Date Deejay Anderson MD [address] [place] [address] PCP - General Family Medicine 01/13/21 [employer] Consultant Relationship Specialty Start Date End Date Deejay Anderson MD [address] [place] [address] PCP - General Family Medicine 01/13/21 [employer] Consultant Relationship Specialty Start Date End Date Deejay Anderson MD [address] [place] [address] PCP - General Family Medicine 01/13/21 Marya Jerome APRN.CH[employer]ER [address] [place] [address] [employer] Supervisor Family Medicine 08/12/24 Betty Jennings PA-C [address] [place] [address] [employer] Supervisor Family Medicine 08/12/24 [employer] Consultant Relationship Specialty Start Date End Date Deejay Anderson MD [address] [place] [address] PCP - General Family Medicine 01/13/21 Marya Jerome APRN.CHAMPAG[employer] MAKER [address] [place] [address] [employer] Supervisor Family Medicine 08/12/24 Betty Jennings PA-C [address] [place] [address] [employer] Supervisor Family Medicine 08/12/24 [employer] Consultant Relationship Specialty Start Date End Date Deejay Anderson MD [address] [place] [address] PCP - General Family Medicine 01/13/21 Marya Jerome APRN.CH[employer]AG[employer]KER [address] [place] [address] [employer] Supervisor Family Medicine 08/12/24 Betty Jennings PA-C [address] [place] [address] [employer] Supervisor Family Medicine 08/12/24 [employer] Consultant Relationship Specialty Start Date End Date Deejay Anderson MD [address] [place] [address] PCP - General Family Medicine 01/13/21 Marya Jerome APRN.CHAMPAG[employer] MAKER [address] [place] [address] [employer] Supervisor Family Medicine 08/12/24 Betty Jennings PA-C [address] [place] [address] [employer] Supervisor Family Medicine 08/12/24 [employer] Consultant Relationship Specialty [place] [address] [place] [address] PCP - General Family Medicine 01/13/21 Marya Jerome APRN.CHAMPAG[employer]KER [address] [place] [address] [employer] Supervisor Family Medicine 08/12/24 Betty Jennings PA-C [address] [place] [address] [employer] Supervisor Family Medicine 08/12/24 [employer] Consultant Relationship Specialty Start Date End Date Deejay Anderson MD [address] [place] [address] PCP - General Family Medicine 12/11/24 Marya Jerome APRN.[employer]AG[employer]KER [address] [place] [address] [employer] Supervisor Family Medicine 08/12/24 Betty Jennings PA-C [address] [place] [address] [employer] Supervisor Family Medicine 08/12/24 [employer] Consultant Relationship Specialty Start Date End Date Deejay Anderson MD [address] [place] [address] PCP - General Family Medicine 12/11/24 Marya Jerome APRN.CH[employer]AG[employer]KER [address] [place] [address] [employer] Supervisor Family Medicine 08/12/24 Betty Jennings PA-C [facility] [place] [address] [employer] Supervisor Family Medicine 08/12/24 [employer] Consultant Relationship Specialty Start Date End Date Deejay Anderson MD [address] [place] [address] PCP - General Family Medicine 12/11/24 Marya Jerome APRN.[employer]AG[employer] [facility] [place] [address] [employer] Supervisor Family Medicine 08/12/24 Betty Jennings PA-C [address] [place] [address] [employer] Supervisor Family Medicine 08/12/24 [employer] Consultant Relationship Specialty Start Date End Date Deejay Anderson MD [address] [place] [address] PCP - General Family [facility] 12/11/24 Betty Jennings PA-C [address] [place] [address] [facility] 08/12/24 [employer] Consultant Relationship Specialty Start Date End Date Deejay Anderson MD [address] [place] [address] PCP - General Family Medicine 12/11/24 Marya Jerome APRN.[employer]AG[employer]KER [address] [place] [address] [facility] 02/05/25 Betty Jennings PA-C [address] [place] [address] [facility] 02/05/25 [employer] Consultant Relationship Specialty Start Date End Date Deejay Anderson MD [address] [place] [address] PCP - [facility] Family [facility] 12/11/24 Marya Jerome APRN.[employer]KER [address] [place] [address] [facility] 02/05/25 Betty Jennings PA-C [facility] [place] [address] [facility] 02/05/25 FOR RECORDS PERTAINING TO PATIENTS WHO ARE OR HAVE BEEN ENROLLED IN A CHEMICAL DEPENDENCY/SUBSTANCEABUSE PROGRAM, SOME INFORMATION MAY BE OMITTED. This clinical summary was aggregated from multiple sources. Caution should be exercised in using it in the provision of clinical care. This summary normalizes information from multiple sources, and as a consequence, information in this document may materially change the coding, format and clinical context of patient data. In addition, data may be omitted in some cases. CLINICAL DECISIONS SHOULD BE BASED ON THE PRIMARY CLINICAL RECORDS. [facility] [employer] [facility]. provides no warranty or guarantee of the accuracy or completeness of information in this document.
[2025-03-24 14:22] VITALS: BP 138/62; PULSE 63; RESP 16; TEMP 36.6; O2SAT 100
== END 2025-03-24 14:23 | disposition home or self-care (01) ==
PROVIDERS: Emergency Provider Emergency Medicine; PCP Family Medicine; Referring Provider Emergency Medicine; Visit Provider Emergency Medicine
DX: M16.0 Bilateral primary osteoarthritis of hip (principal); Z96.653 Presence of artificial knee joint, bilateral; E78.00 Pure hypercholesterolemia, unspecified; I12.9 Hypertensive chronic kidney disease with stage 1 through stage 4 chronic kidney disease, or unspecified chronic kidney disease; N18.9 Chronic kidney disease, unspecified; Z79.899 Other long term (current) drug therapy; Z87.891 Personal history of nicotine dependence
CPT/HCPCS: 73502; 96372; 99282